=== PATIENT | male | born 1960 | race Caucasian/White ===

== ENCOUNTER 2020-09-07 01:33 | Inpatient (IN) | payer OTHER, SELFPAY ==
[2020-09-07] VITALS (25 sets, daily range): BP systolic 115–146; BP diastolic 60–97; PULSE 120–138; RESP 15–36; TEMP 36.4–39.4; O2SAT 88–99; BMI 51.6
--- NOTE | 2020-09-07 | ECG_ITS ---
Test Reason : CHEST PAIN Blood Pressure : / mmHG Vent. Rate : 129 BPM Atrial Rate : 129 BPM P-R Int : 098 ms QRS Dur : 178 ms QT Int : 346 ms P-R-T Axes : 087 -87 -26 degrees QTc Int : 506 ms Sinus tachycardia Right bundle branch block Abnormal ECG No significant changes when compared with the previous EKG of 07 sep 2020 Referred By: Hamzah Lennon Electronically Signed By:KUMAR RICK
--- NOTE | 2020-09-07 01:41 | ED.SOB ---
HPI - SOB/Dyspnea General Chief Complaint: Dyspnea Stated Complaint: SOB Time Seen by Provider: 09/07/20 01:41 Source: patient Mode of arrival: ambulatory Limitations: no limitations History of Present Illness HPI Narrative: Patient diabetic with history of CHF no known lung condition had family get together during [place] time and since then been complaining of low-grade fever shortness of breath weakness which got worse in last 2 days dry cough+ patient was saturating 89% at room air patient is saturating 99% on 4 L of oxygen via nasal cannula other family members also have mild symptoms MD elicited complaint: shortness of breath and cough (Dry) Severity: moderate Exacerbating factors: coughing Relieving factors: nothing Related Data Home Medications Medication Instructions Recorded Confirmed amlodipine 1 tab PO DAILY 09/07/20 09/07/20 atorvastatin 1 tab PO DAILY 09/07/20 09/07/20 carvedilol 1 tab PO BID 09/07/20 09/07/20 empagliflozin [Jardiance] 1 tab PO DAILY 09/07/20 09/07/20 hydralazine 1 tab PO TID 09/07/20 09/07/20 insulin glargine [Basaglradha Merchant See Protocol SUBCUT DIRECTED 09/07/20 09/07/20 U-100 Insulin] isosorbide mononitrate 1 tab PO QAM 09/07/20 09/07/20 metolazone See Rx Instructions .ROUTE .COMPLEX 09/07/20 09/07/20 pen needle, diabetic [BD 09/07/20 09/07/20 Ultra-Fine Short Pen Needle] torsemide 1 tab PO DAILY 09/07/20 09/07/20 tramadol 2 tab PO Q6H PRN 09/07/20 09/07/20 Allergies Allergy/AdvReac Type Severity Reaction Status Date / Time Penicillins [PENICILLINS] Allergy Severe HIVES Verified 09/07/20 01:59 Review of Systems Review of Systems: Constitutional : No Weight loss, ++ Fever, No Chills ENT/Mouth : No sore throat, No Rhinorrhea Eyes: No Eye Pain, No Swelling Cardiovascular : No Chest Pain, no palpitations Respiratory :+++ Cough, No Sputum, +++ shortness of breath Gastrointestinal : no Nausea, No Vomiting, No Diarrhea, No abdominal Pain, no black stools Genitourinary : No Dysuria, No Urinary Frequency Musculoskeletal : No joint pain, No Myalgias, No Joint Swelling Skin : No Skin Lesions, No rash Neuro : No Weakness, No Numbness, No Dizziness, No Headache Psych : No Anxiety/Panic, No Depression Heme/Lymph: No Bruising, No Lymphadenopathy Endocrine : No Polyuria, No Polydipsia All other systems reviewed and are negative PMFSH Past Medical History Medical History CHF (congestive heart failure) CKD (chronic kidney disease) stage 3, GFR 30-59 ml/min HTN (hypertension) Obesity Surgical History History of knee surgery Social History Social History Advance Directives: No Advance Directives Information Provided: No Physical Exam Vital Signs: Vital Signs: Last Vital Signs Temp 99.6 F 09/07/20 06:00 Pulse 129 H 09/07/20 06:00 Resp 18 09/07/20 06:00 BP 143/71 H 09/07/20 06:00 Pulse Ox 96 09/07/20 06:00 Body Mass Index 51.6 VITAL SIGNS: Reviewed. GENERAL: Well developed, well nourished, in moderate distress. HEAD: Normocephalic/atraumatic, EYES: PERRLA No pallor/icterus noted OROPHARYNX: Oral mucosa moist no oral lesions NECK: Supple, no adenopathy LUNGS: Prolonged expiration with dry cough. No adventitious sounds, tachypneic using accessory muscle use CARDIOVASCULAR: Tachycardia without noted murmurs, no JVD, nonpitting lower extremity edema. ABDOMEN: Soft, non-tender, non-distended with normal bowel sounds. No rigidity. No guarding. No palpable masses or hernias noted MUSCULOSKELETAL: No tenderness, deformities, EXTREMITIES: No cyanosis or edema. SKIN: no rashes, ulcerations, jaundice, pallor, or petechiae NEUROLOGIC: Alert and oriented x 3. Strength and sensation to light touch were grossly intact normal speech Course Course Course Narrative: Patient symptoms looks like COVID chest x-ray diffuse infiltrate saturating 89% at room air improved to 91% on 4 L still tachypneic will place him on high-flow. Also given Decadron IV. Spoke to the vacuum conditioner operator for now admitted to isolation on high-flow and monitor him closely MDM - SOB/Dyspnea MDM Narrative Medical decision making narrative: Patient with COVID positive chest x-ray with diffuse infiltrate came with hypoxia and tachypnea improved after patient placed on high-flow oxygen feeling much much better now at this time patient is on 35 L flow at 40% saturating 97% lab also showed hyperkalemia and worsening renal functions likely prerenal will give him IV fluids and replace potassium Medical Records Attestation: I reviewed the patient's medical records. Lab Data Attestation: I reviewed the patient's lab results. Result diagrams: 09/07/20 02:25 09/07/20 03:45 Labs: Lab Results 09/07/20 09/07/20 09/07/20 Range/Units 02:25 02:25 02:25 WBC 6.2 (4.8-10.8) X10*3/uL RBC 4.23 L (4.60-5.80) X10*6/uL Hgb 12.1 L (14.0-18.0) g/dl Hct 38.1 L (42-52) % MCV 90.1 (80-98) fL MCH 28.6 (27.0-33.0) pg MCHC 31.8 (31.0-36.0) g/dl RDW 16.1 H (11.0-16.0) % Plt Count 137 L (160-400) X10*3/uL MPV 11.3 (9.4-12.4) fL Immature Gran % (Auto) 0.6 H (0.0-0.4) % Neut % (Auto) 87.2 H (45-73) % Lymph % (Auto) 6.9 L (20-40) % [place] % (Auto) 4.6 (2-11) % Eos % (Auto) 0.5 (0-4) % Baso % (Auto) 0.2 (0-2) % Lymph # (Auto) 0.4 L (1.2-4.9) X10*3/uL [place] # (Auto) 0.3 (0.1-1.2) X10*3/uL Eos # (Auto) 0.0 (0.0-0.4) X10*3/uL Baso # (Auto) 0.0 (0.0-0.2) X10*3/uL Abs Immat Gran (auto) 0.04 H (0.00-0.03) X10*3/uL Absolute Neuts (auto) 5.4 (2.0-8.3) X10*3/uL Absolute Nucleated RBC 0.000 (0.0-0.012) X10*3/uL Nucleated RBC % (auto) 0.0 (0.0-0.2) /100WBC Smear Tech's Comments VERIFIED PT 13.3 H (10.8-13.0) SEC INR 1.1 (0.9-1.1) APTT 29.5 (24.1-38.0) SEC D-Dimer Cancelled VBG pH (7.32-7.43) VBG pCO2 mmhg VBG pO2 mmhg VBG HCO3 mmol/L VBG O2 Saturation % VBG Base Excess mmol/L Sodium Cancelled Potassium Cancelled Chloride Cancelled Carbon Dioxide Cancelled Anion Gap Cancelled BUN Cancelled Creatinine Cancelled Estim Creat Clear Calc Cancelled Estimated GFR Cancelled Random Glucose Cancelled Lactic Acid (0.5-2.0) mmol/L Calcium Cancelled Ferritin Cancelled Total Bilirubin Direct Bilirubin AST ALT Alkaline Phosphatase Lactate Dehydrogenase Cancelled Troponin I High Sens (<3.5-35.0) ng/L B-Natriuretic Peptide (<100) pg/mL Total Protein Albumin Coronavirus (PCR) (Negative) Influenza Type A (PCR) (Negative) Influenza Type B (PCR) (Negative) RSV RNA Qual (PCR) (Negative) 09/07/20 09/07/20 09/07/20 Range/Units 02:25 02:25 02:25 WBC (4.8-10.8) X10*3/uL RBC (4.60-5.80) X10*6/uL Hgb (14.0-18.0) g/dl Hct (42-52) % MCV (80-98) fL MCH (27.0-33.0) pg MCHC (31.0-36.0) g/dl RDW (11.0-16.0) % Plt Count (160-400) X10*3/uL MPV (9.4-12.4) fL Immature Gran % (Auto) (0.0-0.4) % Neut % (Auto) (45-73) % Lymph % (Auto) (20-40) % [place] % (Auto) (2-11) % Eos % (Auto) (0-4) % Baso % (Auto) (0-2) % Lymph # (Auto) (1.2-4.9) X10*3/uL [place] # (Auto) (0.1-1.2) X10*3/uL Eos # (Auto) (0.0-0.4) X10*3/uL Baso # (Auto) (0.0-0.2) X10*3/uL Abs Immat Gran (auto) (0.00-0.03) X10*3/uL Absolute Neuts (auto) (2.0-8.3) X10*3/uL Absolute Nucleated RBC (0.0-0.012) X10*3/uL Nucleated RBC % (auto) (0.0-0.2) /100WBC Smear Tech's Comments PT (10.8-13.0) SEC INR (0.9-1.1) APTT (24.1-38.0) SEC D-Dimer VBG pH (7.32-7.43) VBG pCO2 mmhg VBG pO2 mmhg VBG HCO3 mmol/L VBG O2 Saturation % VBG Base Excess mmol/L Sodium Potassium Chloride Carbon Dioxide Anion Gap BUN Creatinine Estim Creat Clear Calc Estimated GFR Random Glucose Lactic Acid (0.5-2.0) mmol/L Calcium Ferritin Total Bilirubin Cancelled Direct Bilirubin Cancelled AST Cancelled ALT Cancelled Alkaline Phosphatase Cancelled Lactate Dehydrogenase Troponin I High Sens 222.4 H (<3.5-35.0) ng/L B-Natriuretic Peptide 229 H (<100) pg/mL Total Protein Cancelled Albumin Cancelled Coronavirus (PCR) POSITIVE A (Negative) Influenza Type A (PCR) NEGATIVE (Negative) Influenza Type B (PCR) NEGATIVE (Negative) RSV RNA Qual (PCR) NEGATIVE (Negative) 09/07/20 09/07/20 09/07/20 Range/Units 02:25 02:52 03:45 WBC (4.8-10.8) X10*3/uL RBC (4.60-5.80) X10*6/uL Hgb (14.0-18.0) g/dl Hct (42-52) % MCV (80-98) fL MCH (27.0-33.0) pg MCHC (31.0-36.0) g/dl RDW (11.0-16.0) % Plt Count (160-400) X10*3/uL MPV (9.4-12.4) fL Immature Gran % (Auto) (0.0-0.4) % Neut % (Auto) (45-73) % Lymph % (Auto) (20-40) % [place] % (Auto) (2-11) % Eos % (Auto) (0-4) % Baso % (Auto) (0-2) % Lymph # (Auto) (1.2-4.9) X10*3/uL [place] # (Auto) (0.1-1.2) X10*3/uL Eos # (Auto) (0.0-0.4) X10*3/uL Baso # (Auto) (0.0-0.2) X10*3/uL Abs Immat Gran (auto) (0.00-0.03) X10*3/uL Absolute Neuts (auto) (2.0-8.3) X10*3/uL Absolute Nucleated RBC (0.0-0.012) X10*3/uL Nucleated RBC % (auto) (0.0-0.2) /100WBC Smear Tech's Comments PT (10.8-13.0) SEC INR (0.9-1.1) APTT (24.1-38.0) SEC D-Dimer VBG pH 7.39 (7.32-7.43) VBG pCO2 51 mmhg VBG pO2 32 mmhg VBG HCO3 30 mmol/L VBG O2 Saturation 58.7 % VBG Base Excess 3.9 mmol/L Sodium 142 Potassium 2.7 L Chloride 101 Carbon Dioxide 29 Anion Gap 15 BUN 60 H Creatinine 4.10 H* Estim Creat Clear Calc 33.0 Estimated GFR 15 Random Glucose 201 H Lactic Acid 1.3 (0.5-2.0) mmol/L Calcium 8.0 L Ferritin 155 Total Bilirubin 0.3 Direct Bilirubin 0.2 AST 28 ALT 18 Alkaline Phosphatase 138 H Lactate Dehydrogenase Troponin I High Sens (<3.5-35.0) ng/L B-Natriuretic Peptide (<100) pg/mL Total Protein 7.3 Albumin 3.6 Coronavirus (PCR) (Negative) Influenza Type A (PCR) (Negative) Influenza Type B (PCR) (Negative) RSV RNA Qual (PCR) (Negative) 09/07/20 09/07/20 Range/Units 03:45 03:45 WBC (4.8-10.8) X10*3/uL RBC (4.60-5.80) X10*6/uL Hgb (14.0-18.0) g/dl Hct (42-52) % MCV (80-98) fL MCH (27.0-33.0) pg MCHC (31.0-36.0) g/dl RDW (11.0-16.0) % Plt Count (160-400) X10*3/uL MPV (9.4-12.4) fL Immature Gran % (Auto) (0.0-0.4) % Neut % (Auto) (45-73) % Lymph % (Auto) (20-40) % [place] % (Auto) (2-11) % Eos % (Auto) (0-4) % Baso % (Auto) (0-2) % Lymph # (Auto) (1.2-4.9) X10*3/uL [place] # (Auto) (0.1-1.2) X10*3/uL Eos # (Auto) (0.0-0.4) X10*3/uL Baso # (Auto) (0.0-0.2) X10*3/uL Abs Immat Gran (auto) (0.00-0.03) X10*3/uL Absolute Neuts (auto) (2.0-8.3) X10*3/uL Absolute Nucleated RBC (0.0-0.012) X10*3/uL Nucleated RBC % (auto) (0.0-0.2) /100WBC Smear Tech's Comments PT (10.8-13.0) SEC INR (0.9-1.1) APTT (24.1-38.0) SEC D-Dimer 589 VBG pH (7.32-7.43) VBG pCO2 mmhg VBG pO2 mmhg VBG HCO3 mmol/L VBG O2 Saturation % VBG Base Excess mmol/L Sodium Potassium Chloride Carbon Dioxide Anion Gap BUN Creatinine Estim Creat Clear Calc Estimated GFR Random Glucose Lactic Acid (0.5-2.0) mmol/L Calcium Ferritin Total Bilirubin Direct Bilirubin AST ALT Alkaline Phosphatase Lactate Dehydrogenase 255 Troponin I High Sens (<3.5-35.0) ng/L B-Natriuretic Peptide (<100) pg/mL Total Protein Albumin Coronavirus (PCR) (Negative) Influenza Type A (PCR) (Negative) Influenza Type B (PCR) (Negative) RSV RNA Qual (PCR) (Negative) ECG Data Attestation: I personally reviewed and interpreted this ECG as follows: Interpretation: Sinus tachycardia ventricular rate 137 beats per minute right bundle branch block no acute ST T wave changes impression no acute ischemia RBBB (old) Discharge Plan Discharge Clinical Impression: COVID-19, Hypoxia, Acute hyperkalemia Acute renal failure Qualifiers: Acute renal failure type: unspecified Qualified Code(s): N17.9 - Acute kidney failure, unspecified Patient Disposition: Admitted As Inpatient
--- NOTE | 2020-09-07 01:53 | XR_ITS ---
EXAMINATION: XR CHEST CLINICAL INFORMATION: Shortness of breath COMPARISON: 09/24/2019 TECHNIQUE: Frontal view of the chest was obtained. FINDINGS: Cardiac leads overlie the chest. The lungs are well expanded. Patchy bilateral airspace opacities. No significant pleural effusion. No pneumothorax. The cardiomediastinal silhouette remains prominent, with a calcified aorta. XR/XR chest 1V IMPRESSION: Nonspecific bilateral patchy opacities. This could be infectious or inflammatory. Edema is possible. Viral pneumonia possible.
[2020-09-07] MEDS: Albuterol Sulfate 90 MCG 8 GM INHALER 4 PUFF INHALE (02:27)
[2020-09-07] MEDS: guaiFEN/Codeine SF 200/20/10ML 10 ML LIQUID PO (02:42)
--- NOTE | 2020-09-07 02:44 | ECG_ITS ---
Test Reason : TACHY Blood Pressure : / mmHG Vent. Rate : 137 BPM Atrial Rate : 137 BPM P-R Int : 094 ms QRS Dur : 162 ms QT Int : 310 ms P-R-T Axes : 099 233 -22 degrees QTc Int : 468 ms Sinus tachycardia Right bundle branch block Abnormal ECG When compared with ECG of 24-SEP-2019 17:08, Vent. rate has increased BY 78 BPM Referred By: Khanh Hilton Electronically Signed By:KUMAR RICK
[2020-09-07 02:49] LABS: Basophils Percent Auto 0.2 % (0-2); Eosinophils Percent Auto 0.5 % (0-4); Hematocrit 38.1 % (42-52); Hemoglobin 12.1 g/dl (14.0-18.0); Imm Gran Abs Auto 0.04 X10*3/uL (0.00-0.03); Imm Gran Pct Auto 0.6 % (0.0-0.4); Lymphocytes Absolute Auto 0.4 X10*3/uL (1.2-4.9); Lymphocytes Percent Auto 6.9 % (20-40); Mean Corpuscular HGB Conc 31.8 g/dl (31.0-36.0); Mean Corpuscular Hemoglobin 28.6 pg (27.0-33.0); Mean Corpuscular Volume 90.1 fL (80-98); Mean Platelet Volume 11.3 fL (9.4-12.4); Monocytes Absolute Auto 0.3 X10*3/uL (0.1-1.2); Monocytes Percent Auto 4.6 % (2-11); Neutrophils Absolute Auto 5.4 X10*3/uL (2.0-8.3); Neutrophils Percent Auto 87.2 % (45-73); Platelet Count 137 X10*3/uL (160-400); Red Blood Count 4.23 X10*6/uL (4.60-5.80); Red Cell Distribution Width 16.1 % (11.0-16.0); SCAN SMEAR FLAG 1; White Blood Count 6.2 X10*3/uL (4.8-10.8)
[2020-09-07] MEDS: Acetaminophen 325 MG TABLET 650 MG PO ×3 (03:01→19:42)
--- NOTE | 2020-09-07 03:04 | PC.NURSE ---
pt assisted to bathroom in [place] while remaining on 4 lpm 02. pt had a bowel movement. pt has frequent cough, reports that his level of dyspnea is reduced after receiving oxygen pt able to speak in full sentences. spo2 ranges frpm 91-93% on 4 lpm. pt reports anterior and bilateral chest wall pain when coughing. pt reports he takes tramadol at home for knee pain. pt also reports that he is a recovering addict, past opiate use.
[2020-09-07 03:09] LABS: MANUAL DIFF FLAG SCAN
[2020-09-07 03:10] LABS: SLIDE REVIEW VERIFIED
[2020-09-07 03:11] LABS: Lactic Acid 1.3 mmol/L (0.5-2.0)
[2020-09-07 03:25] LABS: Base Excess VBG 3.9 mmol/L; HCO3 VBG 30 mmol/L; Oxygen Saturation VBG 58.7 %; PCO2 VBG 51 mmhg; PO2 VBG 32 mmhg; pH VBG 7.39 (7.32-7.43)
[2020-09-07 03:27] LABS: INTERNATIONAL NORM RATIO 1.1 (0.9-1.1); Prothrombin Time 13.3 SEC (10.8-13.0)
[2020-09-07 03:29] LABS: B Type Natriuretic Peptide 229 pg/mL (<100); Troponin-I High Sensitivity 222.4 ng/L (<3.5-35.0)
[2020-09-07 03:30] LABS: Partial Thromboplastin Time 29.5 SEC (24.1-38.0)
[2020-09-07 03:31] LABS: Influenza A PCR NEGATIVE (Negative); Influenza B PCR NEGATIVE (Negative); Resp Syncy Virus RNA Qual PCR NEGATIVE (Negative)
[2020-09-07 03:38] LABS: SARS COV2 PCR INHOUSE POSITIVE (Negative)
--- NOTE | 2020-09-07 03:48 | PC.NURSE ---
PT MOVED TO NEGATIVE PRESSURE ROOM, ONCE AVAILABLE. PT PLACED ON HIGH FLOW NC AT 40% O2 AND 35 L, PER RT. PT FELT IMMEDIATE RELIEF. PT ON THE PHONE WITH FAMILY.
--- NOTE | 2020-09-07 03:53 | PC.NURSE ---
PT IN SINUS TACHYCARDIA WITH WIDE QRS DUE TO RBBB.
[2020-09-07 04:09] LABS: D Dimer 589 NG/ML
[2020-09-07 04:19] LABS: Lactate Dehydrogenase 255 U/L (118-273)
[2020-09-07 04:26] LABS: Alanine Aminotransferase 18 U/L (0-40); Albumin Level 3.6 g/dL (3.5-5.0); Alkaline Phosphatase 138 U/L (39-117); Anion Gap 15 (12-20); Aspartate Amino Transferase 28 U/L (5-37); Bilirubin Direct 0.2 mg/dL (0.0-0.5); Bilirubin Total 0.3 mg/dL (0.0-1.0); Blood Urea Nitrogen 60 mg/dL (9-16); Carbon Dioxide 29 mmol/L (22-29); Chloride 101 mmol/L (96-108); Estimated Glomerular Filt Rate 15; Glucose Random 201 mg/dL (60-115); Potassium 2.7 mmol/l (3.3-5.1); Sodium 142 mmol/L (135-145); Total Protein 7.3 g/dL (6.5-8.0)
[2020-09-07 04:42] LABS: Ferritin 155 ng/mL (20-250)
[2020-09-07] MEDS: 0.9 % Sodium Chloride 1,000 ML 999 ML IVCONT (05:14)
[2020-09-07] MEDS: Potassium Chloride/H20 10 MEQ/100 ML PIGGYBACK 100 MEQ IV (05:15)
[2020-09-07] MEDS: ondansetron HCL 4 MG/2 ML VIAL IVPUSH (06:01)
[2020-09-07] MEDS: Morphine Sulfate 4 MG/ML CARTRIDGE IVPUSH ×2 (06:01→20:35)
--- NOTE | 2020-09-07 06:39 | P.HPHOSP_ITS ---
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 Patient reports that he has been having shortness of breath and cough that has been progressively worsening for the past 1 month worsened in the past 7 days. He usually stays home but has his kids that are in and out of the house. His daughters [id number] was recently diagnosed with COVID and his kids including his son and daughter have symptoms but have not really been tested before. Patient reports that he felt feverish today and his cough became so severe as well as his shortness of breath that he had to come to the hospital. He has a history of CHF but did not feel like he was in volume overload. He has a headache from all the coughing, has abdominal pain from all the coughing. He denies having any loss of appetite, no loss of smell or taste, no chest pain, no urinary symptoms and no lower extremity edema. On arrival to the ED patient was found to be hypoxic satting 89% on room air. Currently on satting 92%, vitals are otherwise significant for temp of 100.5, heart rate of 138, respiratory rate of 36, blood pressure of 140/80. Labs are significant for WBC count of 6.2, hemoglobin of 12.1, hematocrit 38.1, sodium of 142, potassium of 2.7 BUN of 60, creatinine of 4.1 ( baseline around 2.4), high sensitivity troponin of 222, BNP of 229, COVID-19 positive Chest x-ray shows nonspecific bilateral patchy opacities. Past medical history:CHF, CKD,, hypertension, obesity, diabetes Past surgical history: Denies Family history: Denies social history: Lives with family, denies any tobacco alcohol or illicit drugs at this time Review of Systems Review of Systems: Yes all other systems are reviewed and are negative [facility] Medical History CHF (congestive heart failure) CKD (chronic kidney disease) stage 3, GFR 30-59 ml/min HTN (hypertension) Obesity Surgical History History of knee surgery Social History Advance Directives: No Advance Directives Information Provided: No Meds Allergies Allergy/AdvReac Type Severity Reaction Status Date / Time Penicillins [PENICILLINS] Allergy Severe HIVES Verified 09/07/20 01:59 Home Medications Medication Instructions Recorded Confirmed Type amlodipine 1 tab PO DAILY 09/07/20 09/07/20 History atorvastatin 1 tab PO DAILY 09/07/20 09/07/20 History carvedilol 1 tab PO BID 09/07/20 09/07/20 History empagliflozin [Jardiance] 1 tab PO DAILY 09/07/20 09/07/20 History hydralazine 1 tab PO TID 09/07/20 09/07/20 History insulin glargine [Basaglar KwikPen See Protocol SUBCUT DIRECTED 09/07/20 09/07/20 History U-100 Insulin] isosorbide mononitrate 1 tab PO QAM 09/07/20 09/07/20 History metolazone See Rx Instructions .ROUTE .COMPLEX 09/07/20 09/07/20 History pen needle, diabetic [BD 09/07/20 09/07/20 History Ultra-Fine Short Pen Needle] torsemide 1 tab PO DAILY 09/07/20 09/07/20 History tramadol 2 tab PO Q6H PRN 09/07/20 09/07/20 History Physical Exam Vital Signs and Narrative: Vital Signs: Last Vital Signs Temp 99.6 F 09/07/20 06:00 Pulse 129 H 09/07/20 06:00 Resp 18 09/07/20 06:00 BP 143/71 H 09/07/20 06:00 Pulse Ox 96 09/07/20 06:00 Body Mass Index 51.6 Const: General: cooperative and no acute distress Orientation/consciousness: patient oriented x3 Eyes: General: appearance normal, both eyes and all related structures Resp: Other: Patient sitting upright in bed, has difficulty breathing when talking, tachypneic Cardio: Other: Tachycardic Rhythm: regular rhythm GI: Palpation (GI): Soft to palpation Auscultation: normal bowel sounds Skin: General skin exam: no rashes or lesions noted Neuro: General: patient oriented x3 Cognition (Neuro): normal cognition Extrem: General: Yes normal to inspection and Yes no pedal edema Results Labs CBC and Chem 7: 09/07/20 02:25 09/07/20 03:45 Labs: Laboratory Results - last 24 hr 09/07/20 09/07/20 09/07/20 02:25 02:25 02:25 MCV 90.1 MCH 28.6 MCHC 31.8 RDW 16.1 H Plt Count 137 L MPV 11.3 Immature Gran % (Auto) 0.6 H Neut % (Auto) 87.2 H Lymph % (Auto) 6.9 L [place] % (Auto) 4.6 Eos % (Auto) 0.5 Baso % (Auto) 0.2 Lymph # (Auto) 0.4 L [place] # (Auto) 0.3 Eos # (Auto) 0.0 Baso # (Auto) 0.0 Abs Immat Gran (auto) 0.04 H Absolute Neuts (auto) 5.4 Absolute Nucleated RBC 0.000 Nucleated RBC % (auto) 0.0 Smear Tech's Comments VERIFIED PT 13.3 H INR 1.1 APTT 29.5 D-Dimer Cancelled VBG pH VBG pCO2 VBG pO2 VBG HCO3 VBG O2 Saturation VBG Base Excess Anion Gap Cancelled Estim Creat Clear Calc Cancelled Estimated GFR Cancelled Random Glucose Cancelled Lactic Acid Calcium Cancelled Ferritin Cancelled Total Bilirubin Direct Bilirubin AST ALT Alkaline Phosphatase Lactate Dehydrogenase Cancelled Troponin I High Sens B-Natriuretic Peptide Total Protein Albumin Coronavirus (PCR) Influenza Type A (PCR) Influenza Type B (PCR) RSV RNA Qual (PCR) 09/07/20 09/07/20 09/07/20 02:25 02:25 02:25 MCV MCH MCHC RDW Plt Count MPV Immature Gran % (Auto) Neut % (Auto) Lymph % (Auto) [place] % (Auto) Eos % (Auto) Baso % (Auto) Lymph # (Auto) [place] # (Auto) Eos # (Auto) Baso # (Auto) Abs Immat Gran (auto) Absolute Neuts (auto) Absolute Nucleated RBC Nucleated RBC % (auto) Smear Tech's Comments PT INR APTT D-Dimer VBG pH VBG pCO2 VBG pO2 VBG HCO3 VBG O2 Saturation VBG Base Excess Anion Gap Estim Creat Clear Calc Estimated GFR Random Glucose Lactic Acid Calcium Ferritin Total Bilirubin Cancelled Direct Bilirubin Cancelled AST Cancelled ALT Cancelled Alkaline Phosphatase Cancelled Lactate Dehydrogenase Troponin I High Sens 222.4 H B-Natriuretic Peptide 229 H Total Protein Cancelled Albumin Cancelled Coronavirus (PCR) POSITIVE A Influenza Type A (PCR) NEGATIVE Influenza Type B (PCR) NEGATIVE RSV RNA Qual (PCR) NEGATIVE 09/07/20 09/07/20 09/07/20 02:25 02:52 03:45 MCV MCH MCHC RDW Plt Count MPV Immature Gran % (Auto) Neut % (Auto) Lymph % (Auto) [place] % (Auto) Eos % (Auto) Baso % (Auto) Lymph # (Auto) [place] # (Auto) Eos # (Auto) Baso # (Auto) Abs Immat Gran (auto) Absolute Neuts (auto) Absolute Nucleated RBC Nucleated RBC % (auto) Smear Tech's Comments PT INR APTT D-Dimer VBG pH 7.39 VBG pCO2 51 VBG pO2 32 VBG HCO3 30 VBG O2 Saturation 58.7 VBG Base Excess 3.9 Anion Gap 15 Estim Creat Clear Calc 33.0 Estimated GFR 15 Random Glucose 201 H Lactic Acid 1.3 Calcium 8.0 L Ferritin 155 Total Bilirubin 0.3 Direct Bilirubin 0.2 AST 28 ALT 18 Alkaline Phosphatase 138 H Lactate Dehydrogenase Troponin I High Sens B-Natriuretic Peptide Total Protein 7.3 Albumin 3.6 Coronavirus (PCR) Influenza Type A (PCR) Influenza Type B (PCR) RSV RNA Qual (PCR) 09/07/20 09/07/20 03:45 03:45 MCV MCH MCHC RDW Plt Count MPV Immature Gran % (Auto) Neut % (Auto) Lymph % (Auto) [place] % (Auto) Eos % (Auto) Baso % (Auto) Lymph # (Auto) [place] # (Auto) Eos # (Auto) Baso # (Auto) Abs Immat Gran (auto) Absolute Neuts (auto) Absolute Nucleated RBC Nucleated RBC % (auto) Smear Tech's Comments PT INR APTT D-Dimer 589 VBG pH VBG pCO2 VBG pO2 VBG HCO3 VBG O2 Saturation VBG Base Excess Anion Gap Estim Creat Clear Calc Estimated GFR Random Glucose Lactic Acid Calcium Ferritin Total Bilirubin Direct Bilirubin AST ALT Alkaline Phosphatase Lactate Dehydrogenase 255 Troponin I High Sens B-Natriuretic Peptide Total Protein Albumin Coronavirus (PCR) Influenza Type A (PCR) Influenza Type B (PCR) RSV RNA Qual (PCR) Imaging Radiologist's Impressions: Impressions Chest X-Ray 09/07/20 01:53 IMPRESSION: Nonspecific bilateral patchy opacities. This could be infectious or inflammatory. Edema is possible. Viral pneumonia possible. Assessment and Plan (1) Pneumonia due to COVID-19 virus: Status: Acute (2) Sepsis: Status: Acute (3) Acute respiratory failure with hypoxia: Status: Acute (4) Acute kidney injury superimposed on CKD: Status: Acute (5) Hypokalemia: Status: Acute This is a pleasant 60-year-old male with past medical history of CHF who presents to the hospital with complaints of shortness of breath found to have COVID-19 pneumonia # sepsis - secondary to COVID-19 pneumonia - cultures obtained, will follow - will start patient on Decadro - hold starting antibiotics at this time - consult infectious disease # COVID-19 pneumonia - COVID positive, chest x-ray typical of COVID infection - had indirect contact with a positive COVID patient Plan: - Decadron 6 mg daily - consult infectious disease for possible remdesivir - O2 as required - will monitor respiratory status # acute respiratory failure with hypoxia - secondary to above - Decadron as above - monitor respiratory status # SAQIB and CKD - most likely prerenal - will start on gentle hydration as patient has history of CHF - follow BMP - urine studies # hypokalemia - will replete and follow repeat BMP # HTN - elevated - continue amlodipine, carvedilol, hydralazine # diabetes - continue home insulin, will start him on low-dose sliding scale insulin as well - hold hyperglycemic oral medications - diabetic diet, POC q.i.d. a.c. DVT prophylaxis: Heparin subQ
--- NOTE | 2020-09-07 07:14 | CT_ITS ---
EXAMINATION: CT CHEST WITHOUT CONTRAST CLINICAL INFORMATION: Hypoxia. COVID. COMPARISON: CT pulmonary angiogram dated 11/30/2016 TECHNIQUE: Multidetector volumetric CT imaging of the chest was done. Axial MIP volume rendering provided. Sagittal and coronal reformatted images were obtained. This CT examination was performed using dose optimization techniques as appropriate, variously including the following: *Automated exposure control *Adjustment of mA and/or kV according to patient size (this includes techniques or standardized protocols for targeted exams where dose is matched to indication/reason for exam; i.e. extremities or head) *Use of iterative reconstruction technique DLP: 696 mGy-cm FINDINGS: LUNGS: Diffuse bilateral rounded groundglass and consolidative opacities,, the latter particularly within the medial right lower lobe and medial segment of the middle lobe. Central airways are clear. No pneumothorax. MEDIASTINUM: Mild cardiomegaly unchanged. No pericardial effusion. Great vessels normal caliber. Mild coronary calcifications. Stable mediastinal and bilateral hilar adenopathy PLEURA: There is no pleural effusion. No pleural mass or thickening. CHEST WALL/AXILLA: No lymphadenopathy. Gynecomastia. UPPER ABDOMEN: Mild hepatosplenomegaly. Early cirrhosis suspected. Radiologically contracted. Diverticulosis. OSSEOUS STRUCTURES: No acute or suspicious osseous abnormalities. CT/CT chest wo con IMPRESSION: * Findings compatible with COVID pneumonitis. * Stable mediastinal and bilateral hilar adenopathy since 2017, nonspecific. * Hepatosplenomegaly, likely with early cirrhosis. * Diverticulosis.
[2020-09-07 08:28] LABS: Glucose, Whole Blood 259 mg/dL (60-115)
[2020-09-07 08:59] LABS: Troponin-I High Sensitivity 273.3 ng/L (<3.5-35.0)
[2020-09-07] MEDS: Potassium Chloride Packet 20 MEQ PACKET 40 MEQ PO ×2 (10:27→20:14)
[2020-09-07] MEDS: Lactated Ringers 1,000 ML 80 ML IVCONT ×2 (10:40→21:21)
[2020-09-07 11:02] LABS: Creatinine Urine 81.83 mg/dL
--- NOTE | 2020-09-07 11:28 | PC.NURSE ---
unlabored resp. coarse bases. skin pwd. axox3. sitting upright. spking full sentences. po fluids provided. awaiting bed assignment.
[2020-09-07 12:49] LABS: Glucose, Whole Blood 245 mg/dL (60-115)
[2020-09-07] MEDS: Insulin Lispro 100 UNIT/ML 3 ML VIAL SUBCUT ×3 (14:25→20:18)
--- NOTE | 2020-09-07 15:17 | P.EN_ITS ---
Event Note Date of Service: 09/07/20 Event Note: Patient seen and examined in ED. He was admitted earlier today. 60/m with HTN, Obesity, likely hypoventilation, CKD3. He presented with SOB. He relates that has been ill with SOB for nearly a months and has progressively worsened the last 7 days. He has not been tested for covid. Multiple relatives have contracted the virus. He presented to day due to worsening of sympoms including fever, and worsening cough. He was hypoxic with O2 89 on, tachypnic, resp rate o f 36 and has had temperature up to 102 and tachycadic up to 150. He has been upgraded to high flow oxygen an stating around 92. Labs work show hypOkalemia of 2.7, Creatinine is elevated at 4. CT shows covid pneumonia pattern. 1. Acute hypoxic respiratoryfailure 2. Covid PNA 3. Covid sepsis -O2 by high flow O2 -IV dexamethasone -He may be out of therapeutic window for Remdesevir/Plasma -Empiric Abx with (Ceftriaxone and Azithro) -ID and Pulmonoary consults 4. Hypoventilation syndrome--May benefit from CPAP 5. SAQIB on CKD--Nephrology consult. IVF 6. DM--will continue insulin, he is on 7. HNT--he is on Norvasc 10, Hydralazine 50 tid, Cored 25 bid, Imdur--hasn't taken meds today will give asa[ 8. Chronic heart failure--Torsemide. Hold today due to renal failure 9. HypOkalemia--replaced with Oral K, will repeat. This is a potential sick patient that could detelirate quickly, for now he's stable but we should have little hesitation to transfer to ICU
--- NOTE | 2020-09-07 15:41 | PC.NURSE ---
rn to rn with amy. cash consulted re need for cta but renal function doesn't allow fr cta.
--- NOTE | 2020-09-07 16:00 | PC.NURSE ---
sa o2 dropping while patient supine and sleeping. improves with sitting upright on edge of bed.
[2020-09-07 17:08] LABS: Glucose, Whole Blood 267 mg/dL (60-115)
[2020-09-07] MEDS: Heparin Sodium,Porcine 5,000 UNIT/ML VIAL 5000 UNIT SUBCUT (17:19)
[2020-09-07] MEDS: Atorvastatin Calcium 20 MG TABLET PO (17:20)
[2020-09-07] MEDS: dexAMETHasone sod phosphate 4 MG/ML VIAL 6 MG IVPUSH (17:20)
[2020-09-07] MEDS: Torsemide 20 MG TABLET PO (17:20)
[2020-09-07] MEDS: hydrALAZINE HCl 50 MG TABLET PO ×2 (17:21→20:16)
[2020-09-07] MEDS: carvediloL 25 MG TABLET PO ×2 (17:21→20:16)
[2020-09-07] MEDS: Morphine Sulfate 2 MG/ML CARTRIDGE IVPUSH (17:22)
[2020-09-07] MEDS: amLODIPine Besylate 10 MG TABLET PO (17:22)
[2020-09-07] MEDS: 0.9 % Sodium Chloride Flush 3 ML SYRINGE IVFLUSH (17:22)
[2020-09-07 18:01] LABS: Anion Gap 17 (12-20); Blood Urea Nitrogen 59 mg/dL (9-16); Calcium 7.7 mg/dL (8.4-10.2); Carbon Dioxide 26 mmol/L (22-29); Chloride 101 mmol/L (96-108); Estimated Glomerular Filt Rate 17; Glucose Random 308 mg/dL (60-115); Potassium 3.4 mmol/l (3.3-5.1); Sodium 141 mmol/L (135-145)
[2020-09-07] MEDS: cefTRIAXone sodium 1 GM in 0.9 % Sodium Chloride 50 ML IV (18:30)
--- NOTE | 2020-09-07 19:08 | PC.NURSE ---
Patient admitted from ED at approximately 1730. Patient HR 130s at rest. Pt stated that this is his normal resting HR. Vitals otherwise stable. OOB to chair. On highflow NC. complaints of rib pain related to frequent coughing. Medicated with PRN morphine with positive effect. Will continue to monitor.
[2020-09-07] MEDS: traMADoL HCL 50 MG TABLET 25 MG PO (19:45)
[2020-09-07] MEDS: Insulin Glargine,Hum.rec.anlog 100 UNIT/ML 10 ML VIAL 25 UNIT SUBCUT (20:18)
[2020-09-07 20:32] LABS: Glucose, Whole Blood 335 mg/dL (60-115)
[2020-09-07] MEDS: traZODone HCL 25 MG HALFTAB PO (20:35)
[2020-09-07 20:36] LABS: Troponin-I High Sensitivity 122.1 ng/L (<3.5-35.0)
--- NOTE | 2020-09-07 21:30 | PC.NURSE ---
Upon start of shift at 1900, patient was notably tachycardic in the 130-140's on the heart monitor. Per report received, patient has been tachy since arrival to the hospital and he states that he normally has a heart rate in the 140's . Upon assessment of patient he is noticeably tachypneic despite being on hiflow, tachycardic in the 130's and complaining of generalized chest pain predominately on the right side of his chest. Per Dr. Jenkins' order, rectal temp obtained with a reading of 99 Fahrenheit and MD informed. In response to patients mild temperature and presentation, Tylenol prn was administered, repeat Troponin was drawn and another EKG performed. This RN also spoke with Dr. Marshall who wanted an update on patients status- he suggested perhaps a VQ scan and would consult with [facility]. Patient was also medicated with IV Morphine which significantly helped with work of breathing and also relieved patient of chest pain. He currently has no complaints at this time. He is resting comfortably in the recliner, still sinus tach on the monitor in the 130's, RR 18 and pulse ox 94%.
--- NOTE | 2020-09-07 21:49 | PC.NURSE ---
Per Dr. Lennon, since patient is normally tachycardic and is no longer complaining of chest pain- parameters changed on tele monitor for alarm.
[2020-09-08] VITALS (21 sets, daily range): BP systolic 117–155; BP diastolic 73–98; PULSE 73–139; RESP 12–30; TEMP 36.8–38.1; O2SAT 90–97
--- NOTE | 2020-09-08 | XR_ITS ---
EXAMINATION: XR CHEST CLINICAL INFORMATION: Question fluid overload. Hypoxia. COMPARISON: Chest CT dated 09/07/2019. TECHNIQUE: Frontal view of the chest was obtained. FINDINGS: Diffuse patchy bilateral airspace opacities, significantly increased when compared to the prior examination. No pleural effusion or pneumothorax. Cardiomegaly is redemonstrated. XR/XR chest 1V IMPRESSION: Patchy bilateral airspace opacities, significantly increased when compared to the prior examination. Findings could represent progressing Covid pneumonia. Stable cardiomegaly. No pleural effusion.
--- NOTE | 2020-09-08 | NM_ITS ---
EXAMINATION: NM LUNG IMAGE PERFUSION CLINICAL INFORMATION: Hypoxia, rule out PE COMPARISON: None TECHNIQUE: Following intravenous administration of 4.0 mCi of 99m Tc MAA, imaging of both lungs were obtained in multiple projections. Ventilation study was not performed. FINDINGS: There is normal perfusion seen to both lungs without subsegmental subsegmental defect. Soft tissues are normal. NM/NM pul perfusion IMPRESSION: Normal perfusion scan.
--- NOTE | 2020-09-08 | ECG_ITS ---
Test Reason : tachycardia Blood Pressure : / mmHG Vent. Rate : 137 BPM Atrial Rate : 137 BPM P-R Int : 082 ms QRS Dur : 164 ms QT Int : 336 ms P-R-T Axes : 080 270 -22 degrees QTc Int : 507 ms Sinus tachycardia vs atrial flutter Left axis deviation Right bundle branch block Abnormal ECG When compared to the previous EKG of No significant changes seen Referred By: Monica Shields Electronically Signed By:Fernando Marino
[2020-09-08] MEDS: Heparin Sodium,Porcine 5,000 UNIT/ML VIAL 5000 UNIT SUBCUT ×2 (05:12→17:02)
[2020-09-08 05:40] LABS: Anion Gap 16 (12-20); Blood Urea Nitrogen 65 mg/dL (9-16); Calcium 8.1 mg/dL (8.4-10.2); Carbon Dioxide 26 mmol/L (22-29); Chloride 103 mmol/L (96-108); Creatinine Clr Calc Pharmacy 37.7; Estimated Glomerular Filt Rate 18; Glucose Random 290 mg/dL (60-115); Hematocrit 40.2 % (42-52); Hemoglobin 12.9 g/dl (14.0-18.0); Imm Gran Abs Auto 0.02 X10*3/uL (0.00-0.03); Imm Gran Pct Auto 0.6 % (0.0-0.4); Lymphocytes Absolute Auto 0.3 X10*3/uL (1.2-4.9); Lymphocytes Percent Auto 9.3 % (20-40); MANUAL DIFF FLAG SCAN; Mean Corpuscular HGB Conc 32.1 g/dl (31.0-36.0); Mean Corpuscular Hemoglobin 28.9 pg (27.0-33.0); Mean Corpuscular Volume 90.1 fL (80-98); Mean Platelet Volume 11.4 fL (9.4-12.4); Monocytes Absolute Auto 0.2 X10*3/uL (0.1-1.2); Monocytes Percent Auto 4.4 % (2-11); Neutrophils Absolute Auto 2.9 X10*3/uL (2.0-8.3); Neutrophils Percent Auto 85.7 % (45-73); Platelet Count 106 X10*3/uL (160-400); Potassium 3.7 mmol/l (3.3-5.1); Red Blood Count 4.46 X10*6/uL (4.60-5.80); Red Cell Distribution Width 15.9 % (11.0-16.0); SCAN SMEAR FLAG 1; Sodium 141 mmol/L (135-145); White Blood Count 3.4 X10*3/uL (4.8-10.8)
[2020-09-08 06:14] LABS: SLIDE REVIEW VERIFIED
[2020-09-08 08:11] LABS: Glucose, Whole Blood 267 mg/dL (60-115)
[2020-09-08 08:38] LABS: SARS COV2 IgG Negative (Negative)
[2020-09-08] MEDS: Insulin Glargine,Hum.rec.anlog 100 UNIT/ML 10 ML VIAL 25 UNIT SUBCUT (08:51)
[2020-09-08] MEDS: Insulin Lispro 100 UNIT/ML 3 ML VIAL SUBCUT ×4 (08:51→21:43)
[2020-09-08] MEDS: Potassium Chloride Packet 20 MEQ PACKET 40 MEQ PO (08:52)
[2020-09-08] MEDS: 0.9 % Sodium Chloride Flush 3 ML SYRINGE IVFLUSH ×2 (08:52→17:00)
[2020-09-08] MEDS: amLODIPine Besylate 10 MG TABLET PO (08:52)
[2020-09-08] MEDS: dexAMETHasone sod phosphate 4 MG/ML VIAL 6 MG IVPUSH ×2 (08:52→21:44)
[2020-09-08] MEDS: hydrALAZINE HCl 50 MG TABLET PO ×3 (08:53→21:48)
[2020-09-08] MEDS: Isosorbide Mononitrate 60 MG TAB.ER.24H PO (08:54)
[2020-09-08] MEDS: carvediloL 25 MG TABLET PO ×2 (08:55→21:47)
[2020-09-08] MEDS: Torsemide 20 MG TABLET PO (08:55)
[2020-09-08] MEDS: Atorvastatin Calcium 20 MG TABLET PO (08:56)
--- NOTE | 2020-09-08 10:57 | P.PNIM_ITS ---
Subjective Subjective Date of Service: 09/08/20 Interval History: Seen in follow up for acute hypoxic respiratory failure due to covid and likely hypoventilatioin syndrome. He feels better. On high flow O2 with sat around 96 . Review of Systems Gen: no fever Resp: has sob and cough CV: no chest, +BARRIENTOS, no leg edema GI: No n/v, no abd pain Neuro: No confusion Physical Exam Vital Signs: Vital Signs: Last Vital Signs Temp 98.6 F 09/08/20 08:00 Pulse 130 H 09/08/20 08:55 Resp 20 09/08/20 08:00 BP 151/90 H 09/08/20 08:55 Pulse Ox 94 09/08/20 08:00 Body Mass Index 51.6 Const: General: cooperative and no acute distress Resp: Other: Patient sitting up in chair, looks comfortable able to talk in full sentences which he had trouble with yesterday Cardio: Other: tachycarid Rhythm: regular rhythm GI: Inspection: Yes normal to inspection Skin: General skin exam: no rashes or lesions noted Neuro: Cognition (Neuro): normal cognition Extrem: General: Yes normal to inspection and Yes no pedal edema Objective Data Current Medications Generic Name Dose Route Start Last Admin Trade Name Freq PRN Reason Stop Dose Admin Acetaminophen 650 mg 09/07/20 16:46 09/07/20 19:42 Acetaminophen 325 Mg Tablet PO 650 mg Q6H PRN Administration Pain, Mild (Pain Scale 1-3) Amlodipine Besylate 10 mg 09/07/20 16:46 09/08/20 08:52 Amlodipine Besylate 10 Mg Tablet PO 10 mg DAILY KOJO Administration Protocol Atorvastatin Calcium 20 mg 09/07/20 16:46 09/08/20 08:56 Atorvastatin Calcium 20 Mg Tablet PO 20 mg DAILY KOJO Administration Carvedilol 25 mg 09/07/20 16:46 09/08/20 08:55 Carvedilol 25 Mg Tablet PO 25 mg BID KOJO Administration Protocol Dexamethasone Sodium Phosphate 6 mg 09/07/20 16:46 09/08/20 08:52 Dexamethasone Sod Phosphate 4 Mg/Ml Vial IVPUSH 6 mg DAILY KOJO Administration Docusate Sodium 100 mg 09/07/20 16:46 Docusate Sodium 100 Mg Capsule PO DAILY PRN Constipation Famotidine 20 mg 09/08/20 21:00 Famotidine 20 Mg Tablet PO BEDTIME [facility] Heparin Sodium (Porcine) 5,000 unit 09/07/20 18:00 09/08/20 05:12 Heparin Sodium,Porcine 5,000 Unit/Ml Vial SUBCUT 5,000 unit Q12H KOJO Administration Hydralazine HCl 50 mg 09/07/20 16:46 09/08/20 08:53 Hydralazine Hcl 50 Mg Tablet PO 50 mg TID [facility] Administration Protocol Lactated Ringer's 1,000 mls @ 80 mls/hr 09/07/20 07:00 09/07/20 21:21 Lr IVCONT 80 mls/hr .[id number] [facility] Administration Ceftriaxone Sodium 1 gm/ 50 mls @ 100 mls/hr 09/07/20 18:00 09/07/20 19:30 Sodium Chloride IV Infused Q24H [facility] Infusion Doxycycline Hyclate 100 mg/ 250 mls @ 166.67 mls/hr 09/08/20 11:00 Sodium Chloride IV Q12H [facility] Insulin Glargine 25 unit 09/07/20 21:00 09/08/20 08:51 Insulin Glargine,Hum.Rec.Anlog 100 Unit/Ml 10 Ml Vial SUBCUT 25 unit BID [facility] Administration Insulin Human Lispro 0 unit 09/07/20 07:30 09/08/20 08:51 Insulin Lispro 100 Unit/Ml 3 Ml Vial SUBCUT 6 unit QIDACHS [facility] Administration Protocol Isosorbide Mononitrate 60 mg 09/08/20 09:00 09/08/20 08:54 Isosorbide Mononitrate 60 Mg Tab.Er.24h PO 60 mg DAILY [facility] Administration Protocol Morphine Sulfate 2 mg 09/07/20 14:57 09/07/20 17:22 Morphine Sulfate 2 Mg/Ml Cartridge IVPUSH 2 mg Q4H PRN Administration Pain, Severe (Pain Scale 7-10) Non-Formulary Medication 10 mg 09/08/20 09:00 Empagliflozin [Jardiance] PO DAILY [facility] Ondansetron HCl 4 mg 09/07/20 16:46 Ondansetron Hcl 4 Mg/2 Ml Vial IVPUSH Q8H PRN Nausea and Vomiting Pharmacy Consult 1 each 09/07/20 06:47 Consult Rx Perform Med Rec MISCELLANE ONCE PRN Consult order Sodium Chloride 3 ml 09/07/20 16:46 09/08/20 08:52 0.9 % Sodium Chloride Flush 3 Ml Syringe IVFLUSH 3 ml QSHIFT KOJO Administration Torsemide 20 mg 09/07/20 16:46 09/08/20 08:55 Torsemide 20 Mg Tablet PO 20 mg DAILY KOJO Administration Protocol Tramadol HCl 100 mg 09/07/20 16:46 Tramadol Hcl 50 Mg Tablet PO Q6H PRN pain Zinc Sulfate 220 mg 09/08/20 10:45 Zinc Sulfate 220 Mg Capsule PO DAILY [facility] Labs CBC & Chem 7: 09/08/20 04:38 09/08/20 04:38 Microbiology Microbiology Results: Microbiology 09/07/20 02:25 Blood - Venous Blood Culture - Preliminary No growth after 24 hours. 09/07/20 02:25 Blood - Venous Blood Culture - Preliminary No growth after 24 hours. Assessment and Plan (1) Pneumonia due to COVID-19 virus: Status: Acute (2) Sepsis: Status: Acute (3) Acute respiratory failure with hypoxia: Status: Acute (4) Acute kidney injury superimposed on CKD: Status: Acute (5) Hypokalemia: Status: Acute Assessment and Plan: 60/m with HTN, Obesity, likely hypoventilation, Diabetes, CKD3. He presented with SOB. He relates that has been ill with SOB for nearly a months and has progressively worsened the last 7 days. He had not been tested for covid utnil now. Multiple relatives he has been in contact with have contracted the virus. He presented due to worsening of sympoms including fever, and worsening cough and SOB. He was hypoxic with O2 89 on RA, tachypnic, resp rate of 36 and has had temperature up to 102 and tachycadic up to 150. He has been upgraded to high f low oxygen an stating around 96. Labs work showed hypOkalemia of 2.7, Creatinine is elevated at 4. CT shows covid pneumonia pattern. # Viral sepsis - secondary to COVID-19 pneumonia - cultures obtained, will follow -treat underlying covid as below -ID consut # COVID-19 pneumonia as seen on XR and CT, covid IgG negative #Acute hypoxic respiratory failure -IV decadrone -Oxygen by high flow now -Doxy and Ceftriaxone empirically in case bacterial superinfection -Given Persistent tachycardia despite several dose of Coreg and increase in DDimer will get a VQ scan -ID and pulmonary consult -closely monitor respiratory status # SAQIB and CKD--Better. Hold IVF, high risk for pulmonary edema -renal consult # hypokalemia--Corected K is now 3.7 # HTN - continue amlodipine, carvedilol, hydralazine and imdur #HLD--Lipitor # diabetes--FBS 267, on Lantus 100 bid at home -started on 25 bid, will increase to 35 bid -SSI and ADA diet #Chronic heart failure--suspect right heart failure--Resume Torsemide after checking with renal DVT prophylaxis: Heparin subQ
--- NOTE | 2020-09-08 11:30 | PM.CNPUL ---
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 Patient reports that he has been having shortness of breath and cough that has been progressively worsening for the past 2 weeks, but worsened in the past 7 days. He usually stays home but has his kids that are in and out of the house. His daughters [id number] was recently diagnosed with COVID and his kids including his son and daughter have symptoms but have not really been tested before. Patient reports that he felt feverish today and his cough became so severe as well as his shortness of breath that he had to come to the hospital. In the hospitral he required HF for acute resp failure and CT chest with extensive nodular GG densities in a bronchovascular distribution suggesting hemotagenous spread. He is also c/o SSCP pleuritic in nature and has significant trachicardia. He will go for a perfusion scan now. Review of Systems Constitutional: Constitutional: Reports fatigue, Reports fever(s), Reports malaise and Denies night sweats ENT: Denies change in voice, Denies lip swelling, Denies mouth pain, Reports nasal congestion, Reports nasal discharge and Denies tongue swelling Cardiovascular: Cardiovascular: Reports chest pain and Reports dyspnea Respiratory: Respiratory: Reports chest congestion, Reports cough, Reports pain on inspiration, Reports pain with cough and Reports dyspnea Gastrointestinal: Gastrointestinal: Denies abdominal pain Musculoskeletal: Musculoskeletal: Denies no additional musculoskeletal complaints Neurologic: Denies Neuro-related abnormal movements Psychiatric: Psychiatric: Denies no additional psychiatric complaints Endocrine: Endocrine: Reports fatigue Hematologic/Lymphatic: Hematologic/Lymphatic: Denies easy bleeding and Denies lymphadenopathy Allergic/Immunologic: Allergic/Immunologic: Denies lip swelling and Denies tongue swelling PMFSH Past Medical History Medical History CHF (congestive heart failure) CKD (chronic kidney disease) stage 3, GFR 30-59 ml/min HTN (hypertension) Obesity Surgical History Surgical History History of knee surgery Social History Social History Household Members: Spouse Housing: House Do you presently have visiting nurse or other home services: No Alcohol intake: never Smoking Status: Former smoker Smoked in Last 30 Days: No Patient Interested in Nicotine Replacement: No Patient Given Instructions on How to Stop Smoking: No Second Hand Smoke Exposure: No Use of substances other than those prescribed or required for medical reasons: No Currently Displaying Signs/Symptoms of Drug Intoxication Withdrawal: No Any prior treatment program specific to substance use: No Have you been hit, kicked, punched, or otherwise hurt by someone within the past year? If so, by whom?: No Do you feel safe in your current relationship?: Yes Is there a partner from a previous relationship who is making you feel unsafe now?: No Are you made to feel afraid or neglected: No Advance Directives: No Advance Directives Information Provided: No Advance Directives on File: No Do you have thoughts of harming others: None Do you have a plan to hurt others: No Plan Recently lost weight without trying: No Meds Allergies Allergy/AdvReac Type Severity Reaction Status Date / Time Penicillins [PENICILLINS] Allergy Severe HIVES Verified 09/07/20 01:59 Home Medications Medication Instructions Recorded Confirmed Type amlodipine 10 mg PO DAILY 09/07/20 09/07/20 History atorvastatin 20 mg PO DAILY 09/07/20 09/07/20 History carvedilol 25 tab PO BID 09/07/20 09/07/20 History empagliflozin [Jardiance] 10 mg PO DAILY 09/07/20 09/07/20 History hydralazine 50 mg PO TID 09/07/20 09/07/20 History insulin glargine [Basaglar KwikPen See Protocol SUBCUT DIRECTED 09/07/20 09/07/20 History U-100 Insulin] isosorbide mononitrate 60 mg PO QAM 09/07/20 09/07/20 History metolazone See Rx Instructions .ROUTE .COMPLEX 09/07/20 09/07/20 History pen needle, diabetic [BD 09/07/20 09/07/20 History Ultra-Fine Short Pen Needle] torsemide 100 mg PO BID 09/07/20 09/07/20 History tramadol 2 tab PO Q6H PRN 09/07/20 09/07/20 History Physical Exam Vital Signs: Vital Signs: Last Vital Signs Temp 98.6 F 09/08/20 08:00 Pulse 130 H 09/08/20 08:55 Resp 20 09/08/20 08:00 BP 151/90 H 09/08/20 08:55 Pulse Ox 94 09/08/20 08:00 Body Mass Index 51.6 Const: General: alert HENMT: General nose exam: Abnormal external nose present and Nasal discharge present Eyes: Pupils: Equal, round and reactive pupils present Neck: Neck: Yes normal visual inspection, Yes full ROM and Yes no lymphadenopathy Chest: Chest palpation & inspection: normal inspection of the chest Resp: Auscultation: diminished lung sounds Cardio: Rate: tachycardic Rhythm: regular rhythm and abnormal rhythm Heart sounds: S1 normal heart sound present and S2 normal heart sound present GI: Palpation (GI): Soft to palpation and nontender Auscultation: normal bowel sounds : General: Yes no CVA tenderness Back/Spine/Pelvis: Back: no CVA tenderness Skin: General skin exam: rashes and/or lesions noted Neuro: Cranial nerves: Yes Equal, round and reactive pupils present Results Laboratory Findings CBC and BMP: 09/08/20 04:38 09/08/20 04:38 ABG, PT/INR, D-dimer: PT/INR, D-dimer PT 13.3 SEC (10.8-13.0) H 09/07/20 02:25 INR 1.1 (0.9-1.1) 09/07/20 02:25 D-Dimer 589 NG/ML 09/07/20 03:45 Abnormal lab findings: Abnormal Labs 09/07/20 09/07/20 09/07/20 02:25 02:25 02:25 WBC RBC 4.23 L Hgb 12.1 L Hct 38.1 L RDW 16.1 H Plt Count 137 L Immature Gran % (Auto) 0.6 H Neut % (Auto) 87.2 H Lymph % (Auto) 6.9 L Lymph # (Auto) 0.4 L Abs Immat Gran (auto) 0.04 H PT 13.3 H Potassium BUN Creatinine POC Glucose Random Glucose Calcium Alkaline Phosphatase Troponin I High Sens 222.4 H B-Natriuretic Peptide 229 H Coronavirus (PCR) 09/07/20 09/07/20 09/07/20 02:25 03:45 08:15 WBC RBC Hgb Hct RDW Plt Count Immature Gran % (Auto) Neut % (Auto) Lymph % (Auto) Lymph # (Auto) Abs Immat Gran (auto) PT Potassium 2.7 L BUN 60 H Creatinine 4.10 H* POC Glucose Random Glucose 201 H Calcium 8.0 L Alkaline Phosphatase 138 H Troponin I High Sens 273.3 H B-Natriuretic Peptide Coronavirus (PCR) POSITIVE A 09/07/20 09/07/20 09/07/20 08:23 12:32 16:20 WBC RBC Hgb Hct RDW Plt Count Immature Gran % (Auto) Neut % (Auto) Lymph % (Auto) Lymph # (Auto) Abs Immat Gran (auto) PT Potassium BUN Creatinine POC Glucose 259 H 245 H 267 H Random Glucose Calcium Alkaline Phosphatase Troponin I High Sens B-Natriuretic Peptide Coronavirus (PCR) 09/07/20 09/07/20 09/07/20 17:09 19:56 20:04 WBC RBC Hgb Hct RDW Plt Count Immature Gran % (Auto) Neut % (Auto) Lymph % (Auto) Lymph # (Auto) Abs Immat Gran (auto) PT Potassium BUN 59 H Creatinine 3.66 H POC Glucose 335 H Random Glucose 308 H D Calcium 7.7 L Alkaline Phosphatase Troponin I High Sens 122.1 H D B-Natriuretic Peptide Coronavirus (PCR) 09/08/20 09/08/20 09/08/20 04:38 04:38 07:58 WBC 3.4 L RBC 4.46 L Hgb 12.9 L Hct 40.2 L RDW Plt Count 106 L Immature Gran % (Auto) 0.6 H Neut % (Auto) 85.7 H Lymph % (Auto) 9.3 L Lymph # (Auto) 0.3 L Abs Immat Gran (auto) PT Potassium BUN 65 H Creatinine 3.59 H POC Glucose 267 H Random Glucose 290 H Calcium 8.1 L Alkaline Phosphatase Troponin I High Sens B-Natriuretic Peptide Coronavirus (PCR) Microbiology: Microbiology 09/07/20 02:25 Blood - Venous Blood Culture - Preliminary No growth after 24 hours. 09/07/20 02:25 Blood - Venous Blood Culture - Preliminary No growth after 24 hours. Assessment and Plan (1) Acute respiratory failure with hypoxia: Problem details: On HF. He does use CPAP at home, but will keep him on the HF Status: Acute Continue HF (2) Sepsis: Status: Acute (3) Pneumonia due to COVID-19 virus: Problem details: RLL pneumonia and extensive GG nodular densities likely covid, but can not rule out septic emboli Status: Acute ECHO r/o any vegitations (4) COVID-19: Status: Acute No role for Remdisivir with a prolonged sickness of >2 weeks Check SARs Cov2 IgG, if negative Convolescent plasma Perfusion study to r/o blood clots, but if nagative will still need anticoagulation.
[2020-09-08 12:22] LABS: Glucose, Whole Blood 254 mg/dL (60-115)
[2020-09-08 12:25] LABS: SARS COV2 IgG Negative (Negative)
[2020-09-08] MEDS: Doxycycline Hyclate 100 MG in 0.9 % Sodium Chloride 250 ML 166.67 MG IV ×2 (12:43→23:50)
[2020-09-08] MEDS: Morphine Sulfate 2 MG/ML CARTRIDGE IVPUSH ×3 (12:43→21:45)
[2020-09-08] MEDS: Zinc Sulfate 220 MG CAPSULE PO (12:43)
--- NOTE | 2020-09-08 15:00 | MHC.CM.PN ---
CM SPOKE TO PTS , ULISES ([phone]) WHO REPORTS THE PT HAS NOT BEEN WORKING SINCE DECEMBER DUE TO CONCERN REGARDING THE CORONAVIRUS. 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 ULISES REPORTS THE PT AND FAMILY HAD BEEN QUARANTINES BUT ONE OF HER DAUGHTERS WENT TO HER IN-[place] AND WAS EXPOSED TO SOMEONE WITH COVID. PER ULISES, PT IS INDEPENDENT WITH ALL CARE AND MOBILITY AT BASELINE AND HAS NO SERVICES. PTS REPORTS HE DOES USE A CPAP AT NIGHT. SHE REPORTS HIS PCP IS NATALEE ARROYO AND HE HAS MANY SPECIALISTS. SHE REPORTS HE FOLLOWS UP ON HIS MEDICAL CARE REGULARLY. ULISES REPORTS SHE AND HER ADULT CHILDREN ARE ALSO ILL HOWEVER THEY HAVE NOT REQUIRED MEDICAL ATTENTION. SHE REPORTS SHE WILL BE AVAILABLE IF ANY FURTHER INFORMATION IS NEEDED. CURRENT DC PLAN IS HOME WITH NO SERVICES FAMILY TO TRANSPORT
[2020-09-08 16:18] LABS: Glucose, Whole Blood 256 mg/dL (60-115)
[2020-09-08] MEDS: cefTRIAXone sodium 1 GM in 0.9 % Sodium Chloride 50 ML IV (17:00)
[2020-09-08] MEDS: Bumetanide 1 MG/4 ML VIAL 2 MG IVPUSH (17:39)
[2020-09-08] MEDS: guaiFEN/Codeine SF 200/20/10ML 10 ML LIQUID PO ×2 (17:39→23:50)
--- NOTE | 2020-09-08 18:19 | PC.NURSE ---
Patient remains on HFNC at 40%/50L with O2 sats trending in the mid 90s this am. This afternoon O2 sats trending 88-91 on HFNC. Patient reporting intermittent, mid sternal, non radiating, chest heaviness relieved by prn IV morphine. Previous EKGs completed. Patient also reporting chest/throat irritation and experiencing a gurgling in upper chest/throat. Observed persistent dry cough. Coarse crackles throughout bilateral lung redmond on auscultation. Mild edema to bilateral lower extremities. Notified of above findings. IVF DC this am. Bedside CXR completed. Patient restarted on home dose hydralazine tid. Cough medication and 2mg IVP Bumex ordered and administered. Cardio consult and echo ordered.
[2020-09-08 20:34] LABS: Glucose, Whole Blood 261 mg/dL (60-115)
[2020-09-08] MEDS: Heparin Sodium,Porcine 5,000 UNIT/ML VIAL 7500 UNIT SUBCUT (21:44)
[2020-09-08] MEDS: traMADoL HCL 50 MG TABLET PO (21:45)
[2020-09-08] MEDS: Famotidine 20 MG TABLET PO (21:45)
[2020-09-08] MEDS: Insulin Glargine,Hum.rec.anlog 100 UNIT/ML 10 ML VIAL 35 UNIT SUBCUT (21:46)
[2020-09-08 21:53] LABS: Magnesium 1.8 mg/dL (1.6-2.6)
[2020-09-09] VITALS (19 sets, daily range): BP systolic 95–145; BP diastolic 61–86; PULSE 126–140; RESP 22–43; TEMP 36.1–38.2; O2SAT 87–96; BMI 51.6
--- NOTE | 2020-09-09 | US_ITS ---
EXAMINATION: DOPPLER VENOUS ULTRASOUND EXTREMITY, BILATERAL CLINICAL INFORMATION: Bilateral lower extremity swelling. Covid positivity. COMPARISON: None. TECHNIQUE: Grayscale, Doppler and spectral analysis of each lower extremity was performed. FINDINGS: There is no evidence for a deep venous thrombosis within the visualized lower extremity veins. There is normal flow, compression and augmentation. ADDITIONAL FINDINGS: No Bay's cysts are identified. US/US venous duplex LE BI IMPRESSION: Unremarkable examination. Specifically, no evidence for DVT within either lower extremity.
[2020-09-09 02:57] LABS: B Type Natriuretic Peptide 363 pg/mL (<100)
[2020-09-09] MEDS: Furosemide 40 MG/4 ML VIAL IVPUSH (03:01)
[2020-09-09] MEDS: Morphine Sulfate 2 MG/ML CARTRIDGE IVPUSH ×2 (03:02→10:20)
[2020-09-09] MEDS: 0.9 % Sodium Chloride Flush 3 ML SYRINGE IVFLUSH ×2 (03:03→07:41)
[2020-09-09] MEDS: Heparin Sodium,Porcine 5,000 UNIT/ML VIAL 7500 UNIT SUBCUT ×3 (05:30→19:45)
[2020-09-09] MEDS: traMADoL HCL 50 MG TABLET 100 MG PO (06:09)
[2020-09-09] MEDS: guaiFEN/Codeine SF 200/20/10ML 10 ML LIQUID PO (06:11)
[2020-09-09] MEDS: Morphine Sulfate 4 MG/ML CARTRIDGE IVPUSH ×2 (07:00→15:32)
[2020-09-09] MEDS: Bumetanide 1 MG/4 ML VIAL 2 MG IVPUSH (07:15)
[2020-09-09 07:39] LABS: Pt Ventilation O2% 100%
[2020-09-09 07:40] LABS: ABG PCO2 35 mmhg (32-45); Base Excess ABG 2.2; Blood Gas Serial # 5414; HCO3 ABG 26 mmol/l (22-26); Oxygen Saturation ABG 90.6 %; PO2 ABG 57 mmhg (83-108); pH ABG 7.48 (7.35-7.45)
[2020-09-09 08:58] LABS: Glucose, Whole Blood 155 mg/dL (60-115)
--- NOTE | 2020-09-09 09:00 | CA_ITS ---
Transthoracic Echocardiogram Patient (Last, First, Middle): Nicola Lozoya, Gender: Male Date of : 1960 Age: 60 Procedure Date: 09/09/2020 Procedure Type: Transthoracic Echocardiogram Location: [facility] – [place] Height: 185.42 cm Weight: 177.36 kg BSA: 2.86 m2 Heart Rate: bpm BP: 109 / 86 mmHg Manager Market Research: Referring MD: Nicanor Orr MD Symptoms: heart failure Study Quality: Technically Difficult due to body habitus ECG Rhythm: Atrial Fibrillation Conclusions: - Technically very limited study despite use of contrast. - Poorly visualized LV and valves. - LVEF 40-45%. - Mildly increased right ventricular cavity size. There is mild to moderately decreased right ventricular systolic function seen in limited views. - The inferior vena cava is severely dilated and does not collapse with inspiration. - There is a flattened septum in systole and diastole consistent with right ventricular pressure and volume overload. Findings Left Ventricle Normal left ventricular cavity size. The left ventricular systolic function is mildly decreased. The visually estimated ejection fraction is between 40 45%. Regional wall motion abnormalities can not be excluded due to suboptimal endocardial definition. There is a flattened septum in systole and diastole consistent with right ventricular pressure and volume overload. Diastolic function is indeterminate on the basis of available data. Right Ventricle Mildly increased right ventricular cavity size. There is mild to moderately decreased right ventricular systolic function. Atria The left atrium was not well visualized. Aortic Valve There is a normal trileaflet aortic valve. Mitral Valve The mitral valve was not well visualized. Pulmonic Valve The pulmonic valve is likely normal. Tricuspid Valve The tricuspid valve was not well visualized. Significantly elevated right atrial pressure. Mild pulmonary hypertension is present. Great Vessels All visible segments of the aorta are normal in size. The visualized portions of the pulmonary artery and branches are normal. Venous The inferior vena cava is severely dilated and does not collapse with inspiration. Pericardium/Pleural There is no evidence of pericardial effusion. Prior Study Comparison Changes noted compared to prior study dated: 09/25/2019. RV seen in limited views with mild to moderate dysfunction. Severely dilated IVC. Measurements 2D Linear Measurements IVSd: 1.47 0.6-0.9/0.6-1.0 cm LVIDd: 5.70 3.9-5.3/4.2-5.9 cm LVIDd Index: 1.99 2.4-3.2/2.2-3.1 cm/m2 LVIDs: 4.52 2.0-3.6 cm LVPWd: 1.47 0.7-1.1 cm Ao Root: 3.40 2.1-3.5 cm LV Mass: 478.17 67-162/88-224 g LV Mass Index: 167.19 43-95/49-115 g/m2 LVOT Diam: 2.30 3.0+(-)1.3 cm 2D Systolic Function EF 4C: 47.10 >55% Mitral Valve MV Pk E: 0.62 MV Decel Time: 116.00 E'Lateral: 9.96 E'Medial: 9.48 E/E' Med: 6.50 E/E' Lat: 6.20 PHT: 34.00 MVA PHT: 6.47 Decel [place]: 5.30 Aortic Valve AoV Pk Maximiliano: 0.87 AoV Mn Maximiliano: 0.55 AoV VTI: 0.12 AoV Pk Grad: 3.00 Aov Mn Grad: 1.00 EUGENIO Cont.VTI: 3.88 LVOT LVOT Pk Maximiliano: 0.51 LVOT Mn Maximiliano: 0.32 LVOT VTI: 0.11 LVOT Pk Grad: 1.00 LVOT Mn Grad: 0.00 LVOT Diam: 2.30 LVOT Area: 4.15 Diastolic Function MV Pk E: 0.62 E'Medial: 9.48 E/E' Med: 6.50 E' Laterial: 9.96 E/E' Lat: 6.20 Tricuspid Valve TR Pk Maximiliano: 2.28 TR Pk Grad: 21.00 RA Press: 15.00 RVSP: 36.00 Great Vessels Aorta Ao Root-2D: 3.40 2.0-3.7 cm Pulmonary Valve PV Pk Maximiliano: 0.64 Peak PV Grad: 2.00 Updated in Other Vendor System with Status of Final Fernando Marino MD electronically signed on 09/09/2020 4:00:43 PM with status of Final
--- NOTE | 2020-09-09 09:27 | MHC.CM.PN ---
Male 60 DX COVID+. Message receives Patients requesting update. Met with the Patients nurse. She intends to call with an update after MD rounds. This instructional writer called and spoke with the patients Christal. Instructed Christal to call CM office with any issues re Patient. She will be expecting a call with an update from RN after MD rounds 11AM. Emotional support and encouragement were provided. CM will follow.
[2020-09-09] MEDS: Insulin Glargine,Hum.rec.anlog 100 UNIT/ML 10 ML VIAL 35 UNIT SUBCUT ×2 (09:29→22:00)
[2020-09-09] MEDS: dexAMETHasone sod phosphate 4 MG/ML VIAL 6 MG IVPUSH ×2 (09:30→19:44)
[2020-09-09] MEDS: Insulin Lispro 100 UNIT/ML 3 ML VIAL SUBCUT ×3 (09:30→18:37)
[2020-09-09] MEDS: Isosorbide Mononitrate 60 MG TAB.ER.24H PO (09:30)
[2020-09-09] MEDS: carvediloL 25 MG TABLET PO (09:31)
[2020-09-09] MEDS: Atorvastatin Calcium 20 MG TABLET PO (09:31)
[2020-09-09] MEDS: Torsemide 20 MG TABLET PO (09:31)
[2020-09-09] MEDS: hydrALAZINE HCl 50 MG TABLET PO (09:31)
[2020-09-09] MEDS: amLODIPine Besylate 10 MG TABLET PO (09:32)
[2020-09-09] MEDS: Bumetanide 25 MG in Container,Empty 0 ML IVCONT (10:02)
--- NOTE | 2020-09-09 10:02 | PC.NURSE ---
assumed care at 19:00. patient alert, oriented x4, anxious. reported 10/10 sternal chest pain numerous times overnight, described as more than 10/10, sharp mostly but dull at times, nonradiating, worse with cough, worse with inspiration, medicated with iv morphine with modest effect and prn and one time extra tramadol per md. patient with lung sounds initially scattered wheezing and dim bases, became coarse throughout; discussed with md, new orders for 40 mg iv lasix and in the morning continued respiratory distress, md notified and at bedside, new order for iv bumex 2 mg administered. patient appeared to put out about 1 liter urine since lasix. patient voiding in urinal, refuses centeno, does not tolerate [place] catheter, standing to void with heart rate accelerated to 140-145 often, hr otherwise staying 130-145 all night, and this was appearing to be atrial flutter on monitor per customer account representative, per this rn, but to md appeared as sinus tachycardia, and therefore two ekgs were taken, and reviewed by md. new order for stat cardio consult. patient does seem to have less respiratory distress this morning than 1900. reports subjective improvement. about 0645 patient was shouting he could not breath, spo2 dropped to 75-79 range; fio2 had been titirated up 60% to 70% prior to this for spo2 in 86-89% range; this morning fio2 titirated to 100% on and 60 lpm, and nrb added flush per md. abgs obtained this morning. patient does have edema to ble, seemed to worsen overnight +3 up to +4. patient did not sleep at all, profound orthopnea, sleeps in chair at home. md recommended proning this morning, patient unable. md aware. mg checked overnight. day shift requesting bmp this morning. bnp was checked overnight and noted to be worsened.
[2020-09-09] MEDS: Zinc Sulfate 220 MG CAPSULE PO (10:03)
[2020-09-09 10:14] LABS: Anion Gap 19 (12-20); Blood Urea Nitrogen 64 mg/dL (9-16); Calcium 8.2 mg/dL (8.4-10.2); Carbon Dioxide 26 mmol/L (22-29); Chloride 102 mmol/L (96-108); Creatinine Clr Calc Pharmacy 41.6; Estimated Glomerular Filt Rate 20; Glucose Random 145 mg/dL (60-115); Potassium 3.3 mmol/l (3.3-5.1); Sodium 144 mmol/L (135-145)
[2020-09-09 11:39] LABS: Glucose, Whole Blood 213 mg/dL (60-115)
--- NOTE | 2020-09-09 11:48 | P.CONCA_ITS ---
History of Present Illness History of Present Illness Date of Service: 09/09/20 Requesting physician: Nicanor Orr Chief complaint: COVID 19, Hypoxic respiratory failure, CHF Narrative: 60-year-old gentleman who has background history of cardiomyopathy with EF of 35-40%, hypertension, diabetes and kidney disease who has been admitted at [facility] before with heart failure was presenting with shortness of breath and edema. He has family members had COVID-19. He also tested positive for COVID-19. He has been hypoxic and has been on high-flow o xygen. He is also significantly volume overloaded. He is saying he is unable to take few steps because of dyspnea as well as palpitations. His telemetry is showing sinus tachycardia as high as 150s to 160s at times. He is also hypoxic specially when he removes his face mask. He has pleuritic chest pain which is worse with coughing and deep breathing. He was just started on Bumex drip. No other issues right now. Review of Systems Review of Systems: Shortness of breath, pleuritic chest pain. [facility] Past Medical History Medical History CHF (congestive heart failure) CKD (chronic kidney disease) stage 3, GFR 30-59 ml/min HTN (hypertension) Obesity Surgical History Surgical History History of knee surgery Social History Social History Household Members: Spouse Housing: House Do you presently have visiting nurse or other home services: No Alcohol intake: never Smoking Status: Former smoker Smoked in Last 30 Days: No Patient Interested in Nicotine Replacement: No Patient Given Instructions on How to Stop Smoking: No Second Hand Smoke Exposure: No Use of substances other than those prescribed or required for medical reasons: No Currently Displaying Signs/Symptoms of Drug Intoxication Withdrawal: No Any prior treatment program specific to substance use: No Have you been hit, kicked, punched, or otherwise hurt by someone within the past year? If so, by whom?: No Do you feel safe in your current relationship?: Yes Is there a partner from a previous relationship who is making you feel unsafe now?: No Are you made to feel afraid or neglected: No Advance Directives: No Advance Directives Information Provided: No Advance Directives on File: No Do you have thoughts of harming others: None Do you have a plan to hurt others: No Plan Recently lost weight without trying: No service: No Current occupational status: employed Meds Allergies Allergy/AdvReac Type Severity Reaction Status Date / Time Penicillins [PENICILLINS] Allergy Severe HIVES Verified 09/07/20 01:59 Home Medications Medication Instructions Recorded Confirmed Type amlodipine 10 mg PO DAILY 09/07/20 09/07/20 History atorvastatin 20 mg PO DAILY 09/07/20 09/07/20 History carvedilol 25 tab PO BID 09/07/20 09/07/20 History empagliflozin [Jardiance] 10 mg PO DAILY 09/07/20 09/07/20 History hydralazine 50 mg PO TID 09/07/20 09/07/20 History insulin glargine [Basaglar KwikPen See Protocol SUBCUT DIRECTED 09/07/20 09/07/20 History U-100 Insulin] isosorbide mononitrate 60 mg PO QAM 09/07/20 09/07/20 History metolazone See Rx Instructions .ROUTE .COMPLEX 09/07/20 09/07/20 History pen needle, diabetic [BD 09/07/20 09/07/20 History Ultra-Fine Short Pen Needle] torsemide 100 mg PO BID 09/07/20 09/07/20 History tramadol 2 tab PO Q6H PRN 09/07/20 09/07/20 History Physical Exam Vital Signs: Vital Signs: Last Vital Signs Temp 97.0 F 09/09/20 09:03 Pulse 140 H 09/09/20 09:32 Resp 35 H 09/09/20 11:05 BP 145/86 H 09/09/20 09:32 Pulse Ox 91 L 09/09/20 03:37 Body Mass Index 51.6 GENERAL APPEARANCE: Distress due to dyspnea. HEENT: unremarkable. HEAD: normocephalic, atraumatic. NECK/THYROID: no carotid bruit, JVD approximately 12-13 cm of water. SKIN: no suspicious lesions, warm and dry. HEART: no murmurs, regular rate and rhythm, S1, S2 normal. LUNGS: Coarse breath sound bilaterally. ABDOMEN: Distended, nontender EXTREMITIES: no clubbing, cyanosis. 2+ edema NEUROLOGIC: nonfocal, alert and oriented. Results Labs and Meds Result diagrams: 09/08/20 04:38 09/09/20 09:00 Lab results: Laboratory Results - last 24 hr 09/08/20 09/08/20 09/08/20 11:05 11:08 12:16 ABG pH ABG pCO2 ABG pO2 ABG HCO3 ABG O2 Saturation ABG Base Excess Oxygen Given Sodium Potassium Chloride Carbon Dioxide Anion Gap BUN Creatinine Estim Creat Clear Calc Estimated GFR POC Glucose 254 H Random Glucose Calcium Magnesium B-Natriuretic Peptide SARS-CoV-2 IgG Ab Negative Blood Type A Positive Antibody Screen NEGATIVE 09/08/20 09/08/20 09/08/20 15:44 20:23 20:57 ABG pH ABG pCO2 ABG pO2 ABG HCO3 ABG O2 Saturation ABG Base Excess Oxygen Given Sodium Potassium Chloride Carbon Dioxide Anion Gap BUN Creatinine Estim Creat Clear Calc Estimated GFR POC Glucose 256 H 261 H Random Glucose Calcium Magnesium 1.8 B-Natriuretic Peptide SARS-CoV-2 IgG Ab Blood Type Antibody Screen 09/09/20 09/09/20 09/09/20 02:12 07:21 08:51 ABG pH 7.48 H ABG pCO2 35 ABG pO2 57 L ABG HCO3 26 ABG O2 Saturation 90.6 ABG Base Excess 2.2 Oxygen Given 100% Sodium Potassium Chloride Carbon Dioxide Anion Gap BUN Creatinine Estim Creat Clear Calc Estimated GFR POC Glucose 155 H Random Glucose Calcium Magnesium B-Natriuretic Peptide 363 H SARS-CoV-2 IgG Ab Blood Type Antibody Screen 09/09/20 09/09/20 09:00 11:34 ABG pH ABG pCO2 ABG pO2 ABG HCO3 ABG O2 Saturation ABG Base Excess Oxygen Given Sodium 144 Potassium 3.3 Chloride 102 Carbon Dioxide 26 Anion Gap 19 BUN 64 H Creatinine 3.25 H Estim Creat Clear Calc 41.6 Estimated GFR 20 POC Glucose 213 H Random Glucose 145 H D Calcium 8.2 L Magnesium B-Natriuretic Peptide SARS-CoV-2 IgG Ab Blood Type Antibody Screen Imaging Radiologist's impression: Impressions Chest X-Ray 09/08/20 00:00 IMPRESSION: Patchy bilateral airspace opacities, significantly increased when compared to the prior examination. Findings could represent progressing Covid pneumonia. Stable cardiomegaly. No pleural effusion. Pulmonary Perfusion Imaging 09/08/20 00:00 IMPRESSION: Normal perfusion scan. Comment: Echocardiogram from September 2019 showing mild dilation of left ventricle with [id number] LV dysfunction of 40 45% with grade 2 diastolic dysfunction. Moderately dilated left atrium. Inferolateral wall and basal inferior segments akinetic. The right ventricle was not well visualized. Assessment and Plan (1) Pneumonia due to COVID-19 virus: Problem details: RLL pneumonia and extensive GG nodular densities likely covid, but can not rule out septic emboli Status: Acute (2) Hypoxia: Status: Acute (3) Acute kidney injury superimposed on CKD: Status: Acute (4) CHF (congestive heart failure): Status: Acute Pleasant 60-year-old gentleman with background history of cardiomyopathy and heart failure who is presenting with COVID-19 infection hypoxia. He has been started on appropriate therapy for that. He also is significantly volume overloaded. He is started on Bumex drip which is appropriate right now. He has significant tachycardia on telemetry. It is difficult to say whether it is atrial flutter or sinus tachycardia. There is significant worsening in heart rate when he is hypoxic. I think this is likely sinus tachycardia. He is not hypotensive and I will not decrease his carvedilol right now. If he have any trouble diuresing him then I think the carvedilol dose should be cut to half at 12.5 mg b.i.d.. He can be given some nitrates as nitro paste 1 inch. His chest pain is atypical and likely due to significant coughing. He has advanced kidney disease which may limit our ability to diurese him but will sees response to diuretics. Monitor electrolytes closely. His last echocardiogram was a year ago. We will repeat his echocardiogram to make sure his cardiomyopathy has not progressed. I do not know the exact etiology of his cardiomyopathy. He follows up at [facility] will try to get some records. Thank you for allowing me to participate in the care of your patient. Please feel free to contact me if you have any questions.
[2020-09-09] MEDS: Doxycycline Hyclate 100 MG in 0.9 % Sodium Chloride 250 ML 166.67 MG IV (12:52)
[2020-09-09 13:11] LABS: Glucose, Whole Blood 191 mg/dL (60-115)
[2020-09-09] MEDS: Chlorothiazide Sodium 500 MG VIAL 1000 MG IVPUSH (15:02)
[2020-09-09] MEDS: Metoprolol Tartrate 5 MG/5 ML VIAL IVPUSH (15:04)
--- NOTE | 2020-09-09 15:28 | P.PNIM_ITS ---
Subjective Subjective Date of Service: 09/09/20 Interval History: Seen in follow up for acute hypoxic respiratory failure due to covid and likely hypoventilatioin syndrome. He feels better. He had hard time breathing breathing overnight with increasing oxygen requirement, given Lasix and with continuing work of breathing through the morning and was put briefly on CPAP and ultimely had to be transfered to ICU.. . Review of Systems Gen: no fever Resp: has sob and cough CV: no chest, +BARRIENTOS, + leg edema GI: No n/v, no abd pain Neuro: No confusion Physical Exam Vital Signs: Vital Signs: Last Vital Signs Temp 97.1 F 09/09/20 12:52 Pulse 136 H 09/09/20 15:04 Resp 26 H 09/09/20 12:52 BP 139/73 09/09/20 15:04 Pulse Ox 94 09/09/20 12:52 Body Mass Index 51.6 Const: Other: tachycarid General: cooperative and acute distress Resp: Other: Patient sitting up in chair, looks less comfortable than previous day Cardio: Other: tachycarid Rhythm: regular rhythm GI: Inspection: Yes normal to inspection Skin: General skin exam: no rashes or lesions noted Neuro: Cognition (Neuro): normal cognition Extrem: General: Yes normal to inspection and Yes no pedal edema Objective Data Current Medications Generic Name Dose Route Start Last Admin Trade Name Freq PRN Reason Stop Dose Admin Acetaminophen 650 mg 09/07/20 16:46 09/07/20 19:42 Acetaminophen 325 Mg Tablet PO 650 mg Q6H PRN Administration Pain, Mild (Pain Scale 1-3) Amlodipine Besylate 10 mg 09/07/20 16:46 09/09/20 09:32 Amlodipine Besylate 10 Mg Tablet PO 10 mg DAILY KOJO Administration Protocol Atorvastatin Calcium 20 mg 09/07/20 16:46 09/09/20 09:31 Atorvastatin Calcium 20 Mg Tablet PO 20 mg DAILY KOJO Administration Carvedilol 25 mg 09/07/20 16:46 09/09/20 09:31 Carvedilol 25 Mg Tablet PO 25 mg BID KOJO Administration Protocol Chlorothiazide Sodium 1,000 mg 09/09/20 13:00 09/09/20 15:02 Chlorothiazide Sodium 500 Mg Vial IVPUSH 1,000 mg DAILY KOJO Administration Protocol Dexamethasone Sodium Phosphate 6 mg 09/08/20 21:00 09/09/20 09:30 Dexamethasone Sod Phosphate 4 Mg/Ml Vial IVPUSH 6 mg BID KOJO Administration Famotidine 20 mg 09/08/20 21:00 09/08/20 21:45 Famotidine 20 Mg Tablet PO 20 mg BEDTIME KOJO Administration Guaifenesin/Codeine Phosphate 10 ml 09/08/20 17:17 09/09/20 06:11 Guaifen/Codeine Sf 200/20/10ml 10 Ml Liquid PO 10 ml Q6H PRN Administration Cough Heparin Sodium (Porcine) 7,500 unit 09/08/20 20:00 09/09/20 12:50 Heparin Sodium,Porcine 5,000 Unit/Ml Vial SUBCUT 7,500 unit Q8H KOJO Administration Hydralazine HCl 50 mg 09/07/20 16:46 09/09/20 09:31 Hydralazine Hcl 50 Mg Tablet PO 50 mg TID KOJO Administration Protocol Bumetanide 25 mg/ IV 100 mls @ 2 mls/hr 09/09/20 09:00 09/09/20 10:02 Miscellaneous Supplies IVCONT 0.5 mg/hr .Q24H KOJO 2 mls/hr Administration 0.5 MG/HR Insulin Glargine 35 unit 09/08/20 21:00 09/09/20 09:29 Insulin Glargine,Hum.Rec.Anlog 100 Unit/Ml 10 Ml Vial SUBCUT 35 unit BID KOJO Administration Insulin Human Lispro 0 unit 09/07/20 07:30 09/09/20 13:05 Insulin Lispro 100 Unit/Ml 3 Ml Vial SUBCUT 4 unit QIDACHS [facility] Administration Protocol Isosorbide Mononitrate 60 mg 09/08/20 09:00 09/09/20 09:30 Isosorbide Mononitrate 60 Mg Tab.Er.24h PO 60 mg DAILY KOJO Administration Protocol Ondansetron HCl 4 mg 09/07/20 16:46 Ondansetron Hcl 4 Mg/2 Ml Vial IVPUSH Q8H PRN Nausea and Vomiting Sodium Chloride 3 ml 09/07/20 16:46 09/09/20 07:41 0.9 % Sodium Chloride Flush 3 Ml Syringe IVFLUSH 3 ml QSHIFT KOJO Administration Tramadol HCl 100 mg 09/07/20 16:46 09/09/20 06:09 Tramadol Hcl 50 Mg Tablet PO 100 mg Q6H PRN Administration pain Labs CBC & Chem 7: 09/08/20 04:38 09/09/20 09:00 Microbiology Microbiology Results: Microbiology 09/07/20 02:25 Blood - Venous Blood Culture - Preliminary No growth after 48 hours. 09/07/20 02:25 Blood - Venous Blood Culture - Preliminary No growth after 48 hours. Assessment and Plan (1) Pneumonia due to COVID-19 virus: Problem details: RLL pneumonia and extensive GG nodular densities likely covid, but can not rule out septic emboli Status: Acute (2) Hypoxia: Status: Acute (3) Acute kidney injury superimposed on CKD: Status: Acute (4) CHF (congestive heart failure): Status: Acute (5) Sepsis: Status: Acute (6) Acute respiratory failure with hypoxia: Problem details: On HF. He does use CPAP at home, but will keep him on the HF Status: Acute (7) Hypokalemia: Status: Acute Assessment and Plan: 60/m with HTN, Obesity, likely hypoventilation, Diabetes, CKD3. He presented with SOB. He relates that has been ill with SOB for nearly a months and has progressively worsened the last 7 days. He had not been tested for covid utnil now. Multiple relatives he has been in contact with have contracted the virus. He presented due to worsening of sympoms including fever, and worsening cough and SOB. He was hypoxic with O2 89 on RA, tachypnic, resp rate of 36 and has had temperature up to 102 and tachycadic up to 150. He has been upgraded to high flow oxygen an stating around 96. Labs work showed hypOkalemia of 2.7, Creatinine is elevated at 4. CT shows covid pneumonia pattern. # Viral sepsis - secondary to COVID-19 pneumonia -treat underlying covid as below -ID consut/Pulmonary consulst # COVID-19 pneumonia as seen on XR and CT, covid IgG negative, VQ negative for PE #Acute hypoxic respiratory failure -IV decadron -Oxygen by high flow now -Doxy and Ceftriaxone empirically in case bacterial superinfection -ID and pulmonary following -closely monitor respiratory status # SAQIB and CKD--likely cardiorenal syndrome, monitor closely # hypokalemia--Corected K is now 3.7 # HTN - continue amlodipine, carvedilol, hydralazine and imdur #HLD--Lipitor # diabetes--FBS 153. on Lantus 100 bid at home -Presently Lantus 35 bid -SSI and ADA diet #Chronic heart failure--suspect right heart failre, lack of adquate diuresis with bolus bumex. -Start Bumex drip In light of patient progressive decline, even on CPAP, joint decision was made with ICU that patient is better served at this time in the ICU. I spoke to patient's over the phone and updated her, including transfer to ICU DVT prophylaxis: Heparin subQ
[2020-09-09 15:33] LABS: Basophils Percent Auto 0.1 % (0-2); Hematocrit 37.1 % (42-52); Hemoglobin 11.9 g/dl (14.0-18.0); Imm Gran Abs Auto 0.05 X10*3/uL (0.00-0.03); Imm Gran Pct Auto 0.5 % (0.0-0.4); Lymphocytes Absolute Auto 0.2 X10*3/uL (1.2-4.9); Lymphocytes Percent Auto 2.5 % (20-40); MANUAL DIFF FLAG SCAN; Mean Corpuscular HGB Conc 32.1 g/dl (31.0-36.0); Mean Corpuscular Hemoglobin 28.7 pg (27.0-33.0); Mean Corpuscular Volume 89.4 fL (80-98); Mean Platelet Volume 11.8 fL (9.4-12.4); Monocytes Absolute Auto 0.2 X10*3/uL (0.1-1.2); Monocytes Percent Auto 1.6 % (2-11); Neutrophils Percent Auto 95.3 % (45-73); Platelet Count 113 X10*3/uL (160-400); Red Blood Count 4.15 X10*6/uL (4.60-5.80); Red Cell Distribution Width 16.1 % (11.0-16.0); SCAN SMEAR FLAG 1; White Blood Count 9.5 X10*3/uL (4.8-10.8)
[2020-09-09 15:38] LABS: PCO2 VBG 48 mmhg; pH VBG 7.39 (7.32-7.43)
[2020-09-09 15:39] LABS: Base Excess VBG 3.1 mmol/L; Blood Gas Serial # 5414; HCO3 VBG 29 mmol/L; Oxygen Saturation VBG 40.3 %; PO2 VBG 24 mmhg
--- NOTE | 2020-09-09 15:42 | P.PNCC_ITS ---
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 On ER evaluation positive for COVID- 19 and requiring significant amount of supplemental oxygen. Admitted initially to general medical [facility] and started on dexamethasone. Hospital course complica bao by chronic chest pain, exacerbation of underlying systolic heart failure, worsening renal failure, and progressive hypoxic respiratory failure requiring initiation of noninvasive positive pressure ventilation on 09/09/2020 and transferred to intensive care unit. Physical Exam Vital Signs: Vital Signs: Last Vital Signs Temp 97.1 F 09/09/20 12:52 Pulse 136 H 09/09/20 15:04 Resp 29 H 09/09/20 15:24 BP 139/73 09/09/20 15:04 Pulse Ox 94 09/09/20 12:52 Body Mass Index 51.6 Const: General: no acute distress, alert and awake Nutritional Appearance: obese Eyes: Sclerae: sclerae normal EOM: EOMs intact bilaterally Neck: Neck: Yes no lymphadenopathy, Yes trachea midline and Yes supple Resp: Effort & Inspection: normal respiratory effort (On CPAP) and no respiratory distress Auscultation: crackles (Diffuse bilateral) Cardio: Rate: tachycardic Rhythm: regular rhythm Heart sounds: no gallops, no murmurs and no rubs GI: Palpation (GI): Soft to palpation and Other GI palpation findings present ( Nontender) Auscultation: normal bowel sounds Extrem: General: No clubbing, No cyanosis and Yes edema (2+ bilateral) Objective Data Labs CBC & Chem 7: 09/08/20 04:38 09/09/20 09:00 Labs: Laboratory Results - last 24 hr 09/08/20 09/08/20 09/08/20 11:08 15:44 20:23 ABG pH ABG pCO2 ABG pO2 ABG HCO3 ABG O2 Saturation ABG Base Excess VBG pH VBG pCO2 VBG pO2 VBG HCO3 VBG O2 Saturation VBG Base Excess Oxygen Given Sodium Potassium Chloride Carbon Dioxide Anion Gap BUN Creatinine Estim Creat Clear Calc Estimated GFR POC Glucose 256 H 261 H Random Glucose Calcium Magnesium B-Natriuretic Peptide Blood Type A Positive Antibody Screen NEGATIVE 09/08/20 09/09/20 09/09/20 20:57 02:12 07:21 ABG pH 7.48 H ABG pCO2 35 ABG pO2 57 L ABG HCO3 26 ABG O2 Saturation 90.6 ABG Base Excess 2.2 VBG pH VBG pCO2 VBG pO2 VBG HCO3 VBG O2 Saturation VBG Base Excess Oxygen Given 100% Sodium Potassium Chloride Carbon Dioxide Anion Gap BUN Creatinine Estim Creat Clear Calc Estimated GFR POC Glucose Random Glucose Calcium Magnesium 1.8 B-Natriuretic Peptide 363 H Blood Type Antibody Screen 09/09/20 09/09/20 09/09/20 08:51 09:00 11:34 ABG pH ABG pCO2 ABG pO2 ABG HCO3 ABG O2 Saturation ABG Base Excess VBG pH VBG pCO2 VBG pO2 VBG HCO3 VBG O2 Saturation VBG Base Excess Oxygen Given Sodium 144 Potassium 3.3 Chloride 102 Carbon Dioxide 26 Anion Gap 19 BUN 64 H Creatinine 3.25 H Estim Creat Clear Calc 41.6 Estimated GFR 20 POC Glucose 155 H 213 H Random Glucose 145 H D Calcium 8.2 L Magnesium B-Natriuretic Peptide Blood Type Antibody Screen 09/09/20 09/09/20 12:43 15:20 ABG pH ABG pCO2 ABG pO2 ABG HCO3 ABG O2 Saturation ABG Base Excess VBG pH 7.39 VBG pCO2 48 VBG pO2 24 VBG HCO3 29 VBG O2 Saturation 40.3 VBG Base Excess 3.1 Oxygen Given Sodium Potassium Chloride Carbon Dioxide Anion Gap BUN Creatinine Estim Creat Clear Calc Estimated GFR POC Glucose 191 H Random Glucose Calcium Magnesium B-Natriuretic Peptide Blood Type Antibody Screen Microbiology Microbiology Results: Microbiology 09/07/20 02:25 Blood - Venous Blood Culture - Preliminary No growth after 48 hours. 09/07/20 02:25 Blood - Venous Blood Culture - Preliminary No growth after 48 hours. Progress Note: A&P Assessment and plan (1) COVID-19: Status: Acute Assessment and Plan: Assessment: 60-year-old gentleman with underlying combined systolic and diastolic chronic congestive heart failure, morbid obesity, diabetes mellitus, CKD, hypertension hospitalized with acute hypoxic respiratory failure secondary to COVID-19 ARDS, further complicated by acute on chronic congestive heart fail ure exacerbation, worsening renal failure, and progressive hypoxia requiring initiation of noninvasive positive pressure ventilation support. Plan: Neuro: No acute issues. Cardiac: Acute on chronic combined systolic and diastolic congestive heart failure. Continue with diuresis. Sinus tachycardia, continue with rate control. Pulmonary: Acute hypoxic respiratory failure secondary to COVID-19 ARDS now requiring noninvasive positive pressure ventilation support on the background of obesity hyperventilation and obstructive sleep apnea. Will most likely require ventilatory support. Continue to monitor. Renal: Acute on chronic renal failure likely secondary to combination of COVID- 19 related micro thrombosis and exacerbation of underlying combined congestive heart failure. Non oliguric. Continue with IV diuresis. Continue to monitor renal indices and urine output. Endo: No acute issues. GI: No acute issues. ID: COVID-19 related ARDS and viral sepsis. No septic shock. Continue with dexamethasone. Heme/Onc: No acute issues. Psych: No acute issues. Miscellaneous: No acute issues. Prophylaxis: Heparin, famotidine Diet: Nothing by mouth Critical care time spent: 90 minutes (2) Acute respiratory failure with hypoxia: Status: Acute (3) Acute kidney injury superimposed on CKD: Status: Acute (4) CHF (congestive heart failure): Status: Acute (5) Morbid obesity: Status: Acute (6) Acute respiratory distress syndrome (ARDS) due to COVID-19 virus: Status: Acute (7) Viral sepsis: Status: Acute Time Spent With Patient Total time spent with greater than 50% in coordination of care (as documented) at patient's floor/unit and/or counseling patient:: 0 Critical Care Time Critical Care Time (minutes): 90
[2020-09-09 16:00] LABS: SLIDE REVIEW VERIFIED
--- NOTE | 2020-09-09 16:05 | PM.PNNEP ---
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 On ER evaluation positive for COVID-19 and requiring significant amount of supplemental oxygen. Admitted initially to general medical [facility] and started on dexamethasone. Hospital course complicated by chronic chest pain, exacerbation of underlying systolic heart failure, and progressive hypoxic respiratory failure requiring initiation of noninvasive positive pressure ventilation on 09/09/2020 and transferred to intensive care unit. Physical Exam Vital Signs: Vital Signs: Last Vital Signs Temp 97.1 F 09/09/20 12:52 Pulse 136 H 09/09/20 15:04 Resp 29 H 09/09/20 15:24 BP 139/73 09/09/20 15:04 Pulse Ox 94 09/09/20 12:52 Body Mass Index 51.6 Const: General: anxious Orientation/consciousness: patient oriented x3 Neck: Neck: Yes supple Resp: Auscultation: diminished lung sounds Cardio: Rhythm: regular rhythm GI: Palpation (GI): Soft to palpation Neuro: General: patient oriented x3 Objective Data Labs CBC & Chem 7: 09/09/20 15:20 09/09/20 09:00 Labs: Laboratory Results - last 24 hr 09/08/20 09/08/20 09/08/20 11:08 15:44 20:23 WBC RBC Hgb Hct MCV MCH MCHC RDW Plt Count MPV Immature Gran % (Auto) Neut % (Auto) Lymph % (Auto) [place] % (Auto) Eos % (Auto) Baso % (Auto) Lymph # (Auto) [place] # (Auto) Eos # (Auto) Baso # (Auto) Abs Immat Gran (auto) Absolute Neuts (auto) Absolute Nucleated RBC Nucleated RBC % (auto) Smear Tech's Comments ABG pH ABG pCO2 ABG pO2 ABG HCO3 ABG O2 Saturation ABG Base Excess VBG pH VBG pCO2 VBG pO2 VBG HCO3 VBG O2 Saturation VBG Base Excess Oxygen Given Sodium Potassium Chloride Carbon Dioxide Anion Gap BUN Creatinine Estim Creat Clear Calc Estimated GFR POC Glucose 256 H 261 H Random Glucose Calcium Magnesium B-Natriuretic Peptide Blood Type A Positive Antibody Screen NEGATIVE 09/08/20 09/09/20 09/09/20 20:57 02:12 07:21 WBC RBC Hgb Hct MCV MCH MCHC RDW Plt Count MPV Immature Gran % (Auto) Neut % (Auto) Lymph % (Auto) [place] % (Auto) Eos % (Auto) Baso % (Auto) Lymph # (Auto) [place] # (Auto) Eos # (Auto) Baso # (Auto) Abs Immat Gran (auto) Absolute Neuts (auto) Absolute Nucleated RBC Nucleated RBC % (auto) Smear Tech's Comments ABG pH 7.48 H ABG pCO2 35 ABG pO2 57 L ABG HCO3 26 ABG O2 Saturation 90.6 ABG Base Excess 2.2 VBG pH VBG pCO2 VBG pO2 VBG HCO3 VBG O2 Saturation VBG Base Excess Oxygen Given 100% Sodium Potassium Chloride Carbon Dioxide Anion Gap BUN Creatinine Estim Creat Clear Calc Estimated GFR POC Glucose Random Glucose Calcium Magnesium 1.8 B-Natriuretic Peptide 363 H Blood Type Antibody Screen 09/09/20 09/09/20 09/09/20 08:51 09:00 11:34 WBC RBC Hgb Hct MCV MCH MCHC RDW Plt Count MPV Immature Gran % (Auto) Neut % (Auto) Lymph % (Auto) [place] % (Auto) Eos % (Auto) Baso % (Auto) Lymph # (Auto) [place] # (Auto) Eos # (Auto) Baso # (Auto) Abs Immat Gran (auto) Absolute Neuts (auto) Absolute Nucleated RBC Nucleated RBC % (auto) Smear Tech's Comments ABG pH ABG pCO2 ABG pO2 ABG HCO3 ABG O2 Saturation ABG Base Excess VBG pH VBG pCO2 VBG pO2 VBG HCO3 VBG O2 Saturation VBG Base Excess Oxygen Given Sodium 144 Potassium 3.3 Chloride 102 Carbon Dioxide 26 Anion Gap 19 BUN 64 H Creatinine 3.25 H Estim Creat Clear Calc 41.6 Estimated GFR 20 POC Glucose 155 H 213 H Random Glucose 145 H D Calcium 8.2 L Magnesium B-Natriuretic Peptide Blood Type Antibody Screen 09/09/20 09/09/20 09/09/20 12:43 15:20 15:20 WBC 9.5 RBC 4.15 L Hgb 11.9 L Hct 37.1 L MCV 89.4 MCH 28.7 MCHC 32.1 RDW 16.1 H Plt Count 113 L MPV 11.8 Immature Gran % (Auto) 0.5 H Neut % (Auto) 95.3 H Lymph % (Auto) 2.5 L [place] % (Auto) 1.6 L Eos % (Auto) 0.0 Baso % (Auto) 0.1 Lymph # (Auto) 0.2 L [place] # (Auto) 0.2 Eos # (Auto) 0.0 Baso # (Auto) 0.0 Abs Immat Gran (auto) 0.05 H Absolute Neuts (auto) 9.0 H Absolute Nucleated RBC 0.000 Nucleated RBC % (auto) 0.0 Smear Tech's Comments VERIFIED ABG pH ABG pCO2 ABG pO2 ABG HCO3 ABG O2 Saturation ABG Base Excess VBG pH 7.39 VBG pCO2 48 VBG pO2 24 VBG HCO3 29 VBG O2 Saturation 40.3 VBG Base Excess 3.1 Oxygen Given Sodium Potassium Chloride Carbon Dioxide Anion Gap BUN Creatinine Estim Creat Clear Calc Estimated GFR POC Glucose 191 H Random Glucose Calcium Magnesium B-Natriuretic Peptide Blood Type Antibody Screen Microbiology Microbiology Results: Microbiology 09/07/20 02:25 Blood - Venous Blood Culture - Preliminary No growth after 48 hours. 09/07/20 02:25 Blood - Venous Blood Culture - Preliminary No growth after 48 hours. Assessment & Plan Assessment and plan (1) Acute kidney injury superimposed on CKD: Problem details: Hypervolemic. Plan to start on diuretic drip. No indication for renal replacement yet. Shall closely follow up Status: Acute (2) Pneumonia due to COVID-19 virus: Problem details: RLL pneumonia and extensive GG nodular densities likely covid. Continue current supportive care Status: Acute Time Spent With Patient Time: Total time spent is greater than 50% in coordination of care (as documented) at patient's floor/unit and/or counseling patient:
[2020-09-09 16:14] LABS: Alanine Aminotransferase 17 U/L (0-40); Albumin Level 3.4 g/dL (3.5-5.0); Alkaline Phosphatase 101 U/L (39-117); Anion Gap 13 (12-20); Aspartate Amino Transferase 37 U/L (5-37); Bilirubin Total 0.4 mg/dL (0.0-1.0); Blood Urea Nitrogen 70 mg/dL (9-16); Calcium 7.8 mg/dL (8.4-10.2); Carbon Dioxide 29 mmol/L (22-29); Chloride 101 mmol/L (96-108); Creatinine Clr Calc Pharmacy 39.8; Estimated Glomerular Filt Rate 19; Glucose Random 180 mg/dL (60-115); Magnesium 1.8 mg/dL (1.6-2.6); Phosphorus 4.8 mg/dL (2.7-4.5); Potassium 3.3 mmol/l (3.3-5.1); Sodium 140 mmol/L (135-145); Total Protein 6.9 g/dL (6.5-8.0)
[2020-09-09 16:35] LABS: Glucose, Whole Blood 175 mg/dL (60-115)
--- NOTE | 2020-09-09 16:38 | W.PM.IDCN ---
History of Present Illness Data of Consult Service Date: 09/09/20 Primary Care Provider: Unknown Physician HPI Reason for consult: shortness of breath He presents to hospital with shortness of breath for two days and dry cough He has no nausea or vomiting He is on CPAP 15 with 100% oxygen Review of Systems Neurologic: Denies Neuro-related abnormal movements PMFSH Past Medical History Medical History CHF (congestive heart failure) CKD (chronic kidney disease) stage 3, GFR 30-59 ml/min HTN (hypertension) Obesity Family History Family history: reviewed and not pertinent Surgical History Surgical History History of knee surgery Social History Social History Household Members: Spouse Housing: House Do you presently have visiting nurse or other home services: No Alcohol intake: never Smoking Status: Former smoker Smoked in Last 30 Days: No Patient Interested in Nicotine Replacement: No Patient Given Instructions on How to Stop Smoking: No Second Hand Smoke Exposure: No Use of substances other than those prescribed or required for medical reasons: No Currently Displaying Signs/Symptoms of Drug Intoxication Withdrawal: No Any prior treatment program specific to substance use: No Have you been hit, kicked, punched, or otherwise hurt by someone within the past year? If so, by whom?: No Do you feel safe in your current relationship?: Yes Is there a partner from a previous relationship who is making you feel unsafe now?: No Are you made to feel afraid or neglected: No Advance Directives: No Advance Directives Information Provided: No Advance Directives on File: No Do you have thoughts of harming others: None Do you have a plan to hurt others: No Plan Recently lost weight without trying: No service: No Current occupational status: employed Meds Allergies Allergy/AdvReac Type Severity Reaction Status Date / Time Penicillins [PENICILLINS] Allergy Severe HIVES Verified 09/07/20 01:59 Home Medications Medication Instructions Recorded Confirmed Type amlodipine 10 mg PO DAILY 09/07/20 09/07/20 History atorvastatin 20 mg PO DAILY 09/07/20 09/07/20 History carvedilol 25 tab PO BID 09/07/20 09/07/20 History empagliflozin [Jardiance] 10 mg PO DAILY 09/07/20 09/07/20 History hydralazine 50 mg PO TID 09/07/20 09/07/20 History insulin glargine [Devinaglradha MobleyPen See Protocol SUBCUT DIRECTED 09/07/20 09/07/20 History U-100 Insulin] isosorbide mononitrate 60 mg PO QAM 09/07/20 09/07/20 History metolazone See Rx Instructions .ROUTE .COMPLEX 09/07/20 09/07/20 History pen needle, diabetic [BD 09/07/20 09/07/20 History Ultra-Fine Short Pen Needle] torsemide 100 mg PO BID 09/07/20 09/07/20 History tramadol 2 tab PO Q6H PRN 09/07/20 09/07/20 History Physical Exam Vital Signs: Vital Signs: Last Vital Signs Temp 97.1 F 09/09/20 12:52 Pulse 134 H 09/09/20 16:00 Resp 30 H 09/09/20 16:00 BP 130/85 09/09/20 16:00 Pulse Ox 93 09/09/20 16:00 Body Mass Index 51.6 HENMT: Head: Yes normal to inspection Face and sinus: Yes dry mucous membranes Eyes: General: appearance normal, both eyes and all related structures Resp: Effort & Inspection: decreased respiratory effort Cardio: Rate: regular rate Rhythm: regular rhythm GI: Palpation (GI): Soft to palpation and nontender Skin: General skin exam: no rashes or lesions noted Extrem: General: Yes normal to inspection Assessment and Plan (1) Viral sepsis: Status: Acute (2) Acute respiratory distress syndrome (ARDS) due to COVID-19 virus: Problem details: He has had symptoms two weeks with worsening two days He is late for Remdesivir Status: Acute Continue Dexamethasone Supportive care with oxygen Results Labs CBC & Chem 7: 09/09/20 15:20 09/09/20 15:20 Labs: Short CBC 09/09/20 Range/Units 15:20 WBC 9.5 (4.8-10.8) X10*3/uL Hgb 11.9 L (14.0-18.0) g/dl Hct 37.1 L (42-52) % Plt Count 113 L (160-400) X10*3/uL BMP 09/09/20 09/09/20 09:00 15:20 Sodium 144 140 Potassium 3.3 3.3 Chloride 102 101 Carbon Dioxide 26 29 BUN 64 H 70 H Creatinine 3.25 H 3.40 H Calcium 8.2 L 7.8 L Liver Function 09/09/20 Range/Units 15:20 Total Bilirubin 0.4 (0.0-1.0) mg/dL AST 37 (5-37) U/L ALT 17 (0-40) U/L Alkaline Phosphatase 101 D (39-117) U/L Albumin 3.4 L (3.5-5.0) g/dL Microbiology Microbiology Results: Microbiology 09/07/20 02:25 Blood - Venous Blood Culture - Preliminary No growth after 48 hours. 09/07/20 02:25 Blood - Venous Blood Culture - Preliminary No growth after 48 hours.
[2020-09-09] MEDS: Esmolol HCl/NaCl Iso 2,500 MG/250 ML IV.SOLN 26.64 MG IVCONT (16:52)
--- NOTE | 2020-09-09 18:25 | CONS_ITS ---
DATE OF SERVICE: 09/08/2020 REASON FOR CONSULTATION: I was called to see this patient to assist in management of acute kidney injury. HISTORY OF PRESENT ILLNESS: To summarize, Nicola is a 60-year-old man with a history of chronic kidney disease, congestive heart failure, hypertension, obesity, who comes to the hospital because of shortness of breath and has ruled in for COVID-19 infection. At the time of admission, his potassium was 2.7, BUN of 60, creatinine 4.1 with a baseline creatinine of 2.4. He has been getting IV hydration and there has been a gradual decrease in serum creatinine. This consultation had been requested for management of the acute kidney injury. ONGOING MEDICAL PROBLEMS: Include obesity, hypertension, diabetes mellitus, congestive heart failure, and chronic kidney disease; stage 3. ALLERGIES: HE IS ALLERGIC TO PENICILLIN. MEDICATIONS: At time of admission, amlodipine, atorvastatin, carvedilol, empagliflozin, hydralazine, metolazone, torsemide, and tramadol. All the current medications were reviewed REVIEW OF SYSTEMS: Positive for shortness of breath. No chest pain, nausea, or vomiting. No abdominal pain, diarrhea, or constipation. No urinary symptoms. All other systems were reviewed. PHYSICAL EXAMINATION: GENERAL: On examination, Nicola is a 60-year-old man, who is obese, comfortable. He is still short of breath at rest. NECK: Supple. No JVD. LUNGS: Bilateral scattered rhonchi. HEART: S1, S2 heard. No gallop. ABDOMEN: Obese. Soft and nontender. EXTREMITIES: No edema. No rash. No clubbing. VITAL SIGNS: Blood pressure was 150/90, pulse 130 per minute. LABORATORY DATA: Hemoglobin 12.9, platelets 106. Serum electrolytes normal. At present, BUN 65, creatinine 3.59. At the time of admission, the potassium was 2.7 with a creatinine of 4.1. IMPRESSION: A 60-year-old man with acute kidney injury and hypokalemia in the setting of COVID-19 infection. Nicola probably has hypovolemia due to high dose diuretics leading to both acute kidney injury and hypokalemia; however, COVID related cytokine storm leading to acute tubular necrosis should be in the differential. Obstruction seems unlikely at this point. RECOMMENDATIONS: My recommendation is to obtain a spot urine for sodium, creatinine, and protein. In the meantime, we will hold the diuretics. Avoid nephrotoxic agents. I agree with IV hydration. Keep intake more than the output. Replace potassium as needed. No indication for dialysis. We will follow him with the team. Shola Newsome MD BPA/MODL / [id number]
[2020-09-09] MEDS: Potassium Chloride Packet 20 MEQ PACKET 60 MEQ PO (18:37)
[2020-09-09] MEDS: Esmolol HCl/NaCl Iso 2,500 MG/250 ML IV.SOLN 53.28 MG IVCONT (19:44)
[2020-09-09] MEDS: Famotidine 20 MG TABLET PO (19:46)
[2020-09-09 21:31] LABS: Glucose, Whole Blood 177 mg/dL (60-115)
[2020-09-09] MEDS: fentaNYL citrate/NS 1,000 MCG/100 ML PLAST..BAG 5 MCG IVCONT (22:30)
[2020-09-10] VITALS (34 sets, daily range): BP systolic 98–157; BP diastolic 55–100; PULSE 129–137; RESP 20–39; TEMP 37.1–38; O2SAT 67–94
[2020-09-10] MEDS: 0.9 % Sodium Chloride Flush 3 ML SYRINGE IVFLUSH ×4 (00:16→23:13)
[2020-09-10] MEDS: LORazepam 2 MG/ML VIAL 1 MG IVPUSH (01:42)
[2020-09-10] MEDS: fentaNYL citrate/PF 100 MCG/2 ML VIAL 50 MCG IVPUSH (03:25)
[2020-09-10] MEDS: Morphine Sulfate 4 MG/ML CARTRIDGE IVPUSH (03:52)
[2020-09-10 04:31] LABS: Basophils Percent Auto 0.1 % (0-2); Hematocrit 38.3 % (42-52); Hemoglobin 12.2 g/dl (14.0-18.0); Imm Gran Abs Auto 0.09 X10*3/uL (0.00-0.03); Imm Gran Pct Auto 1.1 % (0.0-0.4); Lymphocytes Absolute Auto 0.2 X10*3/uL (1.2-4.9); Lymphocytes Percent Auto 2.5 % (20-40); Mean Corpuscular HGB Conc 31.9 g/dl (31.0-36.0); Mean Corpuscular Hemoglobin 28.7 pg (27.0-33.0); Mean Corpuscular Volume 90.1 fL (80-98); Mean Platelet Volume 11.8 fL (9.4-12.4); Monocytes Absolute Auto 0.1 X10*3/uL (0.1-1.2); Monocytes Percent Auto 1.5 % (2-11); Neutrophils Percent Auto 94.8 % (45-73); Platelet Count 117 X10*3/uL (160-400); Red Blood Count 4.25 X10*6/uL (4.60-5.80); Red Cell Distribution Width 16.1 % (11.0-16.0); SCAN SMEAR FLAG 1; White Blood Count 8.4 X10*3/uL (4.8-10.8)
[2020-09-10 04:38] LABS: HCO3 VBG 22 mmol/L; Oxygen Saturation VBG 37.6 %; PCO2 VBG 41 mmhg; PO2 VBG 24 mmhg; pH VBG 7.34 (7.32-7.43)
[2020-09-10 04:47] LABS: D Dimer 965 NG/ML
[2020-09-10 04:48] LABS: MANUAL DIFF FLAG SCAN; SLIDE REVIEW VERIFIED
[2020-09-10] MEDS: Heparin Sodium,Porcine 5,000 UNIT/ML VIAL 7500 UNIT SUBCUT ×3 (05:10→19:57)
[2020-09-10 05:23] LABS: Alanine Aminotransferase 21 U/L (0-40); Albumin Level 3.4 g/dL (3.5-5.0); Alkaline Phosphatase 100 U/L (39-117); Anion Gap 19 (12-20); Aspartate Amino Transferase 43 U/L (5-37); Bilirubin Total 0.5 mg/dL (0.0-1.0); Blood Urea Nitrogen 76 mg/dL (9-16); Calcium 7.7 mg/dL (8.4-10.2); Carbon Dioxide 25 mmol/L (22-29); Chloride 101 mmol/L (96-108); Creatinine Clr Calc Pharmacy 43.8; Estimated Glomerular Filt Rate 21; Glucose Random 199 mg/dL (60-115); Magnesium 1.9 mg/dL (1.6-2.6); Phosphorus 5.4 mg/dL (2.7-4.5); Potassium 3.2 mmol/l (3.3-5.1); Sodium 142 mmol/L (135-145); Total Protein 7.1 g/dL (6.5-8.0)
[2020-09-10 05:25] LABS: Alanine Aminotransferase 22 U/L (0-40); Albumin Level 3.4 g/dL (3.5-5.0); Alkaline Phosphatase 98 U/L (39-117); Anion Gap 19 (12-20); Aspartate Amino Transferase 43 U/L (5-37); Bilirubin Direct 0.3 mg/dL (0.0-0.5); Bilirubin Total 0.5 mg/dL (0.0-1.0); Blood Urea Nitrogen 75 mg/dL (9-16); Calcium 7.7 mg/dL (8.4-10.2); Carbon Dioxide 23 mmol/L (22-29); Chloride 102 mmol/L (96-108); Creatinine Clr Calc Pharmacy 37.1; Estimated Glomerular Filt Rate 17; Glucose Random 196 mg/dL (60-115); Magnesium 1.9 mg/dL (1.6-2.6); Phosphorus 5.3 mg/dL (2.7-4.5); Potassium 3.1 mmol/l (3.3-5.1); Sodium 141 mmol/L (135-145)
[2020-09-10 07:14] LABS: Glucose, Whole Blood 180 mg/dL (60-115)
--- NOTE | 2020-09-10 07:42 | PC.NURSE ---
At 0314 library monitor alarming. Patient standing at bedside disrobed, with telemetry leads, O2 sat probe and bipap removed. This RN and a second RN donned PPE. Upon entering room, patient was responsive and confused. Patient redirected to bed, patient initially resistive to care and unable to clearly state reason for exiting bed. Patient assisted back to bed (2 person max assist). Patient placed back on CPAP 15 100%. Initial O2 sat 68%, HR 137. Deyanira, PA and VETERINARY ATTENDANT called to bedside. 50mcg Fentanyl administered at 0325 and 4mg Morphine at 0352. Patient's O2 sats have remained in the mids 80s. PA and MD are aware.
[2020-09-10] MEDS: dexmedeTOMIDidine HCL/NS 400 MCG/100 ML INFUS..BTL 17.76 MCG IVCONT ×4 (07:49→23:14)
[2020-09-10] MEDS: dexAMETHasone sod phosphate 4 MG/ML VIAL 6 MG IVPUSH ×2 (08:22→19:57)
[2020-09-10] MEDS: Chlorothiazide Sodium 500 MG VIAL 1000 MG IVPUSH (08:22)
[2020-09-10] MEDS: Esmolol HCl/NaCl Iso 2,500 MG/250 ML IV.SOLN 31.97 MG IVCONT (08:27)
[2020-09-10] MEDS: Insulin Glargine,Hum.rec.anlog 100 UNIT/ML 10 ML VIAL 35 UNIT SUBCUT ×2 (08:30→19:58)
--- NOTE | 2020-09-10 11:09 | PM.PNCARD ---
Subjective Subjective Date of Service: 09/10/20 Principal diagnosis: Resp failure, COVID, Right HF, Tachycardia Interval history: Cardiology follow up for HF, tachycardia. Seen at 0920. Today he tells me is doing the same. Tachypniec with Bipap on. Reports chest soreness from labored breathing. Tachycardiac on Tele. He can feel the palpitation. Abdominal distention and leg edema improved some per him. Remains in ICU with close observation. Review of Systems Review of Systems as above Yes all other systems are reviewed and are negative Physical Exam Vital Signs: Last Vital Signs Temp 100.4 F 09/10/20 08:00 Pulse 131 H 09/10/20 11:00 Resp 31 H 09/10/20 11:00 BP 98/55 L 09/10/20 11:00 Pulse Ox 86 L 09/10/20 11:00 Body Mass Index 51.6 Const Other: Awake, tachypniec, broken speech. Sitting on edge of bed. Calm and cooperative Orientation/consciousness: patient oriented x3 HENMT Head: Yes normal to inspection Neck Neck: Yes normal visual inspection and Yes JVD Resp Other: Tachypnia, wearing Bipap mask. No acute distress noted. Lungs dim to auscultation Effort & Inspection: not able to speak in complete sentences Auscultation: no rales, no rhonchi, no wheezes and bronchial breath sounds Cardio Jugular venous distension: JVD present Rate: regular rate Rhythm: regular rhythm (Rapid) Heart sounds: S1 normal heart sound present (No noted murmurs - distant sounds noted) and S2 normal heart sound present Peripheral pulses: Peripheral pulses 2+ throughout GI Other: Obese, nontender Neuro General: patient oriented x3 Extrem Other: Obese legs, no significant pitting edema appreciated Results Labs and Meds Result diagrams: 09/10/20 04:22 09/10/20 04:22 Lab results: Laboratory Results - last 24 hr 09/09/20 09/09/20 09/09/20 11:34 12:43 15:20 WBC 9.5 RBC 4.15 L Hgb 11.9 L Hct 37.1 L MCV 89.4 MCH 28.7 MCHC 32.1 RDW 16.1 H Plt Count 113 L MPV 11.8 Immature Gran % (Auto) 0.5 H Neut % (Auto) 95.3 H Lymph % (Auto) 2.5 L [place] % (Auto) 1.6 L Eos % (Auto) 0.0 Baso % (Auto) 0.1 Lymph # (Auto) 0.2 L [place] # (Auto) 0.2 Eos # (Auto) 0.0 Baso # (Auto) 0.0 Abs Immat Gran (auto) 0.05 H Absolute Neuts (auto) 9.0 H Absolute Nucleated RBC 0.000 Nucleated RBC % (auto) 0.0 Smear Tech's Comments VERIFIED D-Dimer VBG pH VBG pCO2 VBG pO2 VBG HCO3 VBG O2 Saturation VBG Base Excess Sodium Potassium Chloride Carbon Dioxide Anion Gap BUN Creatinine Estim Creat Clear Calc Estimated GFR POC Glucose 213 H 191 H Random Glucose Calcium Phosphorus Magnesium Total Bilirubin Direct Bilirubin AST ALT Alkaline Phosphatase Total Protein Albumin 09/09/20 09/09/20 09/09/20 15:20 15:20 16:30 WBC RBC Hgb Hct MCV MCH MCHC RDW Plt Count MPV Immature Gran % (Auto) Neut % (Auto) Lymph % (Auto) [place] % (Auto) Eos % (Auto) Baso % (Auto) Lymph # (Auto) [place] # (Auto) Eos # (Auto) Baso # (Auto) Abs Immat Gran (auto) Absolute Neuts (auto) Absolute Nucleated RBC Nucleated RBC % (auto) Smear Tech's Comments D-Dimer VBG pH 7.39 VBG pCO2 48 VBG pO2 24 VBG HCO3 29 VBG O2 Saturation 40.3 VBG Base Excess 3.1 Sodium 140 Potassium 3.3 Chloride 101 Carbon Dioxide 29 Anion Gap 13 BUN 70 H Creatinine 3.40 H Estim Creat Clear Calc 39.8 Estimated GFR 19 POC Glucose 175 H Random Glucose 180 H Calcium 7.8 L Phosphorus 4.8 H Magnesium 1.8 Total Bilirubin 0.4 Direct Bilirubin AST 37 ALT 17 Alkaline Phosphatase 101 D Total Protein 6.9 Albumin 3.4 L 09/09/20 09/10/20 09/10/20 21:20 04:21 04:22 WBC 8.4 RBC 4.25 L Hgb 12.2 L Hct 38.3 L MCV 90.1 MCH 28.7 MCHC 31.9 RDW 16.1 H Plt Count 117 L MPV 11.8 Immature Gran % (Auto) 1.1 H Neut % (Auto) 94.8 H Lymph % (Auto) 2.5 L [place] % (Auto) 1.5 L Eos % (Auto) 0.0 Baso % (Auto) 0.1 Lymph # (Auto) 0.2 L [place] # (Auto) 0.1 Eos # (Auto) 0.0 Baso # (Auto) 0.0 Abs Immat Gran (auto) 0.09 H Absolute Neuts (auto) 8.0 Absolute Nucleated RBC 0.000 Nucleated RBC % (auto) 0.0 Smear Tech's Comments VERIFIED D-Dimer VBG pH VBG pCO2 VBG pO2 VBG HCO3 VBG O2 Saturation VBG Base Excess Sodium 142 Potassium 3.2 L Chloride 101 Carbon Dioxide 25 Anion Gap 19 BUN 76 H Creatinine 3.09 H Estim Creat Clear Calc 43.8 Estimated GFR 21 POC Glucose 177 H Random Glucose 199 H Calcium 7.7 L Phosphorus 5.4 H Magnesium 1.9 Total Bilirubin 0.5 Direct Bilirubin AST 43 H ALT 21 Alkaline Phosphatase 100 Total Protein 7.1 Albumin 3.4 L 09/10/20 09/10/20 09/10/20 04:22 04:22 04:22 WBC RBC Hgb Hct MCV MCH MCHC RDW Plt Count MPV Immature Gran % (Auto) Neut % (Auto) Lymph % (Auto) [place] % (Auto) Eos % (Auto) Baso % (Auto) Lymph # (Auto) [place] # (Auto) Eos # (Auto) Baso # (Auto) Abs Immat Gran (auto) Absolute Neuts (auto) Absolute Nucleated RBC Nucleated RBC % (auto) Smear Tech's Comments D-Dimer 965 VBG pH 7.34 VBG pCO2 41 VBG pO2 24 VBG HCO3 22 VBG O2 Saturation 37.6 VBG Base Excess -4.0 Sodium 141 Potassium 3.1 L Chloride 102 Carbon Dioxide 23 Anion Gap 19 BUN 75 H Creatinine 3.65 H Estim Creat Clear Calc 37.1 Estimated GFR 17 POC Glucose Random Glucose 196 H Calcium 7.7 L Phosphorus 5.3 H Magnesium 1.9 Total Bilirubin 0.5 Direct Bilirubin 0.3 AST 43 H ALT 22 Alkaline Phosphatase 98 Total Protein 7.0 Albumin 3.4 L 09/10/20 07:08 WBC RBC Hgb Hct MCV MCH MCHC RDW Plt Count MPV Immature Gran % (Auto) Neut % (Auto) Lymph % (Auto) [place] % (Auto) Eos % (Auto) Baso % (Auto) Lymph # (Auto) [place] # (Auto) Eos # (Auto) Baso # (Auto) Abs Immat Gran (auto) Absolute Neuts (auto) Absolute Nucleated RBC Nucleated RBC % (auto) Smear Tech's Comments D-Dimer VBG pH VBG pCO2 VBG pO2 VBG HCO3 VBG O2 Saturation VBG Base Excess Sodium Potassium Chloride Carbon Dioxide Anion Gap BUN Creatinine Estim Creat Clear Calc Estimated GFR POC Glucose 180 H Random Glucose Calcium Phosphorus Magnesium Total Bilirubin Direct Bilirubin AST ALT Alkaline Phosphatase Total Protein Albumin Imaging Radiologist's impression: Impressions Venous Duplex 09/09/20 00:00 IMPRESSION: Unremarkable examination. Specifically, no evidence for DVT within either lower extremity. Progress Note: A&P Assessment and plan (1) CHF (congestive heart failure): Status: Acute Assessment and Plan: Admit with sob, CHRISTELLEID, resp failure, CHF. In ICU, being followed closely by campaign marketing manager. Hx R HF. Echo shows EF 40-45%, mild to mod decrease in RV systolic function, flattened septum consistent with fluid overload. Being diuresed with IV Bumex with fluid balance neg 2 liter in last 24 hr. Overall balance remains slightly positive. Cr 3.65 today, BUN 75. He reports improvement in abdomenal size and leg edema. Recommend continue to diurese with IV Bumex. Close monitoring of electrolyte and kidney function. Electrolyte replacement as warranted. (2) Acute respiratory distress syndrome (ARDS) due to COVID-19 virus: Status: Acute Assessment and Plan: managed by campaign marketing manager, ILYA. His HF is primarily right sided. (3) Viral sepsis: Status: Acute (4) Acute kidney injury superimposed on CKD: Status: Acute Assessment and Plan: Followed by campaign marketing manager,nephrology (5) Acute respiratory failure with hypoxia: Status: Acute (6) Morbid obesity: Status: Acute (7) Sinus tachycardia: Status: Acute Assessment and Plan: EKGs and tele this admit shows sinus tachycardia. Not taking po at present. Home Carvedilol changed to Esmolol drip. Tele shows HR still 130-140s, ST, isolated PVC and occasional ventricular cuplets. Rhythm could still be atrial flutter. Discussed with Dr Marino and he will further evaluate and discuss with intensivisit. Fall Risk Details Current Medications: Current Medications Generic Name Dose Route Start Last Admin Trade Name Freq PRN Reason Stop Dose Admin Acetaminophen 650 mg 09/07/20 16:46 09/07/20 19:42 Acetaminophen 325 Mg Tablet PO 650 mg Q6H PRN Administration Pain, Mild (Pain Scale 1-3) Chlorothiazide Sodium 1,000 mg 09/09/20 13:00 09/10/20 08:22 Chlorothiazide Sodium 500 Mg Vial IVPUSH 1,000 mg DAILY KOJO Administration Protocol Dexamethasone Sodium Phosphate 6 mg 09/08/20 21:00 09/10/20 08:22 Dexamethasone Sod Phosphate 4 Mg/Ml Vial IVPUSH 6 mg BID KOJO Administration Famotidine 20 mg 09/08/20 21:00 09/09/20 19:46 Famotidine 20 Mg Tablet PO 20 mg BEDTIME KOJO Administration Heparin Sodium (Porcine) 7,500 unit 09/08/20 20:00 09/10/20 05:10 Heparin Sodium,Porcine 5,000 Unit/Ml Vial SUBCUT 7,500 unit Q8H KOJO Administration Bumetanide 25 mg/ IV 100 mls @ 2 mls/hr 09/09/20 09:00 09/09/20 10:02 Miscellaneous Supplies IVCONT 0.5 mg/hr .Q24H KOJO 2 mls/hr Administration 0.5 MG/HR Esmolol HCl 2,500 mg in 250 mls @ 0 mls/hr 09/09/20 16:00 09/10/20 08:27 Brevibloc/Nacl IVCONT 30 mcg/kg/min .Q0M KOJO 31.97 mls/hr Administration Protocol Per Protocol Dexmedetomidine HCl 400 mcg in 100 mls @ 0 mls/hr 09/10/20 07:45 09/10/20 07:49 Precedex IVCONT 0.4 mcg/kg/hr .Q0M KOJO 17.76 mls/hr Administration Protocol Per Protocol Insulin Glargine 35 unit 09/08/20 21:00 09/10/20 08:30 Insulin Glargine,Hum.Rec.Anlog 100 Unit/Ml 10 Ml Vial SUBCUT 30 unit BID KOJO Administration Insulin Human Lispro 0 unit 09/07/20 07:30 09/10/20 08:32 Insulin Lispro 100 Unit/Ml 3 Ml Vial SUBCUT Not Given QIDACHS [facility] Protocol Isosorbide Mononitrate 60 mg 09/08/20 09:00 09/10/20 08:33 Isosorbide Mononitrate 60 Mg Tab.Er.24h PO Not Given DAILY KOJO Protocol Ondansetron HCl 4 mg 09/07/20 16:46 Ondansetron Hcl 4 Mg/2 Ml Vial IVPUSH Q8H PRN Nausea and Vomiting Sodium Chloride 3 ml 09/07/20 16:46 09/10/20 08:29 0.9 % Sodium Chloride Flush 3 Ml Syringe IVFLUSH 3 ml QSHIFT KOJO Administration Time Spent With Patient Time: Total time spent is greater than 50% in coordination of care (as documented) at patient's floor/unit and/or counseling patient: Time with patient: 15 - 24 minutes
[2020-09-10] MEDS: Bumetanide 25 MG in Container,Empty 0 ML IVCONT (11:11)
[2020-09-10 11:17] LABS: Glucose, Whole Blood 160 mg/dL (60-115)
[2020-09-10] MEDS: Digoxin 0.5 MG/2 ML AMPUL 0.25 MG IVPUSH ×3 (12:38→23:12)
[2020-09-10] MEDS: Potassium Chloride Packet 20 MEQ PACKET 60 MEQ PO (12:39)
--- NOTE | 2020-09-10 12:40 | MHC.CM.PN ---
Patient transferred to ICU on 09/09 on Cpap. Patient is Covid positive. Per Dr Valverde, patient may be intubated today. Patient is from home with his . Continue to monitor for d/c needs.
--- NOTE | 2020-09-10 14:12 | PC.NURSE ---
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 Esmolol drip stopped, seen by cardiology, dig started and first dose given, hr continues to trend 130s, aflutter rhythm per wildlife science professor. BP trending 110s systollically, temp max 100.4 via core temp probe, down to 99.9 this afternoon pt continues to be NPO, small sips of water given in between, o2 sat quickly drops to 77% when cpap removed, able to recover in a few minutes when placed back, continues on 100% via cpap continues on bumex drip, 1400ml of clear yellow urine out in cent[place] this shift 60meq of k replacement given this shift
--- NOTE | 2020-09-10 15:28 | PM.CCPN ---
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 On ER evaluation positive for COVID-19 and requiring significant amount of supplemental oxygen. Admitted initially to general medical isabel and started on dexamethasone. Hospital course complicated by chronic chest pain, exacerbation of underlying systolic heart failure, worsening renal failure, and progressive hypoxic respiratory failure requiring initiation of noninvasive positive pressure ventilation on 09/09/2020 and transfer to intensive care unit. No events overnight. Continues to require ongoing CPAP support. Physical Exam Vital Signs: Vital Signs: Last Vital Signs Temp 99.7 F 09/10/20 15:00 Pulse 135 H 09/10/20 15:00 Resp 33 H 09/10/20 15:20 BP 124/90 H 09/10/20 15:00 Pulse Ox 89 L 09/10/20 15:00 Body Mass Index 51.6 Const: General: no acute distress, alert and awake Nutritional Appearance: obese Eyes: Sclerae: sclerae normal EOM: EOMs intact bilaterally Neck: Neck: Yes no lymphadenopathy, Yes trachea midline and Yes supple Resp: Auscultation: crackles (Diffuse bilateral) Cardio: Rate: tachycardic Rhythm: regular rhythm Heart sounds: no gallops, no murmurs and no rubs GI: Palpation (GI): Soft to palpation and Other GI palpation findings present ( Nontender) Auscultation: normal bowel sounds Extrem: General: No clubbing, No cyanosis and Yes edema (2+ bilateral) Objective Data Labs CBC & Chem 7: 09/10/20 04:22 09/10/20 04:22 Labs: Laboratory Results - last 24 hr 09/09/20 09/09/20 09/09/20 15:20 15:20 15:20 WBC 9.5 RBC 4.15 L Hgb 11.9 L Hct 37.1 L MCV 89.4 MCH 28.7 MCHC 32.1 RDW 16.1 H Plt Count 113 L MPV 11.8 Immature Gran % (Auto) 0.5 H Neut % (Auto) 95.3 H Lymph % (Auto) 2.5 L [place] % (Auto) 1.6 L Eos % (Auto) 0.0 Baso % (Auto) 0.1 Lymph # (Auto) 0.2 L [place] # (Auto) 0.2 Eos # (Auto) 0.0 Baso # (Auto) 0.0 Abs Immat Gran (auto) 0.05 H Absolute Neuts (auto) 9.0 H Absolute Nucleated RBC 0.000 Nucleated RBC % (auto) 0.0 Smear Tech's Comments VERIFIED D-Dimer VBG pH 7.39 VBG pCO2 48 VBG pO2 24 VBG HCO3 29 VBG O2 Saturation 40.3 VBG Base Excess 3.1 Sodium 140 Potassium 3.3 Chloride 101 Carbon Dioxide 29 Anion Gap 13 BUN 70 H Creatinine 3.40 H Estim Creat Clear Calc 39.8 Estimated GFR 19 POC Glucose Random Glucose 180 H Calcium 7.8 L Phosphorus 4.8 H Magnesium 1.8 Total Bilirubin 0.4 Direct Bilirubin AST 37 ALT 17 Alkaline Phosphatase 101 D Total Protein 6.9 Albumin 3.4 L 09/09/20 09/09/20 09/10/20 16:30 21:20 04:21 WBC RBC Hgb Hct MCV MCH MCHC RDW Plt Count MPV Immature Gran % (Auto) Neut % (Auto) Lymph % (Auto) [place] % (Auto) Eos % (Auto) Baso % (Auto) Lymph # (Auto) [place] # (Auto) Eos # (Auto) Baso # (Auto) Abs Immat Gran (auto) Absolute Neuts (auto) Absolute Nucleated RBC Nucleated RBC % (auto) Smear Tech's Comments D-Dimer VBG pH VBG pCO2 VBG pO2 VBG HCO3 VBG O2 Saturation VBG Base Excess Sodium 142 Potassium 3.2 L Chloride 101 Carbon Dioxide 25 Anion Gap 19 BUN 76 H Creatinine 3.09 H Estim Creat Clear Calc 43.8 Estimated GFR 21 POC Glucose 175 H 177 H Random Glucose 199 H Calcium 7.7 L Phosphorus 5.4 H Magnesium 1.9 Total Bilirubin 0.5 Direct Bilirubin AST 43 H ALT 21 Alkaline Phosphatase 100 Total Protein 7.1 Albumin 3.4 L 09/10/20 09/10/20 09/10/20 04:22 04:22 04:22 WBC 8.4 RBC 4.25 L Hgb 12.2 L Hct 38.3 L MCV 90.1 MCH 28.7 MCHC 31.9 RDW 16.1 H Plt Count 117 L MPV 11.8 Immature Gran % (Auto) 1.1 H Neut % (Auto) 94.8 H Lymph % (Auto) 2.5 L [place] % (Auto) 1.5 L Eos % (Auto) 0.0 Baso % (Auto) 0.1 Lymph # (Auto) 0.2 L [place] # (Auto) 0.1 Eos # (Auto) 0.0 Baso # (Auto) 0.0 Abs Immat Gran (auto) 0.09 H Absolute Neuts (auto) 8.0 Absolute Nucleated RBC 0.000 Nucleated RBC % (auto) 0.0 Smear Tech's Comments VERIFIED D-Dimer 965 VBG pH 7.34 VBG pCO2 41 VBG pO2 24 VBG HCO3 22 VBG O2 Saturation 37.6 VBG Base Excess -4.0 Sodium Potassium Chloride Carbon Dioxide Anion Gap BUN Creatinine Estim Creat Clear Calc Estimated GFR POC Glucose Random Glucose Calcium Phosphorus Magnesium Total Bilirubin Direct Bilirubin AST ALT Alkaline Phosphatase Total Protein Albumin 09/10/20 09/10/20 09/10/20 04:22 07:08 11:11 WBC RBC Hgb Hct MCV MCH MCHC RDW Plt Count MPV Immature Gran % (Auto) Neut % (Auto) Lymph % (Auto) [place] % (Auto) Eos % (Auto) Baso % (Auto) Lymph # (Auto) [place] # (Auto) Eos # (Auto) Baso # (Auto) Abs Immat Gran (auto) Absolute Neuts (auto) Absolute Nucleated RBC Nucleated RBC % (auto) Smear Tech's Comments D-Dimer VBG pH VBG pCO2 VBG pO2 VBG HCO3 VBG O2 Saturation VBG Base Excess Sodium 141 Potassium 3.1 L Chloride 102 Carbon Dioxide 23 Anion Gap 19 BUN 75 H Creatinine 3.65 H Estim Creat Clear Calc 37.1 Estimated GFR 17 POC Glucose 180 H 160 H Random Glucose 196 H Calcium 7.7 L Phosphorus 5.3 H Magnesium 1.9 Total Bilirubin 0.5 Direct Bilirubin 0.3 AST 43 H ALT 22 Alkaline Phosphatase 98 Total Protein 7.0 Albumin 3.4 L Microbiology Microbiology Results: Microbiology 09/07/20 02:25 Blood - Venous Blood Culture - Preliminary No growth after 48 hours. 09/07/20 02:25 Blood - Venous Blood Culture - Preliminary No growth after 48 hours. Progress Note: A&P Assessment and plan (1) Viral sepsis: Status: Acute Assessment and Plan: Assessment: 60-year-old gentleman with underlying combined systolic and diastolic chronic congestive heart failure, morbid obesity, diabetes mellitus, CKD, hypertension hospitalized with acute hypoxic respiratory failure secondary to COVID-19 ARDS, further complicated by acute on chronic congestive heart failure exacerbation, worsening renal failure, and progressive hypoxia requiring noninvasive positive pressure ventilation support. Plan: Neuro: No acute issues. Cardiac: Acute on chronic combined systolic and diastolic congestive heart failure. Right heart failure. Continue with diuresis. Cardiology service care appreciated. Sinus tachycardia versus aflutter, continue with rate control. Pulmonary: Acute hypoxic respiratory failure secondary to COVID-19 ARDS now requiring noninvasive positive pressure ventilation support on the background of obesity hyperventilation and obstructive sleep apnea. Continue to titrate off as tolerated. Renal: Acute on chronic renal failure likely secondary to combination of COVID-19 related micro thrombosis and exacerbation of underlying combined congestive heart failure. Non oliguric. Continue with IV diuresis. Continue to monitor renal indices and urine output. Nephrology service care appreciated. Endo: No acute issues. GI: No acute issues. ID: COVID-19 related ARDS and viral sepsis. No septic shock. Continue with dexamethasone. Heme/Onc: No acute issues. Psych: No acute issues. Miscellaneous: No acute issues. Prophylaxis: Heparin, famotidine Diet: Nothing by mouth Critical care time spent: 60 minutes (2) Acute respiratory distress syndrome (ARDS) due to COVID-19 virus: Status: Acute (3) Morbid obesity: Status: Acute (4) CHF (congestive heart failure): Status: Acute (5) Acute kidney injury superimposed on CKD: Status: Acute (6) Acute respiratory failure with hypoxia: Status: Acute Time Spent With Patient Total time spent with greater than 50% in coordination of care (as documented) at patient's floor/unit and/or counseling patient:: 0 Critical Care Time Critical Care Time (minutes): 60
[2020-09-10 15:53] LABS: Glucose, Whole Blood 167 mg/dL (60-115)
[2020-09-10] MEDS: Famotidine 20 MG TABLET PO (19:58)
[2020-09-10] MEDS: Morphine Sulfate 4 MG/ML CARTRIDGE 3 MG IVPUSH (21:20)
[2020-09-10 21:52] LABS: Glucose, Whole Blood 189 mg/dL (60-115)
[2020-09-11] VITALS (37 sets, daily range): BP systolic 109–152; BP diastolic 56–93; PULSE 130–137; RESP 22–40; TEMP 37.2–37.6; O2SAT 87–100; BMI 47.8
--- NOTE | 2020-09-11 01:52 | XR_ITS ---
EXAMINATION: XR CHEST CLINICAL INFORMATION: Central line placement COMPARISON: 09/08/2020 TECHNIQUE: Frontal view of the chest was obtained. FINDINGS: The right internal jugular central venous catheter courses superiorly in the right internal jugular vein, into the neck. The lungs are well expanded. Diffuse bilateral airspace opacities are again noted, similar to prior. No pneumothorax. No significant pleural effusion. The left costophrenic angle is not fully included on the [id number]. The cardiomediastinal silhouette is unchanged. XR/XR chest 1V IMPRESSION: There is a new right internal jugular central venous catheter which courses superiorly in the neck. Recommend repositioning. Similar appearance of diffuse bilateral airspace opacities. This critical result was discussed with LUX Echevarria by telephone at 09/11/2020 2:33 AM and it was ascertained that the content and urgency of the report was understood at the time of direct communication.
[2020-09-11] MEDS: Morphine Sulfate 4 MG/ML CARTRIDGE 3 MG IVPUSH ×4 (02:15→22:12)
--- NOTE | 2020-09-11 02:37 | XR_ITS ---
EXAMINATION: XR CHEST CLINICAL INFORMATION: Central line insertion. COMPARISON: 09/11/2020 TECHNIQUE: Frontal view of the chest was obtained. FINDINGS: Right internal jugular central venous catheter is now positioned at the lower SVC, in appropriate positioning. Cardiac leads overlie the chest. The lungs are well expanded. Diffuse bilateral airspace opacities are unchanged. No pneumothorax. No pleural effusion. The cardiomediastinal silhouette is unchanged. XR/XR chest 1V IMPRESSION: Right internal jugular central venous catheter now in appropriate position over the lower SVC. No pneumothorax. Unchanged diffuse bilateral airspace opacities.
--- NOTE | 2020-09-11 02:58 | W.PM.CCHP ---
Procedures Central Line Placement Right IJ: Central Line Comments: Right internal jugular triple lumen central venous catheter placed in usual sterile conditions under ultrasound guidance for appropriate vascular access without immediate complications. First attempt was in the wrong position as per Chest XRAY, it was removed and a second central line was placed. This Central line position verified with Chest XRAY. Consent for Procedure: Elective - informed consent obtained Time out performed: Yes Sterile Technique Used: Yes Patient placed on monitor/pulse ox: Yes MD prep: mask, gown and gloves Central line prep: Chlorhexidine scrub Local anesthesia used: lidocaine 2% Amount of anesthesia used (ml): 4 Ultrasound used for placement: Yes Central line lumen inserted: triple Post procedure: sutured in place, good blood return, all ports aspirated, flushed, capped and sterile dressing applied Post procedure x-ray: tip of catheter in good position and no pneumothorax seen Patient tolerated procedure: well and no complications Complications: none
[2020-09-11] MEDS: Heparin Sodium,Porcine 5,000 UNIT/ML VIAL 7500 UNIT SUBCUT (04:00)
[2020-09-11] MEDS: dexmedeTOMIDidine HCL/NS 400 MCG/100 ML INFUS..BTL 17.76 MCG IVCONT ×2 (05:46→08:13)
[2020-09-11 06:52] LABS: Base Excess VBG 0.6 mmol/L; HCO3 VBG 26 mmol/L; Hematocrit 37.2 % (42-52); Imm Gran Abs Auto 0.02 X10*3/uL (0.00-0.03); Imm Gran Pct Auto 0.4 % (0.0-0.4); Lymphocytes Absolute Auto 0.2 X10*3/uL (1.2-4.9); Lymphocytes Percent Auto 3.4 % (20-40); MANUAL DIFF FLAG SCAN; Mean Corpuscular HGB Conc 32.3 g/dl (31.0-36.0); Mean Corpuscular Hemoglobin 28.5 pg (27.0-33.0); Mean Corpuscular Volume 88.4 fL (80-98); Mean Platelet Volume 12.3 fL (9.4-12.4); Monocytes Absolute Auto 0.1 X10*3/uL (0.1-1.2); Monocytes Percent Auto 2.3 % (2-11); Neutrophils Absolute Auto 5.3 X10*3/uL (2.0-8.3); Neutrophils Percent Auto 93.9 % (45-73); Oxygen Saturation VBG 63.8 %; PCO2 VBG 47 mmhg; PO2 VBG 35 mmhg; Platelet Count 111 X10*3/uL (160-400); Red Blood Count 4.21 X10*6/uL (4.60-5.80); Red Cell Distribution Width 15.6 % (11.0-16.0); SCAN SMEAR FLAG 1; White Blood Count 5.7 X10*3/uL (4.8-10.8); pH VBG 7.37 (7.32-7.43)
[2020-09-11 06:58] LABS: D Dimer 886 NG/ML
--- NOTE | 2020-09-11 07:17 | PC.NURSE ---
ASSUMED CARE AT 1900. PATIENT WITH SLIGHT TEMP 99.1-99.3. PATIENT IS ALERT AND ORIENTED, ON PRECEDEX GTT AT 0.4, CALM AND COMPLIANT WITH CARE, AND SLEPT IN NAPS OVERNIGHT. PATIENT IS ON CPAP 15, TV 600-700'S, TE 22-30; FIO2 100% AND SPO2 MOSTLY 89-92% IN THE EARLY PORTION OF THE SHIFT, AND 92-96% IN LATTER PORTION. PATIENT CONTINUES ON BUMEX GTT 0.5 MG/HOUR, AND WE HAVE VERIFIED WITH PHARMACIST THAT THIS DOSE IS SAFE, ALSO DISCUSSED WITH PA THAT PATIENT IS PUTTING OUT 200-350 CCS/HOUR DILUTE URINE. PATIENT DOES REPEATEDLY INSIST THAT HE HAVE PO WATER, AND THIS WAS OK PER PA, AND HE HAS NOT BEEN CHOKING ON THIS. PATIENT IS FLUID NEGATIUVE, APPEARS TO HAVE DIURESED 3900 CCS IN LAST 24 HRS, AND IS ALSO 3 KGS LESS IN MASS PER BEDSCALE OVER LAST 24 HOURS. EDEMA SEEMS REDUCED FROM 2 DAYS AGO, BUT PERSISTS +3 PITTING L>R IN FEET. PATIENT IS HAVING AN EASIER TIME BREATHING THAN 2 NIGHTS AGO, BUT IS STILL REPORTING CHEST PAIN, STERNAL AREA, NONRADIATING, GNAWING IN CHARACTER, WORSE ON INSPIRATION, WORSE WITH COUGH, WORSE WITH PALPATION; PA AWARE, NEW ORDERS FOR ONE TIME DOSES OF MORPHINE 3 MG IV OVERNIGHT X3, ADMINISTERED WITH GOOD EFFECT. VBGS WNL THIS MORNING. PATIENT IS IN ATRIAL FLUTTER ON MONITOR, WITH OCCASIONAL PVCS, RATE 128-143 OVERNIGHT, MOSTLY 130-135, GOES UP TO 143 WITH ACTIVITY. PATIENT DID REFUSE TO BE REPOSITIONED OVERNIGHT. VERY SLIGHT REPOSITIONING DONE WITH CONSENT, BUT MOSTLY EDUCATED PATIENT ABOUT RISKS OF REFUSAL AND PURPOSE OF REPOSITIONING WITH MODERATE TEACHBACK. PATIENT WITH SOME CONSTIPATION, HYPOACTIVE BOWEL SOUNDS, NO BM OVERNIGHT. PATIENT HAD DEVELOPED A LEAKING IV ON RIGHT HAND OVERNIGHT, LEAVING ONLY 20 G IN LEFT FOREARM, PATIENT CONSENTED TO PLACEMENT OF A TLC IN THE RIGHT IJ, INSERTED BY PA USING STERILE TECHNIQUE, REQUIRED 2 ATTEMPTS, WELL TOLERATED BY PATIENT.
[2020-09-11 07:20] LABS: Glucose, Whole Blood 186 mg/dL (60-115)
[2020-09-11 07:49] LABS: SLIDE REVIEW VERIFIED
[2020-09-11 08:04] LABS: Alanine Aminotransferase 17 U/L (0-40); Albumin Level 3.3 g/dL (3.5-5.0); Alkaline Phosphatase 87 U/L (39-117); Anion Gap 20 (12-20); Aspartate Amino Transferase 32 U/L (5-37); Bilirubin Total 0.5 mg/dL (0.0-1.0); Blood Urea Nitrogen 95 mg/dL (9-16); Calcium 8.5 mg/dL (8.4-10.2); Carbon Dioxide 26 mmol/L (22-29); Chloride 101 mmol/L (96-108); Creatinine Clr Calc Pharmacy 34.5; Estimated Glomerular Filt Rate 17; Glucose Random 185 mg/dL (60-115); Magnesium 2.1 mg/dL (1.6-2.6); Phosphorus 5.5 mg/dL (2.7-4.5); Potassium 3.2 mmol/l (3.3-5.1); Sodium 144 mmol/L (135-145); Total Protein 7.6 g/dL (6.5-8.0)
[2020-09-11] MEDS: dexAMETHasone sod phosphate 4 MG/ML VIAL 6 MG IVPUSH ×2 (08:13→21:48)
[2020-09-11] MEDS: Chlorothiazide Sodium 500 MG VIAL 1000 MG IVPUSH (08:13)
[2020-09-11] MEDS: 0.9 % Sodium Chloride Flush 3 ML SYRINGE IVFLUSH ×3 (08:14→21:48)
[2020-09-11] MEDS: Insulin Glargine,Hum.rec.anlog 100 UNIT/ML 10 ML VIAL 35 UNIT SUBCUT ×2 (08:14→21:47)
--- NOTE | 2020-09-11 09:52 | PM.PNCARD ---
Subjective Subjective Date of Service: 09/11/20 <LIZZETTE Leblanc - Last Filed: 09/11/20 10:22> 09/13/20 <Fernando Marino MD - Last Filed: 09/13/20 10:54> Principal diagnosis: Resp failure, COVID, Right HF, Tachycardia <LIZZETTE Leblanc - Last Filed: 09/11/20 10:22> Interval history: Cardiology follow up for HF, tachycardia. Seen at 0900. Today he reports that he was able to rest some last night and that breathing seems easier. Still wearing CPAP mask continually. He denies having any pain today. He feels that his abdominal size and leg edema have gone down. Resting in bed, with HOB elevated. <LIZZETTE Leblanc Last Filed: 09/11/20 10:22> Review of Systems Review of Systems as above <LIZZETTE Leblanc - Last Filed: 09/11/20 10:22> Yes all other systems are reviewed and are negative <LIZZETTE Leblanc - Last Filed: 09/11/20 10:22> Denies Neuro-related abnormal movements <LIZZETTE Leblanc - Last Filed: 09/11/20 10:22> Physical Exam Vital Signs: Last Vital Signs Temp 99.3 F 09/11/20 09:00 Pulse 133 H 09/11/20 09:00 Resp 31 H 09/11/20 09:00 BP 129/85 09/11/20 09:00 Pulse Ox 98 09/11/20 09:00 Body Mass Index 47.8 <LIZZETTE Leblanc - Last Filed: 09/11/20 10:22> Const Other: Awake, alert, wearing CPAP <LIZZETTE Leblanc - Last Filed: 09/11/20 10:22> Neck Other: central line right IJ. obese, difficult to assess for JVD, still looks elevated <LIZZETTE Leblanc - Last Filed: 09/11/20 10:22> Neck: Yes normal visual inspection <LIZZETTE Leblanc - Last Filed: 09/11/20 10:22> Carotids: carotid upstroke abnormal <Roxane Chaudhry NP - Last Filed: 09/11/20 10:22> Resp Other: tachypniac but seems more relaxed than yesterday. No cough noted <Roxane ChaudhryKURT - Last Filed: 09/11/20 10:22> Auscultation: clear to auscultation bilaterally (Coarse, clear, diminished - no distinct rales or rhonci noted) <Roxane ChaudhryKURT - Last Filed: 09/11/20 10:22> Cardio Rate: regular rate (Rapid) and tachycardic <Roxane ChaudhryKURT - Last Filed: 09/11/20 10:22> Rhythm: regular rhythm <Roxane ChaudrhyKURT - Last Filed: 09/11/20 10:22> Heart sounds: S1 normal heart sound present (distant heart tones, no noted murmur) and S2 normal heart sound present <Roxane ChaudhryKURT - Last Filed: 09/11/20 10:22> GI Other: Obese, nontender to palpation <Roxane ChaudhryKURT - Last Filed: 09/11/20 10:22> Skin General skin exam: dry skin (lower legs) <Roxane ChaudhryKURT - Last Filed: 09/11/20 10:22> Extrem Other: no pitting edema noted in legs <Roxane Chaudhry [facility] - Last Filed: 09/11/20 10:22> Results Labs and Meds Result diagrams: : 09/13/20 07:04 09/13/20 07:04 <Roxane ChaudhryKURT - Last Filed: 09/11/20 10:22> Lab results: Laboratory Results - last 24 hr 09/10/20 09/10/20 09/10/20 11:11 15:44 20:14 WBC RBC Hgb Hct MCV MCH MCHC RDW Plt Count MPV Immature Gran % (Auto) Neut % (Auto) Lymph % (Auto) [place] % (Auto) Eos % (Auto) Baso % (Auto) Lymph # (Auto) [place] # (Auto) Eos # (Auto) Baso # (Auto) Abs Immat Gran (auto) Absolute Neuts (auto) Absolute Nucleated RBC Nucleated RBC % (auto) Smear Tech's Comments D-Dimer VBG pH VBG pCO2 VBG pO2 VBG HCO3 VBG O2 Saturation VBG Base Excess Sodium Potassium Chloride Carbon Dioxide Anion Gap BUN Creatinine Estim Creat Clear Calc Estimated GFR POC Glucose 160 H 167 H 189 H Random Glucose Calcium Phosphorus Magnesium Total Bilirubin AST ALT Alkaline Phosphatase Total Protein Albumin 09/11/20 09/11/20 09/11/20 05:48 05:48 05:48 WBC 5.7 RBC 4.21 L Hgb 12.0 L Hct 37.2 L MCV 88.4 MCH 28.5 MCHC 32.3 RDW 15.6 Plt Count 111 L MPV 12.3 Immature Gran % (Auto) 0.4 Neut % (Auto) 93.9 H Lymph % (Auto) 3.4 L [place] % (Auto) 2.3 Eos % (Auto) 0.0 Baso % (Auto) 0.0 Lymph # (Auto) 0.2 L [place] # (Auto) 0.1 Eos # (Auto) 0.0 Baso # (Auto) 0.0 Abs Immat Gran (auto) 0.02 Absolute Neuts (auto) 5.3 Absolute Nucleated RBC 0.000 Nucleated RBC % (auto) 0.0 Smear Tech's Comments VERIFIED D-Dimer 886 VBG pH VBG pCO2 VBG pO2 VBG HCO3 VBG O2 Saturation VBG Base Excess Sodium 144 Potassium 3.2 L Chloride 101 Carbon Dioxide 26 Anion Gap 20 BUN 95 H* D Creatinine 3.75 H Estim Creat Clear Calc 34.5 Estimated GFR 17 POC Glucose Random Glucose 185 H Calcium 8.5 D Phosphorus 5.5 H Magnesium 2.1 Total Bilirubin 0.5 AST 32 ALT 17 Alkaline Phosphatase 87 Total Protein 7.6 Albumin 3.3 L 09/11/20 09/11/20 09/11/20 05:48 05:48 07:14 WBC RBC Hgb Hct MCV MCH MCHC RDW Plt Count MPV Immature Gran % (Auto) Neut % (Auto) Lymph % (Auto) [place] % (Auto) Eos % (Auto) Baso % (Auto) Lymph # (Auto) [place] # (Auto) Eos # (Auto) Baso # (Auto) Abs Immat Gran (auto) Absolute Neuts (auto) Absolute Nucleated RBC Nucleated RBC % (auto) Smear Tech's Comments D-Dimer VBG pH 7.37 VBG pCO2 47 VBG pO2 35 VBG HCO3 26 VBG O2 Saturation 63.8 VBG Base Excess 0.6 Sodium Cancelled Potassium Cancelled Chloride Cancelled Carbon Dioxide Cancelled Anion Gap Cancelled BUN Cancelled Creatinine Cancelled Estim Creat Clear Calc Cancelled Estimated GFR Cancelled POC Glucose 186 H Random Glucose Cancelled Calcium Cancelled Phosphorus Cancelled Magnesium Cancelled Total Bilirubin AST ALT Alkaline Phosphatase Total Protein Albumin Cancelled <MICHAEL LeblancC - Last Filed: 09/11/20 10:22> Imaging Radiologist's impression: Impressions Chest X-Ray 09/11/20 01:52 IMPRESSION: There is a new right internal jugular central venous catheter which courses superiorly in the neck. Recommend repositioning. Similar appearance of diffuse bilateral airspace opacities. This critical result was discussed with LUX Echevarria by telephone at 09/11/2020 2:33 AM and it was ascertained that the content and urgency of the report was understood at the time of direct communication. Chest X-Ray 09/11/20 02:37 IMPRESSION: Right internal jugular central venous catheter now in appropriate position over the lower SVC. No pneumothorax. Unchanged diffuse bilateral airspace opacities. <Roxane Chaudhry NP-C - Last Filed: 09/11/20 10:22> Progress Note: A&P Assessment and plan (1) CHF (congestive heart failure): Status: Acute <MICHAEL LeblancC - Last Filed: 09/11/20 10:22> Assessment and Plan: Acute on chronic systolic, diastolic and R HF, Echo showed EF 40-45%, which was similar to prior, with mild to mod decrease in RV systolic function, elevated RA pressures, flattened septum and severe IVC dilation. He has been on Bumex drip and diuresed about 6 liters in last 48 hr. He reports decrease in abdominal and leg swelling. Still requiring CPAP use with sat 95% this am. Cr 3.75, Bun 95. Continue Bumex drip at this time. Will discuss further with Dr Marino. Ongoing strict I+O monitoring, close monitoring of electrolyte and kidney function with electrolyte replacement as warranted. <MICHAEL LeblancC - Last Filed: 09/11/20 10:22> (2) Acute respiratory distress syndrome (ARDS) due to COVID-19 virus: Status: Acute <Roxane ChaudhryLIZZETTE - Last Filed: 09/11/20 10:22> Assessment and Plan: Being managed by service center technician <Roxane ChaudhryLIZZETTE - Last Filed: 09/11/20 10:22> (3) Acute kidney injury superimposed on CKD: Status: Acute <Roxane ChaudhryLIZZETTE - Last Filed: 09/11/20 10:22> Assessment and Plan: Nephrology and service center technician following as well <Roxane ChaudhryLIZZETTE - Last Filed: 09/11/20 10:22> (4) Atrial flutter: Status: Acute <Roxane ChaudhryLIZZETTE - Last Filed: 09/11/20 10:22> Assessment and Plan: EKG/ Tele this admit with what looks like sinus tachycardia however rate is flat and consistently in 130s. There is no variation with heart rate, even during sleep which would be atypical for sinus tach. Discussed with Dr Marino and we believe he is in atrial flutter. He is off home carvedilol as not taking po. Esmolol drip did not help with heart rate. Would recommend use of amiodarone drip to assist with rate and possibly rhythm control. Recommend use of heparin drip for anticoagulation. <Roxane DuLIZZETTE calvin - Last Filed: 09/11/20 10:22> Fall Risk Details Current Medications: Current Medications Generic Name Dose Route Start Last Admin Trade Name Yairq PRN Reason Stop Dose Admin Acetaminophen 650 mg 09/07/20 16:46 09/07/20 19:42 Acetaminophen 325 Mg Tablet PO 650 mg Q6H PRN Administration Pain, Mild (Pain Scale 1-3) Chlorothiazide Sodium 1,000 mg 09/09/20 13:00 09/11/20 08:13 Chlorothiazide Sodium 500 Mg Vial IVPUSH 1,000 mg DAILY KOJO Administration Protocol Dexamethasone Sodium Phosphate 6 mg 09/08/20 21:00 09/11/20 08:13 Dexamethasone Sod Phosphate 4 Mg/Ml Vial IVPUSH 6 mg BID KOJO Administration Famotidine 20 mg 09/08/20 21:00 09/10/20 19:58 Famotidine 20 Mg Tablet PO 20 mg BEDTIME KOJO Administration Heparin Sodium (Porcine) 7,500 unit 09/08/20 20:00 09/11/20 04:00 Heparin Sodium,Porcine 5,000 Unit/Ml Vial SUBCUT 7,500 unit Q8H KOJO Administration Bumetanide 25 mg/ IV 100 mls @ 2 mls/hr 09/09/20 09:00 09/10/20 11:11 Miscellaneous Supplies IVCONT 0.5 mg/hr .Q24H KOJO 2 mls/hr Administration 0.5 MG/HR Esmolol HCl 2,500 mg in 250 mls @ 0 mls/hr 09/09/20 16:00 09/10/20 11:15 Brevibloc/Nacl IVCONT 0 mcg/kg/min .Q0M KOJO 0 mls/hr Titration Protocol Per Protocol Dexmedetomidine HCl 400 mcg in 100 mls @ 0 mls/hr 09/10/20 07:45 09/11/20 08:13 Precedex IVCONT 0.4 mcg/kg/hr .Q0M KOJO 17.76 mls/hr Administration Protocol Per Protocol Albumin Human 100 mls @ 100 mls/hr 09/11/20 09:00 Kedbumin 25 % IV 09/12/20 03:59 Q6H [facility] Insulin Glargine 35 unit 09/08/20 21:00 09/11/20 08:14 Insulin Glargine,Hum.Rec.Anlog 100 Unit/Ml 10 Ml Vial SUBCUT 35 unit BID KOJO Administration Insulin Human Lispro 0 unit 09/07/20 07:30 09/11/20 07:37 Insulin Lispro 100 Unit/Ml 3 Ml Vial SUBCUT Not Given QIDACHS [facility] Protocol Ondansetron HCl 4 mg 09/07/20 16:46 Ondansetron Hcl 4 Mg/2 Ml Vial IVPUSH Q8H PRN Nausea and Vomiting Sodium Chloride 3 ml 09/07/20 16:46 09/11/20 08:14 0.9 % Sodium Chloride Flush 3 Ml Syringe IVFLUSH 3 ml QSHIFT KOJO Administration <LIZZETTE Leblanc - Last Filed: 09/11/20 10:22> Time Spent With Patient Time: Total time spent is greater than 50% in coordination of care (as documented) at patient's floor/unit and/or counseling patient: <LIZZETTE Leblanc - Last Filed: 09/11/20 10:22> Time with patient: 15 - 24 minutes <LIZZETTE Leblanc - Last Filed: 09/11/20 10:22>
[2020-09-11] MEDS: Potassium Chloride Packet 20 MEQ PACKET 60 MEQ PO (09:55)
[2020-09-11] MEDS: Albumin Human 25 % 100 ML IV ×3 (09:55→21:46)
[2020-09-11] MEDS: Bumetanide 25 MG in Container,Empty 0 ML IVCONT (09:56)
--- NOTE | 2020-09-11 11:04 | MHC.CLN ---
F/U KITCHEN TO SEND ENSURE TO INCREASE PO PROTEIN FOLLOWING
[2020-09-11 11:16] LABS: Glucose, Whole Blood 177 mg/dL (60-115)
--- NOTE | 2020-09-11 11:23 | PC.NURSE ---
Addendum entered by Nicanor Contreras RN 09/11/20 14:24: Amiodarone started at 1mg/min at 1325, no loading dose given per MD Abram, remains 130's aflutter 2:1. RT placed pt on highflow 55L/min FiO2 100% and pt tolerated for one hour before increased WOB and SaO2 down to 82%. Drank one ensure. Back on CPAP at 1425. Pt given 3mg IVP morphine for midsternal chest pressure worse with inspiration and palpation. Pt has put out 2100ml from [id number]. Pt resting in bed high fowlers, sleeping. Original Note: Pt A&Ox3, midsternal chest pressure 3/10 states improved, worse with inspiration and palpation. States breathing does feel better overall while on CPAP. Current settings CPAP 15mmHg, FiO2 100%, Tv are 680-720 Ve 23.3L/min, RR 30-40, lower lobes dim bilat, upper lobes clear. Pt drank 240ml fluid while off CPAP and on 100% FiO2 Highflow and did not tolerate well. SaO2 dropped to 87% within 2 minutes. Pt states increased WOB and did not have energy to continue, MD aware. Pt continues 2:1 aflutter BBB with occasional PVC at rate of 130-140bpm BP stable, BLE edema improving. On Bumex drip at 0.5mg/hr in conjuction with IVP Diuril, urine output ranging 175-325ml/hr. Bowel sounds hypoactive. Pt refused to be washed up this AM, did agree to centeno care. Bed locked and in lowest position, call alonso in reach, CPAP on.
[2020-09-11] MEDS: Heparin Sodium,Porcine 5,000 UNIT/ML VIAL 5000 UNIT SUBCUT ×2 (12:51→21:47)
[2020-09-11] MEDS: Amiodarone HCL 900 MG in 0.9 % Sodium Chloride 500 ML 34.53 MG IVCONT (13:04)
--- NOTE | 2020-09-11 16:01 | PM.CCPN ---
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 On ER evaluation positive for COVID-19 and requiring significant amount of supplemental oxygen. Admitted initially to general medical isabel and started on dexamethasone. Hospital course complicated by chronic chest pain, exacerbation of underlying systolic heart failure, worsening renal failure, and progressive hypoxic respiratory failure requiring initiation of noninvasive positive pressure ventilation on 09/09/2020 and transfer to intensive care unit. No events overnight. Mild improvement in oxygenation now tolerating being switched between CPAP and high-flow nasal cannula. Physical Exam Vital Signs: Vital Signs: Last Vital Signs Temp 99.5 F 09/11/20 15:54 Pulse 133 H 09/11/20 15:54 Resp 33 H 09/11/20 15:54 BP 130/90 H 09/11/20 15:54 Pulse Ox 91 L 09/11/20 15:54 Body Mass Index 47.8 Const: General: no acute distress, alert and awake Nutritional Appearance: obese Eyes: Sclerae: sclerae normal EOM: EOMs intact bilaterally Neck: Neck: Yes no lymphadenopathy, Yes trachea midline and Yes supple Resp: Effort & Inspection: normal respiratory effort and no respiratory distress Auscultation: crackles (Diffuse bilateral) Cardio: Rate: tachycardic Rhythm: regular rhythm Heart sounds: no gallops, no murmurs and no rubs GI: Palpation (GI): Soft to palpation and Other GI palpation findings present ( Nontender) Auscultation: normal bowel sounds Extrem: General: No clubbing, No cyanosis and Yes edema (2+ bilateral) Objective Data Labs CBC & Chem 7: 09/11/20 05:48 09/11/20 05:48 Labs: Laboratory Results - last 24 hr 09/10/20 09/11/20 09/11/20 20:14 05:48 05:48 WBC 5.7 RBC 4.21 L Hgb 12.0 L Hct 37.2 L MCV 88.4 MCH 28.5 MCHC 32.3 RDW 15.6 Plt Count 111 L MPV 12.3 Immature Gran % (Auto) 0.4 Neut % (Auto) 93.9 H Lymph % (Auto) 3.4 L [place] % (Auto) 2.3 Eos % (Auto) 0.0 Baso % (Auto) 0.0 Lymph # (Auto) 0.2 L [place] # (Auto) 0.1 Eos # (Auto) 0.0 Baso # (Auto) 0.0 Abs Immat Gran (auto) 0.02 Absolute Neuts (auto) 5.3 Absolute Nucleated RBC 0.000 Nucleated RBC % (auto) 0.0 Smear Tech's Comments VERIFIED D-Dimer VBG pH VBG pCO2 VBG pO2 VBG HCO3 VBG O2 Saturation VBG Base Excess Sodium 144 Potassium 3.2 L Chloride 101 Carbon Dioxide 26 Anion Gap 20 BUN 95 H* D Creatinine 3.75 H Estim Creat Clear Calc 34.5 Estimated GFR 17 POC Glucose 189 H Random Glucose 185 H Calcium 8.5 D Phosphorus 5.5 H Magnesium 2.1 Total Bilirubin 0.5 AST 32 ALT 17 Alkaline Phosphatase 87 Total Protein 7.6 Albumin 3.3 L 09/11/20 09/11/20 09/11/20 05:48 05:48 05:48 WBC RBC Hgb Hct MCV MCH MCHC RDW Plt Count MPV Immature Gran % (Auto) Neut % (Auto) Lymph % (Auto) [place] % (Auto) Eos % (Auto) Baso % (Auto) Lymph # (Auto) [place] # (Auto) Eos # (Auto) Baso # (Auto) Abs Immat Gran (auto) Absolute Neuts (auto) Absolute Nucleated RBC Nucleated RBC % (auto) Smear Tech's Comments D-Dimer 886 VBG pH 7.37 VBG pCO2 47 VBG pO2 35 VBG HCO3 26 VBG O2 Saturation 63.8 VBG Base Excess 0.6 Sodium Cancelled Potassium Cancelled Chloride Cancelled Carbon Dioxide Cancelled Anion Gap Cancelled BUN Cancelled Creatinine Cancelled Estim Creat Clear Calc Cancelled Estimated GFR Cancelled POC Glucose Random Glucose Cancelled Calcium Cancelled Phosphorus Cancelled Magnesium Cancelled Total Bilirubin AST ALT Alkaline Phosphatase Total Protein Albumin Cancelled 09/11/20 09/11/20 07:14 11:09 WBC RBC Hgb Hct MCV MCH MCHC RDW Plt Count MPV Immature Gran % (Auto) Neut % (Auto) Lymph % (Auto) [place] % (Auto) Eos % (Auto) Baso % (Auto) Lymph # (Auto) [place] # (Auto) Eos # (Auto) Baso # (Auto) Abs Immat Gran (auto) Absolute Neuts (auto) Absolute Nucleated RBC Nucleated RBC % (auto) Smear Tech's Comments D-Dimer VBG pH VBG pCO2 VBG pO2 VBG HCO3 VBG O2 Saturation VBG Base Excess Sodium Potassium Chloride Carbon Dioxide Anion Gap BUN Creatinine Estim Creat Clear Calc Estimated GFR POC Glucose 186 H 177 H Random Glucose Calcium Phosphorus Magnesium Total Bilirubin AST ALT Alkaline Phosphatase Total Protein Albumin Microbiology Microbiology Results: Microbiology 09/07/20 02:25 Blood - Venous Blood Culture - Preliminary No growth after 48 hours. 09/07/20 02:25 Blood - Venous Blood Culture - Preliminary No growth after 48 hours. Progress Note: A&P Assessment and plan (1) Atrial flutter: Status: Acute Assessment and Plan: Assessment: 60-year-old gentleman with underlying combined systolic and diastolic chronic congestive heart failure, morbid obesity, diabetes mellitus, CKD, hypertension hospitalized with acute hypoxic respiratory failure secondary to COVID-19 ARDS, further complicated by acute on chronic congestive heart failure exacerbation, worsening renal failure, and progressive hypoxia requiring noninvasive positive pressure ventilation support. Plan: Neuro: No acute issues. Cardiac: Acute on chronic combined systolic and diastolic congestive heart failure. Right heart failure. Continue with diuresis. Cardiology service care appreciated. Sinus tachycardia versus aflutter, continue with rate control. Poor response to digoxin, started on amiodarone. No anticoagulation secondary to concern for stress gastritis, started on aspirin. Pulmonary: Acute hypoxic respiratory failure secondary to COVID-19 ARDS now requiring noninvasive positive pressure ventilation support on the background of obesity hyperventilation and obstructive sleep apnea. Continue to titrate off as tolerated. Renal: Acute on chronic renal failure likely secondary to combination of COVID-19 related micro thrombosis and exacerbation of underlying combined congestive heart failure. Non oliguric. Continue with IV diuresis. Continue to monitor renal indices and urine output. Nephrology service care appreciated. Endo: No acute issues. GI: No acute issues. ID: COVID-19 related ARDS and viral sepsis. No septic shock. Continue with dexamethasone. Heme/Onc: No acute issues. Psych: No acute issues. Miscellaneous: No acute issues. Prophylaxis: Heparin, famotidine Diet: Nothing by mouth Critical care time spent: 60 minutes (2) Viral sepsis: Status: Acute (3) Acute respiratory distress syndrome (ARDS) due to COVID-19 virus: Status: Acute (4) Morbid obesity: Status: Acute (5) CHF (congestive heart failure): Status: Acute (6) Acute kidney injury superimposed on CKD: Status: Acute (7) Acute respiratory failure with hypoxia: Status: Acute Time Spent With Patient Total time spent with greater than 50% in coordination of care (as documented) at patient's floor/unit and/or counseling patient:: 0 Critical Care Time Critical Care Time (minutes): 60
[2020-09-11 16:21] LABS: Glucose, Whole Blood 274 mg/dL (60-115)
[2020-09-11] MEDS: dexmedeTOMIDidine HCL/NS 400 MCG/100 ML INFUS..BTL 8.88 MCG IVCONT (18:29)
--- NOTE | 2020-09-11 19:02 | PC.NURSE ---
pt alert, oriented. lungs dim, some wheezing right upper. continuing on amiodarone drip HR remains 120-130s also on bumex drip from [id number] pt pt out ~880ml Pt alternated from CPAP and hiflo w/nonrebreather. Assessited pt OOB to chair - pt comfortable current sat 97%. Only complaint was some chest pain which increases with coughing - pt verabalizes ok at this level of pain at this time.
[2020-09-11 21:25] LABS: Glucose, Whole Blood 285 mg/dL (60-115)
[2020-09-11] MEDS: Insulin Lispro 100 UNIT/ML 3 ML VIAL SUBCUT (21:47)
[2020-09-11] MEDS: Famotidine 20 MG TABLET PO (21:48)
[2020-09-12] VITALS (34 sets, daily range): BP systolic 97–145; BP diastolic 71–93; PULSE 124–133; RESP 23–44; TEMP 36.2–37.4; O2SAT 88–98; BMI 13.1; BMI 45.9
[2020-09-12] MEDS: Morphine Sulfate 4 MG/ML CARTRIDGE 3 MG IVPUSH ×3 (00:33→23:59)
[2020-09-12] MEDS: dexmedeTOMIDidine HCL/NS 400 MCG/100 ML INFUS..BTL 26.64 MCG IVCONT (03:20)
[2020-09-12] MEDS: Albumin Human 25 % 100 ML IV (03:21)
[2020-09-12] MEDS: Amiodarone HCL 900 MG in 0.9 % Sodium Chloride 500 ML 17.27 MG IVCONT ×2 (04:38→18:05)
[2020-09-12] MEDS: Heparin Sodium,Porcine 5,000 UNIT/ML VIAL 5000 UNIT SUBCUT (04:38)
[2020-09-12 05:46] LABS: Hematocrit 35.2 % (42-52); Hemoglobin 11.5 g/dl (14.0-18.0); Imm Gran Abs Auto 0.05 X10*3/uL (0.00-0.03); Imm Gran Pct Auto 0.8 % (0.0-0.4); Lymphocytes Absolute Auto 0.1 X10*3/uL (1.2-4.9); Lymphocytes Percent Auto 2.1 % (20-40); MANUAL DIFF FLAG SCAN; Mean Corpuscular HGB Conc 32.7 g/dl (31.0-36.0); Mean Corpuscular Hemoglobin 28.9 pg (27.0-33.0); Mean Corpuscular Volume 88.4 fL (80-98); Monocytes Absolute Auto 0.1 X10*3/uL (0.1-1.2); Monocytes Percent Auto 2.1 % (2-11); Neutrophils Absolute Auto 6.2 X10*3/uL (2.0-8.3); Platelet Count 115 X10*3/uL (160-400); Red Blood Count 3.98 X10*6/uL (4.60-5.80); Red Cell Distribution Width 15.5 % (11.0-16.0); SCAN SMEAR FLAG 1; White Blood Count 6.5 X10*3/uL (4.8-10.8)
[2020-09-12 05:51] LABS: HCO3 VBG 27 mmol/L; Oxygen Saturation VBG 66.7 %; PCO2 VBG 46 mmhg; PO2 VBG 38 mmhg; pH VBG 7.38 (7.32-7.43)
[2020-09-12] MEDS: dexmedeTOMIDidine HCL/NS 400 MCG/100 ML INFUS..BTL 31.08 MCG IVCONT ×6 (06:07→19:56)
[2020-09-12 06:09] LABS: SLIDE REVIEW VERIFIED
[2020-09-12 06:17] LABS: Albumin Level 3.8 g/dL (3.5-5.0); Anion Gap 20 (12-20); Blood Urea Nitrogen 114 mg/dL (9-16); Calcium 8.2 mg/dL (8.4-10.2); Carbon Dioxide 26 mmol/L (22-29); Chloride 94 mmol/L (96-108); Creatinine Clr Calc Pharmacy 35.8; Estimated Glomerular Filt Rate 17; Glucose Random 466 mg/dL (60-115); Phosphorus 3.3 mg/dL (2.7-4.5); Potassium 3.2 mmol/l (3.3-5.1); Sodium 137 mmol/L (135-145)
--- NOTE | 2020-09-12 07:00 | PC.NURSE ---
Late entry 09/12 0700: Patient remains on precedex, amio, and bumex gtts. Initially restless, anxious, yelling into phone, and becoming SOB/diaphoretic with activity. PRN morphine x2 with minimal effect. Precedex gtt titrated up with good effect. Patient now restful but easily aroused and conversational. Aflutter 120's-130's. SBP 140's-150's. Patient c/o face pain, headache, and claustrophobia with full face CPAP mask, switched out for an under the nose style mask with excellent effect. Patient able to tolerate CPAP with only short breaks on HFNC 100%/NRB 100%. Tolerating sips of water and ensure. OOB to chair. Skin intact.
[2020-09-12 07:47] LABS: Glucose, Whole Blood 368 mg/dL (60-115)
--- NOTE | 2020-09-12 07:47 | MHC.CM.PN ---
Pt remains in ICU - not intubated but on NIPPV: Updated d/c plan to include an [facility] referral for skilled RN visits. Pt was independent prior to COVID admission and will benefit from post acute f/u.
[2020-09-12] MEDS: Insulin Lispro 100 UNIT/ML 3 ML VIAL SUBCUT ×4 (08:15→19:57)
[2020-09-12] MEDS: Potassium Chloride Packet 20 MEQ PACKET 60 MEQ PO (08:17)
[2020-09-12] MEDS: 0.9 % Sodium Chloride Flush 3 ML SYRINGE IVFLUSH ×3 (08:19→20:09)
[2020-09-12] MEDS: Aspirin 81 MG TAB.CHEW PO (08:21)
[2020-09-12] MEDS: Insulin Glargine,Hum.rec.anlog 100 UNIT/ML 10 ML VIAL 35 UNIT SUBCUT ×2 (09:59→19:57)
[2020-09-12] MEDS: Chlorothiazide Sodium 500 MG VIAL 1000 MG IVPUSH (09:59)
[2020-09-12] MEDS: dexAMETHasone sod phosphate 4 MG/ML VIAL 6 MG IVPUSH ×2 (09:59→19:57)
[2020-09-12 10:03] LABS: INTERNATIONAL NORM RATIO 1.1 (0.9-1.1); Prothrombin Time 13.6 SEC (10.8-13.0)
[2020-09-12 10:14] LABS: PTT Heparin Drip 22.6 SEC (53-77.9)
[2020-09-12] MEDS: Bumetanide 25 MG in Container,Empty 0 ML IVCONT (10:32)
--- NOTE | 2020-09-12 10:49 | PM.PNCARD ---
Subjective Subjective Date of Service: 09/12/20 Principal diagnosis: Resp failure, COVID, Right HF, Aflutter Interval history: On CPAP. Breathing is ok. He is in atrial flutter and on amiodarone gtt. Review of Systems Review of Systems SOB, tachycardia Yes all other systems are reviewed and are negative Denies Neuro-related abnormal movements Physical Exam Vital Signs: Last Vital Signs Temp 99.0 F 09/12/20 10:00 Pulse 132 H 09/12/20 10:00 Resp 38 H 09/12/20 10:12 BP 136/89 09/12/20 10:00 Pulse Ox 95 09/12/20 10:00 Body Mass Index 45.9 GENERAL APPEARANCE: on CPAP HEENT: unremarkable. HEAD: normocephalic, atraumatic. NECK/THYROID: JVD approximately 12 cm of water. SKIN: no suspicious lesions, warm and dry. HEART: no murmurs, regular rate and rhythm, S1, S2 normal. LUNGS: Coarse breath sound bilaterally. ABDOMEN: Distended, nontender EXTREMITIES: no clubbing, cyanosis. mild edema NEUROLOGIC: nonfocal, alert and oriented. Results Labs and Meds Result diagrams: 09/12/20 05:30 09/12/20 05:30 Lab results: Laboratory Results - last 24 hr 09/11/20 09/11/20 09/11/20 11:09 16:17 21:12 WBC RBC Hgb Hct MCV MCH MCHC RDW Plt Count MPV Immature Gran % (Auto) Neut % (Auto) Lymph % (Auto) [place] % (Auto) Eos % (Auto) Baso % (Auto) Lymph # (Auto) [place] # (Auto) Eos # (Auto) Baso # (Auto) Abs Immat Gran (auto) Absolute Neuts (auto) Absolute Nucleated RBC Nucleated RBC % (auto) Smear Tech's Comments PT INR PTT (Heparin Protocol) VBG pH VBG pCO2 VBG pO2 VBG HCO3 VBG O2 Saturation VBG Base Excess Sodium Potassium Chloride Carbon Dioxide Anion Gap BUN Creatinine Estim Creat Clear Calc Estimated GFR POC Glucose 177 H 274 H 285 H Random Glucose Calcium Phosphorus Magnesium Albumin 09/12/20 09/12/20 09/12/20 05:30 05:30 05:30 WBC 6.5 RBC 3.98 L Hgb 11.5 L Hct 35.2 L MCV 88.4 MCH 28.9 MCHC 32.7 RDW 15.5 Plt Count 115 L MPV 12.0 Immature Gran % (Auto) 0.8 H Neut % (Auto) 95.0 H Lymph % (Auto) 2.1 L [place] % (Auto) 2.1 Eos % (Auto) 0.0 Baso % (Auto) 0.0 Lymph # (Auto) 0.1 L [place] # (Auto) 0.1 Eos # (Auto) 0.0 Baso # (Auto) 0.0 Abs Immat Gran (auto) 0.05 H Absolute Neuts (auto) 6.2 Absolute Nucleated RBC 0.000 Nucleated RBC % (auto) 0.0 Smear Tech's Comments VERIFIED PT INR PTT (Heparin Protocol) VBG pH 7.38 VBG pCO2 46 VBG pO2 38 VBG HCO3 27 VBG O2 Saturation 66.7 VBG Base Excess 1.0 Sodium 137 Potassium 3.2 L Chloride 94 L Carbon Dioxide 26 Anion Gap 20 BUN 114 H* Creatinine 3.61 H Estim Creat Clear Calc 35.8 Estimated GFR 17 POC Glucose Random Glucose 466 H* Calcium 8.2 L Phosphorus 3.3 Magnesium 2.0 Albumin 3.8 09/12/20 09/12/20 07:35 09:49 WBC RBC Hgb Hct MCV MCH MCHC RDW Plt Count MPV Immature Gran % (Auto) Neut % (Auto) Lymph % (Auto) [place] % (Auto) Eos % (Auto) Baso % (Auto) Lymph # (Auto) [place] # (Auto) Eos # (Auto) Baso # (Auto) Abs Immat Gran (auto) Absolute Neuts (auto) Absolute Nucleated RBC Nucleated RBC % (auto) Smear Tech's Comments PT 13.6 H INR 1.1 PTT (Heparin Protocol) 22.6 L VBG pH VBG pCO2 VBG pO2 VBG HCO3 VBG O2 Saturation VBG Base Excess Sodium Potassium Chloride Carbon Dioxide Anion Gap BUN Creatinine Estim Creat Clear Calc Estimated GFR POC Glucose 368 H* Random Glucose Calcium Phosphorus Magnesium Albumin Progress Note: A&P Assessment and plan (1) Atrial flutter: Status: Acute (2) Viral sepsis: Status: Acute (3) Acute respiratory distress syndrome (ARDS) due to COVID-19 virus: Status: Acute (4) CHF (congestive heart failure): Status: Acute Assessment and Plan: 60-year-old gentleman with previous biv failure and admissions with R>L heart failure admitted with Covid 19 pneumonia and sepsis. On CPAP. On Bumex gtt and diuresis well. In atrial flutter with difficult to control rates. Probably driven by the respiratory issues. On amiodarone gtt. Given high chads vasc would start on heparin gtt if no contraindications. Monitor electrolytes closely while on diuretics. We will follow along with you. Fall Risk Details Current Medications: Current Medications Generic Name Dose Route Start Last Admin Trade Name Freq PRN Reason Stop Dose Admin Acetaminophen 650 mg 09/07/20 16:46 09/07/20 19:42 Acetaminophen 325 Mg Tablet PO 650 mg Q6H PRN Administration Pain, Mild (Pain Scale 1-3) Chlorothiazide Sodium 1,000 mg 09/09/20 13:00 09/12/20 09:59 Chlorothiazide Sodium 500 Mg Vial IVPUSH 1,000 mg DAILY KOJO Administration Protocol Dexamethasone Sodium Phosphate 6 mg 09/08/20 21:00 09/12/20 09:59 Dexamethasone Sod Phosphate 4 Mg/Ml Vial IVPUSH 6 mg BID KOJO Administration Heparin Sodium (Porcine) 12,640 unit 09/12/20 09:41 Heparin Sodium,Porcine 5,000 Unit/Ml Vial 80 unit/kg (79140 unit) IVPUSH BOLUS PRN 80 unit/kg - Heparin Protocol Heparin Sodium (Porcine) 6,320 unit 09/12/20 09:41 Heparin Sodium,Porcine 5,000 Unit/Ml Vial 40 unit/kg (6320 unit) IVPUSH BOLUS PRN HEPARINPRO Bumetanide 25 mg/ IV 100 mls @ 2 mls/hr 09/09/20 09:00 09/12/20 10:32 Miscellaneous Supplies IVCONT 0.5 mg/hr .Q24H KOJO 2 mls/hr Administration 0.5 MG/HR Dexmedetomidine HCl 400 mcg in 100 mls @ 0 mls/hr 09/10/20 07:45 09/12/20 10:05 Precedex IVCONT 0.7 mcg/kg/hr .Q0M KOJO 31.08 mls/hr Administration Protocol Per Protocol Amiodarone HCl 900 mg/ Sodium 518 mls @ 34.533 mls/hr 09/11/20 12:30 09/12/20 04:38 Chloride IVCONT 0.5 mg/min .Q15H1M KOJO 17.27 mls/hr Administration Protocol 1 MG/MIN Heparin Sodium/Sodium Chloride 25,000 unit in 250 mls @ 0 mls/hr 09/12/20 09:45 IVCONT .Q0M [facility] Protocol Per Protocol Insulin Glargine 35 unit 09/08/20 21:00 09/12/20 09:59 Insulin Glargine,Hum.Rec.Anlog 100 Unit/Ml 10 Ml Vial SUBCUT 35 unit BID [facility] Administration Insulin Human Lispro 0 unit 09/07/20 07:30 09/12/20 08:15 Insulin Lispro 100 Unit/Ml 3 Ml Vial SUBCUT 10 unit QIDACHS [facility] Administration Protocol Morphine Sulfate 3 mg 09/11/20 13:36 09/12/20 10:12 Morphine Sulfate 4 Mg/Ml Cartridge IVPUSH 3 mg Q6H PRN Administration pain Omeprazole 40 mg 09/13/20 06:30 Omeprazole 40 Mg Capsule. PO DAILY@0630 [facility] Ondansetron HCl 4 mg 09/07/20 16:46 Ondansetron Hcl 4 Mg/2 Ml Vial IVPUSH Q8H PRN Nausea and Vomiting Sodium Chloride 3 ml 09/07/20 16:46 09/12/20 08:19 0.9 % Sodium Chloride Flush 3 Ml Syringe IVFLUSH 3 ml QSHIFT [facility] Administration Time Spent With Patient Time: Total time spent is greater than 50% in coordination of care (as documented) at patient's floor/unit and/or counseling patient: Time with patient: 15 - 24 minutes
[2020-09-12] MEDS: Heparin Sodium,Porcine/1/2NS 25,000 UNIT/250 ML IV.SOLN 22.12 UNIT IVCONT ×2 (11:19→22:46)
--- NOTE | 2020-09-12 11:19 | P.PNNP_ITS ---
Subjective Subjective Date of Service: 09/12/20 Principal diagnosis: Resp failure, COVID, Right HF, Aflutter Interval history: Events noted; All recent data reviewed. Physical Exam Vital Signs: Vital Signs: Last Vital Signs Temp 98.8 F 09/12/20 11:00 Pulse 131 H 09/12/20 11:00 Resp 33 H 09/12/20 11:01 BP 118/85 09/12/20 11:00 Pulse Ox 88 L 09/12/20 11:00 Body Mass Index 45.9 Neck: Neck: Yes supple Resp: Auscultation: diminished lung sounds Cardio: Rate: regular rate GI: Palpation (GI): Soft to palpation Neuro: General: moves all extremities Objective Data Labs CBC & Chem 7: 09/12/20 05:30 09/12/20 05:30 Labs: Laboratory Results - last 24 hr 09/11/20 09/11/20 09/12/20 16:17 21:12 05:30 WBC 6.5 RBC 3.98 L Hgb 11.5 L Hct 35.2 L MCV 88.4 MCH 28.9 MCHC 32.7 RDW 15.5 Plt Count 115 L MPV 12.0 Immature Gran % (Auto) 0.8 H Neut % (Auto) 95.0 H Lymph % (Auto) 2.1 L [place] % (Auto) 2.1 Eos % (Auto) 0.0 Baso % (Auto) 0.0 Lymph # (Auto) 0.1 L [place] # (Auto) 0.1 Eos # (Auto) 0.0 Baso # (Auto) 0.0 Abs Immat Gran (auto) 0.05 H Absolute Neuts (auto) 6.2 Absolute Nucleated RBC 0.000 Nucleated RBC % (auto) 0.0 Smear Tech's Comments VERIFIED PT INR PTT (Heparin Protocol) VBG pH VBG pCO2 VBG pO2 VBG HCO3 VBG O2 Saturation VBG Base Excess Sodium Potassium Chloride Carbon Dioxide Anion Gap BUN Creatinine Estim Creat Clear Calc Estimated GFR POC Glucose 274 H 285 H Random Glucose Calcium Phosphorus Magnesium Albumin 09/12/20 09/12/20 09/12/20 05:30 05:30 07:35 WBC RBC Hgb Hct MCV MCH MCHC RDW Plt Count MPV Immature Gran % (Auto) Neut % (Auto) Lymph % (Auto) [place] % (Auto) Eos % (Auto) Baso % (Auto) Lymph # (Auto) [place] # (Auto) Eos # (Auto) Baso # (Auto) Abs Immat Gran (auto) Absolute Neuts (auto) Absolute Nucleated RBC Nucleated RBC % (auto) Smear Tech's Comments PT INR PTT (Heparin Protocol) VBG pH 7.38 VBG pCO2 46 VBG pO2 38 VBG HCO3 27 VBG O2 Saturation 66.7 VBG Base Excess 1.0 Sodium 137 Potassium 3.2 L Chloride 94 L Carbon Dioxide 26 Anion Gap 20 BUN 114 H* Creatinine 3.61 H Estim Creat Clear Calc 35.8 Estimated GFR 17 POC Glucose 368 H* Random Glucose 466 H* Calcium 8.2 L Phosphorus 3.3 Magnesium 2.0 Albumin 3.8 09/12/20 09:49 WBC RBC Hgb Hct MCV MCH MCHC RDW Plt Count MPV Immature Gran % (Auto) Neut % (Auto) Lymph % (Auto) [place] % (Auto) Eos % (Auto) Baso % (Auto) Lymph # (Auto) [place] # (Auto) Eos # (Auto) Baso # (Auto) Abs Immat Gran (auto) Absolute Neuts (auto) Absolute Nucleated RBC Nucleated RBC % (auto) Smear Tech's Comments PT 13.6 H INR 1.1 PTT (Heparin Protocol) 22.6 L VBG pH VBG pCO2 VBG pO2 VBG HCO3 VBG O2 Saturation VBG Base Excess Sodium Potassium Chloride Carbon Dioxide Anion Gap BUN Creatinine Estim Creat Clear Calc Estimated GFR POC Glucose Random Glucose Calcium Phosphorus Magnesium Albumin Microbiology Microbiology Results: Microbiology 09/07/20 02:25 Blood - Venous Blood Culture - Final No growth after 5 days. 09/07/20 02:25 Blood - Venous Blood Culture - Final No growth after 5 days. Assessment & Plan Assessment and plan (1) Acute renal failure: Problem details: SAQIB due to tubular injury Hypervolemic. Responding well to diuresis Serum creatinine plateaued No indication for renal replacement yet Concur with rest of current supportive management Status: Acute Time Spent With Patient Time: Total time spent is greater than 50% in coordination of care (as documented) at patient's floor/unit and/or counseling patient:
[2020-09-12 11:41] LABS: Glucose, Whole Blood 322 mg/dL (60-115)
--- NOTE | 2020-09-12 14:36 | PC.NURSE ---
Shift note Multiple attempts made to reposition patient, continuously refused to turn side and side. Remained in supine upright position as he stated his breathing felt best in this position. Gentle encouragement made and patient agreeable to bathe and get OOB to a chair. Pt bathed and st with feet dangled at bedside with assist x 2. When patient was ready he was able to stand upright, remained steady and took small steps to the chair. Pt remained on cpap of 15 and 80% fio2 and once transitioned to the chair fio2 titrated to 75%- tolerated well. New orders obtained this AM for heparin gtt without bolus and SQ heparin stopped. Pt remains OOB in the chair resting on cpap. will continue to assess and monitor.
--- NOTE | 2020-09-12 14:48 | PM.CCPN ---
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 On ER evaluation positive for COVID-19 and requiring significant amount of supplemental oxygen. Admitted initially to general medical [facility] and started on dexamethasone. Hospital course complicated by chronic chest pain, exacerbation of underlying systolic heart failure, worsening renal failure, and progressive hypoxic respiratory failure requiring initiation of noninvasive positive pressure ventilation on 09/09/2020 and transfer to intensive care unit. No events overnight. FiO2 requirements improving slowly. Physical Exam Vital Signs: Vital Signs: Last Vital Signs Temp 98.6 F 09/12/20 14:00 Pulse 130 H 09/12/20 14:00 Resp 30 H 09/12/20 14:00 BP 124/89 09/12/20 14:00 Pulse Ox 94 09/12/20 14:00 Body Mass Index 45.9 Const: General: no acute distress, alert and awake Nutritional Appearance: obese Eyes: Sclerae: sclerae normal EOM: EOMs intact bilaterally Neck: Neck: Yes no lymphadenopathy, Yes trachea midline and Yes supple Resp: Effort & Inspection: normal respiratory effort and no respiratory distress Auscultation: crackles (Bibasilar) Cardio: Rate: tachycardic Rhythm: regular rhythm Heart sounds: no gallops, no murmurs and no rubs GI: Palpation (GI): Soft to palpation and Other GI palpation findings present ( Nontender) Auscultation: normal bowel sounds Extrem: General: No clubbing, No cyanosis and Yes edema (2+ bilateral) Objective Data Labs CBC & Chem 7: 09/12/20 05:30 09/12/20 05:30 Labs: Laboratory Results - last 24 hr 09/11/20 09/11/20 09/12/20 16:17 21:12 05:30 WBC 6.5 RBC 3.98 L Hgb 11.5 L Hct 35.2 L MCV 88.4 MCH 28.9 MCHC 32.7 RDW 15.5 Plt Count 115 L MPV 12.0 Immature Gran % (Auto) 0.8 H Neut % (Auto) 95.0 H Lymph % (Auto) 2.1 L [place] % (Auto) 2.1 Eos % (Auto) 0.0 Baso % (Auto) 0.0 Lymph # (Auto) 0.1 L [place] # (Auto) 0.1 Eos # (Auto) 0.0 Baso # (Auto) 0.0 Abs Immat Gran (auto) 0.05 H Absolute Neuts (auto) 6.2 Absolute Nucleated RBC 0.000 Nucleated RBC % (auto) 0.0 Smear Tech's Comments VERIFIED PT INR PTT (Heparin Protocol) VBG pH VBG pCO2 VBG pO2 VBG HCO3 VBG O2 Saturation VBG Base Excess Sodium Potassium Chloride Carbon Dioxide Anion Gap BUN Creatinine Estim Creat Clear Calc Estimated GFR POC Glucose 274 H 285 H Random Glucose Calcium Phosphorus Magnesium Albumin 09/12/20 09/12/20 09/12/20 05:30 05:30 07:35 WBC RBC Hgb Hct MCV MCH MCHC RDW Plt Count MPV Immature Gran % (Auto) Neut % (Auto) Lymph % (Auto) [place] % (Auto) Eos % (Auto) Baso % (Auto) Lymph # (Auto) [place] # (Auto) Eos # (Auto) Baso # (Auto) Abs Immat Gran (auto) Absolute Neuts (auto) Absolute Nucleated RBC Nucleated RBC % (auto) Smear Tech's Comments PT INR PTT (Heparin Protocol) VBG pH 7.38 VBG pCO2 46 VBG pO2 38 VBG HCO3 27 VBG O2 Saturation 66.7 VBG Base Excess 1.0 Sodium 137 Potassium 3.2 L Chloride 94 L Carbon Dioxide 26 Anion Gap 20 BUN 114 H* Creatinine 3.61 H Estim Creat Clear Calc 35.8 Estimated GFR 17 POC Glucose 368 H* Random Glucose 466 H* Calcium 8.2 L Phosphorus 3.3 Magnesium 2.0 Albumin 3.8 09/12/20 09/12/20 09:49 11:26 WBC RBC Hgb Hct MCV MCH MCHC RDW Plt Count MPV Immature Gran % (Auto) Neut % (Auto) Lymph % (Auto) [place] % (Auto) Eos % (Auto) Baso % (Auto) Lymph # (Auto) [place] # (Auto) Eos # (Auto) Baso # (Auto) Abs Immat Gran (auto) Absolute Neuts (auto) Absolute Nucleated RBC Nucleated RBC % (auto) Smear Tech's Comments PT 13.6 H INR 1.1 PTT (Heparin Protocol) 22.6 L VBG pH VBG pCO2 VBG pO2 VBG HCO3 VBG O2 Saturation VBG Base Excess Sodium Potassium Chloride Carbon Dioxide Anion Gap BUN Creatinine Estim Creat Clear Calc Estimated GFR POC Glucose 322 H Random Glucose Calcium Phosphorus Magnesium Albumin Microbiology Microbiology Results: Microbiology 09/07/20 02:25 Blood - Venous Blood Culture - Final No growth after 5 days. 09/07/20 02:25 Blood - Venous Blood Culture - Final No growth after 5 days. Progress Note: A&P Assessment and plan (1) Atrial flutter: Status: Acute Assessment and Plan: Assessment: 60-year-old gentleman with underlying combined systolic and diastolic chronic congestive heart failure, morbid obesity, diabetes mellitus, CKD, hypertension hospitalized with acute hypoxic respiratory failure secondary to COVID-19 ARDS, further complicated by acute on chronic congestive heart failure exacerbation, worsening renal failure, and progressive hypoxia requiring noninvasive positive pressure ventilation support. Plan: Neuro: No acute issues. Cardiac: Acute on chronic combined systolic and diastolic congestive heart failure. Right heart failure. Continue with diuresis. Cardiology service care appreciated. Sinus tachycardia versus aflutter, continue with rate control. Continue on amiodarone. Started on heparin drip. Pulmonary: Acute hypoxic respiratory failure secondary to COVID-19 ARDS now requiring noninvasive positive pressure ventilation support on the background of obesity hyperventilation and obstructive sleep apnea. Continue to titrate off as tolerated. Renal: Acute on chronic renal failure likely secondary to combination of COVID-19 related micro thrombosis and exacerbation of underlying combined congestive heart failure. Non oliguric. Continue with IV diuresis. Continue to monitor renal indices and urine output. Nephrology service care appreciated. Endo: No acute issues. GI: No acute issues. ID: COVID-19 related ARDS and viral sepsis. No septic shock. Continue with dexamethasone. Heme/Onc: No acute issues. Psych: No acute issues. Miscellaneous: No acute issues. Prophylaxis: Heparin drip, ppi Diet: Glucerna Critical care time spent: 60 minutes (2) Acute respiratory distress syndrome (ARDS) due to COVID-19 virus: Status: Acute (3) Morbid obesity: Status: Acute (4) CHF (congestive heart failure): Status: Acute (5) Acute kidney injury superimposed on CKD: Status: Acute (6) Acute respiratory failure with hypoxia: Status: Acute Time Spent With Patient Total time spent with greater than 50% in coordination of care (as documented) at patient's floor/unit and/or counseling patient:: 0 Critical Care Time Critical Care Time (minutes): 60
[2020-09-12 16:17] LABS: Glucose, Whole Blood 271 mg/dL (60-115)
[2020-09-12 18:32] LABS: PTT Heparin Drip 62.7 SEC (53-77.9)
[2020-09-12 21:57] LABS: Glucose, Whole Blood 315 mg/dL (60-115)
[2020-09-13] VITALS (31 sets, daily range): BP systolic 114–140; BP diastolic 55–93; PULSE 125–131; RESP 22–45; TEMP 36.1–37.1; O2SAT 75–99; BMI 44.8
[2020-09-13] MEDS: dexmedeTOMIDidine HCL/NS 400 MCG/100 ML INFUS..BTL 31.08 MCG IVCONT (00:40)
[2020-09-13 01:05] LABS: PTT Heparin Drip 78.4 SEC (53-77.9)
[2020-09-13] MEDS: dexmedeTOMIDidine HCL/NS 400 MCG/100 ML INFUS..BTL 44.4 MCG IVCONT ×7 (03:16→22:51)
[2020-09-13] MEDS: Omeprazole 40 MG CAPSULE.DR PO (05:10)
[2020-09-13] MEDS: dexmedeTOMIDidine HCL/NS 400 MCG/100 ML INFUS..BTL 53.28 MCG IVCONT (05:10)
--- NOTE | 2020-09-13 05:41 | PC.NURSE ---
A&OX4. ANXIOUS/RESTLESS AT TIMES. PRECEDEX TITRATED UP FOR COMFORT WITH GOOD EFFECT. PATIENT ABLE TO SLEEP MOST OF NIGHT. ROUSES TO TACTILE STIMULI. CONVERSATIONAL. FACETIMED WITH FAMILY. CONTINUES ON AMIO, HEPARIN, AND BUMEX GTTS. HEPARIN GTT TITRATED PER PROTOCOL. NEXT PTT-HD SCHEDULED FOR 0700. TOLERATED CPAP 15, 100% FIO2 FOR MOST OF SHIFT WITH SHORT BREAKS ON 100% NRB & 100% HFNC @ 50 LPM. PRN MORPHINE GIVEN FOR WORK OF BREATHING. LUNGS DIM. RR 30-35. TV 700'S. SATTING 89-95%. BECOMES DYSPNEIC EASILY/WITH ANY EXERTION. RESPONDS WELL TO REDIRECTION AND REMINDERS TO DEEP BREATH AND TRY NOT TO PANIC. NO BM. +FLATUS. DIM BOWEL SOUNDS. TOLERATING SIPS OF ICE WATER AND GLUCERNA SUPPLEMENT. UOP 3L PREVIOUS 12 HOURS. SKIN INTACT.
[2020-09-13 07:18] LABS: PCO2 VBG 45 mmhg; pH VBG 7.41 (7.32-7.43)
[2020-09-13 07:19] LABS: Base Excess VBG 2.2 mmol/L; HCO3 VBG 27 mmol/L; Hematocrit 38.8 % (42-52); Hemoglobin 12.9 g/dl (14.0-18.0); Imm Gran Abs Auto 0.06 X10*3/uL (0.00-0.03); Imm Gran Pct Auto 0.9 % (0.0-0.4); Lymphocytes Absolute Auto 0.2 X10*3/uL (1.2-4.9); Lymphocytes Percent Auto 2.6 % (20-40); MANUAL DIFF FLAG SCAN; Mean Corpuscular HGB Conc 33.2 g/dl (31.0-36.0); Mean Corpuscular Hemoglobin 28.5 pg (27.0-33.0); Mean Corpuscular Volume 85.8 fL (80-98); Mean Platelet Volume 12.2 fL (9.4-12.4); Monocytes Absolute Auto 0.2 X10*3/uL (0.1-1.2); Monocytes Percent Auto 2.6 % (2-11); Neutrophils Absolute Auto 6.1 X10*3/uL (2.0-8.3); Neutrophils Percent Auto 93.9 % (45-73); PO2 VBG 34 mmhg; Platelet Count 141 X10*3/uL (160-400); Red Blood Count 4.52 X10*6/uL (4.60-5.80); SCAN SMEAR FLAG 1; White Blood Count 6.5 X10*3/uL (4.8-10.8)
[2020-09-13 07:24] LABS: INTERNATIONAL NORM RATIO 1.2 (0.9-1.1); Prothrombin Time 14.7 SEC (10.8-13.0)
[2020-09-13 07:27] LABS: PTT Heparin Drip 76.6 SEC (53-77.9)
[2020-09-13 07:33] LABS: Glucose, Whole Blood 329 mg/dL (60-115)
[2020-09-13] MEDS: Insulin Lispro 100 UNIT/ML 3 ML VIAL SUBCUT ×4 (07:43→21:13)
[2020-09-13] MEDS: 0.9 % Sodium Chloride Flush 3 ML SYRINGE IVFLUSH ×3 (07:44→22:51)
[2020-09-13 07:45] LABS: Alanine Aminotransferase 14 U/L (0-40); Albumin Level 3.6 g/dL (3.5-5.0); Alkaline Phosphatase 106 U/L (39-117); Anion Gap 20 (12-20); Aspartate Amino Transferase 21 U/L (5-37); Bilirubin Total 0.7 mg/dL (0.0-1.0); Calcium 8.6 mg/dL (8.4-10.2); Carbon Dioxide 25 mmol/L (22-29); Chloride 93 mmol/L (96-108); Creatinine Clr Calc Pharmacy 36.1; Estimated Glomerular Filt Rate 18; Magnesium 2.1 mg/dL (1.6-2.6); Phosphorus 4.9 mg/dL (2.7-4.5); Potassium 3.3 mmol/l (3.3-5.1); Sodium 135 mmol/L (135-145); Total Protein 7.6 g/dL (6.5-8.0)
[2020-09-13 07:47] LABS: Glucose Random 375 mg/dL (60-115)
[2020-09-13 07:58] LABS: SLIDE REVIEW VERIFIED
[2020-09-13 08:00] LABS: Blood Urea Nitrogen 118 mg/dL (9-16)
[2020-09-13] MEDS: Potassium Chloride Packet 20 MEQ PACKET 60 MEQ PO (09:23)
[2020-09-13] MEDS: dexAMETHasone sod phosphate 4 MG/ML VIAL 6 MG IVPUSH ×2 (09:24→22:50)
[2020-09-13] MEDS: Chlorothiazide Sodium 500 MG VIAL 1000 MG IVPUSH (09:24)
[2020-09-13] MEDS: Insulin Glargine,Hum.rec.anlog 100 UNIT/ML 10 ML VIAL 35 UNIT SUBCUT (09:25)
[2020-09-13] MEDS: Bumetanide 25 MG in Container,Empty 0 ML IVCONT (10:27)
--- NOTE | 2020-09-13 10:47 | MHC.CLN ---
F/U PT NOW TOLERATING GLUCERNA SHAKES FOR PO GLUCERNA TID PROVIDES [id number], 30G PROTEIN (36% EST PROTEIN NEEDS) MONITOR BS AND INTAKE CLOSELY
--- NOTE | 2020-09-13 10:54 | P.PNCA_ITS ---
Subjective Subjective Date of Service: 09/13/20 Principal diagnosis: Resp failure, COVID, Right HF, Aflutter Interval history: Continues to be on CPAP. In atrial flutter on amiodarone. No new issues. Review of Systems Review of Systems Hypoxic on CPAP. No complaints. Peripheral edema improving. Denies Neuro-related abnormal movements Physical Exam Vital Signs: Last Vital Signs Temp 97.9 F 09/13/20 10:00 Pulse 128 H 09/13/20 10:00 Resp 32 H 09/13/20 10:00 BP 123/88 09/13/20 10:00 Pulse Ox 95 09/13/20 10:00 Body Mass Index 44.8 GENERAL APPEARANCE: on CPAP HEENT: unremarkable. HEAD: normocephalic, atraumatic. NECK/THYROID: JVD approximately 12 cm of water. SKIN: no suspicious lesions, warm and dry. HEART: no murmurs, regular rate and rhythm, S1, S2 normal. LUNGS: Coarse breath sound bilaterally. ABDOMEN: Distended, nontender EXTREMITIES: no clubbing, cyanosis. mild edema NEUROLOGIC: nonfocal, alert and oriented. Results Labs and Meds Result diagrams: 09/13/20 07:04 09/13/20 07:04 Lab results: Laboratory Results - last 24 hr 09/12/20 09/12/20 09/12/20 11:26 16:12 18:04 WBC RBC Hgb Hct MCV MCH MCHC RDW Plt Count MPV Immature Gran % (Auto) Neut % (Auto) Lymph % (Auto) [place] % (Auto) Eos % (Auto) Baso % (Auto) Lymph # (Auto) [place] # (Auto) Eos # (Auto) Baso # (Auto) Abs Immat Gran (auto) Absolute Neuts (auto) Absolute Nucleated RBC Nucleated RBC % (auto) Smear Tech's Comments PT INR PTT (Heparin Protocol) 62.7 D VBG pH VBG pCO2 VBG pO2 VBG HCO3 VBG O2 Saturation VBG Base Excess Sodium Potassium Chloride Carbon Dioxide Anion Gap BUN Creatinine Estim Creat Clear Calc Estimated GFR POC Glucose 322 H 271 H Random Glucose Calcium Phosphorus Magnesium Total Bilirubin AST ALT Alkaline Phosphatase Total Protein Albumin 09/12/20 09/13/20 09/13/20 20:02 00:22 07:04 WBC RBC Hgb Hct MCV MCH MCHC RDW Plt Count MPV Immature Gran % (Auto) Neut % (Auto) Lymph % (Auto) [place] % (Auto) Eos % (Auto) Baso % (Auto) Lymph # (Auto) [place] # (Auto) Eos # (Auto) Baso # (Auto) Abs Immat Gran (auto) Absolute Neuts (auto) Absolute Nucleated RBC Nucleated RBC % (auto) Smear Tech's Comments PT 14.7 H INR 1.2 H PTT (Heparin Protocol) 78.4 H D VBG pH VBG pCO2 VBG pO2 VBG HCO3 VBG O2 Saturation VBG Base Excess Sodium Potassium Chloride Carbon Dioxide Anion Gap BUN Creatinine Estim Creat Clear Calc Estimated GFR POC Glucose 315 H Random Glucose Calcium Phosphorus Magnesium Total Bilirubin AST ALT Alkaline Phosphatase Total Protein Albumin 09/13/20 09/13/20 09/13/20 07:04 07:04 07:04 WBC 6.5 RBC 4.52 L Hgb 12.9 L Hct 38.8 L MCV 85.8 MCH 28.5 MCHC 33.2 RDW 15.0 Plt Count 141 L MPV 12.2 Immature Gran % (Auto) 0.9 H Neut % (Auto) 93.9 H Lymph % (Auto) 2.6 L [place] % (Auto) 2.6 Eos % (Auto) 0.0 Baso % (Auto) 0.0 Lymph # (Auto) 0.2 L [place] # (Auto) 0.2 Eos # (Auto) 0.0 Baso # (Auto) 0.0 Abs Immat Gran (auto) 0.06 H Absolute Neuts (auto) 6.1 Absolute Nucleated RBC 0.000 Nucleated RBC % (auto) 0.0 Smear Tech's Comments VERIFIED PT INR PTT (Heparin Protocol) VBG pH 7.41 VBG pCO2 45 VBG pO2 34 VBG HCO3 27 VBG O2 Saturation 61.0 VBG Base Excess 2.2 Sodium 135 Potassium 3.3 Chloride 93 L Carbon Dioxide 25 Anion Gap 20 BUN 118 H* Creatinine 3.45 H Estim Creat Clear Calc 36.1 Estimated GFR 18 POC Glucose Random Glucose 375 H* Calcium 8.6 Phosphorus 4.9 H Magnesium 2.1 Total Bilirubin 0.7 AST 21 ALT 14 Alkaline Phosphatase 106 D Total Protein 7.6 Albumin 3.6 09/13/20 09/13/20 07:04 07:27 WBC RBC Hgb Hct MCV MCH MCHC RDW Plt Count MPV Immature Gran % (Auto) Neut % (Auto) Lymph % (Auto) [place] % (Auto) Eos % (Auto) Baso % (Auto) Lymph # (Auto) [place] # (Auto) Eos # (Auto) Baso # (Auto) Abs Immat Gran (auto) Absolute Neuts (auto) Absolute Nucleated RBC Nucleated RBC % (auto) Smear Tech's Comments PT INR PTT (Heparin Protocol) 76.6 VBG pH VBG pCO2 VBG pO2 VBG HCO3 VBG O2 Saturation VBG Base Excess Sodium Potassium Chloride Carbon Dioxide Anion Gap BUN Creatinine Estim Creat Clear Calc Estimated GFR POC Glucose 329 H Random Glucose Calcium Phosphorus Magnesium Total Bilirubin AST ALT Alkaline Phosphatase Total Protein Albumin Progress Note: A&P Assessment and plan (1) Atrial flutter: Status: Acute (2) Acute respiratory distress syndrome (ARDS) due to COVID-19 virus: Status: Acute (3) CHF (congestive heart failure): Status: Acute Assessment and Plan: 60-year-old gentleman with previous biv failure and admissions with R>L heart failure admitted with Covid 19 pneumonia and sepsis. On CPAP. On Bumex gtt and diuresis well. In atrial flutter with difficult to control rates. Probably driven by the respiratory issues. On amiodarone gtt. On heparin drip. Monitor electrolytes closely while on diuretics. If BP allows then add metoprolol 25 mg 3 times a day in addition to the amiodarone. Would favor using amiodarone drip for now. If he improves to the point that he can be taken off the CPAP and can take oral medications then change him to 400 b.i.d. of amiodarone. We will follow along with you. Fall Risk Details Current Medications: Current Medications Generic Name Dose Route Start Last Admin Trade Name Freq PRN Reason Stop Dose Admin Acetaminophen 650 mg 09/07/20 16:46 09/07/20 19:42 Acetaminophen 325 Mg Tablet PO 650 mg Q6H PRN Administration Pain, Mild (Pain Scale 1-3) Chlorothiazide Sodium 1,000 mg 09/09/20 13:00 09/13/20 09:24 Chlorothiazide Sodium 500 Mg Vial IVPUSH 1,000 mg DAILY KOJO Administration Protocol Dexamethasone Sodium Phosphate 6 mg 09/08/20 21:00 09/13/20 09:24 Dexamethasone Sod Phosphate 4 Mg/Ml Vial IVPUSH 6 mg BID KOJO Administration Heparin Sodium (Porcine) 12,640 unit 09/12/20 09:41 Heparin Sodium,Porcine 5,000 Unit/Ml Vial 80 unit/kg (69364 unit) IVPUSH BOLUS PRN 80 unit/kg - Heparin Protocol Heparin Sodium (Porcine) 6,320 unit 09/12/20 09:41 Heparin Sodium,Porcine 5,000 Unit/Ml Vial 40 unit/kg (6320 unit) IVPUSH BOLUS PRN HEPARINPRO Bumetanide 25 mg/ IV 100 mls @ 2 mls/hr 09/09/20 09:00 09/13/20 10:27 Miscellaneous Supplies IVCONT 0.5 mg/hr .Q24H KOJO 2 mls/hr Administration 0.5 MG/HR Dexmedetomidine HCl 400 mcg in 100 mls @ 0 mls/hr 09/10/20 07:45 09/13/20 10:27 Precedex IVCONT 1 mcg/kg/hr .Q0M KOJO 44.4 mls/hr Administration Protocol Per Protocol Amiodarone HCl 900 mg/ Sodium 518 mls @ 34.533 mls/hr 09/11/20 12:30 09/12/20 18:05 Chloride IVCONT 0.5 mg/min .Q15H1M KOJO 17.27 mls/hr Administration Protocol 1 MG/MIN Heparin Sodium/Sodium Chloride 25,000 unit in 250 mls @ 0 mls/hr 09/12/20 09:45 09/13/20 01:10 IVCONT 12 units/kg/hr .Q0M KOJO 18.96 mls/hr Titration Protocol Per Protocol Insulin Glargine 35 unit 09/08/20 21:00 09/13/20 09:25 Insulin Glargine,Hum.Rec.Anlog 100 Unit/Ml 10 Ml Vial SUBCUT 35 unit BID KOJO Administration Insulin Human Lispro 0 unit 09/07/20 07:30 09/13/20 07:43 Insulin Lispro 100 Unit/Ml 3 Ml Vial SUBCUT 8 unit QIDACHS KOJO Administration Protocol Morphine Sulfate 3 mg 09/11/20 13:36 09/12/20 23:59 Morphine Sulfate 4 Mg/Ml Cartridge IVPUSH 3 mg Q6H PRN Administration pain Omeprazole 40 mg 09/13/20 06:30 09/13/20 05:10 Omeprazole 40 Mg Capsule. PO 40 mg DAILY@0630 KOJO Administration Ondansetron HCl 4 mg 09/07/20 16:46 Ondansetron Hcl 4 Mg/2 Ml Vial IVPUSH Q8H PRN Nausea and Vomiting Sodium Chloride 3 ml 09/07/20 16:46 09/13/20 07:44 0.9 % Sodium Chloride Flush 3 Ml Syringe IVFLUSH 3 ml QSHIFT KOJO Administration Time Spent With Patient Time: Total time spent is greater than 50% in coordination of care (as documented) at patient's floor/unit and/or counseling patient: Time with patient: 15 - 24 minutes
[2020-09-13 11:19] LABS: Glucose, Whole Blood 289 mg/dL (60-115)
[2020-09-13] MEDS: Heparin Sodium,Porcine/1/2NS 25,000 UNIT/250 ML IV.SOLN 18.96 UNIT IVCONT (13:01)
--- NOTE | 2020-09-13 13:13 | PC.NURSE ---
pt a&ox3, remains on precedex drip at 1mcg, pt tearful in morning about situation, reassured patient, pt on CPAP 15, titrated to 80% fio2, o2 sat low 90's, tolerating well, pt remains in A flutter, on amio drip at 0.5, cardio at bedside in am to eval, cont on amio drip, encourage glucerna shakes for nutrition, pt tolerating water PO, pt on heparin drip, PTTHD at 0705 76.6, no change per protocol, re-draw at 1330 per protocol, drip at 12/units/kg/hr, bumex drip running at 0.5, pt u/o approx 200-300ml/hr, insulin coverage administered as ordered, pt sat up on side of bed, tolerated well, pt stood up at side of bed, back to sitting up in bed at this time, bathed, will cont to monitor
--- NOTE | 2020-09-13 13:56 | P.PNNP_ITS ---
Subjective Subjective Date of Service: 09/13/20 Principal diagnosis: Resp failure, COVID, Right HF, Aflutter Interval history: Events noted; All recent data reviewed. D/W Critical Care Attending. Physical Exam Vital Signs: Vital Signs: Last Vital Signs Temp 98.2 F 09/13/20 13:00 Pulse 128 H 09/13/20 13:00 Resp 31 H 09/13/20 13:00 BP 134/93 H 09/13/20 13:00 Pulse Ox 91 L 09/13/20 13:00 Body Mass Index 44.8 Const: General: No acute distress Neck: Neck: Yes supple Resp: Auscultation: diminished lung sounds Cardio: Rate: regular rate GI: Palpation (GI): Soft to palpation Neuro: General: moves all extremities Objective Data Labs CBC & Chem 7: 09/13/20 07:04 09/13/20 07:04 Labs: Laboratory Results - last 24 hr 09/12/20 09/12/20 09/12/20 16:12 18:04 20:02 WBC RBC Hgb Hct MCV MCH MCHC RDW Plt Count MPV Immature Gran % (Auto) Neut % (Auto) Lymph % (Auto) [place] % (Auto) Eos % (Auto) Baso % (Auto) Lymph # (Auto) [place] # (Auto) Eos # (Auto) Baso # (Auto) Abs Immat Gran (auto) Absolute Neuts (auto) Absolute Nucleated RBC Nucleated RBC % (auto) Smear Tech's Comments PT INR PTT (Heparin Protocol) 62.7 D VBG pH VBG pCO2 VBG pO2 VBG HCO3 VBG O2 Saturation VBG Base Excess Sodium Potassium Chloride Carbon Dioxide Anion Gap BUN Creatinine Estim Creat Clear Calc Estimated GFR POC Glucose 271 H 315 H Random Glucose Calcium Phosphorus Magnesium Total Bilirubin AST ALT Alkaline Phosphatase Total Protein Albumin 09/13/20 09/13/20 09/13/20 00:22 07:04 07:04 WBC 6.5 RBC 4.52 L Hgb 12.9 L Hct 38.8 L MCV 85.8 MCH 28.5 MCHC 33.2 RDW 15.0 Plt Count 141 L MPV 12.2 Immature Gran % (Auto) 0.9 H Neut % (Auto) 93.9 H Lymph % (Auto) 2.6 L [place] % (Auto) 2.6 Eos % (Auto) 0.0 Baso % (Auto) 0.0 Lymph # (Auto) 0.2 L [place] # (Auto) 0.2 Eos # (Auto) 0.0 Baso # (Auto) 0.0 Abs Immat Gran (auto) 0.06 H Absolute Neuts (auto) 6.1 Absolute Nucleated RBC 0.000 Nucleated RBC % (auto) 0.0 Smear Tech's Comments VERIFIED PT 14.7 H INR 1.2 H PTT (Heparin Protocol) 78.4 H D VBG pH VBG pCO2 VBG pO2 VBG HCO3 VBG O2 Saturation VBG Base Excess Sodium Potassium Chloride Carbon Dioxide Anion Gap BUN Creatinine Estim Creat Clear Calc Estimated GFR POC Glucose Random Glucose Calcium Phosphorus Magnesium Total Bilirubin AST ALT Alkaline Phosphatase Total Protein Albumin 09/13/20 09/13/20 09/13/20 07:04 07:04 07:04 WBC RBC Hgb Hct MCV MCH MCHC RDW Plt Count MPV Immature Gran % (Auto) Neut % (Auto) Lymph % (Auto) [place] % (Auto) Eos % (Auto) Baso % (Auto) Lymph # (Auto) [place] # (Auto) Eos # (Auto) Baso # (Auto) Abs Immat Gran (auto) Absolute Neuts (auto) Absolute Nucleated RBC Nucleated RBC % (auto) Smear Tech's Comments PT INR PTT (Heparin Protocol) 76.6 VBG pH 7.41 VBG pCO2 45 VBG pO2 34 VBG HCO3 27 VBG O2 Saturation 61.0 VBG Base Excess 2.2 Sodium 135 Potassium 3.3 Chloride 93 L Carbon Dioxide 25 Anion Gap 20 BUN 118 H* Creatinine 3.45 H Estim Creat Clear Calc 36.1 Estimated GFR 18 POC Glucose Random Glucose 375 H* Calcium 8.6 Phosphorus 4.9 H Magnesium 2.1 Total Bilirubin 0.7 AST 21 ALT 14 Alkaline Phosphatase 106 D Total Protein 7.6 Albumin 3.6 09/13/20 09/13/20 07:27 11:11 WBC RBC Hgb Hct MCV MCH MCHC RDW Plt Count MPV Immature Gran % (Auto) Neut % (Auto) Lymph % (Auto) [place] % (Auto) Eos % (Auto) Baso % (Auto) Lymph # (Auto) [place] # (Auto) Eos # (Auto) Baso # (Auto) Abs Immat Gran (auto) Absolute Neuts (auto) Absolute Nucleated RBC Nucleated RBC % (auto) Smear Tech's Comments PT INR PTT (Heparin Protocol) VBG pH VBG pCO2 VBG pO2 VBG HCO3 VBG O2 Saturation VBG Base Excess Sodium Potassium Chloride Carbon Dioxide Anion Gap BUN Creatinine Estim Creat Clear Calc Estimated GFR POC Glucose 329 H 289 H Random Glucose Calcium Phosphorus Magnesium Total Bilirubin AST ALT Alkaline Phosphatase Total Protein Albumin Microbiology Microbiology Results: Microbiology 09/07/20 02:25 Blood - Venous Blood Culture - Final No growth after 5 days. 09/07/20 02:25 Blood - Venous Blood Culture - Final No growth after 5 days. Assessment & Plan Assessment and plan (1) Acute renal failure: Problem details: SAQIB due to tubular injury Hypervolemic. Responding well to diuresis Serum creatinine plateaued/better No indication for renal replacement ; Keep K over 4 Concur with rest of current supportive management Status: Acute Time Spent With Patient Time: Total time spent is greater than 50% in coordination of care (as documented) at patient's floor/unit and/or counseling patient:
[2020-09-13 14:05] LABS: PTT Heparin Drip 75.6 SEC (53-77.9)
--- NOTE | 2020-09-13 15:29 | PM.CCPN ---
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 On ER evaluation positive for COVID-19 and requiring significant amount of supplemental oxygen. Admitted initially to general medical [facility] and started on dexamethasone. Hospital course complicated by chronic chest pain, exacerbation of underlying systolic heart failure, worsening renal failure, and progressive hypoxic respiratory failure requiring initiation of noninvasive positive pressure ventilation on 09/09/2020 and transfer to intensive care unit. No events overnight. Physical Exam Vital Signs: Vital Signs: Last Vital Signs Temp 98.1 F 09/13/20 15:00 Pulse 127 H 09/13/20 15:00 Resp 25 H 09/13/20 15:00 BP 130/92 H 09/13/20 15:00 Pulse Ox 90 L 09/13/20 15:00 Body Mass Index 44.8 Const: General: no acute distress, alert and awake Nutritional Appearance: obese Eyes: Sclerae: sclerae normal EOM: EOMs intact bilaterally Neck: Neck: Yes no lymphadenopathy, Yes trachea midline and Yes supple Resp: Effort & Inspection: normal respiratory effort and no respiratory distress Auscultation: clear to auscultation bilaterally Cardio: Rate: tachycardic Rhythm: regular rhythm Heart sounds: no gallops, no murmurs and no rubs GI: Palpation (GI): Soft to palpation and Other GI palpation findings present ( Nontender) Auscultation: normal bowel sounds Extrem: General: No clubbing, No cyanosis and Yes edema (2+ bilateral) Objective Data Labs CBC & Chem 7: 09/13/20 07:04 09/13/20 07:04 Labs: Laboratory Results - last 24 hr 09/12/20 09/12/20 09/12/20 16:12 18:04 20:02 WBC RBC Hgb Hct MCV MCH MCHC RDW Plt Count MPV Immature Gran % (Auto) Neut % (Auto) Lymph % (Auto) [place] % (Auto) Eos % (Auto) Baso % (Auto) Lymph # (Auto) [place] # (Auto) Eos # (Auto) Baso # (Auto) Abs Immat Gran (auto) Absolute Neuts (auto) Absolute Nucleated RBC Nucleated RBC % (auto) Smear Tech's Comments PT INR PTT (Heparin Protocol) 62.7 D VBG pH VBG pCO2 VBG pO2 VBG HCO3 VBG O2 Saturation VBG Base Excess Sodium Potassium Chloride Carbon Dioxide Anion Gap BUN Creatinine Estim Creat Clear Calc Estimated GFR POC Glucose 271 H 315 H Random Glucose Calcium Phosphorus Magnesium Total Bilirubin AST ALT Alkaline Phosphatase Total Protein Albumin 09/13/20 09/13/20 09/13/20 00:22 07:04 07:04 WBC 6.5 RBC 4.52 L Hgb 12.9 L Hct 38.8 L MCV 85.8 MCH 28.5 MCHC 33.2 RDW 15.0 Plt Count 141 L MPV 12.2 Immature Gran % (Auto) 0.9 H Neut % (Auto) 93.9 H Lymph % (Auto) 2.6 L [place] % (Auto) 2.6 Eos % (Auto) 0.0 Baso % (Auto) 0.0 Lymph # (Auto) 0.2 L [place] # (Auto) 0.2 Eos # (Auto) 0.0 Baso # (Auto) 0.0 Abs Immat Gran (auto) 0.06 H Absolute Neuts (auto) 6.1 Absolute Nucleated RBC 0.000 Nucleated RBC % (auto) 0.0 Smear Tech's Comments VERIFIED PT 14.7 H INR 1.2 H PTT (Heparin Protocol) 78.4 H D VBG pH VBG pCO2 VBG pO2 VBG HCO3 VBG O2 Saturation VBG Base Excess Sodium Potassium Chloride Carbon Dioxide Anion Gap BUN Creatinine Estim Creat Clear Calc Estimated GFR POC Glucose Random Glucose Calcium Phosphorus Magnesium Total Bilirubin AST ALT Alkaline Phosphatase Total Protein Albumin 09/13/20 09/13/20 09/13/20 07:04 07:04 07:04 WBC RBC Hgb Hct MCV MCH MCHC RDW Plt Count MPV Immature Gran % (Auto) Neut % (Auto) Lymph % (Auto) [place] % (Auto) Eos % (Auto) Baso % (Auto) Lymph # (Auto) [place] # (Auto) Eos # (Auto) Baso # (Auto) Abs Immat Gran (auto) Absolute Neuts (auto) Absolute Nucleated RBC Nucleated RBC % (auto) Smear Tech's Comments PT INR PTT (Heparin Protocol) 76.6 VBG pH 7.41 VBG pCO2 45 VBG pO2 34 VBG HCO3 27 VBG O2 Saturation 61.0 VBG Base Excess 2.2 Sodium 135 Potassium 3.3 Chloride 93 L Carbon Dioxide 25 Anion Gap 20 BUN 118 H* Creatinine 3.45 H Estim Creat Clear Calc 36.1 Estimated GFR 18 POC Glucose Random Glucose 375 H* Calcium 8.6 Phosphorus 4.9 H Magnesium 2.1 Total Bilirubin 0.7 AST 21 ALT 14 Alkaline Phosphatase 106 D Total Protein 7.6 Albumin 3.6 09/13/20 09/13/20 09/13/20 07:27 11:11 13:47 WBC RBC Hgb Hct MCV MCH MCHC RDW Plt Count MPV Immature Gran % (Auto) Neut % (Auto) Lymph % (Auto) [place] % (Auto) Eos % (Auto) Baso % (Auto) Lymph # (Auto) [place] # (Auto) Eos # (Auto) Baso # (Auto) Abs Immat Gran (auto) Absolute Neuts (auto) Absolute Nucleated RBC Nucleated RBC % (auto) Smear Tech's Comments PT INR PTT (Heparin Protocol) 75.6 VBG pH VBG pCO2 VBG pO2 VBG HCO3 VBG O2 Saturation VBG Base Excess Sodium Potassium Chloride Carbon Dioxide Anion Gap BUN Creatinine Estim Creat Clear Calc Estimated GFR POC Glucose 329 H 289 H Random Glucose Calcium Phosphorus Magnesium Total Bilirubin AST ALT Alkaline Phosphatase Total Protein Albumin Microbiology Microbiology Results: Microbiology 09/07/20 02:25 Blood - Venous Blood Culture - Final No growth after 5 days. 09/07/20 02:25 Blood - Venous Blood Culture - Final No growth after 5 days. Progress Note: A&P Assessment and plan (1) Atrial flutter: Status: Acute (2) Acute respiratory distress syndrome (ARDS) due to COVID-19 virus: Status: Acute Assessment and Plan: Assessment: 60-year-old gentleman with underlying combined systolic and diastolic chronic congestive heart failure, morbid obesity, diabetes mellitus, CKD, hypertension hospitalized with acute hypoxic respiratory failure secondary to COVID-19 ARDS, further complicated by acute on chronic congestive heart failure exacerbation, worsening renal failure, and progressive hypoxia requiring noninvasive positive pressure ventilation support. Plan: Neuro: No acute issues. Cardiac: Acute on chronic combined systolic and diastolic congestive heart failure. Right heart failure. Continue with diuresis. Cardiology service care appreciated. Aflutter, continue with rate control. Continue on amiodarone. Continue on heparin drip. Pulmonary: Acute hypoxic respiratory failure secondary to COVID-19 ARDS now requiring noninvasive positive pressure ventilation support on the background of obesity hyperventilation and obstructive sleep apnea. Continue to titrate off as tolerated. Renal: Acute on chronic renal failure likely secondary to combination of COVID-19 related micro thrombosis and exacerbation of underlying combined congestive heart failure. Non oliguric. Continue with IV diuresis. Continue to monitor renal indices and urine output. Nephrology service care appreciated. Endo: No acute issues. GI: No acute issues. ID: COVID-19 related ARDS and viral sepsis. No septic shock. Continue with dexamethasone. Heme/Onc: No acute issues. Psych: No acute issues. Miscellaneous: No acute issues. Prophylaxis: Heparin drip, ppi Diet: Glucerna Critical care time spent: 60 minutes (3) Morbid obesity: Status: Acute (4) CHF (congestive heart failure): Status: Acute (5) Acute kidney injury superimposed on CKD: Status: Acute (6) Acute respiratory failure with hypoxia: Status: Acute Time Spent With Patient Total time spent with greater than 50% in coordination of care (as documented) at patient's floor/unit and/or counseling patient:: 0 Critical Care Time Critical Care Time (minutes): 60
[2020-09-13 16:16] LABS: Glucose, Whole Blood 257 mg/dL (60-115)
[2020-09-13] MEDS: Amiodarone HCL 900 MG in 0.9 % Sodium Chloride 500 ML 17.27 MG IVCONT (16:52)
[2020-09-13] MEDS: Morphine Sulfate 4 MG/ML CARTRIDGE 3 MG IVPUSH (16:56)
--- NOTE | 2020-09-13 19:42 | PC.NURSE ---
Assumed care at 1500, patient alert and oriented and slightly lethargic. Patient on CPAP 15, fio2 75%, RR in 30's, TV about 600's; spo2 90's, but down to 80's quickly when mask removed. Patient continues to have frequent sips of water and ensure, diet order was NPO, clarified with md and new order for full liquid diet with fluid restriction of 1800 ccs / day. patient educated about fluid restriction, provided with written materials, verbalizes comprehension, needs further education. centeno uop: 300-400/hour on bumex gtt 0.5 mg/hour; edema generalized about 2+. also on precedex at 1; on heparin at 12; on amiodarone 0.5. patient continues in atrial flutter rate in 120's today, occasional pvcs. Patient POC 257; was diaphoretic, PO intake only ENSURE TID. somewhat resistent to repositioning, but consented. Skin is intact. TLC dressing changed.
[2020-09-13 21:19] LABS: Glucose, Whole Blood 268 mg/dL (60-115)
[2020-09-13] MEDS: Insulin Glargine,Hum.rec.anlog 100 UNIT/ML 10 ML VIAL 45 UNIT SUBCUT (22:50)
[2020-09-14] VITALS (25 sets, daily range): BP systolic 106–157; BP diastolic 53–94; PULSE 90–137; RESP 22–32; TEMP 37–37.5; O2SAT 90–100
[2020-09-14] MEDS: Heparin Sodium,Porcine/1/2NS 25,000 UNIT/250 ML IV.SOLN 18.96 UNIT IVCONT (02:36)
[2020-09-14] MEDS: dexmedeTOMIDidine HCL/NS 400 MCG/100 ML INFUS..BTL 44.4 MCG IVCONT ×2 (02:36→05:38)
[2020-09-14] MEDS: Morphine Sulfate 4 MG/ML CARTRIDGE 3 MG IVPUSH ×2 (04:42→16:55)
[2020-09-14] MEDS: Omeprazole 40 MG CAPSULE.DR PO (05:38)
[2020-09-14 05:57] LABS: Hematocrit 38.4 % (42-52); Hemoglobin 12.7 g/dl (14.0-18.0); Imm Gran Abs Auto 0.07 X10*3/uL (0.00-0.03); Lymphocytes Absolute Auto 0.2 X10*3/uL (1.2-4.9); Lymphocytes Percent Auto 2.7 % (20-40); MANUAL DIFF FLAG SCAN; Mean Corpuscular HGB Conc 33.1 g/dl (31.0-36.0); Mean Corpuscular Hemoglobin 28.7 pg (27.0-33.0); Mean Corpuscular Volume 86.7 fL (80-98); Mean Platelet Volume 12.2 fL (9.4-12.4); Monocytes Absolute Auto 0.2 X10*3/uL (0.1-1.2); Monocytes Percent Auto 2.8 % (2-11); Neutrophils Absolute Auto 6.6 X10*3/uL (2.0-8.3); Neutrophils Percent Auto 93.5 % (45-73); Platelet Count 169 X10*3/uL (160-400); Red Blood Count 4.43 X10*6/uL (4.60-5.80); Red Cell Distribution Width 15.1 % (11.0-16.0); SCAN SMEAR FLAG 1; White Blood Count 7.1 X10*3/uL (4.8-10.8)
[2020-09-14 06:05] LABS: PTT Heparin Drip 90.4 SEC (53-77.9)
[2020-09-14 06:15] LABS: Base Excess VBG 0.8 mmol/L; HCO3 VBG 28 mmol/L; Oxygen Saturation VBG 56.5 %; PCO2 VBG 53 mmhg; PO2 VBG 32 mmhg; pH VBG 7.33 (7.32-7.43)
[2020-09-14 06:25] LABS: SLIDE REVIEW VERIFIED
[2020-09-14 07:29] LABS: Albumin Level 3.6 g/dL (3.5-5.0); Anion Gap 24 (12-20); Calcium 8.6 mg/dL (8.4-10.2); Carbon Dioxide 24 mmol/L (22-29); Chloride 94 mmol/L (96-108); Creatinine Clr Calc Pharmacy 37.4; Estimated Glomerular Filt Rate 19; Glucose Random 262 mg/dL (60-115); Magnesium 2.3 mg/dL (1.6-2.6); Phosphorus 6.1 mg/dL (2.7-4.5); Potassium 3.8 mmol/l (3.3-5.1); Sodium 138 mmol/L (135-145)
[2020-09-14 07:45] LABS: Blood Urea Nitrogen 130 mg/dL (9-16)
[2020-09-14] MEDS: Insulin Lispro 100 UNIT/ML 3 ML VIAL SUBCUT ×4 (08:05→20:31)
[2020-09-14] MEDS: 0.9 % Sodium Chloride Flush 3 ML SYRINGE IVFLUSH ×2 (08:06→16:54)
--- NOTE | 2020-09-14 08:58 | PC.NURSE ---
Shift eval 7p-8a: Patient tolerated c-pap 15 through night. RR 20-30, TV 600-700, O2sat high 90's. Patient anxious at times w/ care. Redirected / support given. Patient moved to recliner @ 8pm. Refused to get out of recliner for rest of night. Presedex running for anxiety. Amio, heparin drip, and bumex drip running as well. Patient medicated for chest pain w/ 3mg morphine @ 0442 with good effect, same pain he has been feeling since admission. Garay output >100-350/hour. Temp up to 99.3. BP stable. Weaned oxygen down from 75% to 40%, patient tolerates taking drinks. Patient had one episode of bloody sputum, first blew nose and small amt of thick bloody sputum put out and then had one episode of productive cough with same appearance of sputum. No other notes of blood noted at all through night - Jong HICKS made aware. Patient stable on heparin drip. Dr Valverde ordered to d/c presedex drip - d/c'ed. & titrated heparin drip per protocol. Plan to transfer to high flow - RT on floor, put patient on high flow, patient tolerated. Order to transfer patient to [facility] - high flow oxygen during day, then cpap at night.
[2020-09-14] MEDS: Amiodarone HCL 200 MG TABLET 400 MG PO (09:31)
[2020-09-14] MEDS: Insulin Glargine,Hum.rec.anlog 100 UNIT/ML 10 ML VIAL 45 UNIT SUBCUT (09:33)
[2020-09-14] MEDS: Chlorothiazide Sodium 500 MG VIAL 1000 MG IVPUSH (09:33)
[2020-09-14] MEDS: dexAMETHasone sod phosphate 4 MG/ML VIAL 6 MG IVPUSH ×2 (09:35→20:26)
[2020-09-14] MEDS: Bumetanide 25 MG in Container,Empty 0 ML IVCONT (09:35)
[2020-09-14 10:00] LABS: Glucose, Whole Blood 287 mg/dL (60-115)
[2020-09-14] MEDS: Bumetanide 1 MG/4 ML VIAL 2 MG IVPUSH ×2 (10:45→16:54)
[2020-09-14 11:30] LABS: Glucose, Whole Blood 396 mg/dL (60-115)
[2020-09-14 11:30] LABS: Glucose, Whole Blood 439 mg/dL (60-115)
[2020-09-14 11:30] LABS: Glucose, Whole Blood 426 mg/dL (60-115)
--- NOTE | 2020-09-14 11:52 | P.PNCC_ITS ---
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 On ER evaluation positive for COVID- 19 and requiring significant amount of supplemental oxygen. Admitted initially to general medical [facility] and started on dexamethasone. Hospital course complica bao by chronic chest pain, exacerbation of underlying systolic heart failure, worsening renal failure, and progressive hypoxic respiratory failure requiring initiation of noninvasive positive pressure ventilation on 09/09/2020 and transfer to intensive care unit. Overnight titrated down to 40% on CPAP, and then to high-flow nasal cannula 80%, tolerating well. Physical Exam Vital Signs: Vital Signs: Last Vital Signs Temp 98.6 F 09/14/20 10:00 Pulse 129 H 09/14/20 10:00 Resp 24 H 09/14/20 11:19 BP 133/64 09/14/20 10:00 Pulse Ox 94 09/14/20 10:00 Body Mass Index 44.8 Const: General: no acute distress, alert and awake Nutritional Appearance: obese Eyes: Sclerae: sclerae normal EOM: EOMs intact bilaterally Neck: Neck: Yes no lymphadenopathy, Yes trachea midline and Yes supple Resp: Effort & Inspection: normal respiratory effort and no respiratory distress Auscultation: clear to auscultation bilaterally Cardio: Rate: tachycardic Rhythm: regular rhythm Heart sounds: no gallops, no murmurs and no rubs GI: Palpation (GI): Soft to palpation and Other GI palpation findings present ( Nontender) Auscultation: normal bowel sounds Extrem: General: No clubbing, No cyanosis and Yes edema (2+ bilateral) Objective Data Labs CBC & Chem 7: 09/14/20 04:42 09/14/20 04:42 Labs: Laboratory Results - last 24 hr 09/13/20 09/13/20 09/13/20 13:47 16:10 21:10 WBC RBC Hgb Hct MCV MCH MCHC RDW Plt Count MPV Immature Gran % (Auto) Neut % (Auto) Lymph % (Auto) [place] % (Auto) Eos % (Auto) Baso % (Auto) Lymph # (Auto) [place] # (Auto) Eos # (Auto) Baso # (Auto) Abs Immat Gran (auto) Absolute Neuts (auto) Absolute Nucleated RBC Nucleated RBC % (auto) Smear Tech's Comments PTT (Heparin Protocol) 75.6 VBG pH VBG pCO2 VBG pO2 VBG HCO3 VBG O2 Saturation VBG Base Excess Sodium Potassium Chloride Carbon Dioxide Anion Gap BUN Creatinine Estim Creat Clear Calc Estimated GFR POC Glucose 257 H 268 H Random Glucose Calcium Phosphorus Magnesium Albumin 09/14/20 09/14/20 09/14/20 04:42 04:42 04:42 WBC 7.1 RBC 4.43 L Hgb 12.7 L Hct 38.4 L MCV 86.7 MCH 28.7 MCHC 33.1 RDW 15.1 Plt Count 169 MPV 12.2 Immature Gran % (Auto) 1.0 H Neut % (Auto) 93.5 H Lymph % (Auto) 2.7 L [place] % (Auto) 2.8 Eos % (Auto) 0.0 Baso % (Auto) 0.0 Lymph # (Auto) 0.2 L [place] # (Auto) 0.2 Eos # (Auto) 0.0 Baso # (Auto) 0.0 Abs Immat Gran (auto) 0.07 H Absolute Neuts (auto) 6.6 Absolute Nucleated RBC 0.000 Nucleated RBC % (auto) 0.0 Smear Tech's Comments VERIFIED PTT (Heparin Protocol) 90.4 H VBG pH VBG pCO2 VBG pO2 VBG HCO3 VBG O2 Saturation VBG Base Excess Sodium 138 Potassium 3.8 Chloride 94 L Carbon Dioxide 24 Anion Gap 24 H BUN 130 H* Creatinine 3.33 H Estim Creat Clear Calc 37.4 Estimated GFR 19 POC Glucose Random Glucose 262 H Calcium 8.6 Phosphorus 6.1 H Magnesium 2.3 Albumin 3.6 09/14/20 09/14/20 09/14/20 04:42 07:48 11:17 WBC RBC Hgb Hct MCV MCH MCHC RDW Plt Count MPV Immature Gran % (Auto) Neut % (Auto) Lymph % (Auto) [place] % (Auto) Eos % (Auto) Baso % (Auto) Lymph # (Auto) [place] # (Auto) Eos # (Auto) Baso # (Auto) Abs Immat Gran (auto) Absolute Neuts (auto) Absolute Nucleated RBC Nucleated RBC % (auto) Smear Tech's Comments PTT (Heparin Protocol) VBG pH 7.33 VBG pCO2 53 VBG pO2 32 VBG HCO3 28 VBG O2 Saturation 56.5 VBG Base Excess 0.8 Sodium Potassium Chloride Carbon Dioxide Anion Gap BUN Creatinine Estim Creat Clear Calc Estimated GFR POC Glucose 287 H 439 H* Random Glucose Calcium Phosphorus Magnesium Albumin 09/14/20 09/14/20 11:20 11:24 WBC RBC Hgb Hct MCV MCH MCHC RDW Plt Count MPV Immature Gran % (Auto) Neut % (Auto) Lymph % (Auto) [place] % (Auto) Eos % (Auto) Baso % (Auto) Lymph # (Auto) [place] # (Auto) Eos # (Auto) Baso # (Auto) Abs Immat Gran (auto) Absolute Neuts (auto) Absolute Nucleated RBC Nucleated RBC % (auto) Smear Tech's Comments PTT (Heparin Protocol) VBG pH VBG pCO2 VBG pO2 VBG HCO3 VBG O2 Saturation VBG Base Excess Sodium Potassium Chloride Carbon Dioxide Anion Gap BUN Creatinine Estim Creat Clear Calc Estimated GFR POC Glucose 396 H* 426 H* Random Glucose Calcium Phosphorus Magnesium Albumin Microbiology Microbiology Results: Microbiology 09/07/20 02:25 Blood - Venous Blood Culture - Final No growth after 5 days. 09/07/20 02:25 Blood - Venous Blood Culture - Final No growth after 5 days. Progress Note: A&P Assessment and plan (1) Atrial flutter: Status: Acute Assessment and Plan: Assessment: 60-year-old gentleman with underlying combined systolic and diastolic chronic congestive heart failure, morbid obesity, diabetes mellitus, CKD, hypertension hospitalized with acute hypoxic respiratory failure secondary to COVID-19 ARDS, further complicated by acute on chronic congestive heart failure exacerbation, worsening renal failure, and progressive hypoxia requiring noninvasive positive pressure ventilation support. Plan: Neuro: No acute issues. Cardiac: Acute on chronic combined systolic and diastolic congestive heart failure. Right heart failure. Continue with diuresis. Cardiology service care appreciated. Aflutter, continue with rate control. Continue on amiodarone p.o. Continue on heparin drip. Pulmonary: Acute hypoxic respiratory failure secondary to COVID-19 ARDS now requiring noninvasive positive pressure ventilation support on the background of obesity hyperventilation and obstructive sleep apnea. Continue to titrate off as tolerated. Requires nocturnal and for naps CPAP at 15 cm of water. Renal: Acute on chronic renal failure likely secondary to combination of COVID- 19 related micro thrombosis and exacerbation of underlying combined congestive heart failure. Non oliguric. Continue with IV diuresis. Continue to monitor renal indices and urine output. Nephrology service care appreciated. Endo: No acute issues. GI: No acute issues. ID: COVID-19 related ARDS and viral sepsis. No septic shock. Continue with dexamethasone. Heme/Onc: No acute issues. Psych: No acute issues. Miscellaneous: No acute issues. Prophylaxis: Heparin drip, ppi Diet: Diabetic Critical care time spent: 60 minutes (2) Acute respiratory distress syndrome (ARDS) due to COVID-19 virus: Status: Acute (3) Morbid obesity: Status: Acute (4) CHF (congestive heart failure): Status: Acute (5) Acute kidney injury superimposed on CKD: Status: Acute (6) Acute respiratory failure with hypoxia: Status: Acute Time Spent With Patient Total time spent with greater than 50% in coordination of care (as documented) at patient's floor/unit and/or counseling patient:: 0 Critical Care Time Critical Care Time (minutes): 60
[2020-09-14] MEDS: Insulin Glargine,Hum.rec.anlog 100 UNIT/ML 10 ML VIAL 15 UNIT SUBCUT (12:27)
[2020-09-14 15:02] LABS: PTT Heparin Drip 71.9 SEC (53-77.9)
--- NOTE | 2020-09-14 15:40 | P.PNNP_ITS ---
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 On ER evaluation positive for COVID- 19 and requiring significant amount of supplemental oxygen. Admitted initially to general medical [facility] and started on dexamethasone. Hospital course complicated by chronic chest pain, exacerbation of underlying systolic heart failure, worsening renal failure, and progressive hypoxic respiratory failure requiring initiation of noninvasive positive pressure ventilation on 09/09/2020 and transfer to intensive care unit. Overnight titrated remains nonoliguric but BUN up to 130. Physical Exam Vital Signs: Vital Signs: Last Vital Signs Temp 98.6 F 09/14/20 12:00 Pulse 130 H 09/14/20 12:00 Resp 29 H 09/14/20 15:11 BP 133/64 09/14/20 10:00 Pulse Ox 90 L 09/14/20 12:00 Body Mass Index 44.8 Const: Other: Awake, alert, wearing CPAP General: cooperative, no acute distress, alert, awake and anxious; No acute distress Nutritional Appearance: obese Orientation/consciousness: patient oriented x3 HENMT: Head: Yes normal to inspection General nose exam: Abnormal external nose present and Nasal discharge present Face and sinus: Yes dry mucous membranes Eyes: General: appearance normal, both eyes and all related structures Sclerae: sclerae normal Pupils: Equal, round and reactive pupils present EOM: EOMs intact bilaterally Neck: Other: central line right IJ. obese, difficult to assess for JVD, still looks elevated Neck: Yes normal visual inspection, Yes full ROM, Yes no lymphadenopathy, Yes trachea midline, Yes supple and Yes JVD Carotids: carotid upstroke abnormal Chest: Chest palpation & inspection: normal inspection of the chest Resp: Other: tachypniac but seems more relaxed than yesterday. No cough noted Effort & Inspection: normal respiratory effort, not able to speak in complete sentences, decreased respiratory effort and no respiratory distress Auscultation: clear to auscultation bilaterally, crackles ([place]), no rales, no rhonchi, no wheezes, diminished lung sounds and bronchial breath sounds Cardio: Other: Awake, alert, wearing CPAP Jugular venous distension: JVD present Rate: regular rate and tachycardic Rhythm: regular rhythm and abnormal rhythm Heart sounds: S1 normal heart sound present (distant heart tones, no noted murmur), S2 normal heart sound present, no gallops, no murmurs and no rubs Peripheral pulses: Peripheral pulses 2+ throughout GI: Other: Obese, nontender to palpation Inspection: Yes normal to inspection Palpation (GI): Soft to palpation, nontender and Other GI palpation findings present ( Nontender) Auscultation: normal bowel sounds : General: Yes no CVA tenderness Back/Spine/Pelvis: Back: no CVA tenderness Skin: General skin exam: no rashes or lesions noted and dry skin (lower legs) Neuro: General: patient oriented x3 and moves all extremities Cranial nerves: Yes Equal, round and reactive pupils present Cognition (Neuro): normal cognition Extrem: Other: no pitting edema noted in legs General: Yes normal to inspection, Yes no pedal edema, No clubbing, No cyanosis and Yes edema (2+ bi lateral) Objective Data Labs CBC & Chem 7: 09/14/20 04:42 09/14/20 04:42 Labs: Laboratory Results - last 24 hr 09/13/20 09/13/20 09/14/20 16:10 21:10 04:42 WBC RBC Hgb Hct MCV MCH MCHC RDW Plt Count MPV Immature Gran % (Auto) Neut % (Auto) Lymph % (Auto) [place] % (Auto) Eos % (Auto) Baso % (Auto) Lymph # (Auto) [place] # (Auto) Eos # (Auto) Baso # (Auto) Abs Immat Gran (auto) Absolute Neuts (auto) Absolute Nucleated RBC Nucleated RBC % (auto) Smear Tech's Comments PTT (Heparin Protocol) 90.4 H VBG pH VBG pCO2 VBG pO2 VBG HCO3 VBG O2 Saturation VBG Base Excess Sodium Potassium Chloride Carbon Dioxide Anion Gap BUN Creatinine Estim Creat Clear Calc Estimated GFR POC Glucose 257 H 268 H Random Glucose Calcium Phosphorus Magnesium Albumin 09/14/20 09/14/20 09/14/20 04:42 04:42 04:42 WBC 7.1 RBC 4.43 L Hgb 12.7 L Hct 38.4 L MCV 86.7 MCH 28.7 MCHC 33.1 RDW 15.1 Plt Count 169 MPV 12.2 Immature Gran % (Auto) 1.0 H Neut % (Auto) 93.5 H Lymph % (Auto) 2.7 L [place] % (Auto) 2.8 Eos % (Auto) 0.0 Baso % (Auto) 0.0 Lymph # (Auto) 0.2 L [place] # (Auto) 0.2 Eos # (Auto) 0.0 Baso # (Auto) 0.0 Abs Immat Gran (auto) 0.07 H Absolute Neuts (auto) 6.6 Absolute Nucleated RBC 0.000 Nucleated RBC % (auto) 0.0 Smear Tech's Comments VERIFIED PTT (Heparin Protocol) VBG pH 7.33 VBG pCO2 53 VBG pO2 32 VBG HCO3 28 VBG O2 Saturation 56.5 VBG Base Excess 0.8 Sodium 138 Potassium 3.8 Chloride 94 L Carbon Dioxide 24 Anion Gap 24 H BUN 130 H* Creatinine 3.33 H Estim Creat Clear Calc 37.4 Estimated GFR 19 POC Glucose Random Glucose 262 H Calcium 8.6 Phosphorus 6.1 H Magnesium 2.3 Albumin 3.6 09/14/20 09/14/20 09/14/20 07:48 11:17 11:20 WBC RBC Hgb Hct MCV MCH MCHC RDW Plt Count MPV Immature Gran % (Auto) Neut % (Auto) Lymph % (Auto) [place] % (Auto) Eos % (Auto) Baso % (Auto) Lymph # (Auto) [place] # (Auto) Eos # (Auto) Baso # (Auto) Abs Immat Gran (auto) Absolute Neuts (auto) Absolute Nucleated RBC Nucleated RBC % (auto) Smear Tech's Comments PTT (Heparin Protocol) VBG pH VBG pCO2 VBG pO2 VBG HCO3 VBG O2 Saturation VBG Base Excess Sodium Potassium Chloride Carbon Dioxide Anion Gap BUN Creatinine Estim Creat Clear Calc Estimated GFR POC Glucose 287 H 439 H* 396 H* Random Glucose Calcium Phosphorus Magnesium Albumin 09/14/20 09/14/20 11:24 14:09 WBC RBC Hgb Hct MCV MCH MCHC RDW Plt Count MPV Immature Gran % (Auto) Neut % (Auto) Lymph % (Auto) [place] % (Auto) Eos % (Auto) Baso % (Auto) Lymph # (Auto) [place] # (Auto) Eos # (Auto) Baso # (Auto) Abs Immat Gran (auto) Absolute Neuts (auto) Absolute Nucleated RBC Nucleated RBC % (auto) Smear Tech's Comments PTT (Heparin Protocol) 71.9 D VBG pH VBG pCO2 VBG pO2 VBG HCO3 VBG O2 Saturation VBG Base Excess Sodium Potassium Chloride Carbon Dioxide Anion Gap BUN Creatinine Estim Creat Clear Calc Estimated GFR POC Glucose 426 H* Random Glucose Calcium Phosphorus Magnesium Albumin Microbiology Microbiology Results: Microbiology 09/07/20 02:25 Blood - Venous Blood Culture - Final No growth after 5 days. 09/07/20 02:25 Blood - Venous Blood Culture - Final No growth after 5 days. Assessment & Plan Assessment and plan (1) Acute renal failure: Problem details: SAQIB due to tubular injury-nonoliguric, not uremic Hypervolemic. Responding well to diuresis Serum creatinine plateaued but BUN is up No indication for renal replacement ; Keep K over 4 Azotemia exacerbated by steroids Status: Acute Time Spent With Patient Time: Total time spent is greater than 50% in coordination of care (as documented) at patient's floor/unit and/or counseling patient:
--- NOTE | 2020-09-14 15:46 | PC.NURSE ---
shift note Pt already OOB to chair at start of shift. Amiodarone and bumex gtt d/c per md orders. Provider aware of increasing POC orders obtained for additional insulin. Pt reamins on heparin gtt with noted intermittent scant bloody secretions from the nose and spitting small amt of blood tingue secretions into a cup- provider aware and no changes made to heparin infusion.
[2020-09-14 16:04] LABS: Glucose, Whole Blood 418 mg/dL (60-115)
[2020-09-14] MEDS: Heparin Sodium,Porcine/1/2NS 25,000 UNIT/250 ML IV.SOLN 15.8 UNIT IVCONT (18:50)
[2020-09-14] MEDS: Insulin Glargine,Hum.rec.anlog 100 UNIT/ML 10 ML VIAL 60 UNIT SUBCUT (20:26)
[2020-09-14 21:05] LABS: PTT Heparin Drip 60.7 SEC (53-77.9)
[2020-09-14 21:58] LABS: Glucose, Whole Blood 329 mg/dL (60-115)
[2020-09-15] VITALS (20 sets, daily range): BP systolic 131–175; BP diastolic 91–105; PULSE 125–143; RESP 16–38; TEMP 36.1–37.5; O2SAT 91–100; BMI 53.8
[2020-09-15] MEDS: Bumetanide 1 MG/4 ML VIAL 2 MG IVPUSH (01:15)
[2020-09-15] MEDS: 0.9 % Sodium Chloride Flush 3 ML SYRINGE IVFLUSH ×4 (01:16→22:41)
[2020-09-15] MEDS: Morphine Sulfate 4 MG/ML CARTRIDGE 3 MG IVPUSH ×5 (01:26→22:39)
[2020-09-15] MEDS: diphenhydrAMINE HCL 50 MG/ML VIAL 25 MG IVPUSH (02:46)
[2020-09-15] MEDS: Omeprazole 40 MG CAPSULE.DR PO (05:48)
[2020-09-15 06:22] LABS: Basophils Percent Auto 0.1 % (0-2); Hematocrit 39.4 % (42-52); Hemoglobin 13.4 g/dl (14.0-18.0); Imm Gran Abs Auto 0.38 X10*3/uL (0.00-0.03); Imm Gran Pct Auto 3.2 % (0.0-0.4); Lymphocytes Absolute Auto 0.3 X10*3/uL (1.2-4.9); Lymphocytes Percent Auto 2.4 % (20-40); Mean Corpuscular Hemoglobin 28.8 pg (27.0-33.0); Mean Corpuscular Volume 84.7 fL (80-98); Mean Platelet Volume 11.7 fL (9.4-12.4); Monocytes Absolute Auto 0.5 X10*3/uL (0.1-1.2); Monocytes Percent Auto 4.3 % (2-11); NRBC Pct Auto 0.2 /100WBC (0.0-0.2); Neutrophils Absolute Auto 10.8 X10*3/uL (2.0-8.3); Platelet Count 213 X10*3/uL (160-400); Red Blood Count 4.65 X10*6/uL (4.60-5.80); Red Cell Distribution Width 15.1 % (11.0-16.0); SCAN SMEAR FLAG 1
[2020-09-15 06:23] LABS: MANUAL DIFF FLAG NO
[2020-09-15 06:42] LABS: PTT Heparin Drip 72.1 SEC (53-77.9)
[2020-09-15 06:56] LABS: Albumin Level 3.7 g/dL (3.5-5.0); Anion Gap 20 (12-20); Carbon Dioxide 29 mmol/L (22-29); Chloride 96 mmol/L (96-108); Creatinine Clr Calc Pharmacy 43.2; Estimated Glomerular Filt Rate 20; Glucose Random 119 mg/dL (60-115); Sodium 142 mmol/L (135-145)
[2020-09-15 07:10] LABS: Blood Urea Nitrogen 138 mg/dL (9-16)
[2020-09-15 07:19] LABS: Glucose, Whole Blood 129 mg/dL (60-115)
--- NOTE | 2020-09-15 07:57 | PM.PNNEP ---
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 On ER evaluation positive for COVID-19 and requiring significant amount of supplemental oxygen. Admitted initially to general medical [facility] and started on dexamethasone. Hospital course complicated by chronic chest pain, exacerbation of underlying systolic heart failure, worsening renal failure, and progressive hypoxic respiratory failure requiring initiation of noninvasive positive pressure ventilation on 09/09/2020 and transfer to intensive care unit. Overnight has been polyuric with 6.7 L out; hypokalemic; receiving chlorthiazide and bumex Physical Exam Vital Signs: Vital Signs: Last Vital Signs Temp 98.6 F 09/15/20 04:00 Pulse 133 H 09/15/20 04:00 Resp 22 H 09/15/20 07:44 BP 148/95 H 09/15/20 04:26 Pulse Ox 100 09/15/20 04:00 Body Mass Index 53.8 Const: General: cooperative, alert and ill appearing Nutritional Appearance: obese Neck: Neck: Yes full ROM Chest: Chest palpation & inspection: normal inspection of the chest Resp: Effort & Inspection: normal respiratory effort Auscultation: crackles Extrem: General: Yes edema Objective Data Labs CBC & Chem 7: 09/15/20 05:58 09/15/20 05:58 Labs: Laboratory Results - last 24 hr 09/14/20 09/14/20 09/14/20 07:48 11:17 11:20 WBC RBC Hgb Hct MCV MCH MCHC RDW Plt Count MPV Immature Gran % (Auto) Neut % (Auto) Lymph % (Auto) [place] % (Auto) Eos % (Auto) Baso % (Auto) Lymph # (Auto) [place] # (Auto) Eos # (Auto) Baso # (Auto) Abs Immat Gran (auto) Absolute Neuts (auto) Absolute Nucleated RBC Nucleated RBC % (auto) PTT (Heparin Protocol) Sodium Potassium Chloride Carbon Dioxide Anion Gap BUN Creatinine Estim Creat Clear Calc Estimated GFR POC Glucose 287 H 439 H* 396 H* Random Glucose Calcium Albumin 09/14/20 09/14/20 09/14/20 11:24 14:09 15:59 WBC RBC Hgb Hct MCV MCH MCHC RDW Plt Count MPV Immature Gran % (Auto) Neut % (Auto) Lymph % (Auto) [place] % (Auto) Eos % (Auto) Baso % (Auto) Lymph # (Auto) [place] # (Auto) Eos # (Auto) Baso # (Auto) Abs Immat Gran (auto) Absolute Neuts (auto) Absolute Nucleated RBC Nucleated RBC % (auto) PTT (Heparin Protocol) 71.9 D Sodium Potassium Chloride Carbon Dioxide Anion Gap BUN Creatinine Estim Creat Clear Calc Estimated GFR POC Glucose 426 H* 418 H* Random Glucose Calcium Albumin 09/14/20 09/14/20 09/15/20 20:29 20:50 05:58 WBC RBC Hgb Hct MCV MCH MCHC RDW Plt Count MPV Immature Gran % (Auto) Neut % (Auto) Lymph % (Auto) [place] % (Auto) Eos % (Auto) Baso % (Auto) Lymph # (Auto) [place] # (Auto) Eos # (Auto) Baso # (Auto) Abs Immat Gran (auto) Absolute Neuts (auto) Absolute Nucleated RBC Nucleated RBC % (auto) PTT (Heparin Protocol) 60.7 72.1 Sodium Potassium Chloride Carbon Dioxide Anion Gap BUN Creatinine Estim Creat Clear Calc Estimated GFR POC Glucose 329 H Random Glucose Calcium Albumin 09/15/20 09/15/20 09/15/20 05:58 05:58 07:14 WBC 12.0 H RBC 4.65 Hgb 13.4 L Hct 39.4 L MCV 84.7 MCH 28.8 MCHC 34.0 RDW 15.1 Plt Count 213 D MPV 11.7 Immature Gran % (Auto) 3.2 H Neut % (Auto) 90.0 H Lymph % (Auto) 2.4 L [place] % (Auto) 4.3 Eos % (Auto) 0.0 Baso % (Auto) 0.1 Lymph # (Auto) 0.3 L [place] # (Auto) 0.5 Eos # (Auto) 0.0 Baso # (Auto) 0.0 Abs Immat Gran (auto) 0.38 H Absolute Neuts (auto) 10.8 H Absolute Nucleated RBC 0.020 H Nucleated RBC % (auto) 0.2 PTT (Heparin Protocol) Sodium 142 Potassium 3.0 L D Chloride 96 Carbon Dioxide 29 Anion Gap 20 BUN 138 H* Creatinine 3.21 H Estim Creat Clear Calc 43.2 Estimated GFR 20 POC Glucose 129 H Random Glucose 119 H D Calcium 9.0 Albumin 3.7 Microbiology Microbiology Results: Microbiology 09/07/20 02:25 Blood - Venous Blood Culture - Final No growth after 5 days. 09/07/20 02:25 Blood - Venous Blood Culture - Final No growth after 5 days. Assessment & Plan Assessment and plan (1) Acute renal failure: Problem details: SAQIB due to tubular injury-nonoliguric, not uremic-polyuric now 6.7 L out Hypervolemic. Responding well to diuresis but hypokalemic Serum creatinine plateaued but BUN is up No indication for renal replacement ; Keep K over 4 Azotemia exacerbated by steroids and aggressive diuresis Recommend: Hold chlorthiazide today and bumex Correct hypokalemia with KCL 60 meq this am and repeat K at 2 pm Monitor spontaneous UO and use bumex only if needed if UO slows down Status: Acute Time Spent With Patient Time: Total time spent is greater than 50% in coordination of care (as documented) at patient's floor/unit and/or counseling patient:
[2020-09-15] MEDS: Amiodarone HCL 200 MG TABLET 400 MG PO (08:09)
[2020-09-15] MEDS: dexAMETHasone sod phosphate 4 MG/ML VIAL 6 MG IVPUSH ×2 (09:04→22:40)
--- NOTE | 2020-09-15 10:13 | HO.PM.IMPN ---
Subjective Subjective Date of Service: 09/15/20 Interval History: Seen in follow up for acute hypoxic respiratory failure due to covid and likely hypoventilatioin syndrome. He feels better. He had hard time breathing breathing overnight with increasing oxygen requirement, given Lasix and with continuing work of breathing through the morning and was put briefly on CPAP and ultimely had to be transfered to ICU.. . Review of Systems Gen: no fever Resp: has sob and cough CV: no chest, +BARRIENTOS, + leg edema GI: No n/v, no abd pain Neuro: No confusion Physical Exam Vital Signs: Vital Signs: Last Vital Signs Temp 98.8 F 09/15/20 07:58 Pulse 138 H 09/15/20 09:34 Resp 18 09/15/20 09:34 BP 167/94 H 09/15/20 09:34 Pulse Ox 91 L 09/15/20 07:58 Body Mass Index 53.8 Const: Other: tachycarid General: cooperative and acute distress Resp: Other: Patient sitting up in chair, looks less comfortable than previous day Cardio: Other: tachycarid Rhythm: regular rhythm GI: Inspection: Yes normal to inspection Skin: General skin exam: no rashes or lesions noted Neuro: Cognition (Neuro): normal cognition Extrem: General: Yes normal to inspection and Yes no pedal edema Objective Data Current Medications Generic Name Dose Route Start Last Admin Trade Name Freq PRN Reason Stop Dose Admin Acetaminophen 650 mg 09/07/20 16:46 09/07/20 19:42 Acetaminophen 325 Mg Tablet PO 650 mg Q6H PRN Administration Pain, Mild (Pain Scale 1-3) Amiodarone HCl 400 mg 09/14/20 09:00 09/15/20 08:09 Amiodarone Hcl 200 Mg Tablet PO 400 mg DAILY KOJO Administration Dexamethasone Sodium Phosphate 6 mg 09/08/20 21:00 09/15/20 09:04 Dexamethasone Sod Phosphate 4 Mg/Ml Vial IVPUSH 6 mg BID KOJO Administration Heparin Sodium (Porcine) 12,640 unit 09/12/20 09:41 Heparin Sodium,Porcine 5,000 Unit/Ml Vial 80 unit/kg (55769 unit) IVPUSH BOLUS PRN 80 unit/kg - Heparin Protocol Heparin Sodium (Porcine) 6,320 unit 09/12/20 09:41 Heparin Sodium,Porcine 5,000 Unit/Ml Vial 40 unit/kg (6320 unit) IVPUSH BOLUS PRN HEPARINPRO Heparin Sodium/Sodium Chloride 25,000 unit in 250 mls @ 0 mls/hr 09/12/20 09:45 09/14/20 20:50 IVCONT 10 units/kg/hr .Q0M [facility] 15.8 mls/hr Titration Protocol Per Protocol Insulin Glargine 60 unit 09/14/20 21:00 09/14/20 20:26 Insulin Glargine,Hum.Rec.Anlog 100 Unit/Ml 10 Ml Vial SUBCUT 60 unit BID KOJO Administration Insulin Human Lispro 0 unit 09/07/20 07:30 09/15/20 07:22 Insulin Lispro 100 Unit/Ml 3 Ml Vial SUBCUT Not Given QIDACHS [facility] Protocol Morphine Sulfate 3 mg 09/11/20 13:36 09/15/20 08:10 Morphine Sulfate 4 Mg/Ml Cartridge IVPUSH 3 mg Q6H PRN Administration pain Omeprazole 40 mg 09/13/20 06:30 09/15/20 05:48 Omeprazole 40 Mg Capsule.Dr PO 40 mg DAILY@0630 [facility] Administration Ondansetron HCl 4 mg 09/07/20 16:46 Ondansetron Hcl 4 Mg/2 Ml Vial IVPUSH Q8H PRN Nausea and Vomiting Sodium Chloride 3 ml 09/07/20 16:46 09/15/20 09:04 0.9 % Sodium Chloride Flush 3 Ml Syringe IVFLUSH 3 ml QSHIFT [facility] Administration Sodium Chloride 1 spray 09/14/20 10:53 Sodium Chloride 0.65 % Nasal 44 Ml Sprbtl NOSTRIL-B Q1H PRN Nasal Congestion Labs CBC & Chem 7: 09/15/20 05:58 09/15/20 05:58 Microbiology Microbiology Results: Microbiology 09/07/20 02:25 Blood - Venous Blood Culture - Final No growth after 5 days. 09/07/20 02:25 Blood - Venous Blood Culture - Final No growth after 5 days. 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 On ER evaluation positive for COVID-19 and requiring significant amount of supplemental oxygen. Admitted initially to general medical isabel and started on dexamethasone and Oxygen. Hospital course complicated by chronic chest pain, exacerbation of underlying systolic heart failure, worsening renal failure, and progressive hypoxic respiratory failure requiring initiation of noninvasive positive pressure ventilation on 09/09/2020, AFIB and transfered to intensive care unit where he has required aggresive diuresis and overall has improved. 1/ Acu combined diastolic/systolic CHF with EF 40--transfered to ICU on 09/09 and has been aggresively diuressed with IV Bumex 2 mg q8 and Diuril 1000mg daily, cumulatively negativ 16 liters, translating into 35 Ib and just overnight negative 6 liters and bun/cr rising will therefore hold diuretics today and reassess need tomorrow. Cardilogy should continue following and advise on management 2/Acute and chronic hypoxic respiratory failure-from chf, covid hypoventilation and possibly element of COPD--He has been using CPAP with good effect, he remains hypoxic on high flow O2 and will remain gradully. Pulmonory should continue following along 3/AFIB--rate not controlled. He is been loaded with amiodarone and is antiocoagulated with Heparin there has some sparse hemoptysis but this is not new and not enough to dc anticoagulation at this point as benefit far outweigh risks. May need cardioversion 4/SAQIB on CKD--with markedly high BUN, Cre seem stable. Nephro recommends: Hold chlorthiazide today and bumex Correct hypokalemia with KCL 60 meq this am and repeat K at 2 pm Monitor spontaneous UO and use bumex only if needed if UO slows down 5/Hypokalemia--60 meq of k , repeat at 2 pm 6/HTN--Not on med at moment but will likely require some 7/HLD--Restart Lipitor 8/ Covid-19 with viral sepsis--clinically stable. -Was not candidate for Remdesevir or Monoclonal antibodies -Continue Decadron D#2 9/Diabetes--Continue Lantus and SSI, ADA diet 10/Chronic pain-- Morphine 11/YANELI/possible COPD--CPAP, try inhalers as well
[2020-09-15] MEDS: Insulin Glargine,Hum.rec.anlog 100 UNIT/ML 10 ML VIAL 60 UNIT SUBCUT ×2 (10:16→22:40)
[2020-09-15] MEDS: Potassium Chloride Packet 20 MEQ PACKET 40 MEQ PO ×2 (10:20→22:41)
[2020-09-15] MEDS: Heparin Sodium,Porcine/1/2NS 25,000 UNIT/250 ML IV.SOLN 15.8 UNIT IVCONT (11:23)
[2020-09-15 11:28] LABS: Glucose, Whole Blood 156 mg/dL (60-115)
[2020-09-15] MEDS: Potassium Chloride ER 20 MEQ TAB.ER.PRT PO (11:38)
[2020-09-15] MEDS: Insulin Lispro 100 UNIT/ML 3 ML VIAL SUBCUT ×2 (13:07→22:40)
[2020-09-15] MEDS: amLODIPine Besylate 10 MG TABLET PO (15:07)
[2020-09-15] MEDS: Sodium Chloride 0.65 % Nasal 44 ML SPRBTL 1 SPRAY NOSTRIL-B (15:19)
--- NOTE | 2020-09-15 15:42 | PC.NURSE ---
report given to delroy michaels to transfer to room 477
[2020-09-15 16:09] LABS: Anion Gap 21 (12-20); Calcium 8.7 mg/dL (8.4-10.2); Carbon Dioxide 28 mmol/L (22-29); Chloride 97 mmol/L (96-108); Creatinine Clr Calc Pharmacy 42.9; Estimated Glomerular Filt Rate 20; Glucose Random 159 mg/dL (60-115); Potassium 3.2 mmol/l (3.3-5.1); Sodium 143 mmol/L (135-145)
[2020-09-15 16:29] LABS: Blood Urea Nitrogen 132 mg/dL (9-16)
[2020-09-15 16:44] LABS: Glucose, Whole Blood 148 mg/dL (60-115)
--- NOTE | 2020-09-15 17:48 | ECG_ITS ---
Test Reason : CP Blood Pressure : / mmHG Vent. Rate : 139 BPM Atrial Rate : 139 BPM P-R Int : 072 ms QRS Dur : 176 ms QT Int : 370 ms P-R-T Axes : 087 255 -69 degrees QTc Int : 563 ms Atrial flutter with 2 to 1 block with Premature ventricular complexes Right bundle branch block Inferior infarct , age undetermined T wave abnormality, consider lateral ischemia Abnormal ECG Compared to EKG of 09 Sep 2020 at 15:26:30 No significant changes seen Referred By: Randy Hager Electronically Signed By:TORY GARCIA MD
--- NOTE | 2020-09-15 17:54 | PM.EVENT ---
Event Note Date of Service: 09/15/20 Event Note: Rapid response called this patient came from ICU to [facility] for chest pain. EKG with a flutter 139, right bundle-branch block, no clear evidence of ischemia. Patient already on heparin infusion. Will check troponin and give breakthrough morphine.
--- NOTE | 2020-09-15 18:10 | P.PNCA_ITS ---
Subjective Subjective Date of Service: 09/15/20 Principal diagnosis: Resp failure, COVID, Right HF, Aflutter Interval history: Improving slowly. Has been off CPAP and is on high-flow oxygen. He is saying he has sharp chest pain all over the chest. Review of Systems Review of Systems Sharp chest pains, shortness of breath, no palpitations. Yes all other systems are reviewed and are negative Denies Neuro-related abnormal movements Physical Exam Vital Signs: Last Vital Signs Temp 97.9 F 09/15/20 16:00 Pulse 139 H 09/15/20 16:00 Resp 20 09/15/20 16:00 BP 164/92 H 09/15/20 16:00 Pulse Ox 92 09/15/20 16:00 Body Mass Index 53.8 GENERAL APPEARANCE: on high-flow oxygen HEENT: unremarkable. HEAD: normocephalic, atraumatic. NECK/THYROID: Did not notice any obvious JVD today. SKIN: no suspicious lesions, warm and dry. HEART: no murmurs, regular tachycardia, S1, S2 normal. LUNGS: Clear bilaterally. ABDOMEN: Distended, nontender, softer than before EXTREMITIES: no clubbing, cyanosis. mild edema NEUROLOGIC: nonfocal, alert and oriented. Results Labs and Meds Result diagrams: 09/15/20 05:58 09/15/20 14:56 Lab results: Laboratory Results - last 24 hr 09/14/20 09/14/20 09/15/20 20:29 20:50 05:58 WBC RBC Hgb Hct MCV MCH MCHC RDW Plt Count MPV Immature Gran % (Auto) Neut % (Auto) Lymph % (Auto) [place] % (Auto) Eos % (Auto) Baso % (Auto) Lymph # (Auto) [place] # (Auto) Eos # (Auto) Baso # (Auto) Abs Immat Gran (auto) Absolute Neuts (auto) Absolute Nucleated RBC Nucleated RBC % (auto) PTT (Heparin Protocol) 60.7 72.1 Sodium Potassium Chloride Carbon Dioxide Anion Gap BUN Creatinine Estim Creat Clear Calc Estimated GFR POC Glucose 329 H Random Glucose Calcium Albumin 09/15/20 09/15/20 09/15/20 05:58 05:58 07:14 WBC 12.0 H RBC 4.65 Hgb 13.4 L Hct 39.4 L MCV 84.7 MCH 28.8 MCHC 34.0 RDW 15.1 Plt Count 213 D MPV 11.7 Immature Gran % (Auto) 3.2 H Neut % (Auto) 90.0 H Lymph % (Auto) 2.4 L [place] % (Auto) 4.3 Eos % (Auto) 0.0 Baso % (Auto) 0.1 Lymph # (Auto) 0.3 L [place] # (Auto) 0.5 Eos # (Auto) 0.0 Baso # (Auto) 0.0 Abs Immat Gran (auto) 0.38 H Absolute Neuts (auto) 10.8 H Absolute Nucleated RBC 0.020 H Nucleated RBC % (auto) 0.2 PTT (Heparin Protocol) Sodium 142 Potassium 3.0 L D Chloride 96 Carbon Dioxide 29 Anion Gap 20 BUN 138 H* Creatinine 3.21 H Estim Creat Clear Calc 43.2 Estimated GFR 20 POC Glucose 129 H Random Glucose 119 H D Calcium 9.0 Albumin 3.7 09/15/20 09/15/20 09/15/20 11:23 14:56 16:24 WBC RBC Hgb Hct MCV MCH MCHC RDW Plt Count MPV Immature Gran % (Auto) Neut % (Auto) Lymph % (Auto) [place] % (Auto) Eos % (Auto) Baso % (Auto) Lymph # (Auto) [place] # (Auto) Eos # (Auto) Baso # (Auto) Abs Immat Gran (auto) Absolute Neuts (auto) Absolute Nucleated RBC Nucleated RBC % (auto) PTT (Heparin Protocol) Sodium 143 Potassium 3.2 L Chloride 97 Carbon Dioxide 28 Anion Gap 21 H BUN 132 H* Creatinine 3.23 H Estim Creat Clear Calc 42.9 Estimated GFR 20 POC Glucose 156 H 148 H Random Glucose 159 H Calcium 8.7 Albumin Progress Note: A&P Assessment and plan (1) Atrial flutter: Status: Acute (2) Acute respiratory distress syndrome (ARDS) due to COVID-19 virus: Status: Acute (3) CHF (congestive heart failure): Status: Acute Assessment and Plan: 60-year-old gentleman with previous biv failure and admissions with R>L heart failure admitted with Covid 19 pneumonia and sepsis. On CPAP. Was not Bumex drip which was held because his BUN is a rising significantly and is in 130s. He also has been on dexamethasone which usually increase of BUN. His creatinine is at baseline. In atrial flutter with difficult to control rates. Probably driven by the respiratory issues. On p.o. amiodarone now. On heparin drip. BP high and his home medications are resumed. If he continues to be high tomorrow than the carvedilol can be increased to 25 mg twice a day. He has difficult to control atrial flutter at this point. He is currently asymptomatic from it. If his respiratory status improved then we can do VIDYA cardioversion but I think right now it will be quite challenging to do because he has active COVID infection and significant oxygen demand. We will follow along with you. Thank you for allowing me to participate in the care of your patient. Please feel free to contact me if you have any questions. Fall Risk Details Current Medications: Current Medications Generic Name Dose Route Start Last Admin Trade Name Freq PRN Reason Stop Dose Admin Acetaminophen 650 mg 09/07/20 16:46 09/07/20 19:42 Acetaminophen 325 Mg Tablet PO 650 mg Q6H PRN Administration Pain, Mild (Pain Scale 1-3) Amiodarone HCl 400 mg 09/14/20 09:00 09/15/20 08:09 Amiodarone Hcl 200 Mg Tablet PO 400 mg DAILY KOJO Administration Amlodipine Besylate 10 mg 09/15/20 13:45 09/15/20 15:07 Amlodipine Besylate 10 Mg Tablet PO 10 mg DAILY KOJO Administration Protocol Carvedilol 12.5 mg 09/15/20 21:00 Carvedilol 12.5 Mg Tablet PO BID KOJO Protocol Dexamethasone Sodium Phosphate 6 mg 09/08/20 21:00 09/15/20 09:04 Dexamethasone Sod Phosphate 4 Mg/Ml Vial IVPUSH 6 mg BID KOJO Administration Heparin Sodium (Porcine) 12,640 unit 09/12/20 09:41 Heparin Sodium,Porcine 5,000 Unit/Ml Vial 80 unit/kg (38465 unit) IVPUSH BOLUS PRN 80 unit/kg - Heparin Protocol Heparin Sodium (Porcine) 6,320 unit 09/12/20 09:41 Heparin Sodium,Porcine 5,000 Unit/Ml Vial 40 unit/kg (6320 unit) IVPUSH BOLUS PRN HEPARINPRO Heparin Sodium/Sodium Chloride 25,000 unit in 250 mls @ 0 mls/hr 09/12/20 09:45 09/15/20 11:23 IVCONT 10 units/kg/hr .Q0M KOJO 15.8 mls/hr Administration Protocol Per Protocol Insulin Glargine 60 unit 09/14/20 21:00 09/15/20 10:16 Insulin Glargine,Hum.Rec.Anlog 100 Unit/Ml 10 Ml Vial SUBCUT 60 unit BID KOJO Administration Insulin Human Lispro 0 unit 09/07/20 07:30 09/15/20 13:07 Insulin Lispro 100 Unit/Ml 3 Ml Vial SUBCUT 2 unit QIDACHS KOJO Administration Protocol Morphine Sulfate 3 mg 09/15/20 17:53 Morphine Sulfate 4 Mg/Ml Cartridge IVPUSH Q4H PRN pain Omeprazole 40 mg 09/13/20 06:30 09/15/20 05:48 Omeprazole 40 Mg Capsule.Dr PO 40 mg DAILY@0630 KOJO Administration Ondansetron HCl 4 mg 09/07/20 16:46 Ondansetron Hcl 4 Mg/2 Ml Vial IVPUSH Q8H PRN Nausea and Vomiting Potassium Chloride 40 meq 09/15/20 10:15 09/15/20 10:20 Potassium Chloride Packet 20 Meq Packet PO 09/15/20 21:01 40 meq BID KOJO Administration Sodium Chloride 3 ml 09/07/20 16:46 09/15/20 15:09 0.9 % Sodium Chloride Flush 3 Ml Syringe IVFLUSH 3 ml QSHIFT [facility] Administration Sodium Chloride 1 spray 09/14/20 10:53 09/15/20 15:19 Sodium Chloride 0.65 % Nasal 44 Ml Sprbtl NOSTRIL-B 1 spray Q1H PRN Administration Nasal Congestion Time Spent With Patient Time: Total time spent is greater than 50% in coordination of care (as documented) at patient's floor/unit and/or counseling patient: Time with patient: 15 - 24 minutes
[2020-09-15 18:58] LABS: Troponin-I High Sensitivity 220.4 ng/L (<3.5-35.0)
[2020-09-15 21:16] LABS: Glucose, Whole Blood 184 mg/dL (60-115)
[2020-09-15] MEDS: carvediloL 12.5 MG TABLET PO (22:41)
[2020-09-16] VITALS (15 sets, daily range): BP systolic 125–180; BP diastolic 66–101; PULSE 106–140; RESP 16–20; TEMP 35.9–36.7; O2SAT 90–97
[2020-09-16] MEDS: Morphine Sulfate 4 MG/ML CARTRIDGE 3 MG IVPUSH ×5 (01:43→21:46)
[2020-09-16] MEDS: Metoprolol Tartrate 5 MG/5 ML VIAL IVPUSH (01:46)
[2020-09-16] MEDS: Omeprazole 40 MG CAPSULE.DR PO (05:41)
[2020-09-16] MEDS: Heparin Sodium,Porcine/1/2NS 25,000 UNIT/250 ML IV.SOLN 15.8 UNIT IVCONT (05:42)
--- NOTE | 2020-09-16 06:16 | PC.NURSE ---
Pt. transferred from ICU during dayshift. Pt in chair when t/w came in at 1900. Pt noted to have HR sustaining 138. Pt states that HR has been high while being in hospital. MD still made aware and order for 5mg IV Lopressor ordered and administered with minimal effect. HR maintaining 138 in Aflutter. BP 125/78. Pt. A&Ox3, states no chest pain. Pt able to ambulate steady 1 assist from chair to bed. Bloody secretions noted from pt nose. Heparin gtt running as well as high flow. Next PTT-HD due for 0600. Output of 1200ml clear yellow urine from [facility]. Will cont to monitor.
[2020-09-16] MEDS: Amiodarone HCL 200 MG TABLET 400 MG PO (07:31)
[2020-09-16] MEDS: carvediloL 12.5 MG TABLET PO (07:32)
[2020-09-16] MEDS: dexAMETHasone sod phosphate 4 MG/ML VIAL 6 MG IVPUSH ×2 (07:32→21:46)
[2020-09-16] MEDS: amLODIPine Besylate 10 MG TABLET PO (07:32)
[2020-09-16 07:57] LABS: Glucose, Whole Blood 225 mg/dL (60-115)
[2020-09-16 08:47] LABS: Hemoglobin 13.2 g/dl (14.0-18.0); Mean Corpuscular Hemoglobin 28.6 pg (27.0-33.0); Mean Corpuscular Volume 86.8 fL (80-98); Mean Platelet Volume 12.2 fL (9.4-12.4); Platelet Count 223 X10*3/uL (160-400); Red Blood Count 4.61 X10*6/uL (4.60-5.80); Red Cell Distribution Width 15.3 % (11.0-16.0)
[2020-09-16 09:20] LABS: Anion Gap 19 (12-20); Blood Urea Nitrogen 124 mg/dL (9-16); Calcium 8.4 mg/dL (8.4-10.2); Carbon Dioxide 27 mmol/L (22-29); Chloride 99 mmol/L (96-108); Creatinine Clr Calc Pharmacy 45.9; Estimated Glomerular Filt Rate 21; Glucose Random 224 mg/dL (60-115); Potassium 3.5 mmol/l (3.3-5.1); Sodium 141 mmol/L (135-145)
[2020-09-16] MEDS: Insulin Lispro 100 UNIT/ML 3 ML VIAL SUBCUT ×4 (09:21→21:47)
[2020-09-16] MEDS: Insulin Glargine,Hum.rec.anlog 100 UNIT/ML 10 ML VIAL 60 UNIT SUBCUT ×2 (09:21→21:47)
[2020-09-16] MEDS: 0.9 % Sodium Chloride Flush 3 ML SYRINGE IVFLUSH ×3 (09:22→21:47)
--- NOTE | 2020-09-16 11:27 | PM.PNCARD ---
Subjective Subjective Date of Service: 09/16/20 Principal diagnosis: Resp failure, COVID, Right HF, Aflutter Interval history: Patient's fluid status seems to have improved. His breathing he says is better. Still requiring high-flow oxygen. Remains in atrial flutter with rapid ventricular response despite amiodarone and carvedilol therapy. Denies any palpitations. Review of Systems Constitutional: Reports no additional constitutional complaints Cardiovascular: Reports chest pain, Reports rapid heart rate, Reports lightheadedness and Reports palpitations Respiratory: Reports dyspnea (This is improving) Gastrointestinal: Reports no additional gastrointestinal complaints Reports system reviewed and no additional complaints, except as documented Endocrine: Reports palpitations Physical Exam Vital Signs: Last Vital Signs Temp 98.1 F 09/16/20 07:42 Pulse 140 H 09/16/20 07:42 Resp 20 09/16/20 11:18 BP 134/85 09/16/20 07:42 Pulse Ox 94 09/16/20 07:42 Body Mass Index 53.8 Results Labs and Meds Result diagrams: 09/16/20 07:46 09/16/20 05:33 Lab results: Laboratory Results - last 24 hr 09/15/20 09/15/20 09/15/20 11:23 14:56 16:24 WBC RBC Hgb Hct MCV MCH MCHC RDW Plt Count MPV Absolute Nucleated RBC Nucleated RBC % (auto) PTT (Heparin Protocol) Sodium 143 Potassium 3.2 L Chloride 97 Carbon Dioxide 28 Anion Gap 21 H BUN 132 H* Creatinine 3.23 H Estim Creat Clear Calc 42.9 Estimated GFR 20 POC Glucose 156 H 148 H Random Glucose 159 H Calcium 8.7 Troponin I High Sens 09/15/20 09/15/20 09/16/20 18:09 20:49 05:33 WBC RBC Hgb Hct MCV MCH MCHC RDW Plt Count MPV Absolute Nucleated RBC Nucleated RBC % (auto) PTT (Heparin Protocol) 80.0 H Sodium Potassium Chloride Carbon Dioxide Anion Gap BUN Creatinine Estim Creat Clear Calc Estimated GFR POC Glucose 184 H Random Glucose Calcium Troponin I High Sens 220.4 H D 09/16/20 09/16/20 09/16/20 05:33 07:46 07:46 WBC 11.0 H RBC 4.61 Hgb 13.2 L Hct 40.0 L MCV 86.8 MCH 28.6 MCHC 33.0 RDW 15.3 Plt Count 223 MPV 12.2 Absolute Nucleated RBC 0.000 Nucleated RBC % (auto) 0.0 PTT (Heparin Protocol) Sodium 141 Potassium 3.5 Chloride 99 Carbon Dioxide 27 Anion Gap 19 BUN 124 H* Creatinine 3.02 H Estim Creat Clear Calc 45.9 Estimated GFR 21 POC Glucose 225 H Random Glucose 224 H D Calcium 8.4 Troponin I High Sens Progress Note: A&P Assessment and plan (1) Atrial flutter: Status: Acute Assessment and Plan: Atrial flutter with rapid ventricular response which remains difficult to control. Unknown duration of atrial flutter at this point time. He says he has not been on oral anticoagulation therapy before and was told that he had this arrhythmia before. He is not sure. Will review old data and notes from Dr. Leroy's office at [facility]. At this time will continue amiodarone. Will switch his carvedilol to metoprolol and maximize as tolerated. Will also give him couple of doses of IV digoxin. Continue IV heparin can consider switching to oral anticoagulation Eliquis 5 mg b.i.d. given his weight and his age although his creatinine is about 3.02. Can also consider Xarelto 15 mg daily. Synchronized cardioversion without VIDYA is a possibility, however patient does not want to undergo cardioversion at this point in time. Will try to changes rate control therapy and see if his rate improves with new approach if not should consider cardioversion without VIDYA given his significant hypoxemia as well as difficult airway. (2) Acute respiratory distress syndrome (ARDS) due to COVID-19 virus: Status: Acute Assessment and Plan: Persistent hypoxemia due to acute respiratory illness due to COVID. Continue supportive care. 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 (3) CHF (congestive heart failure): Status: Acute Assessment and Plan: Right heart failure secondary to biventricular failure with RV dysfunction and morbid obesity and most likely Pickwickian syndrome. Continue high-flow oxygen therapy. Currently appears to be euvolemic and his overall diuresed 19 L. Hold off on diuretics given his creatinine and BUN have increased. Start tomorrow with p.o. torsemide, he is 100 b.i.d. at home. (4) Acute kidney injury superimposed on CKD: Status: Acute Assessment and Plan: Acute kidney injury, multifactorial could be also due to over diuresis. Hold off on diuresis at this point time. Restart torsemide starting tomorrow. Continue strict intake and output chart monitoring. Overall prognosis is guarded. Will follow with the patient Fall Risk Details Current Medications: Current Medications Generic Name Dose Route Start Last Admin Trade Name Freq PRN Reason Stop Dose Admin Acetaminophen 650 mg 09/07/20 16:46 09/07/20 19:42 Acetaminophen 325 Mg Tablet PO 650 mg Q6H PRN Administration Pain, Mild (Pain Scale 1-3) Amiodarone HCl 400 mg 09/14/20 09:00 09/16/20 07:31 Amiodarone Hcl 200 Mg Tablet PO 400 mg DAILY KOJO Administration Amlodipine Besylate 10 mg 09/15/20 13:45 09/16/20 07:32 Amlodipine Besylate 10 Mg Tablet PO 10 mg DAILY KOJO Administration Protocol Carvedilol 12.5 mg 09/15/20 21:00 09/16/20 07:32 Carvedilol 12.5 Mg Tablet PO 12.5 mg BID KOJO Administration Protocol Dexamethasone Sodium Phosphate 6 mg 09/08/20 21:00 09/16/20 07:32 Dexamethasone Sod Phosphate 4 Mg/Ml Vial IVPUSH 6 mg BID KOJO Administration Heparin Sodium (Porcine) 12,640 unit 09/12/20 09:41 Heparin Sodium,Porcine 5,000 Unit/Ml Vial 80 unit/kg (54932 unit) IVPUSH BOLUS PRN 80 unit/kg - Heparin Protocol Heparin Sodium (Porcine) 6,320 unit 09/12/20 09:41 Heparin Sodium,Porcine 5,000 Unit/Ml Vial 40 unit/kg (6320 unit) IVPUSH BOLUS PRN HEPARINPRO Heparin Sodium/Sodium Chloride 25,000 unit in 250 mls @ 0 mls/hr 09/12/20 09:45 09/16/20 07:12 IVCONT 8 units/kg/hr .Q0M KOJO 12.64 mls/hr Titration Protocol Per Protocol Insulin Glargine 60 unit 09/14/20 21:00 09/16/20 09:21 Insulin Glargine,Hum.Rec.Anlog 100 Unit/Ml 10 Ml Vial SUBCUT 60 unit BID KOJO Administration Insulin Human Lispro 0 unit 09/07/20 07:30 09/16/20 09:21 Insulin Lispro 100 Unit/Ml 3 Ml Vial SUBCUT 4 unit QIDACHS [facility] Administration Protocol Morphine Sulfate 3 mg 09/15/20 17:53 09/16/20 09:27 Morphine Sulfate 4 Mg/Ml Cartridge IVPUSH 3 mg Q4H PRN Administration pain Omeprazole 40 mg 09/13/20 06:30 09/16/20 05:41 Omeprazole 40 Mg Capsule.Dr PO 40 mg DAILY@0630 [facility] Administration Ondansetron HCl 4 mg 09/07/20 16:46 Ondansetron Hcl 4 Mg/2 Ml Vial IVPUSH Q8H PRN Nausea and Vomiting Sodium Chloride 3 ml 09/07/20 16:46 09/16/20 09:22 0.9 % Sodium Chloride Flush 3 Ml Syringe IVFLUSH 3 ml QSHIFT [facility] Administration Sodium Chloride 1 spray 09/14/20 10:53 09/15/20 15:19 Sodium Chloride 0.65 % Nasal 44 Ml Sprbtl NOSTRIL-B 1 spray Q1H PRN Administration Nasal Congestion Time Spent With Patient Time: Total time spent is greater than 50% in coordination of care (as documented) at patient's floor/unit and/or counseling patient: Time with patient: Greater than 35 minutes
[2020-09-16] MEDS: Metoprolol Tartrate 50 MG TABLET PO ×3 (12:03→23:49)
[2020-09-16] MEDS: Digoxin 0.5 MG/2 ML AMPUL 0.25 MG IVPUSH ×2 (12:03→18:20)
[2020-09-16 12:19] LABS: Glucose, Whole Blood 275 mg/dL (60-115)
--- NOTE | 2020-09-16 13:37 | HO.PM.IMPN ---
Subjective Subjective Date of Service: 09/17/20 Interval History: Seen in follow up for acute hypoxic respiratory failure due to covid and likely hypoventilatioin syndrome. He is doing significantly much better. . Review of Systems Gen: no fever Resp: spb is better CV: no chest, +BARRIENTOS, + leg edema but better GI: No n/v, no abd pain Neuro: No confusion Physical Exam Vital Signs: Vital Signs: Last Vital Signs Temp 98.1 F 09/16/20 07:42 Pulse 140 H 09/16/20 12:03 Resp 20 09/16/20 11:18 BP 134/85 09/16/20 07:42 Pulse Ox 94 09/16/20 07:42 Body Mass Index 53.8 Const: Other: tachycarid General: cooperative and acute distress Resp: Other: Patient sitting up in chair, looks less comfortable than previous day Cardio: Other: tachycarid Rhythm: regular rhythm GI: Inspection: Yes normal to inspection Skin: General skin exam: no rashes or lesions noted Neuro: Cognition (Neuro): normal cognition Extrem: General: Yes normal to inspection and Yes no pedal edema Objective Data Current Medications Generic Name Dose Route Start Last Admin Trade Name Freq PRN Reason Stop Dose Admin Acetaminophen 650 mg 09/07/20 16:46 09/07/20 19:42 Acetaminophen 325 Mg Tablet PO 650 mg Q6H PRN Administration Pain, Mild (Pain Scale 1-3) Amiodarone HCl 400 mg 09/14/20 09:00 09/16/20 07:31 Amiodarone Hcl 200 Mg Tablet PO 400 mg DAILY KOJO Administration Amlodipine Besylate 10 mg 09/15/20 13:45 09/16/20 07:32 Amlodipine Besylate 10 Mg Tablet PO 10 mg DAILY KOJO Administration Protocol Dexamethasone Sodium Phosphate 6 mg 09/08/20 21:00 09/16/20 07:32 Dexamethasone Sod Phosphate 4 Mg/Ml Vial IVPUSH 6 mg BID KOJO Administration Digoxin 0.25 mg 09/16/20 11:45 09/16/20 12:03 Digoxin 0.5 Mg/2 Ml Ampul IVPUSH 09/16/20 17:46 0.25 mg Q6H KOJO Administration Heparin Sodium (Porcine) 12,640 unit 09/12/20 09:41 Heparin Sodium,Porcine 5,000 Unit/Ml Vial 80 unit/kg (09199 unit) IVPUSH BOLUS PRN 80 unit/kg - Heparin Protocol Heparin Sodium (Porcine) 6,320 unit 09/12/20 09:41 Heparin Sodium,Porcine 5,000 Unit/Ml Vial 40 unit/kg (6320 unit) IVPUSH BOLUS PRN HEPARINPRO Heparin Sodium/Sodium Chloride 25,000 unit in 250 mls @ 0 mls/hr 09/12/20 09:45 09/16/20 07:12 IVCONT 8 units/kg/hr .Q0M KOJO 12.64 mls/hr Titration Protocol Per Protocol Insulin Glargine 60 unit 09/14/20 21:00 09/16/20 09:21 Insulin Glargine,Hum.Rec.Anlog 100 Unit/Ml 10 Ml Vial SUBCUT 60 unit BID KOJO Administration Insulin Human Lispro 0 unit 09/07/20 07:30 09/16/20 12:02 Insulin Lispro 100 Unit/Ml 3 Ml Vial SUBCUT 6 unit QIDACHS [facility] Administration Protocol Metoprolol Tartrate 50 mg 09/16/20 11:45 09/16/20 12:03 Metoprolol Tartrate 50 Mg Tablet PO 50 mg Q6H KOJO Administration Protocol Morphine Sulfate 3 mg 09/15/20 17:53 09/16/20 09:27 Morphine Sulfate 4 Mg/Ml Cartridge IVPUSH 3 mg Q4H PRN Administration pain Omeprazole 40 mg 09/13/20 06:30 09/16/20 05:41 Omeprazole 40 Mg Capsule.Dr PO 40 mg DAILY@0630 [facility] Administration Ondansetron HCl 4 mg 09/07/20 16:46 Ondansetron Hcl 4 Mg/2 Ml Vial IVPUSH Q8H PRN Nausea and Vomiting Sodium Chloride 3 ml 09/07/20 16:46 09/16/20 09:22 0.9 % Sodium Chloride Flush 3 Ml Syringe IVFLUSH 3 ml QSHIFT [facility] Administration Sodium Chloride 1 spray 09/14/20 10:53 09/15/20 15:19 Sodium Chloride 0.65 % Nasal 44 Ml Sprbtl NOSTRIL-B 1 spray Q1H PRN Administration Nasal Congestion Torsemide 100 mg 09/16/20 13:30 Torsemide 20 Mg Tablet PO BID [facility] Protocol Labs CBC & Chem 7: 09/16/20 07:46 09/17/20 11:47 Microbiology Microbiology Results: Microbiology 09/07/20 02:25 Blood - Venous Blood Culture - Final No growth after 5 days. 09/07/20 02:25 Blood - Venous Blood Culture - Final No growth after 5 days. 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 On ER evaluation positive for COVID-19 and requiring significant amount of supplemental oxygen. Admitted initially to general medical isabel and started on dexamethasone and Oxygen. Hospital course complicated by chronic chest pain, exacerbation of underlying systolic heart failure, worsening renal failure, and progressive hypoxic respiratory failure requiring initiation of noninvasive positive pressure ventilation on 09/09/2020, AFIB and transfered to intensive care unit where he has required aggresive diuresis and overall has improved. 1/ Acute combined diastolic/systolic CHF with EF 40--transfered to ICU on 09/09 and has been aggresively diuressed with IV Bumex 2 mg q8 and Diuril 1000mg daily, cumulatively negativ 16 liters, translating into 35 Ib and just overnight negative 6 liters and bun/cr rising will therefore hold diuretics today and reassess need tomorrow. Presently back on home dose of Torsemide 100 bid and we need to monitor Cr closely 2/Acute and chronic hypoxic respiratory failure-from chf, covid hypoventilation and possibly element of COPD--He has been using CPAP with good effect. He has made progress overnight and is now on nasal canula at 4 liters only 3/AFIB--Difficult to control. He is been loaded with amiodarone , in addition to Metoprolol.May need cardioversion in the future. Transition from Heparin to Xarelto at 15 renally dose 4/SAQIB on CKD--with markedly high BUN, Cre seem stable. Monitor I/O. Nephrology to follow 5/Hypokalemia--Corrected 6/HTN--Continue Norvasc, Metorprolol 7/HLD--Restart Lipitor 8/ Covid-19 with viral sepsis--clinically stable. -Was not candidate for Remdesevir or Monoclonal antibodies -Continue Decadron Day 10. Stop after this. 9/Diabetes--Continue Lantus and SSI, ADA diet 10/Chronic pain-- Morphine 11/YANELI/possible COPD--CPAP, try inhalers as well. 12/Should start moving around if not then should have PT eval
[2020-09-16 13:49] LABS: PTT Heparin Drip 74.9 SEC (53-77.9)
--- NOTE | 2020-09-16 13:58 | MHC.CLN ---
Addendum entered by Rina Page, JEZ 09/16/20 14:00: IN ADDITION, RECOMMEND ADDING 2GM NA TO CURRENT DIET ORDER R/T CHF Original Note: F/U RECOMMEND 1900 CALORIES PER DAY TO PROMOTE SLOW WT LOSS 50% AVG PO INTAKE DIET RX: 1800DM WILL INCREASE TO 2000DM MONITOR PO INTAKE CLOSELY FOLLOWING
[2020-09-16] MEDS: Torsemide 20 MG TABLET 100 MG PO ×2 (16:37→21:45)
[2020-09-16 16:53] LABS: Glucose, Whole Blood 323 mg/dL (60-115)
--- NOTE | 2020-09-16 19:43 | PC.NURSE ---
Patient A&O x4. Pleasant and cooperative. Medicated for pain with morphine x 2 with good effect. up to chair most of day, Educated on ISPI purpose and use. Patient using ISPI to 1250 with hold at end 10x per hour, excellent effort. occiational non productive cough after use. Patient weaned off HiFlo oxygen to 4LNC. denies SOB at rest. SaO2 above 94% with 4L NC. Heparin gtt continued at 8u/kg.hr throughout shift. Good appetite. BM in commode. f/c draining clear, yellow uring. R IJ triple lumen flushes without resistance. HR has remained in high 130s throughtout most of the day. Patient denies palpiations, continues to endorse mild chest discomfort. Seen by cardiology. Given new meds as ordered. HR did decrease to low 100s for approximatley 1hour after first dose of digoxin.
--- NOTE | 2020-09-16 20:20 | P.EN_ITS ---
Event Note Date of Service: 09/16/20 Event Note: Psychiatry note Psychiatry consult requested for this 60 year old male currently medically admitted with Covid-19. Recently transferred back to medical floor from ICU. Consult requested as patient reporting inability to sleep. Patient seen in room 477. Awake, alert, pleasant. Stating he has been unable to sleep greater than an hour at a time over the last two days. Processed overall feelings related to current hospitalization, discussed relaxation techniques, a nd offered supportive listening . Plan: trial mirtazipine 7.5 QHS follow up tomorrow
[2020-09-16 20:58] LABS: Glucose, Whole Blood 323 mg/dL (60-115)
[2020-09-16 21:41] LABS: PTT Heparin Drip 73.6 SEC (53-77.9)
[2020-09-16] MEDS: Mirtazapine 7.5 MG TABLET PO (21:46)
[2020-09-17] VITALS (11 sets, daily range): BP systolic 122–186; BP diastolic 65–101; PULSE 52–135; RESP 18–20; TEMP 36.3–37.1; O2SAT 90–96; BMI 50.7
[2020-09-17] MEDS: Heparin Sodium,Porcine/1/2NS 25,000 UNIT/250 ML IV.SOLN 12.64 UNIT IVCONT (05:17)
[2020-09-17] MEDS: Omeprazole 40 MG CAPSULE.DR PO (05:17)
[2020-09-17] MEDS: Metoprolol Tartrate 50 MG TABLET PO ×4 (05:17→22:29)
[2020-09-17 06:56] LABS: PTT Heparin Drip 33.6 SEC (53-77.9)
[2020-09-17 08:02] LABS: Glucose, Whole Blood 289 mg/dL (60-115)
[2020-09-17] MEDS: amLODIPine Besylate 10 MG TABLET PO (09:47)
[2020-09-17] MEDS: Torsemide 20 MG TABLET 100 MG PO ×2 (09:47→22:31)
[2020-09-17] MEDS: 0.9 % Sodium Chloride Flush 3 ML SYRINGE IVFLUSH ×2 (09:48→16:46)
[2020-09-17] MEDS: dexAMETHasone sod phosphate 4 MG/ML VIAL 6 MG IVPUSH ×2 (09:48→22:32)
[2020-09-17] MEDS: Amiodarone HCL 200 MG TABLET 400 MG PO (09:48)
[2020-09-17] MEDS: Insulin Glargine,Hum.rec.anlog 100 UNIT/ML 10 ML VIAL 60 UNIT SUBCUT ×2 (09:49→22:29)
[2020-09-17] MEDS: Insulin Lispro 100 UNIT/ML 3 ML VIAL SUBCUT ×4 (09:50→22:28)
[2020-09-17] MEDS: Morphine Sulfate 4 MG/ML CARTRIDGE 3 MG IVPUSH ×3 (10:12→22:51)
--- NOTE | 2020-09-17 10:21 | P.PNCA_ITS ---
Subjective Subjective Date of Service: 09/17/20 Principal diagnosis: Resp failure, COVID, Right HF, Aflutter Interval history: Patient feels better in terms of shortness of breath. Requiring less oxygen at current time. However remains with atrial flutter with rapid ventricular response while awake. The morning his rate was better. Denies any palpitations, lightheadedness. Review of Systems Constitutional: Reports no additional constitutional complaints Cardiovascular: Reports no additional cardiovascular complaints and Reports dyspnea (Improving) Respiratory: Reports dyspnea (Improving) Musculoskeletal: Reports no additional musculoskeletal complaints Reports system reviewed and no additional complaints, except as documented and Denies Neuro-related abnormal movements Hematologic/Lymphatic: Reports no additional hematologic/lymphatic complaints Physical Exam Vital Signs: Last Vital Signs Temp 97.4 F 09/17/20 07:49 Pulse 52 09/17/20 07:49 Resp 20 09/17/20 07:49 BP 186/85 H 09/17/20 07:49 Pulse Ox 95 09/17/20 07:49 Body Mass Index 50.7 Results Labs and Meds Result diagrams: 09/16/20 07:46 09/16/20 05:33 Lab results: Laboratory Results - last 24 hr 09/16/20 09/16/20 09/16/20 11:42 13:09 16:20 PTT (Heparin Protocol) 74.9 POC Glucose 275 H 323 H 09/16/20 09/16/20 09/17/20 20:44 21:05 05:35 PTT (Heparin Protocol) 73.6 33.6 L D POC Glucose 323 H 09/17/20 07:51 PTT (Heparin Protocol) POC Glucose 289 H Progress Note: A&P Assessment and plan (1) Atrial flutter: Status: Acute Assessment and Plan: Atrial flutter with difficult control rate despite increased rate control therapy. Discussed about potentially doing cardioversion. Patient absolutely declines at this point time. Will further up titrate amiodarone to 400 mg b.i.d. and metoprolol to 75 mg q.6 hours. Cannot use Cardizem due to LV systolic dysfunction and cannot use digoxin due to his renal failure. Switch to oral anticoagulant therapy. Can use GFR base direct oral anticoagulant therapy. If GFR less than 50 mL/minute use Xarelto 15 mg daily. (2) Acute respiratory distress syndrome (ARDS) due to COVID-19 virus: Status: Acute Assessment and Plan: Acute respiratory failure, slowly improving. Continue oxygen support and s upportive therapy as per the hospitalist team. Prognosis is guarded (3) CHF (congestive heart failure): Status: Acute Assessment and Plan: Heart failure due to biventricular dysfunction. Clinically fluid status looks significantly better. Would start him on torsemide 100 mg b.i.d. is usual home dose. He understands heart failure management well. Discussed with him that rapid atrial flutter is likely to worsen his overall heart failure syndrome in the long run. He understands and still does not want any attempt at synchronized cardioversion. Continue carvedilol therapy. Continue isosorbide as well as hydralazine. If his blood pressure remains significantly elevated continue to up titrate hydralazine therapy. (4) Acute kidney injury superimposed on CKD: Status: Acute Assessment and Plan: Clay I which has stable. Fall Risk Details Current Medications: Current Medications Generic Name Dose Route Start Last Admin Trade Name Freq PRN Reason Stop Dose Admin Acetaminophen 650 mg 09/07/20 16:46 09/07/20 19:42 Acetaminophen 325 Mg Tablet PO 650 mg Q6H PRN Administration Pain, Mild (Pain Scale 1-3) Amiodarone HCl 400 mg 09/14/20 09:00 09/17/20 09:48 Amiodarone Hcl 200 Mg Tablet PO 400 mg DAILY KOJO Administration Amlodipine Besylate 10 mg 09/15/20 13:45 09/17/20 09:47 Amlodipine Besylate 10 Mg Tablet PO 10 mg DAILY KOJO Administration Protocol Dexamethasone Sodium Phosphate 6 mg 09/08/20 21:00 09/17/20 09:48 Dexamethasone Sod Phosphate 4 Mg/Ml Vial IVPUSH 6 mg BID KOJO Administration Insulin Glargine 60 unit 09/14/20 21:00 09/17/20 09:49 Insulin Glargine,Hum.Rec.Anlog 100 Unit/Ml 10 Ml Vial SUBCUT 60 unit BID KOJO Administration Insulin Human Lispro 0 unit 09/07/20 07:30 09/17/20 09:50 Insulin Lispro 100 Unit/Ml 3 Ml Vial SUBCUT 6 unit QIDACHS [facility] Administration Protocol Metoprolol Tartrate 50 mg 09/16/20 11:45 09/17/20 05:17 Metoprolol Tartrate 50 Mg Tablet PO 50 mg Q6H KOJO Administration Protocol Mirtazapine 7.5 mg 09/16/20 21:00 09/16/20 21:46 Mirtazapine 7.5 Mg Tablet PO 7.5 mg BEDTIME KOJO Administration Morphine Sulfate 3 mg 09/15/20 17:53 09/17/20 10:12 Morphine Sulfate 4 Mg/Ml Cartridge IVPUSH 3 mg Q4H PRN Administration pain Omeprazole 40 mg 09/13/20 06:30 09/17/20 05:17 Omeprazole 40 Mg Capsule.Dr PO 40 mg DAILY@0630 [facility] Administration Ondansetron HCl 4 mg 09/07/20 16:46 Ondansetron Hcl 4 Mg/2 Ml Vial IVPUSH Q8H PRN Nausea and Vomiting Rivaroxaban 15 mg 09/17/20 10:00 Rivaroxaban 15 Mg Tablet PO DAILY KOJO Sodium Chloride 3 ml 09/07/20 16:46 09/17/20 09:48 0.9 % Sodium Chloride Flush 3 Ml Syringe IVFLUSH 3 ml QSHIFT KOJO Administration Sodium Chloride 1 spray 09/14/20 10:53 09/15/20 15:19 Sodium Chloride 0.65 % Nasal 44 Ml Sprbtl NOSTRIL-B 1 spray Q1H PRN Administration Nasal Congestion Torsemide 100 mg 09/16/20 13:30 09/17/20 09:47 Torsemide 20 Mg Tablet PO 100 mg BID KOJO Administration Protocol Time Spent With Patient Time: Total time spent is greater than 50% in coordination of care (as documented) at patient's floor/unit and/or counseling patient: Time with patient: 25 - 35 minutes
[2020-09-17 11:26] LABS: Glucose, Whole Blood 319 mg/dL (60-115)
[2020-09-17] MEDS: Rivaroxaban 15 MG TABLET PO (12:06)
[2020-09-17 12:26] LABS: Anion Gap 17 (12-20); Calcium 8.9 mg/dL (8.4-10.2); Carbon Dioxide 29 mmol/L (22-29); Chloride 100 mmol/L (96-108); Creatinine Clr Calc Pharmacy 40.6; Estimated Glomerular Filt Rate 19; Glucose Random 339 mg/dL (60-115); Potassium 4.2 mmol/l (3.3-5.1); Sodium 142 mmol/L (135-145)
[2020-09-17 12:36] LABS: Blood Urea Nitrogen 126 mg/dL (9-16)
--- NOTE | 2020-09-17 12:57 | PM.PNNEP ---
Subjective Subjective Date of Service: 09/17/20 Principal diagnosis: Resp failure, COVID, Right HF, Aflutter Interval history: Seen nd examoed.Events noted . Physical Exam Vital Signs: Vital Signs: Last Vital Signs Temp 97.5 F 09/17/20 11:05 Pulse 68 09/17/20 11:05 Resp 18 09/17/20 11:05 BP 150/65 H 09/17/20 11:05 Pulse Ox 95 09/17/20 11:05 Body Mass Index 50.7 Const: Other: Awake, alert, wearing CPAP General: cooperative, no acute distress, alert, awake, anxious and ill appearing; No acute distress Nutritional Appearance: obese Orientation/consciousness: patient oriented x3 HENMT: Head: Yes normal to inspection General nose exam: Abnormal external nose present and Nasal discharge present Face and sinus: Yes dry mucous membranes Eyes: General: appearance normal, both eyes and all related structures Sclerae: sclerae normal Pupils: Equal, round and reactive pupils present EOM: EOMs intact bilaterally Neck: Other: central line right IJ. obese, difficult to assess for JVD, still looks elevated Neck: Yes normal visual inspection, Yes full ROM, Yes no lymphadenopathy, Yes trachea midline, Yes supple and Yes JVD Carotids: carotid upstroke abnormal Chest: Chest palpation & inspection: normal inspection of the chest Resp: Other: tachypniac but seems more relaxed than yesterday. No cough noted Effort & Inspection: normal respiratory effort, not able to speak in complete sentences, decreased respiratory effort and no respiratory distress Auscultation: clear to auscultation bilaterally, crackles, no rales, no rhonchi, no wheezes, diminished lung sounds and bronchial breath sounds Cardio: Other: Awake, alert, wearing CPAP Jugular venous distension: JVD present Rate: regular rate and tachycardic Rhythm: regular rhythm and abnormal rhythm Heart sounds: S1 normal heart sound present (distant heart tones, no noted murmur), S2 normal heart sound present, no gallops, no murmurs and no rubs Peripheral pulses: Peripheral pulses 2+ throughout GI: Other: Obese, nontender to palpation Inspection: Yes normal to inspection Palpation (GI): Soft to palpation, nontender and Other GI palpation findings present ( Nontender) Auscultation: normal bowel sounds : General: Yes no CVA tenderness Back/Spine/Pelvis: Back: no CVA tenderness Skin: General skin exam: no rashes or lesions noted and dry skin (lower legs) Neuro: General: patient oriented x3 and moves all extremities Cranial nerves: Yes Equal, round and reactive pupils present Cognition (Neuro): normal cognition Extrem: Other: no pitting edema noted in legs General: Yes normal to inspection, Yes no pedal edema, No clubbing, No cyanosis and Yes edema Objective Data Labs CBC & Chem 7: 09/16/20 07:46 09/17/20 11:47 Labs: Laboratory Results - last 24 hr 09/16/20 09/16/20 09/16/20 13:09 16:20 20:44 PTT (Heparin Protocol) 74.9 Sodium Potassium Chloride Carbon Dioxide Anion Gap BUN Creatinine Estim Creat Clear Calc Estimated GFR POC Glucose 323 H 323 H Random Glucose Calcium 09/16/20 09/17/20 09/17/20 21:05 05:35 07:51 PTT (Heparin Protocol) 73.6 33.6 L D Sodium Potassium Chloride Carbon Dioxide Anion Gap BUN Creatinine Estim Creat Clear Calc Estimated GFR POC Glucose 289 H Random Glucose Calcium 09/17/20 09/17/20 11:09 11:47 PTT (Heparin Protocol) Sodium 142 Potassium 4.2 Chloride 100 Carbon Dioxide 29 Anion Gap 17 BUN 126 H* Creatinine 3.30 H Estim Creat Clear Calc 40.6 Estimated GFR 19 POC Glucose 319 H Random Glucose 339 H D Calcium 8.9 Microbiology Microbiology Results: Microbiology 09/07/20 02:25 Blood - Venous Blood Culture - Final No growth after 5 days. 09/07/20 02:25 Blood - Venous Blood Culture - Final No growth after 5 days. Assessment & Plan Assessment and plan (1) Acute renal failure: Status: Acute Assessment and Plan: 1. non-ologuric SAQIB; peak SCr 4.0 on adm now remians in 3.2-3.5 range past week; multiple potential contributing factors including COVID cytokine ATN, renal hypoperfsuion as need for high diuretics..Cardio-Renal syn other poss such as; AIN,AGN and Obs seem unlikely 2. CKD4; underlying DN..a year ago bsl Scr was 2.5...ques what his bsl Scr is now 3. TBFOL; diffuclt to assess vol staus d/t morbid obesity 4. Hypoxia; d/tCOVID and Obesity and ques CHF 5. Incr bun/cr; d/t sterodis and ques decr intravasc vol REC; cont current diuretics and track UOP/renal func, avoid NSAIDs no indication for hd at thius time will follow di with team Time Spent With Patient Time: Total time spent is greater than 50% in coordination of care (as documented) at patient's floor/unit and/or counseling patient:
[2020-09-17 16:32] LABS: Glucose, Whole Blood 297 mg/dL (60-115)
[2020-09-17 19:52] LABS: Glucose, Whole Blood 301 mg/dL (60-115)
[2020-09-17] MEDS: Mirtazapine 7.5 MG TABLET PO (22:29)
[2020-09-18] VITALS (7 sets, daily range): BP systolic 123–155; BP diastolic 78–94; PULSE 68–135; RESP 18–20; TEMP 36.3–36.9; O2SAT 92–99; BMI 51.2
[2020-09-18] MEDS: diphenhydrAMINE HCL 50 MG/ML VIAL 25 MG IVPUSH (02:06)
[2020-09-18] MEDS: 0.9 % Sodium Chloride Flush 3 ML SYRINGE IVFLUSH ×3 (02:06→14:22)
[2020-09-18] MEDS: traZODone HCL 25 MG HALFTAB PO (02:07)
[2020-09-18] MEDS: Morphine Sulfate 4 MG/ML CARTRIDGE 3 MG IVPUSH ×4 (04:06→21:38)
[2020-09-18] MEDS: Metoprolol Tartrate 50 MG TABLET PO ×2 (06:04→11:48)
[2020-09-18] MEDS: Omeprazole 40 MG CAPSULE.DR PO (06:05)
[2020-09-18 07:59] LABS: Glucose, Whole Blood 212 mg/dL (60-115)
[2020-09-18] MEDS: Insulin Lispro 100 UNIT/ML 3 ML VIAL SUBCUT ×4 (08:22→21:37)
[2020-09-18] MEDS: amLODIPine Besylate 10 MG TABLET PO (08:23)
[2020-09-18] MEDS: dexAMETHasone sod phosphate 4 MG/ML VIAL 6 MG IVPUSH ×2 (08:23→21:31)
[2020-09-18] MEDS: Rivaroxaban 15 MG TABLET PO (08:23)
[2020-09-18] MEDS: Insulin Glargine,Hum.rec.anlog 100 UNIT/ML 10 ML VIAL 60 UNIT SUBCUT ×2 (08:23→21:37)
[2020-09-18] MEDS: Amiodarone HCL 200 MG TABLET 400 MG PO (08:24)
[2020-09-18] MEDS: Torsemide 20 MG TABLET 100 MG PO ×2 (08:24→21:36)
[2020-09-18 10:36] LABS: Anion Gap 18 (12-20); Carbon Dioxide 27 mmol/L (22-29); Chloride 101 mmol/L (96-108); Creatinine Clr Calc Pharmacy 38.3; Estimated Glomerular Filt Rate 18; Glucose Random 314 mg/dL (60-115); Potassium 4.1 mmol/l (3.3-5.1); Sodium 142 mmol/L (135-145)
[2020-09-18 10:54] LABS: Blood Urea Nitrogen 129 mg/dL (9-16)
[2020-09-18 11:34] LABS: Glucose, Whole Blood 322 mg/dL (60-115)
--- NOTE | 2020-09-18 11:40 | PM.PNCARD ---
Subjective Subjective Date of Service: 09/18/20 Principal diagnosis: Resp failure, COVID, Right HF, Aflutter Interval history: Patient denies any shortness of breath. Fluid status and diuresis remains adequate. Remains in atrial flutter with rapid ventricular response despite uptitration of therapy. Review of Systems Constitutional: Reports no additional constitutional complaints Cardiovascular: Reports no additional cardiovascular complaints Respiratory: Reports no additional respiratory complaints Reports system reviewed and no additional complaints, except as documented and Denies Neuro-related abnormal movements Psychiatric: Reports no additional psychiatric complaints Hematologic/Lymphatic: Reports no additional hematologic/lymphatic complaints Physical Exam Vital Signs: Last Vital Signs Temp 98.4 F 09/18/20 11:20 Pulse 135 H 09/18/20 11:20 Resp 18 09/18/20 11:20 BP 134/94 H 09/18/20 11:20 Pulse Ox 96 09/18/20 11:20 Body Mass Index 51.2 Const General: no acute distress, alert and awake Orientation/consciousness: patient oriented x3 Resp Effort & Inspection: normal respiratory effort Auscultation: diminished lung sounds Cardio Rate: tachycardic Heart sounds: S1 normal heart sound present and S2 normal heart sound present Neuro General: patient oriented x3 and no focal motor deficits Results Labs and Meds Result diagrams: 09/16/20 07:46 09/18/20 09:34 Lab results: Laboratory Results - last 24 hr 09/17/20 09/17/20 09/17/20 11:47 16:26 19:44 Sodium 142 Potassium 4.2 Chloride 100 Carbon Dioxide 29 Anion Gap 17 BUN 126 H* Creatinine 3.30 H Estim Creat Clear Calc 40.6 Estimated GFR 19 POC Glucose 297 H 301 H Random Glucose 339 H D Calcium 8.9 09/18/20 09/18/20 09/18/20 07:48 09:34 11:31 Sodium 142 Potassium 4.1 Chloride 101 Carbon Dioxide 27 Anion Gap 18 BUN 129 H* Creatinine 3.52 H Estim Creat Clear Calc 38.3 Estimated GFR 18 POC Glucose 212 H 322 H Random Glucose 314 H Calcium 9.0 Progress Note: A&P Assessment and plan (1) Atrial flutter: Status: Acute Assessment and Plan: Atrial flutter, resistant rate control despite up titrating amiodarone and metoprolol therapy. Limitations therapy due to underlying chronic kidney disease as well as LV and RV systolic dysfunction. Cannot use digoxin and Cardizem respectively. Continue uptitrate metoprolol to 100 mg Q 6 hours and continue amiodarone 400 mg b.i.d.. Discussed again with him about cardioversion. Risks and benefits were discussed. He is adamant about not wanting to undergo the procedure. Continue oral anticoagulation, Xarelto 15 mg daily. (2) CHF (congestive heart failure): Status: Acute Assessment and Plan: Heart failure, no decompensation at this time. Given persistent tachycardia likely that he could develop further LV and RV systolic dysfunction. This was discussed with him. He understands the risk of persistent tachycardia. Continue current torsemide dose. Continue hydralazine for neurohormonal modulation. Will sign of the case. Fall Risk Details Current Medications: Current Medications Generic Name Dose Route Start Last Admin Trade Name Freq PRN Reason Stop Dose Admin Acetaminophen 650 mg 09/07/20 16:46 09/07/20 19:42 Acetaminophen 325 Mg Tablet PO 650 mg Q6H PRN Administration Pain, Mild (Pain Scale 1-3) Amiodarone HCl 400 mg 09/14/20 09:00 09/18/20 08:24 Amiodarone Hcl 200 Mg Tablet PO 400 mg DAILY KOJO Administration Amlodipine Besylate 10 mg 09/15/20 13:45 09/18/20 08:23 Amlodipine Besylate 10 Mg Tablet PO 10 mg DAILY KOJO Administration Protocol Dexamethasone Sodium Phosphate 6 mg 09/08/20 21:00 09/18/20 08:23 Dexamethasone Sod Phosphate 4 Mg/Ml Vial IVPUSH 6 mg BID KOJO Administration Insulin Glargine 60 unit 09/14/20 21:00 09/18/20 08:23 Insulin Glargine,Hum.Rec.Anlog 100 Unit/Ml 10 Ml Vial SUBCUT 60 unit BID KOJO Administration Insulin Human Lispro 0 unit 09/07/20 07:30 09/18/20 08:22 Insulin Lispro 100 Unit/Ml 3 Ml Vial SUBCUT 4 unit QIDACHS KO[facility] Administration Protocol Metoprolol Tartrate 50 mg 09/16/20 11:45 09/18/20 06:04 Metoprolol Tartrate 50 Mg Tablet PO 50 mg Q6H KOJO Administration Protocol Mirtazapine 7.5 mg 09/16/20 21:00 09/17/20 22:29 Mirtazapine 7.5 Mg Tablet PO 7.5 mg BEDTIME KOJO Administration Morphine Sulfate 3 mg 09/15/20 17:53 09/18/20 08:37 Morphine Sulfate 4 Mg/Ml Cartridge IVPUSH 3 mg Q4H PRN Administration pain Omeprazole 40 mg 09/13/20 06:30 09/18/20 06:05 Omeprazole 40 Mg Capsule.Dr PO 40 mg DAILY@0630 [facility] Administration Ondansetron HCl 4 mg 09/07/20 16:46 Ondansetron Hcl 4 Mg/2 Ml Vial IVPUSH Q8H PRN Nausea and Vomiting Rivaroxaban 15 mg 09/17/20 10:00 09/18/20 08:23 Rivaroxaban 15 Mg Tablet PO 15 mg DAILY [facility] Administration Sodium Chloride 3 ml 09/07/20 16:46 09/18/20 08:24 0.9 % Sodium Chloride Flush 3 Ml Syringe IVFLUSH 3 ml QSHIFT KO[facility] Administration Sodium Chloride 1 spray 09/14/20 10:53 09/15/20 15:19 Sodium Chloride 0.65 % Nasal 44 Ml Sprbtl NOSTRIL-B 1 spray Q1H PRN Administration Nasal Congestion Torsemide 100 mg 09/16/20 13:30 09/18/20 08:24 Torsemide 20 Mg Tablet PO 100 mg BID KOJO Administration Protocol Time Spent With Patient Time: Total time spent is greater than 50% in coordination of care (as documented) at patient's floor/unit and/or counseling patient: Time with patient: 25 - 35 minutes
--- NOTE | 2020-09-18 12:24 | MHC.CM.PN ---
DP Male 60 DX COVID+ and HF. Met with Pt this am. Offered Tablet for Face time call with and MD. Called [facility]. A VM was left RE DC options covered post hospital. Requested opportunity to discuss hospital coverage. Patient has [employer] and Medicare. His coverage for hospitalization was not covered completely; Which was his understanding. Contact info for CM Dept left on VM. CM will continue to follow.
--- NOTE | 2020-09-18 16:12 | HO.PM.IMPN ---
Subjective Subjective Date of Service: 09/18/20 Interval History: Seen in follow up for acute hypoxic respiratory failure due to covid and likely hypoventilatioin syndrome. He is doing remarkably well. the only problem now is persistent is persitent tachycardia . Review of Systems Gen: no fever Resp: no sob CV: no chest, +BARRIENTOS, + leg edema is better GI: No n/v, no abd pain Neuro: No confusion Physical Exam Vital Signs: Vital Signs: Last Vital Signs Temp 97.7 F 09/18/20 15:50 Pulse 125 H 09/18/20 15:50 Resp 20 09/18/20 15:50 BP 131/84 09/18/20 15:50 Pulse Ox 99 09/18/20 15:50 Body Mass Index 51.2 Const: Other: tachycarid General: cooperative and acute distress Resp: Other: Patient sitting up in chair, looks less comfortable than previous day Cardio: Other: tachycarid Rhythm: regular rhythm GI: Inspection: Yes normal to inspection Skin: General skin exam: no rashes or lesions noted Neuro: Cognition (Neuro): normal cognition Extrem: General: Yes normal to inspection and Yes no pedal edema Objective Data Current Medications Generic Name Dose Route Start Last Admin Trade Name Freq PRN Reason Stop Dose Admin Acetaminophen 650 mg 09/07/20 16:46 09/07/20 19:42 Acetaminophen 325 Mg Tablet PO 650 mg Q6H PRN Administration Pain, Mild (Pain Scale 1-3) Amiodarone HCl 400 mg 09/14/20 09:00 09/18/20 08:24 Amiodarone Hcl 200 Mg Tablet PO 400 mg DAILY KOJO Administration Amlodipine Besylate 10 mg 09/15/20 13:45 09/18/20 08:23 Amlodipine Besylate 10 Mg Tablet PO 10 mg DAILY KOJO Administration Protocol Dexamethasone Sodium Phosphate 6 mg 09/08/20 21:00 09/18/20 08:23 Dexamethasone Sod Phosphate 4 Mg/Ml Vial IVPUSH 6 mg BID KOJO Administration Insulin Glargine 60 unit 09/14/20 21:00 09/18/20 08:23 Insulin Glargine,Hum.Rec.Anlog 100 Unit/Ml 10 Ml Vial SUBCUT 60 unit BID KOJO Administration Insulin Human Lispro 0 unit 09/07/20 07:30 09/18/20 11:48 Insulin Lispro 100 Unit/Ml 3 Ml Vial SUBCUT 8 unit QIDACHS KOJO Administration Protocol Metoprolol Tartrate 50 mg 09/16/20 11:45 09/18/20 11:48 Metoprolol Tartrate 50 Mg Tablet PO 50 mg Q6H KOJO Administration Protocol Mirtazapine 7.5 mg 09/16/20 21:00 09/17/20 22:29 Mirtazapine 7.5 Mg Tablet PO 7.5 mg BEDTIME KOJO Administration Morphine Sulfate 3 mg 09/15/20 17:53 09/18/20 14:21 Morphine Sulfate 4 Mg/Ml Cartridge IVPUSH 3 mg Q4H PRN Administration pain Omeprazole 40 mg 09/13/20 06:30 09/18/20 06:05 Omeprazole 40 Mg Capsule.Dr PO 40 mg DAILY@0630 KOJO Administration Ondansetron HCl 4 mg 09/07/20 16:46 Ondansetron Hcl 4 Mg/2 Ml Vial IVPUSH Q8H PRN Nausea and Vomiting Rivaroxaban 15 mg 09/17/20 10:00 09/18/20 08:23 Rivaroxaban 15 Mg Tablet PO 15 mg DAILY KOJO Administration Sodium Chloride 3 ml 09/07/20 16:46 09/18/20 14:22 0.9 % Sodium Chloride Flush 3 Ml Syringe IVFLUSH 3 ml QSHIFT KOJO Administration Sodium Chloride 1 spray 09/14/20 10:53 09/15/20 15:19 Sodium Chloride 0.65 % Nasal 44 Ml Sprbtl NOSTRIL-B 1 spray Q1H PRN Administration Nasal Congestion Torsemide 100 mg 09/16/20 13:30 09/18/20 08:24 Torsemide 20 Mg Tablet PO 100 mg BID KOJO Administration Protocol Labs CBC & Chem 7: 09/16/20 07:46 09/18/20 09:34 Microbiology Microbiology Results: Microbiology 09/07/20 02:25 Blood - Venous Blood Culture - Final No growth after 5 days. 09/07/20 02:25 Blood - Venous Blood Culture - Final No growth after 5 days. 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 On ER evaluation positive for COVID-19 and requiring significant amount of supplemental oxygen. Admitted initially to general medical isabel and started on dexamethasone and Oxygen. Hospital course complicated by chronic chest pain, exacerbation of underlying systolic heart failure, worsening renal failure, and progressive hypoxic respiratory failure requiring initiation of noninvasive positive pressure ventilation on 09/09/2020, AFIB and transfered to intensive care unit where he has required aggresive diuresis and overall has improved. 1/ Acute combined diastolic/systolic CHF with EF 40--transfered to ICU on 09/09 and has been aggresively diuressed with IV Bumex 2 mg q8 and Diuril 1000mg daily, cumulatively negativ 16 liters, translating into 35 Ib and just overnight negative 6 liters and bun/cr rising will therefore hold diuretics today and reassess need tomorrow. Presently back on home dose of Torsemide 100 bid and we need to monitor Cr closely. Hold Aldactone 2/Acute and chronic hypoxic respiratory failure-from chf, covid hypoventilation and possibly element of COPD--He has been using CPAP with good effect. He is now on room air. 3/AFIB--Difficult to control. He is been loaded with amiodarone , in addition to Metoprolol 100 t.May need cardioversion in the future. Transition from Heparin to Xarelto at 15 renally dose 4/SAQIB on CKD--with markedly high BUN, Cr is now close to his baseline. Nephrology folling 5/Hypokalemia--Corrected 6/HTN--Continue Norvasc, Metorprolol 7/HLD--Restart Lipitor 8/ Covid-19 with viral sepsis--clinically stable. -Was not candidate for Remdesevir or Monoclonal antibodies -Continue Decadron Day 10. Stop after this. 9/Diabetes--Continue Lantus and SSI, ADA diet 10/Chronic pain-- Morphine 11/YANELI/possible COPD--CPAP, try inhalers as well. 12/Should start moving around if not then should have PT eval Home in a day or 2 once heart rate is controlled.
[2020-09-18 16:34] LABS: Glucose, Whole Blood 302 mg/dL (60-115)
--- NOTE | 2020-09-18 16:53 | P.PNNP_ITS ---
Subjective Subjective Date of Service: 09/18/20 Principal diagnosis: Resp failure, COVID, Right HF, Aflutter Interval history: Seen and examined. Events noted Physical Exam Vital Signs: Vital Signs: Last Vital Signs Temp 97.7 F 09/18/20 15:50 Pulse 125 H 09/18/20 15:50 Resp 20 09/18/20 15:50 BP 131/84 09/18/20 15:50 Pulse Ox 99 09/18/20 15:50 Body Mass Index 51.2 Const: Other: Awake, alert, wearing CPAP General: cooperative, no acute distress, alert, awake, anxious and ill appearing; No acute distress Nutritional Appearance: obese Orientation/consciousness: patient oriented x3 HENMT: Head: Yes normal to inspection General nose exam: Abnormal external nose present and Nasal discharge present Face and sinus: Yes dry mucous membranes Eyes: General: appearance normal, both eyes and all related structures Sclerae: sclerae normal Pupils: Equal, round and reactive pupils present EOM: EOMs intact bilaterally Neck: Other: central line right IJ. obese, difficult to assess for JVD, still looks elevated Neck: Yes normal visual inspection, Yes full ROM, Yes no lymphadenopathy, Yes trachea midline, Yes supple and Yes JVD Carotids: carotid upstroke abnormal Chest: Chest palpation & inspection: normal inspection of the chest Resp: Other: tachypniac but seems more relaxed than yesterday. No cough noted Effort & Inspection: normal respiratory effort, not able to speak in complete sentences, decreased respiratory effort and no respiratory distress Auscultation: clear to auscultation bilaterally, crackles, no rales, no rhonchi, no wheezes, diminished lung sounds and bronchial breath sounds Cardio: Other: Awake, alert, wearing CPAP Jugular venous distension: JVD p resent Rate: regular rate and tachycardic Rhythm: regular rhythm and abnormal rhythm Heart sounds: S1 normal heart sound present (distant heart tones, no noted murmur), S2 normal heart sound present, no gallops, no murmurs and no rubs Peripheral pulses: Peripheral pulses 2+ throughout GI: Other: Obese, nontender to palpation Inspection: Yes normal to inspection Palpation (GI): Soft to palpation, nontender and Other GI palpation findings present ( Nontender) Auscultation: normal bowel sounds : General: Yes no CVA tenderness Back/Spine/Pelvis: Back: no CVA tenderness Skin: General skin exam: no rashes or lesions noted and dry skin (lower legs) Neuro: General: patient oriented x3 and moves all extremities Cranial nerves: Yes Equal, round and reactive pupils present Cognition (Neuro): normal cognition Extrem: Other: no pitting edema noted in legs General: Yes normal to inspection, Yes no pedal edema, No clubbing, No cyanosis and Yes edema Objective Data Labs CBC & Chem 7: 09/16/20 07:46 09/18/20 09:34 Labs: Laboratory Results - last 24 hr 09/17/20 09/18/20 09/18/20 19:44 07:48 09:34 Sodium 142 Potassium 4.1 Chloride 101 Carbon Dioxide 27 Anion Gap 18 BUN 129 H* Creatinine 3.52 H Estim Creat Clear Calc 38.3 Estimated GFR 18 POC Glucose 301 H 212 H Random Glucose 314 H Calcium 9.0 09/18/20 09/18/20 11:31 16:29 Sodium Potassium Chloride Carbon Dioxide Anion Gap BUN Creatinine Estim Creat Clear Calc Estimated GFR POC Glucose 322 H 302 H Random Glucose Calcium Microbiology Microbiology Results: Microbiology 09/07/20 02:25 Blood - Venous Blood Culture - Final No growth after 5 days. 09/07/20 02:25 Blood - Venous Blood Culture - Final No growth after 5 days. Assessment & Plan Assessment and plan (1) Acute renal failure: Status: Acute Assessment and Plan: 1. non-ologuric SAQIB; peak SCr 4.0 on adm now remians in 3.2-3.5 range past week; multiple potential contributing factors including COVID cytokine ATN, renal hypoperfsuion as need for high diuretics..Cardio-Renal syn other poss such as; AIN,AGN and Obs seem unlikely 2. CKD4; underlying DN..a year ago bsl Scr was 2.5...ques what his bsl Scr is now 3. TBFOL; diffuclt to assess vol staus d/t morbid obesity 4. Hypoxia; d/tCOVID and Obesity and ques CHF 5. Incr bun/cr; d/t sterodis and ques decr intravasc vol REC; for now cont current diuretics and track UOP/renal func, avoid NSAIDs no indication for hd at thius time will follow di with team Time Spent With Patient Time: Total time spent is greater than 50% in coordination of care (as documented) at patient's floor/unit and/or counseling patient:
[2020-09-18] MEDS: Metoprolol Tartrate 50 MG TABLET 100 MG PO ×2 (17:56→21:39)
[2020-09-18 20:41] LABS: Glucose, Whole Blood 297 mg/dL (60-115)
[2020-09-18] MEDS: Mirtazapine 7.5 MG TABLET PO (21:36)
[2020-09-19] VITALS (12 sets, daily range): BP systolic 122–171; BP diastolic 65–93; PULSE 54–135; RESP 17–20; TEMP 36.2–37; O2SAT 96–99
[2020-09-19] MEDS: Omeprazole 40 MG CAPSULE.DR PO (05:50)
[2020-09-19] MEDS: Metoprolol Tartrate 50 MG TABLET 100 MG PO ×2 (05:50→12:14)
[2020-09-19] MEDS: Morphine Sulfate 4 MG/ML CARTRIDGE 3 MG IVPUSH ×3 (06:45→18:13)
[2020-09-19 08:08] LABS: Glucose, Whole Blood 268 mg/dL (60-115)
[2020-09-19 08:10] LABS: Anion Gap 19 (12-20); Blood Urea Nitrogen 133 mg/dL (9-16); Calcium 8.6 mg/dL (8.4-10.2); Carbon Dioxide 26 mmol/L (22-29); Chloride 101 mmol/L (96-108); Creatinine Clr Calc Pharmacy 37.3; Estimated Glomerular Filt Rate 17; Glucose Random 312 mg/dL (60-115); Sodium 142 mmol/L (135-145)
[2020-09-19] MEDS: dexAMETHasone sod phosphate 4 MG/ML VIAL 6 MG IVPUSH (08:36)
[2020-09-19] MEDS: Insulin Lispro 100 UNIT/ML 3 ML VIAL SUBCUT ×5 (08:36→20:48)
[2020-09-19] MEDS: 0.9 % Sodium Chloride Flush 3 ML SYRINGE IVFLUSH (08:36)
[2020-09-19] MEDS: Torsemide 20 MG TABLET 100 MG PO (08:37)
[2020-09-19] MEDS: Amiodarone HCL 200 MG TABLET 400 MG PO (08:37)
[2020-09-19] MEDS: Insulin Glargine,Hum.rec.anlog 100 UNIT/ML 10 ML VIAL 60 UNIT SUBCUT ×2 (08:37→20:47)
[2020-09-19] MEDS: amLODIPine Besylate 10 MG TABLET PO (08:38)
[2020-09-19] MEDS: Rivaroxaban 15 MG TABLET PO (08:38)
--- NOTE | 2020-09-19 09:26 | P.PNCA_ITS ---
Subjective Subjective Date of Service: 09/19/20 <LIZZETTE Leblanc - Last Filed: 09/19/20 10:17> 09/19/20 <Dheeraj Mckeon MD - Last Filed: 09/19/20 16:50> Principal diagnosis: Resp failure, COVID, Right HF, Aflutter <LIZZETTE Leblanc - Last Filed: 09/19/20 10:17> Interval history: Cardiology follow up for R HF, Atrial flutter. Seen at 0845. Today he reports that breathing is improving slowly. Slept well in recliner. Still requiring O2 supplement. Anterior chest discomfort, worse with deep inspiration. Not new for him. Abdomen size is down since admit. He reports leg edema much improved. <LIZZETTE Leblanc - Last Filed: 09/19/20 10:17> Review of Systems Review of Systems as above <LIZZETTE Leblanc - Last Filed: 09/19/20 10:17> Yes all other systems are reviewed and are negative <LIZZETTE Leblanc - Last Filed: 09/19/20 10:17> Physical Exam Vital Signs: Last Vital Signs Temp 97.2 F 09/19/20 08:07 Pulse 134 H 09/19/20 08:38 Resp 20 09/19/20 08:07 BP 122/75 09/19/20 08:38 Pulse Ox 99 09/19/20 08:24 Body Mass Index 51.2 <LIZZETTE Leblanc - Last Filed: 09/19/20 10:17> Const Other: morbidly obese <LIZZETTE Leblanc - Last Filed: 09/19/20 10:17> General: cooperative, no acute distress, alert and awake <LIZZETTE Leblanc - Last Filed: 09/19/20 10:17> Orientation/consciousness: patient oriented x3 <LIZZETTE Leblanc Last Filed: 09/19/20 10:17> Neck Neck: Yes normal visual inspection and Yes no JVD <LIZZETTE Leblanc - Last Filed: 09/19/20 10:17> Resp Effort & Inspection: normal respiratory effort, able to speak in complete sentences and not labored <Roxane ChaudhryMICHAELC - Last Filed: 09/19/20 10:17> Auscultation: clear to auscultation bilaterally, no rales, no rhonchi and no wheezes <Roxane ChaudhryMICHAELC - Last Filed: 09/19/20 10:17> Cardio Palpation: normal PMI <Roxane ChaudhryMICHAELC - Last Filed: 09/19/20 10:17> Rate: regular rate (irregular rhythm) <Roxane ChaudhryKURT-C - Last Filed: 09/19/20 10:17> Heart sounds: S1 normal heart sound present, S2 normal heart sound present and no murmurs <Roxane ChaudhryKURT-C - Last Filed: 09/19/20 10:17> Peripheral pulses: other (ankle edema noted) <Roxane ChaudhryKURT-C - Last Filed: 09/19/20 10:17> Skin General skin exam: no rashes or lesions noted <Roxane ChaudhryKURT-C - Last Filed: 09/19/20 10:17> Neuro General: patient oriented x3 <Roxane ChaudhryKURT-C - Last Filed: 09/19/20 10:17> Results Labs and Meds Result diagrams: : 09/16/20 07:46 09/19/20 06:17 <Roxane ChaudhryKURT-C - Last Filed: 09/19/20 10:17> Lab results: Laboratory Results - last 24 hr 09/18/20 09/18/20 09/18/20 09:34 11:31 16:29 Sodium 142 Potassium 4.1 Chloride 101 Carbon Dioxide 27 Anion Gap 18 BUN 129 H* Creatinine 3.52 H Estim Creat Clear Calc 38.3 Estimated GFR 18 POC Glucose 322 H 302 H Random Glucose 314 H Calcium 9.0 09/18/20 09/19/20 09/19/20 20:29 06:17 08:02 Sodium 142 Potassium 4.0 Chloride 101 Carbon Dioxide 26 Anion Gap 19 BUN 133 H* Creatinine 3.61 H Estim Creat Clear Calc 37.3 Estimated GFR 17 POC Glucose 297 H 268 H Random Glucose 312 H Calcium 8.6 <Roxane ChaudhryKURT-C - Last Filed: 09/19/20 10:17> Progress Note: A&P Assessment and plan (1) Atrial flutter: Status: Acute <LIZZETTE Leblanc - Last Filed: 09/19/20 10:17> Assessment and Plan: New aflutter this admit. Echo on 09/09 showed EF 40-45%, mild increase RV size and mild to mod decrease RV systolic function with severe IVC dilation. Rates had been holding in the 130s most of admission. Tele now shows alternating rates, into 70s at times. No palpitations. On Amiodarone load at 400mg daily. C ontinue load for 1 month, then plan to reduce dose to 200mg once daily. On Metoprolol tartrate 100mg q 6 hr - will change to 200mg bid. Continue Xarelto at renal dose for anticoagulation. Ongoing tele montioring while inpt. Can be discharged from cardiology perspective. <LIZZETTE Leblanc - Last Filed: 09/19/20 10:17> Atrial flutter, better rate control at current time with increase metoprolol and amiodarone therapy. Switch metoprolol to 200 mg b.i.d.. Continue amiodarone 400 mg daily for total of 1 month loading. Followed by 200 mg daily. Eventually will require cardioversion which will be pursue through his junior administrative assistant's office. Continue Xarelto at renally appropriate dose. Patient can be discharged cardiac perspective. <Dheeraj Mckeon MD - Last Filed: 09/19/20 16:50> (2) CHF (congestive heart failure): Status: Acute <LIZZETTE Leblanc - Last Filed: 09/19/20 10:17> Assessment and Plan: Right heart failure noted on admit. Echo as above. Diuresed during admit with negative fluid balance of 27 liters. He reports abdominal size and leg edema much improved. Now on Torsemide 100mg BID. Cr 3.61, BUN 133. Nephrology following as well. Once discharged, he will follow with Dr Fragoso for HF. <LIZZETTE Leblanc - Last Filed: 09/19/20 10:17> Biventricular failure with predominant right heart failure. Co ntinue torsemide dose. Patient knows heart failure management well. Continue p.r.n. metolazone dose. Advised to follow-up with his junior administrative assistant in next 1-2 weeks. Patient can be discharged from cardiac perspective. Case was discussed with Roxane <Dheeraj Mckeon MD - Last Filed: 09/19/20 16:50> (3) Morbid obesity: Status: Acute <LIZZETTE Leblanc - Last Filed: 09/19/20 10:17> (4) Acute respiratory distress syndrome (ARDS) due to COVID-19 virus: Status: Acute <LIZZETTE Leblanc - Last Filed: 09/19/20 10:17> Assessment and Plan: Improving, Still wearing O2 4liters. <LIZZETTE Leblanc - Last Filed: 09/19/20 10:17> Fall Risk Details Current Medications: Current Medications Generic Name Dose Route Start Last Admin Trade Name Freq PRN Reason Stop Dose Admin Acetaminophen 650 mg 09/07/20 16:46 09/07/20 19:42 Acetaminophen 325 Mg Tablet PO 650 mg Q6H PRN Administration Pain, Mild (Pain Scale 1-3) Amiodarone HCl 400 mg 09/14/20 09:00 09/19/20 08:37 Amiodarone Hcl 200 Mg Tablet PO 400 mg DAILY KOJO Administration Amlodipine Besylate 10 mg 09/15/20 13:45 09/19/20 08:38 Amlodipine Besylate 10 Mg Tablet PO 10 mg DAILY KOJO Administration Protocol Dexamethasone Sodium Phosphate 6 mg 09/08/20 21:00 09/19/20 08:36 Dexamethasone Sod Phosphate 4 Mg/Ml Vial IVPUSH 6 mg BID KOJO Administration Insulin Glargine 60 unit 09/14/20 21:00 09/19/20 08:37 Insulin Glargine,Hum.Rec.Anlog 100 Unit/Ml 10 Ml Vial SUBCUT 60 unit BID KOJO Administration Insulin Human Lispro 0 unit 09/07/20 07:30 09/19/20 08:36 Insulin Lispro 100 Unit/Ml 3 Ml Vial SUBCUT 6 unit QIDACHS KOJO Administration Protocol Metoprolol Tartrate 100 mg 09/18/20 17:00 09/19/20 05:50 Metoprolol Tartrate 50 Mg Tablet PO 100 mg Q6H KOJO Administration Protocol Mirtazapine 7.5 mg 09/16/20 21:00 09/18/20 21:36 Mirtazapine 7.5 Mg Tablet PO 7.5 mg BEDTIME KOJO Administration Morphine Sulfate 3 mg 09/15/20 17:53 09/19/20 06:45 Morphine Sulfate 4 Mg/Ml Cartridge IVPUSH 3 mg Q4H PRN Administration pain Omeprazole 40 mg 09/13/20 06:30 09/19/20 05:50 Omeprazole 40 Mg Capsule.Dr PO 40 mg DAILY@0630 KOJO Administration Ondansetron HCl 4 mg 09/07/20 16:46 Ondansetron Hcl 4 Mg/2 Ml Vial IVPUSH Q8H PRN Nausea and Vomiting Rivaroxaban 15 mg 09/17/20 10:00 09/19/20 08:38 Rivaroxaban 15 Mg Tablet PO 15 mg DAILY KOJO Administration Sodium Chloride 3 ml 09/07/20 16:46 09/19/20 08:36 0.9 % Sodium Chloride Flush 3 Ml Syringe IVFLUSH 3 ml QSHIFT KOJO Administration Sodium Chloride 1 spray 09/14/20 10:53 09/15/20 15:19 Sodium Chloride 0.65 % Nasal 44 Ml Sprbtl NOSTRIL-B 1 spray Q1H PRN Administration Nasal Congestion Torsemide 100 mg 09/16/20 13:30 09/19/20 08:37 Torsemide 20 Mg Tablet PO 100 mg BID KOJO Administration Protocol <LIZZETTE Leblanc - Last Filed: 09/19/20 10:17> Time Spent With Patient Time: Total time spent is greater than 50% in coordination of care (as documented) at patient's floor/unit and/or counseling patient: 18 <LIZZETTE Leblanc - Last Filed: 09/19/20 10:17> Time with patient: 15 - 24 minutes <LIZZETTE Leblanc - Last Filed: 09/19/20 10:17>
--- NOTE | 2020-09-19 11:38 | MHC.CLN ---
RE: CONSULT PT RECEIVING 2000DM 2GM NA DIET DIET WILL PROMOTE SLOW WT LOSS PT NOT INTERESTED IN WT LOSS EDUCATION AT THIS TIME R/T CHRISTELLEID REFERRED PT TO OUT PT RD FOR FUTURE F/U S/P D/C
[2020-09-19 11:46] LABS: Glucose, Whole Blood 297 mg/dL (60-115)
--- NOTE | 2020-09-19 14:55 | MHC.CM.PN ---
MET WITH PT AND HIS VIA [employer]. DP WAS DISCUSSED. A REFERRAL TO [facility] HAS BEEN MADE. A REQUEST WAS MADE THRU THE RN FOR A REFERRAL TO THE OPERATIONS AND MAINTENANCE TECHNICIAN RE: DIET EDUCATION HF. ANOTHER REQUEST WAS FOR ATUL TUTTLE TO SEE PATIENT ABOUT HIS MEDICATION LIST. cm WILL FOLLOW.
[2020-09-19 16:57] LABS: Glucose, Whole Blood 408 mg/dL (60-115)
--- NOTE | 2020-09-19 18:40 | HO.PM.IMPN ---
Subjective Subjective Date of Service: 09/20/20 Interval History: afib Review of Systems Denies any chest pain or shortness of breath a, seems improving--hr chapin. Physical Exam Vital Signs: Vital Signs: Last Vital Signs Temp 97.8 F 09/19/20 15:51 Pulse 58 09/19/20 15:51 Resp 20 09/19/20 15:51 BP 158/65 H 09/19/20 15:51 Pulse Ox 99 09/19/20 15:51 Body Mass Index 51.2 Physical exam: Constitutional: Does not seem to be in acute distress. Cvs: rrr, [id number] , no murmur res: clear to auscultation ,no rhonchii or wheezing abd: no rebound or guarding ,nt, bs present. ext pulses present , no cyanosis ,leg edema seems to improved significantly as per the patient neuro: axo3 , nonfocal. Objective Data Current Medications Generic Name Dose Route Start Last Admin Trade Name Freq PRN Reason Stop Dose Admin Acetaminophen 650 mg 09/07/20 16:46 09/07/20 19:42 Acetaminophen 325 Mg Tablet PO 650 mg Q6H PRN Administration Pain, Mild (Pain Scale 1-3) Amiodarone HCl 400 mg 09/14/20 09:00 09/19/20 08:37 Amiodarone Hcl 200 Mg Tablet PO 400 mg DAILY KOJO Administration Amlodipine Besylate 10 mg 09/15/20 13:45 09/19/20 08:38 Amlodipine Besylate 10 Mg Tablet PO 10 mg DAILY [facility] Administration Protocol Dexamethasone Sodium Phosphate 6 mg 09/20/20 09:00 Dexamethasone Sod Phosphate 4 Mg/Ml Vial IVPUSH DAILY [facility] Insulin Glargine 60 unit 09/14/20 21:00 09/19/20 08:37 Insulin Glargine,Hum.Rec.Anlog 100 Unit/Ml 10 Ml Vial SUBCUT 60 unit BID [facility] Administration Insulin Human Lispro 0 unit 09/07/20 07:30 09/19/20 18:05 Insulin Lispro 100 Unit/Ml 3 Ml Vial SUBCUT 10 unit QIDACHS [facility] Administration Protocol Metoprolol Tartrate 200 mg 09/19/20 21:00 Metoprolol Tartrate 100 Mg Tablet PO BID [facility] Protocol Mirtazapine 7.5 mg 09/16/20 21:00 09/18/20 21:36 Mirtazapine 7.5 Mg Tablet PO 7.5 mg BEDTIME KOJO Administration Morphine Sulfate 3 mg 09/15/20 17:53 09/19/20 18:13 Morphine Sulfate 4 Mg/Ml Cartridge IVPUSH 3 mg Q4H PRN Administration pain Omeprazole 40 mg 09/13/20 06:30 09/19/20 05:50 Omeprazole 40 Mg Capsule.Dr PO 40 mg DAILY@0630 KOJO Administration Ondansetron HCl 4 mg 09/07/20 16:46 Ondansetron Hcl 4 Mg/2 Ml Vial IVPUSH Q8H PRN Nausea and Vomiting Rivaroxaban 15 mg 09/17/20 10:00 09/19/20 08:38 Rivaroxaban 15 Mg Tablet PO 15 mg DAILY [facility]JO Administration Sodium Chloride 3 ml 09/07/20 16:46 09/19/20 15:45 0.9 % Sodium Chloride Flush 3 Ml Syringe IVFLUSH Not Given QSHIFT KOJO Sodium Chloride 1 spray 09/14/20 10:53 09/15/20 15:19 Sodium Chloride 0.65 % Nasal 44 Ml Sprbtl NOSTRIL-B 1 spray Q1H PRN Administration Nasal Congestion Torsemide 100 mg 09/16/20 13:30 09/19/20 08:37 Torsemide 20 Mg Tablet PO 100 mg BID KOJO Administration Protocol Labs CBC & Chem 7: 09/16/20 07:46 09/20/20 06:42 Microbiology Microbiology Results: Microbiology 09/07/20 02:25 Blood - Venous Blood Culture - Final No growth after 5 days. 09/07/20 02:25 Blood - Venous Blood Culture - Final No growth after 5 days. 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 On ER evaluation positive for COVID-19 and requiring significant amount of supplemental oxygen. Admitted initially to general medical isabel and started on dexamethasone and Oxygen. Hospital course complicated by chronic chest pain, exacerbation of underlying systolic heart failure, worsening renal failure, and progressive hypoxic respiratory failure requiring initiation of noninvasive positive pressure ventilation on 09/09/2020, AFIB and transfered to intensive care unit where he has required aggresive diuresis and overall has improved. 1/ Acute combined diastolic/systolic CHF with EF 40--transfered to ICU on 09/09 and has been aggresively diuressed with IV Bumex 2 mg q8 -as per chart review cumulatively negativ 16 liters, translating into 35 Ib and just overnight negative 6 liters and bun/cr rising Presently back on home dose of Torsemide 100 bid and we need to monitor Cr closely. May need to add metolazone p.r.n. upon discharge 2/Acute and chronic hypoxic respiratory failure-from chf, covid hypoventilation and possibly element of COPD--He has been using CPAP with good effect. Patient is still requiring oxygen, staff is aware to taper down 3/AFIB--Difficult to control. He is been loaded with amiodarone , in addition to Metoprolol 100 t.May need cardioversion in the future. Heart rate is improving slowly-patient will need amiodarone 400 daily for 1 month and then will be switched back to amiodarone 200 daily. Also patient's metoprolol switched to 200 b.i.d. He may need outpatient cardioversion with his primary cardio in [facility]. Transition from Heparin to Xarelto at 15 renally dose 4/SAQIB on CKD--with markedly high BUN, Cr is now close to his baseline: Probable related to steroids/diuresis Nephrology following: Recommended to continue dresses for now. 5/Hypokalemia--Corrected 6/HTN--Continue Norvasc, Metorprolol 7/HLD--Restart Lipitor 8/ Covid-19 with viral sepsis--clinically stable. Was not candidate for Remdesevir or Monoclonal antibodies Continue Decadron Day 10. Stop after this. 9/Diabetes-- uncontrolled Continue Lantus and SSI, in addition added4 units insulin with mealsADA diet 10/Chronic pain-- Morphine 11/YANELI/possible COPD--CPAP, try inhalers as well. 12/Should start moving around if not then should have PT eval Home in a day or 2 once heart rate is controlled.
[2020-09-19 20:26] LABS: Glucose, Whole Blood 375 mg/dL (60-115)
[2020-09-19] MEDS: Metoprolol Tartrate 100 MG TABLET 200 MG PO (20:48)
[2020-09-19] MEDS: Mirtazapine 7.5 MG TABLET PO (20:48)
[2020-09-20] VITALS (10 sets, daily range): BP systolic 135–167; BP diastolic 64–83; PULSE 57–120; RESP 15–20; TEMP 36.7–37.1; O2SAT 94–99
[2020-09-20] MEDS: 0.9 % Sodium Chloride Flush 3 ML SYRINGE IVFLUSH ×4 (00:58→23:54)
[2020-09-20] MEDS: Omeprazole 40 MG CAPSULE.DR PO (06:43)
[2020-09-20] MEDS: Morphine Sulfate 4 MG/ML CARTRIDGE 3 MG IVPUSH ×2 (06:56→14:12)
[2020-09-20 07:58] LABS: Anion Gap 17 (12-20); Blood Urea Nitrogen 136 mg/dL (9-16); Calcium 8.3 mg/dL (8.4-10.2); Carbon Dioxide 28 mmol/L (22-29); Chloride 103 mmol/L (96-108); Creatinine Clr Calc Pharmacy 34.4; Estimated Glomerular Filt Rate 16; Glucose Random 367 mg/dL (60-115); Potassium 3.7 mmol/l (3.3-5.1); Sodium 144 mmol/L (135-145)
[2020-09-20 08:17] LABS: Glucose, Whole Blood 305 mg/dL (60-115)
[2020-09-20] MEDS: Metoprolol Tartrate 100 MG TABLET 200 MG PO ×2 (08:27→20:45)
[2020-09-20] MEDS: amLODIPine Besylate 10 MG TABLET PO (08:28)
[2020-09-20] MEDS: Amiodarone HCL 200 MG TABLET 400 MG PO (08:28)
[2020-09-20] MEDS: Rivaroxaban 15 MG TABLET PO (08:30)
[2020-09-20] MEDS: Insulin Lispro 100 UNIT/ML 3 ML VIAL SUBCUT ×8 (08:30→20:46)
[2020-09-20] MEDS: Insulin Glargine,Hum.rec.anlog 100 UNIT/ML 10 ML VIAL 60 UNIT SUBCUT (08:31)
[2020-09-20 10:59] LABS: PCO2 VBG 48 mmHg; PO2 VBG 50 mmHg; pH VBG 7.36 (7.32-7.43)
[2020-09-20 11:00] LABS: HCO3 VBG 28 mmol/L
--- NOTE | 2020-09-20 11:09 | P.EN_ITS ---
Event Note Date of Service: 09/20/20 Event Note: I have seen this patient this morning for pulmonary consult reques bao by Dr. Melendez Complete note is dictated A: Morbid obesity Chronic YANELI/hypoventilation syndrome. Patient non compliant to use of CPAP Chronic diastolic and systolic congestive heart failure A acute on chronic renal failure. Insulin-dependent diabetes mellitus Currently recovered from COVID-19. P: For ongoing pulmonary management, ideal treatment would be CPAP or BiPAP at nighttime but patient is not going to comply for that. Evaluate for home oxygen therapy, and he may be candidate to have so oxygen supplementation at nighttime. Venous blood gases for baseline, Patient needs to lose lot of weight but this is unexpected in his case. Deep breathing exercises with pursed lip technique have been advised and he seems to be willing to do that regularly. For pulmonary/respiratory issues will be glad to see him in the office after discharge.
--- NOTE | 2020-09-20 11:22 | PM.PNNEP ---
Subjective Subjective Date of Service: 09/20/20 Principal diagnosis: Resp failure, COVID, Right HF, Aflutter Interval history: Seen and exmained. Events noted Despite off diuretics net neg 2.8 L with cont diuresis Physical Exam Vital Signs: Vital Signs: Last Vital Signs Temp 98.2 F 09/20/20 08:00 Pulse 70 09/20/20 10:13 Resp 20 09/20/20 08:00 BP 138/83 09/20/20 10:13 Pulse Ox 99 09/20/20 08:00 Body Mass Index 51.2 Const: Other: Awake, alert, wearing CPAP General: cooperative, no acute distress, alert, awake, anxious and ill appearing; No acute distress Nutritional Appearance: obese Orientation/consciousness: patient oriented x3 HENMT: Head: Yes normal to inspection General nose exam: Abnormal external nose present and Nasal discharge present Face and sinus: Yes dry mucous membranes Eyes: General: appearance normal, both eyes and all related structures Sclerae: sclerae normal Pupils: Equal, round and reactive pupils present EOM: EOMs intact bilaterally Neck: Other: central line right IJ. obese, difficult to assess for JVD, still looks elevated Neck: Yes normal visual inspection, Yes full ROM, Yes no lymphadenopathy, Yes trachea midline, Yes supple and Yes JVD Carotids: carotid upstroke abnormal Chest: Chest palpation & inspection: normal inspection of the chest Resp: Other: tachypniac but seems more relaxed than yesterday. No cough noted Effort & Inspection: normal respiratory effort, not able to speak in complete sentences, decreased respiratory effort and no respiratory distress Auscultation: clear to auscultation bilaterally, crackles, no rales, no rhonchi, no wheezes, diminished lung sounds and bronchial breath sounds Cardio: Other: Awake, alert, wearing CPAP Jugular venous distension: JVD present Rate: regular rate and tachycardic Rhythm: regular rhythm and abnormal rhythm Heart sounds: S1 normal heart sound present (distant heart tones, no noted murmur), S2 normal heart sound present, no gallops, no murmurs and no rubs Peripheral pulses: Peripheral pulses 2+ throughout GI: Other: Obese, nontender to palpation Inspection: Yes normal to inspection Palpation (GI): Soft to palpation, nontender and Other GI palpation findings present ( Nontender) Auscultation: normal bowel sounds : General: Yes no CVA tenderness Back/Spine/Pelvis: Back: no CVA tenderness Skin: General skin exam: no rashes or lesions noted and dry skin (lower legs) Neuro: General: patient oriented x3 and moves all extremities Cranial nerves: Yes Equal, round and reactive pupils present Cognition (Neuro): normal cognition Extrem: Other: no pitting edema noted in legs General: Yes normal to inspection, Yes no pedal edema, No clubbing, No cyanosis and Yes edema Objective Data Labs CBC & Chem 7: 09/16/20 07:46 09/20/20 06:42 Labs: Laboratory Results - last 24 hr 09/19/20 09/19/20 09/19/20 11:42 16:44 20:23 VBG pH VBG pCO2 VBG pO2 VBG HCO3 VBG O2 Saturation VBG Base Excess Sodium Potassium Chloride Carbon Dioxide Anion Gap BUN Creatinine Estim Creat Clear Calc Estimated GFR POC Glucose 297 H 408 H* 375 H* Random Glucose Calcium 09/20/20 09/20/20 09/20/20 06:42 08:02 10:41 VBG pH 7.36 VBG pCO2 48 VBG pO2 50 VBG HCO3 28 VBG O2 Saturation 79.0 VBG Base Excess 2.0 Sodium 144 Potassium 3.7 Chloride 103 Carbon Dioxide 28 Anion Gap 17 BUN 136 H* Creatinine 3.91 H Estim Creat Clear Calc 34.4 Estimated GFR 16 POC Glucose 305 H Random Glucose 367 H* Calcium 8.3 L Microbiology Microbiology Results: Microbiology 09/07/20 02:25 Blood - Venous Blood Culture - Final No growth after 5 days. 09/07/20 02:25 Blood - Venous Blood Culture - Final No growth after 5 days. Assessment & Plan Assessment and plan (1) Acute renal failure: Status: Acute Assessment and Plan: 1. non-ologuric SAQIB; peak SCr 4.0 on adm and had remianed in 3.2-3.5 range past week but now incr again 3.9; multiple potential contributing factors including COVID cytokine ATN, renal hypoperfsuion as need for high diuretics..Cardio-Renal syn other poss such as; AIN,AGN and Obs seem unlikely 2. CKD4; underlying DN..a year ago bsl Scr was 2.5...ques what his bsl Scr is now 3. TBFOL; diffuclt to assess vol staus d/t morbid obesity 4. Hypoxia; d/tCOVID and Obesity and ques CHF 5. Incr bun/cr; d/t sterodis and ques decr intravasc vol REC; for now cont hold diuretics and track UOP/renal func, avoid NSAIDs no indication for hd at this time; will repeat urine studies and if cont diuresis off diureectics may need IVF will follow di with team Time Spent With Patient Time: Total time spent is greater than 50% in coordination of care (as documented) at patient's floor/unit and/or counseling patient:
[2020-09-20 11:42] LABS: Glucose, Whole Blood 271 mg/dL (60-115)
--- NOTE | 2020-09-20 12:31 | CONS_ITS ---
DATE OF SERVICE: 09/20/2020 HISTORY OF PRESENT ILLNESS: This 60-year-old gentleman has been admitted since 09/07/2020 with about 1-week symptoms of COVID-19 disease prior to admission. On admission, he was confirmed to have COVID-19 disease. He was initially treated in the intensive care unit with oxygen supplementation, IV dexamethasone, and bronchodilators. He did not qualify for remdesivir treatment. This patient also has history of chronic diastolic and systolic congestive heart failure with an ejection fraction of 40%. He has a past history of morbid obesity, mostly staying in bed and chair at home. He has chronic hypoxic respiratory failure. He has been prescribed a CPAP to use at night, but the patient could not use the CPAP. He has multiple comorbidities including the cardiac issues as stated above, chronic renal disease, chronic hyperlipidemia, and diabetes mellitus. PERSONAL HISTORY: He is mostly homebound. Denies smoking and denies use of any addictive drugs. REVIEW OF SYSTEMS: As noted in the history of present illness, but mainly has dyspnea on minimal exertion and staying mostly in the chair and bed. He denies any significant GI problems or any urinary tract problems. He does have chronic leg edema, mostly stasis type. PHYSICAL EXAMINATION: GENERAL: Today, he is sitting up in the recliner. He is very alert and oriented. Respiratory rate 14 and he does not seem to be in any distress at this time. HEENT: Oropharynx is crowded, Mallampati scale 4. NECK: Very obese and short. Trachea is in midline. No visible jugular venous distention. CHEST: Extremely obese. Percussion note not perceptible. Breath sounds are very distant and decreased over the basilar areas, but no crepitations or wheezes are heard. CARDIAC: PMI is not palpable. Heart sounds are very distant. Rhythm seemed to be regular at this time. No murmurs or gallops. ABDOMEN: Markedly obese and protuberant. EXTREMITIES: Both legs are quite bulky with chronic stasis edema, which is minimal at this time. Peripheral pulses are not palpable. LABORATORY DATA: Serology positive for COVID-19 on 09/07/2020. Chemistries; his last lab test today shows electrolytes to be within normal range, BUN 136 and creatinine 3.9. Blood glucose at 305. Hematology; white cell count 11 and hemoglobin 13.2. On 09/09/2020, the ABGs were as follows, pH 7.48, pCO2 of 35, PO2 of 57. IMPRESSION: 1. COVID-19 disease. The patient recovered successfully. 2. Morbid obesity, BMI of 51. 3. Chronic obstructive sleep apnea/hypoventilation syndrome with chronic respiratory failure. The patient has been noncompliant to use CPAP. 4. Multiple comorbidities as described above. RECOMMENDATIONS: Check venous blood gas to see what his current pCO2 level is. The patient is not willing to go on CPAP at home. If he continues to be hypoxemic, then he will need oxygen supplementation at night, maybe 2 to 3 per minute. The patient has to lose weight, which is somewhat unexpected in his case. I taught him to do deep breathing exercises with pursed-lip technique and he seems to be quite understanding and cooperative. He promises to do this 2 or 3 times a day. The patient does not seem to need any bronchodilators at this time. Continue to treat his congestive heart failure as per Cardiology. Please evaluate him for home oxygen therapy. Thank you very much for asking me to see this patient. We will be glad to see him as outpatient in the Pulmonology office after discharge. MD CORBIN Jacobson/VERONICA / [phone]
--- NOTE | 2020-09-20 13:05 | P.CNPS_ITS ---
History of Present Illness Date of Service: 09/20/2020 Chief Complaint: COVID 19, Hypoxic respiratory failure, CHF Reason for Consult: psychiatry follow up for medication management Requesting physician: Rudolph Melendez Discussed with referring provider: No Sources of Information: patient interviewed and chart reviewed HPI Narrative: Pt started on mirtazipine earlier this week to address poor sleep as reported by patient Patient states mirtazipine has been effective in initiating and maintaining sleep. Discussion regarding feelings of depression, anxiety and irritability that he is noting. Medical Evaluation Reviewed: Yes Review of Systems Reports system reviewed and no additional complaints, except as documented and Denies Neuro-related abnormal movements Psychiatric: Reports anxiety and Reports other (sadness) [facility] Medical History CHF (congestive heart failure) CKD (chronic kidney disease) stage 3, GFR 30-59 ml/min HTN (hypertension) Obesity Surgical History History of knee surgery Diagnostics Vital Signs (24Hr): Vital Signs - 24 hr 09/19/20 13:42 09/19/20 15:51 09/19/20 19:21 Temperature 97.2 F 97.8 F 98.5 F Pulse Rate 58 58 70 Respiratory Rate 20 20 18 Blood Pressure 141/84 H 158/65 H 163/88 H Pulse Oximetry 97 99 99 09/19/20 23:44 09/20/20 03:37 09/20/20 08:00 Temperature 97.5 F 98.0 F 98.2 F Pulse Rate 54 57 64 Respiratory Rate 17 15 20 Blood Pressure 171/92 H 162/64 H 138/83 Pulse Oximetry 96 94 99 09/20/20 08:27 09/20/20 08:28 09/20/20 10:13 Temperature Pulse Rate 70 70 70 Respiratory Rate Blood Pressure 138/83 138/83 138/83 Pulse Oximetry 09/20/20 12:00 Temperature 98.7 F Pulse Rate 60 Respiratory Rate 20 Blood Pressure 150/70 H Pulse Oximetry 98 Body Mass Index 51.2 Labs Results: 09/16/20 07:46 09/20/20 06:42 Labs: Laboratory Results - last 48 hr 09/18/20 09/18/20 09/19/20 16:29 20:29 06:17 VBG pH VBG pCO2 VBG pO2 VBG HCO3 VBG O2 Saturation VBG Base Excess Sodium 142 Potassium 4.0 Chloride 101 Carbon Dioxide 26 Anion Gap 19 BUN 133 H* Creatinine 3.61 H Estim Creat Clear Calc 37.3 Estimated GFR 17 POC Glucose 302 H 297 H Random Glucose 312 H Calcium 8.6 09/19/20 09/19/20 09/19/20 08:02 11:42 16:44 VBG pH VBG pCO2 VBG pO2 VBG HCO3 VBG O2 Saturation VBG Base Excess Sodium Potassium Chloride Carbon Dioxide Anion Gap BUN Creatinine Estim Creat Clear Calc Estimated GFR POC Glucose 268 H 297 H 408 H* Random Glucose Calcium 09/19/20 09/20/20 09/20/20 20:23 06:42 08:02 VBG pH VBG pCO2 VBG pO2 VBG HCO3 VBG O2 Saturation VBG Base Excess Sodium 144 Potassium 3.7 Chloride 103 Carbon Dioxide 28 Anion Gap 17 BUN 136 H* Creatinine 3.91 H Estim Creat Clear Calc 34.4 Estimated GFR 16 POC Glucose 375 H* 305 H Random Glucose 367 H* Calcium 8.3 L 09/20/20 09/20/20 10:41 11:38 VBG pH 7.36 VBG pCO2 48 VBG pO2 50 VBG HCO3 28 VBG O2 Saturation 79.0 VBG Base Excess 2.0 Sodium Potassium Chloride Carbon Dioxide Anion Gap BUN Creatinine Estim Creat Clear Calc Estimated GFR POC Glucose 271 H Random Glucose Calcium Imaging Radiology Impressions: ITS Impressions Chest X-Ray 09/07/20 01:53 IMPRESSION: Nonspecific bilateral patchy opacities. This could be infectious or inflammatory. Edema is possible. Viral pneumonia possible. Chest CT 09/07/20 07:14 IMPRESSION: * Findings compatible with COVID pneumonitis. * Stable mediastinal and bilateral hilar adenopathy since 2017, nonspecific. * Hepatosplenomegaly, likely with early cirrhosis. * Diverticulosis. Chest X-Ray 09/08/20 00:00 IMPRESSION: Patchy bilateral airspace opacities, significantly increased when compared to the prior examination. Findings could represent progressing Covid pneumonia. Stable cardiomegaly. No pleural effusion. Pulmonary Perfusion Imaging 09/08/20 00:00 IMPRESSION: Normal perfusion scan. Venous Duplex 09/09/20 00:00 IMPRESSION: Unremarkable examination. Specifically, no evidence for DVT within either lower extremity. Chest X-Ray 09/11/20 01:52 IMPRESSION: There is a new right internal jugular central venous catheter which courses superiorly in the neck. Recommend repositioning. Similar appearance of diffuse bilateral airspace opacities. This critical result was discussed with LUX Echevarria by telephone at 09/11/2020 2:33 AM and it was ascertained that the content and urgency of the report was understood at the time of direct communication. Chest X-Ray 09/11/20 02:37 IMPRESSION: Right internal jugular central venous catheter now in appropriate position over the lower SVC. No pneumothorax. Unchanged diffuse bilateral airspace opacities. Mental Status Exam Mental Status Exam Patient Appearance: Appropriate Patient Orientation: Person, Place, Time and Situation Level of Consciousness: Awake, Appropriate and Alert Patient Behavior: Appropriate Mood Description: Appropriate Affect Description: Appropriate Ability to Follow Directions: Excellent Speech Pattern: Clear Hallucinations: None Thought Process: Rumination and Goal Oriented Thought Content: positive for Intact Depressive Symptoms: Increased Anxiety, Crying Spells, Feelings of Guilt and Unhappiness Judgement: Good Medications Medications Current Medications Generic Name Dose Route Start Last Admin Trade Name Freq PRN Reason Stop Dose Admin Acetaminophen 650 mg 09/07/20 16:46 09/07/20 19:42 Acetaminophen 325 Mg Tablet PO 650 mg Q6H PRN Administration Pain, Mild (Pain Scale 1-3) Amiodarone HCl 400 mg 09/14/20 09:00 09/20/20 08:28 Amiodarone Hcl 200 Mg Tablet PO 400 mg DAILY KOJO Administration Amlodipine Besylate 10 mg 09/15/20 13:45 09/20/20 08:28 Amlodipine Besylate 10 Mg Tablet PO 10 mg DAILY KOJO Administration Protocol Insulin Glargine 60 unit 09/14/20 21:00 09/20/20 08:31 Insulin Glargine,Hum.Rec.Anlog 100 Unit/Ml 10 Ml Vial SUBCUT 60 unit BID KOJO Administration Insulin Human Lispro 0 unit 09/07/20 07:30 09/20/20 08:30 Insulin Lispro 100 Unit/Ml 3 Ml Vial SUBCUT 8 unit QIDACHS KOJO Administration Protocol Insulin Human Lispro 4 unit 09/19/20 21:00 09/20/20 08:30 Insulin Lispro 100 Unit/Ml 3 Ml Vial SUBCUT 4 unit QIDACHS KOJO Administration Metoprolol Tartrate 200 mg 09/19/20 21:00 09/20/20 08:27 Metoprolol Tartrate 100 Mg Tablet PO 200 mg BID KOJO Administration Protocol Mirtazapine 7.5 mg 09/16/20 21:00 09/19/20 20:48 Mirtazapine 7.5 Mg Tablet PO 7.5 mg BEDTIME KOJO Administration Morphine Sulfate 3 mg 09/15/20 17:53 09/20/20 06:56 Morphine Sulfate 4 Mg/Ml Cartridge IVPUSH 3 mg Q4H PRN Administration pain Omeprazole 40 mg 09/13/20 06:30 09/20/20 06:43 Omeprazole 40 Mg Capsule. PO 40 mg DAILY@0630 KOJO Administration Ondansetron HCl 4 mg 09/07/20 16:46 Ondansetron Hcl 4 Mg/2 Ml Vial IVPUSH Q8H PRN Nausea and Vomiting Rivaroxaban 15 mg 09/17/20 10:00 09/20/20 08:30 Rivaroxaban 15 Mg Tablet PO 15 mg DAILY KOJO Administration Sodium Chloride 3 ml 09/07/20 16:46 09/20/20 08:31 0.9 % Sodium Chloride Flush 3 Ml Syringe IVFLUSH 3 ml QSHIFT KOJO Administration Sodium Chloride 1 spray 09/14/20 10:53 09/15/20 15:19 Sodium Chloride 0.65 % Nasal 44 Ml Sprbtl NOSTRIL-B 1 spray Q1H PRN Administration Nasal Congestion Torsemide 100 mg 09/16/20 13:30 09/19/20 08:37 Torsemide 20 Mg Tablet PO 100 mg BID KOJO Administration Protocol Allergies Allergies Allergy/AdvReac Type Severity Reaction Status Date / Time Penicillins [PENICILLINS] Allergy Severe HIVES Verified 09/07/20 01:59 Assessment & Plan Assessment & Plan (1) COVID-19: Status: Acute Code(s): U07.1 - COVID-19 Recommendations: continue mirtazipine at current dose patient requesting referral to agency to follow up with at time of discharge Greater than 50% of the session was spent on counseling and/or coordination of care
--- NOTE | 2020-09-20 13:51 | MHC.CM.PN ---
WHITLEY Spoke with Tamy from [facility]. She provided list of [employer] authorized STR. Referrals have been sent out. The Pt will be presented with the options for STR. His preference will determine which facility he will transfer to at [place]. Initially Home with services was the DP. Due to the 3 day weekend it was determined that STR would be a safe discharge. CM will follow. LOS R/T need for [facility] oxygen.
[2020-09-20] MEDS: Insulin Glargine,Hum.rec.anlog 100 UNIT/ML 10 ML VIAL SUBCUT (14:12)
[2020-09-20 14:24] LABS: Sodium Urine Random < 20.0 mmol/L
--- NOTE | 2020-09-20 16:11 | MHC.CM.PN ---
WHITLEY [facility] is following. He will need a BIG and LONG bed. The bed will need to be rented. Without a definate DC date, they are reluctant to rent prior to known dc date. Rosa galan [facility] is looking at him too. CM will follow.
[2020-09-20 16:27] LABS: Glucose, Whole Blood 263 mg/dL (60-115)
--- NOTE | 2020-09-20 17:44 | P.PNIM_ITS ---
Subjective Subjective Date of Service: 09/20/20 Interval History: afib , yaneli Review of Systems Still feels short of breath intermittent. Denies any chest pain or abdominal pain or fever or chills. Physical Exam Vital Signs: Vital Signs: Last Vital Signs Temp 98.2 F 09/20/20 15:03 Pulse 120 H 09/20/20 15:03 Resp 20 09/20/20 15:03 BP 135/78 09/20/20 15:03 Pulse Ox 98 09/20/20 15:03 Body Mass Index 51.2 Physical exam : Constitutional: Not in acute distress Cvs: irregular rythem, [id number] , no murmur res: fair air entry ,no rhonchii or wheezing abd: no rebound or guarding ,nt, bs present. ext pulses present , no cyanosis neuro: axo3 , nonfocal. Objective Data Current Medications Generic Name Dose Route Start Last Admin Trade Name Freq PRN Reason Stop Dose Admin Acetaminophen 650 mg 09/07/20 16:46 09/07/20 19:42 Acetaminophen 325 Mg Tablet PO 650 mg Q6H PRN Administration Pain, Mild (Pain Scale 1-3) Amiodarone HCl 400 mg 09/14/20 09:00 09/20/20 08:28 Amiodarone Hcl 200 Mg Tablet PO 400 mg DAILY [facility] Administration Amlodipine Besylate 10 mg 09/15/20 13:45 09/20/20 08:28 Amlodipine Besylate 10 Mg Tablet PO 10 mg DAILY [facility] Administration Protocol Insulin Glargine 65 unit 09/20/20 21:00 Insulin Glargine,Hum.Rec.Anlog 100 Unit/Ml 10 Ml Vial SUBCUT BID [facility] Insulin Human Lispro 0 unit 09/07/20 07:30 09/20/20 13:12 Insulin Lispro 100 Unit/Ml 3 Ml Vial SUBCUT 6 unit QIDACHS [facility] Administration Protocol Insulin Human Lispro 4 unit 09/19/20 21:00 09/20/20 13:13 Insulin Lispro 100 Unit/Ml 3 Ml Vial SUBCUT 4 unit QIDACHS [facility] Administration Metoprolol Tartrate 200 mg 09/19/20 21:00 09/20/20 08:27 Metoprolol Tartrate 100 Mg Tablet PO 200 mg BID [facility] Administration Protocol Mirtazapine 7.5 mg 09/16/20 21:00 09/19/20 20:48 Mirtazapine 7.5 Mg Tablet PO 7.5 mg BEDTIME [facility] Administration Morphine Sulfate 3 mg 09/15/20 17:53 09/20/20 14:12 Morphine Sulfate 4 Mg/Ml Cartridge IVPUSH 3 mg Q4H PRN Administration pain Omeprazole 40 mg 09/13/20 06:30 09/20/20 06:43 Omeprazole 40 Mg Capsule.Dr PO 40 mg DAILY@0630 [facility] Administration Ondansetron HCl 4 mg 09/07/20 16:46 Ondansetron Hcl 4 Mg/2 Ml Vial IVPUSH Q8H PRN Nausea and Vomiting Rivaroxaban 15 mg 09/17/20 10:00 09/20/20 08:30 Rivaroxaban 15 Mg Tablet PO 15 mg DAILY [facility] Administration Sodium Chloride 3 ml 09/07/20 16:46 09/20/20 15:47 0.9 % Sodium Chloride Flush 3 Ml Syringe IVFLUSH 3 ml QSHIFT [facility] Administration Sodium Chloride 1 spray 09/14/20 10:53 09/15/20 15:19 Sodium Chloride 0.65 % Nasal 44 Ml Sprbtl NOSTRIL-B 1 spray Q1H PRN Administration Nasal Congestion Torsemide 100 mg 09/16/20 13:30 09/19/20 08:37 Torsemide 20 Mg Tablet PO 100 mg BID [facility] Administration Protocol Labs CBC & Chem 7: 09/16/20 07:46 09/20/20 06:42 Microbiology Microbiology Results: Microbiology 09/07/20 02:25 Blood - Venous Blood Culture - Final No growth after 5 days. 09/07/20 02:25 Blood - Venous Blood Culture - Final No growth after 5 days. 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 On ER evaluation positive for COVID-19 and requiring significant amount of supplemental oxygen. Admitted initially to general medical isabel and started on dexamethasone and Oxygen. Hospital course complicated by chronic chest pain, exacerbation of underlying systolic heart failure, worsening renal failure, and progressive hypoxic respiratory failure requiring initiation of noninvasive positive pressure ventilation on 09/09/2020, AFIB and transfered to intensive care unit where he has required aggresive diuresis and overall has improved. 1/ Acute combined diastolic/systolic CHF with EF 40--transfered to ICU on 09/09 and has been aggresively diuressed with IV Bumex 2 mg q8 -as per chart review cumulatively negativ 16 liters, translating into 35 Ib and just overnight negative 6 liters and bun/cr rising continue Torsemide 100 bid and we need to monitor Cr closely. May need to add metolazone p.r.n. upon discharge 2/Acute and chronic hypoxic respiratory failure-from chf, covid hypoventilation and possibly element of COPD--He has been using CPAP with good effect. Patient is still requiring oxygen, staff is aware to taper down d/w pumonary-noncompliant with CPAP at home due to yaneli, discussed with the p atient and VBG noted seems fine Patient agrees to try CPAP overnight and will slowly taper the oxygen. 3/AFIB--Difficult to control. He is been loaded with amiodarone , in addition to Metoprolol 100 t.May need cardioversion in the future. Heart rate is improving slowly-patient will need amiodarone 400 daily for 1 month and then will be switched back to amiodarone 200 daily. Also patient's metoprolol switched to 200 b.i.d. He may need outpatient cardioversion with his primary cardio in [facility]. Transition from Heparin to Xarelto at 15 renally dose 4/SAQIB on CKD--with markedly high BUN, Cr is now close to his baseline: Probable related to steroids/diuresis Nephrology following: Recommended to continue dresses for now. 5/Hypokalemia--Corrected. 6/HTN--Continue Norvasc, Metorprolol. 7/HLD--Restart Lipitor. 8/ Covid-19 with viral sepsis--clinically stable. Was not candidate for Remdesevir or Monoclonal antibodies received Decadron for 10 day. 9/Diabetes-- uncontrolled Continue Lantus and SSI, in addition added4 units insulin with mealsADA diet 10/Chronic pain-- Morphine 11/YANELI/possible COPD--CPAP, try inhalers as well. 12/Should start moving around if not then should have PT eval
[2020-09-20 20:25] LABS: Glucose, Whole Blood 217 mg/dL (60-115)
[2020-09-20] MEDS: Mirtazapine 7.5 MG TABLET PO (20:45)
[2020-09-20] MEDS: Insulin Glargine,Hum.rec.anlog 100 UNIT/ML 10 ML VIAL 65 UNIT SUBCUT (20:47)
--- NOTE | 2020-09-20 21:59 | PC.NURSE ---
Patient OOB to chair. Tolerated well. Vitals stable on 4L NC. Blood sugars continue to be elevated. Evening dose of Torsemid held per Dr. Melendez. Plan for Bipap tonight. Will continue to monitor.
[2020-09-20] MEDS: Acetaminophen 325 MG TABLET 650 MG PO (23:56)
[2020-09-21] VITALS (10 sets, daily range): BP systolic 134–195; BP diastolic 68–89; PULSE 56–128; RESP 18–20; TEMP 36.2–37; O2SAT 94–100; BMI 51.1
[2020-09-21] MEDS: oxyCODONE HCl Immed Release 5 MG TABLET PO ×4 (02:07→23:04)
--- NOTE | 2020-09-21 05:41 | PC.NURSE ---
Refusing bipap d/t discomfort. Satting low 90's on 4L NC. Respirations easy. C/O generalized pain. PRN APAP with no effect. MD updated, prn oxy given as ordered. Patient restful with no further complaints.
[2020-09-21] MEDS: Omeprazole 40 MG CAPSULE.DR PO (05:50)
[2020-09-21 07:07] LABS: Anion Gap 14 (12-20); Blood Urea Nitrogen 118 mg/dL (9-16); Calcium 8.3 mg/dL (8.4-10.2); Carbon Dioxide 29 mmol/L (22-29); Chloride 106 mmol/L (96-108); Estimated Glomerular Filt Rate 19; Glucose Random 59 mg/dL (60-115); Potassium 3.3 mmol/l (3.3-5.1); Sodium 146 mmol/L (135-145)
[2020-09-21 08:05] LABS: Glucose, Whole Blood 106 mg/dL (60-115)
[2020-09-21] MEDS: amLODIPine Besylate 10 MG TABLET PO (08:58)
[2020-09-21] MEDS: Amiodarone HCL 200 MG TABLET 400 MG PO (08:58)
[2020-09-21] MEDS: 0.9 % Sodium Chloride Flush 3 ML SYRINGE IVFLUSH ×3 (08:58→23:09)
[2020-09-21] MEDS: Torsemide 20 MG TABLET 100 MG PO ×2 (08:58→21:03)
[2020-09-21] MEDS: Metoprolol Tartrate 100 MG TABLET 200 MG PO ×2 (08:58→21:02)
[2020-09-21] MEDS: Rivaroxaban 15 MG TABLET PO (08:59)
--- NOTE | 2020-09-21 10:50 | PM.PNPUL ---
Subjective Subjective Date of Service: 09/21/20 Principal diagnosis: Resp failure, COVID, Right HF, Aflutter Interval history: Respiratory chapin this patient is doing fairly well and stable. He did use BiPAP for a few hours at night, say is it was uncomfortable because it seems to be causing some pressure on his lips. He does tolerate the fullface mask as is provided here in the hospital. He remains on oxygen 2 L/minute. Has been afebrile, He is mostly in the bed and recliner. Objective Data Labs CBC & Chem 7: 09/16/20 07:46 09/21/20 05:56 Labs: Laboratory Results - last 24 hr 09/20/20 09/20/20 09/20/20 10:41 11:38 12:30 VBG pH 7.36 VBG pCO2 48 VBG pO2 50 VBG HCO3 28 VBG O2 Saturation 79.0 VBG Base Excess 2.0 Sodium Potassium Chloride Carbon Dioxide Anion Gap BUN Creatinine Estim Creat Clear Calc Estimated GFR POC Glucose 271 H Random Glucose Calcium Ur Random Sodium < 20.0 Urine Creatinine 61.20 09/20/20 09/20/20 09/21/20 16:21 20:09 05:56 VBG pH VBG pCO2 VBG pO2 VBG HCO3 VBG O2 Saturation VBG Base Excess Sodium 146 H Potassium 3.3 Chloride 106 Carbon Dioxide 29 Anion Gap 14 BUN 118 H* Creatinine 3.36 H Estim Creat Clear Calc 40.0 Estimated GFR 19 POC Glucose 263 H 217 H Random Glucose 59 L* Calcium 8.3 L Ur Random Sodium Urine Creatinine 09/21/20 07:51 VBG pH VBG pCO2 VBG pO2 VBG HCO3 VBG O2 Saturation VBG Base Excess Sodium Potassium Chloride Carbon Dioxide Anion Gap BUN Creatinine Estim Creat Clear Calc Estimated GFR POC Glucose 106 Random Glucose Calcium Ur Random Sodium Urine Creatinine Microbiology Microbiology Results: Microbiology 09/07/20 02:25 Blood - Venous Blood Culture - Final No growth after 5 days. 09/07/20 02:25 Blood - Venous Blood Culture - Final No growth after 5 days. Review of Systems Reports system reviewed and no additional complaints, except as documented and Denies Neuro-related abnormal movements Physical Exam Vital Signs: Vital Signs: Last Vital Signs Temp 98.0 F 09/21/20 08:00 Pulse 128 H 09/21/20 08:00 Resp 19 09/21/20 08:00 BP 163/75 H 09/21/20 08:00 Pulse Ox 94 09/21/20 08:00 Body Mass Index 51.1 Const: General: cooperative, comfortable, no acute distress, alert, awake and other (morbidly obese as usual.) HENMT: Mouth: other (cindi-pharynx crowded , Mallampatti class=4) Eyes: General: appearance normal, both eyes and all related structures Neck: Neck: Yes other (fat and obese .) Chest: Chest palpation & inspection: other (very obese , and short ) Resp: Effort & Inspection: prolonged expiratory phase Auscultation: no crackles (a few over the bases ) and breath sounds absent Cardio: Palpation: PMI normal (not palapble ) Rate: regular rate Heart sounds: no gallops and no murmurs GI: Palpation (GI): Other GI palpation findings present (grossly obese .) Back/Spine/Pelvis: Thoracic/Lumbar Spine: thoracic and lumbar spine normal to inspection Skin: General skin exam: no rashes or lesions noted Neuro: General: No gait normal (Gait imp[aired sec to morbid obesity) Extrem: Other: very bulky , no pitting edema General: Yes other Assessment and Plan Assessment and plan (1) COVID-19: Problem details: RECOVERED Status: Acute (2) Acute renal failure: Problem details: AC. ON CHRONIC RENAL FAILURE , SLOWLY IMPROVING Status: Acute (3) Morbid obesity: Problem details: CHRONIC PROBLEM Status: Acute (4) Obesity hypoventilation syndrome: Problem details: MILD , BUT MAY BECOME WORSE , IF HE USES SEDATIVES , NARCOTICS , OR DOES NOT DO BREATHING EXERCISES . VENOUS BGs PH 7.36, PCO2 48 , PO2 50 Status: Acute Assessment and Plan: PT . INSTRUCTED TO USE HIS CPAP , WHICH HE HAS AT HOME , EVERY NIGHT , FOR AT LEAST FOR 6 HRS/NIGHT . Time Spent With Patient Time: Total time spent is greater than 50% in coordination of care (as documented) at patient's floor/unit and/or counseling patient: Time with patient: 15 - 24 minutes
[2020-09-21 11:46] LABS: Glucose, Whole Blood 109 mg/dL (60-115)
--- NOTE | 2020-09-21 15:55 | P.PNIM_ITS ---
Subjective Subjective Date of Service: 09/22/20 Interval History: AFib- he has intermittent some quick beats but otherwise mostly in 70s heart rate chapin, Says shortness of breath somewhat improved, could not tolerate BiPAP overnight. Review of Systems Says shortness of breath somewhat improved, could not tolerate BiPAP overnight. Denies any chest pain or abdominal pain or fever or chills. Physical Exam Vital Signs: Vital Signs: Last Vital Signs Temp 98.6 F 09/21/20 11:49 Pulse 56 09/21/20 11:49 Resp 20 09/21/20 11:49 BP 195/89 H 09/21/20 11:49 Pulse Ox 97 09/21/20 11:49 Body Mass Index 51.1 Physical exam: Constitutional: Not in acute distress. Cvs: rrr, [id number] , no murmur res: clear to auscultation ,no rhonchii or wheezing abd: no rebound or guarding ,nt, bs present. ext pulses present , no cyanosis neuro: axo3 , nonfocal. Objective Data Current Medications Generic Name Dose Route Start Last Admin Trade Name Freq PRN Reason Stop Dose Admin Acetaminophen 650 mg 09/07/20 16:46 09/20/20 23:56 Acetaminophen 325 Mg Tablet PO 650 mg Q6H PRN Administration Pain, Mild (Pain Scale 1-3) Amiodarone HCl 400 mg 09/14/20 09:00 09/21/20 08:58 Amiodarone Hcl 200 Mg Tablet PO 400 mg DAILY [facility] Administration Amlodipine Besylate 10 mg 09/15/20 13:45 09/21/20 08:58 Amlodipine Besylate 10 Mg Tablet PO 10 mg DAILY [facility] Administration Protocol Insulin Glargine 65 unit 09/20/20 21:00 09/21/20 08:59 Insulin Glargine,Hum.Rec.Anlog 100 Unit/Ml 10 Ml Vial SUBCUT Not Given BID [facility] Insulin Human Lispro 0 unit 09/07/20 07:30 09/21/20 12:15 Insulin Lispro 100 Unit/Ml 3 Ml Vial SUBCUT Not Given QIDACHS [facility] Protocol Insulin Human Lispro 4 unit 09/19/20 21:00 09/21/20 12:16 Insulin Lispro 100 Unit/Ml 3 Ml Vial SUBCUT Not Given QIDACHS [facility] Metoprolol Tartrate 200 mg 09/19/20 21:00 09/21/20 08:58 Metoprolol Tartrate 100 Mg Tablet PO 200 mg BID [facility] Administration Protocol Mirtazapine 7.5 mg 09/16/20 21:00 09/20/20 20:45 Mirtazapine 7.5 Mg Tablet PO 7.5 mg BEDTIME [facility] Administration Omeprazole 40 mg 09/13/20 06:30 09/21/20 05:50 Omeprazole 40 Mg Capsule.Dr PO 40 mg DAILY@0630 [facility] Administration Ondansetron HCl 4 mg 09/07/20 16:46 Ondansetron Hcl 4 Mg/2 Ml Vial IVPUSH Q8H PRN Nausea and Vomiting Oxycodone HCl 5 mg 09/21/20 01:58 09/21/20 09:16 Oxycodone Hcl Immed Release 5 Mg Tablet PO 5 mg Q6H PRN Administration Pain, Moderate (Pain Scale 4-6 Rivaroxaban 15 mg 09/17/20 10:00 09/21/20 08:59 Rivaroxaban 15 Mg Tablet PO 15 mg DAILY [facility] Administration Sodium Chloride 3 ml 09/07/20 16:46 09/21/20 08:58 0.9 % Sodium Chloride Flush 3 Ml Syringe IVFLUSH 3 ml QSHIFT [facility] Administration Sodium Chloride 1 spray 09/14/20 10:53 09/15/20 15:19 Sodium Chloride 0.65 % Nasal 44 Ml Sprbtl NOSTRIL-B 1 spray Q1H PRN Administration Nasal Congestion Torsemide 100 mg 09/16/20 13:30 09/21/20 08:58 Torsemide 20 Mg Tablet PO 100 mg BID [facility] Administration Protocol Labs CBC & Chem 7: 09/16/20 07:46 09/22/20 08:49 Microbiology Microbiology Results: Microbiology 09/07/20 02:25 Blood - Venous Blood Culture - Final No growth after 5 days. 09/07/20 02:25 Blood - Venous Blood Culture - Final No growth after 5 days. Assessment and Plan (1) Atrial flutter: Status: Acute (2) Acute respiratory distress syndrome (ARDS) due to COVID-19 virus: Status: Acute (3) Acute renal failure: Problem details: AC. 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 On ER evaluation positive for COVID-19 and requiring significant amount of supplemental oxygen. Admitted initially to general medical isabel and started on dexamethasone and Oxygen. Hospital course complicated by chronic chest pain, exacerbation of underlying systolic heart failure, worsening renal failure, and progressive hypoxic respiratory failure requiring initiation of noninvasive positive pressure ventilation on 09/09/2020, AFIB and transfered to intensive care unit where he has required aggresive diuresis and overall has improved. 1/ Acute combined diastolic/systolic CHF with EF 40--transfered to ICU on 09/09 and has been aggresively diuressed with IV Bumex 2 mg q8 -as per chart review cumulatively negativ 16 liters, translating into 35 Ib and just overnight negative 6 liters and bun/cr rising continue Torsemide 100 bid and we need to monitor Cr closely. May need to add metolazone p.r.n. upon discharge creatinine seems improving 2/Acute and chronic hypoxic respiratory failure-from chf, covid hypoventilation and possibly element of COPD--He has been using CPAP with good effect. Patient is still requiring oxygen, staff is aware to taper down d/w pulmonary-patient could not tolerate CPAP, seen by Pulmonary we will continue oxygen via nasal cannula for now. 3/AFIB--Difficult to control. He is been loaded with amiodarone , in addition to Metoprolol 100 t.May need cardioversion in the future. Heart rate is improving slowly-patient will need amiodarone 400 daily for 1 month and then will be switched back to amiodarone 200 daily. Also patient's metoprolol switched to 200 b.i.d. He may need outpatient cardioversion with his primary cardio in [facility]. Transition from Heparin to Xarelto at 15 renally dose 4/SAQIB on CKD--with markedly high BUN, Cr is now close to his baseline: Probable related to steroids/diuresis Nephrology following: Recommended to continue dresses for now. 5/Hypokalemia--Corrected. 6/HTN seems suboptimal--Continue Norvasc, Metorprolol. 7/HLD--Restart Lipitor. 8/ Covid-19 with viral sepsis--clinically stable. Was not candidate for Remdesevir or Monoclonal antibodies received Decadron for 10 day. 9/Diabetes-- uncontrolled Continue Lantus and SSI, qidac 4 units insulin with mealsADA diet 10/Chronic pain-- Morphine 11/YANELI/possible COPD--CPAP, try inhalers as well. 12/Should start moving around if not then should have PT eval
[2020-09-21 16:32] LABS: Glucose, Whole Blood 138 mg/dL (60-115)
[2020-09-21] MEDS: Insulin Lispro 100 UNIT/ML 3 ML VIAL SUBCUT (16:54)
[2020-09-21] MEDS: Acetaminophen 325 MG TABLET 650 MG PO (16:54)
[2020-09-21 20:17] LABS: Glucose, Whole Blood 172 mg/dL (60-115)
[2020-09-21] MEDS: Mirtazapine 7.5 MG TABLET PO (21:03)
[2020-09-21] MEDS: Insulin Glargine,Hum.rec.anlog 100 UNIT/ML 10 ML VIAL 65 UNIT SUBCUT (21:03)
--- NOTE | 2020-09-21 22:50 | PM.PNNEP ---
Subjective Subjective Date of Service: 09/21/20 Principal diagnosis: Resp failure, COVID, Right HF, Aflutter Interval history: Pt on COVID isolation [place] Physical Exam Vital Signs: Vital Signs: Last Vital Signs Temp 98.5 F 09/21/20 20:00 Pulse 88 09/21/20 20:00 Resp 18 09/21/20 20:00 BP 141/71 H 09/21/20 20:00 Pulse Ox 95 09/21/20 20:00 Body Mass Index 51.1 Objective Data Labs CBC & Chem 7: 09/16/20 07:46 09/21/20 05:56 Labs: Laboratory Results - last 24 hr 09/21/20 09/21/20 09/21/20 05:56 07:51 11:39 Sodium 146 H Potassium 3.3 Chloride 106 Carbon Dioxide 29 Anion Gap 14 BUN 118 H* Creatinine 3.36 H Estim Creat Clear Calc 40.0 Estimated GFR 19 POC Glucose 106 109 Random Glucose 59 L* Calcium 8.3 L 09/21/20 09/21/20 16:20 19:59 Sodium Potassium Chloride Carbon Dioxide Anion Gap BUN Creatinine Estim Creat Clear Calc Estimated GFR POC Glucose 138 H 172 H Random Glucose Calcium Microbiology Microbiology Results: Microbiology 09/07/20 02:25 Blood - Venous Blood Culture - Final No growth after 5 days. 09/07/20 02:25 Blood - Venous Blood Culture - Final No growth after 5 days. Assessment & Plan Time Spent With Patient Time: 1. non-ologuric SAQIB; peak SCr 4.0 on adm and had remianed in 3.2-3.5 range past week but now incr again 3.9; multiple potential contributing factors including COVID cytokine ATN, renal hypoperfsuion as need for high diuretics..Cardio-Renal syn other poss such as; AIN,AGN and Obs seem unlikely 2. CKD4; underlying DN..a year ago bsl Scr was 2.5...ques what his bsl Scr is now 3. TBFOL; diffuclt to assess vol staus d/t morbid obesity 4. Hypoxia; d/tCOVID and Obesity and ques CHF 5. Incr bun/cr; d/t sterodis and ques decr intravasc vol REC; cont to hold diuretics track UOP/renal func, avoid NSAIDs; Renal func is better will follow di with team
[2020-09-22] VITALS (10 sets, daily range): BP systolic 124–153; BP diastolic 66–89; PULSE 68–139; RESP 18–20; TEMP 35.9–37.1; O2SAT 94–100; BMI 49.3
[2020-09-22] MEDS: Omeprazole 40 MG CAPSULE.DR PO (05:32)
[2020-09-22] MEDS: oxyCODONE HCl Immed Release 5 MG TABLET PO ×3 (05:32→18:21)
[2020-09-22 07:56] LABS: Glucose, Whole Blood 141 mg/dL (60-115)
[2020-09-22 09:11] LABS: Sodium 145 mmol/L (135-145)
[2020-09-22] MEDS: Insulin Glargine,Hum.rec.anlog 100 UNIT/ML 10 ML VIAL 65 UNIT SUBCUT ×2 (10:13→21:12)
[2020-09-22] MEDS: Insulin Lispro 100 UNIT/ML 3 ML VIAL SUBCUT ×4 (10:13→21:13)
[2020-09-22] MEDS: Torsemide 20 MG TABLET 100 MG PO ×2 (10:14→21:13)
[2020-09-22] MEDS: amLODIPine Besylate 10 MG TABLET PO (10:14)
[2020-09-22] MEDS: Rivaroxaban 15 MG TABLET PO (10:14)
[2020-09-22] MEDS: Amiodarone HCL 200 MG TABLET 400 MG PO (10:18)
[2020-09-22] MEDS: Metoprolol Tartrate 100 MG TABLET 200 MG PO ×2 (10:18→19:37)
[2020-09-22] MEDS: 0.9 % Sodium Chloride Flush 3 ML SYRINGE IVFLUSH ×3 (10:19→23:42)
[2020-09-22 11:41] LABS: Glucose, Whole Blood 181 mg/dL (60-115)
--- NOTE | 2020-09-22 13:57 | P.PNIM_ITS ---
Subjective Subjective Date of Service: 09/22/20 Interval History: afib Review of Systems Denies any chest pain, shortness of breath is also improving significantly Denies any nausea or vomiting or abdominal pain or fever Physical Exam Vital Signs: Vital Signs: Last Vital Signs Temp 98.8 F 09/22/20 12:00 Pulse 89 09/22/20 12:00 Resp 18 09/22/20 12:00 BP 124/66 09/22/20 12:00 Pulse Ox 96 09/22/20 12:00 Body Mass Index 49.3 Physical exam: Constitutional: Not in acute distress. Cvs: rrr, [id number] , no murmur, jvd equivocal. res: clear to auscultation ,no rhonchii or wheezing abd: no rebound or guarding ,nt, bs present. ext pulses present , no cyanosis neuro: axo3 , nonfocal. Objective Data Current Medications Generic Name Dose Route Start Last Admin Trade Name Freq PRN Reason Stop Dose Admin Acetaminophen 650 mg 09/07/20 16:46 09/21/20 16:54 Acetaminophen 325 Mg Tablet PO 650 mg Q6H PRN Administration Pain, Mild (Pain Scale 1-3) Amiodarone HCl 400 mg 09/14/20 09:00 09/22/20 10:18 Amiodarone Hcl 200 Mg Tablet PO 400 mg DAILY KOJO Administration Amlodipine Besylate 10 mg 09/15/20 13:45 09/22/20 10:14 Amlodipine Besylate 10 Mg Tablet PO 10 mg DAILY [facility] Administration Protocol Insulin Glargine 65 unit 09/20/20 21:00 09/22/20 10:13 Insulin Glargine,Hum.Rec.Anlog 100 Unit/Ml 10 Ml Vial SUBCUT 65 unit BID KOJO Administration Insulin Human Lispro 0 unit 09/07/20 07:30 09/22/20 12:12 Insulin Lispro 100 Unit/Ml 3 Ml Vial SUBCUT 2 unit QIDACHS [facility] Administration Protocol Insulin Human Lispro 4 unit 09/19/20 21:00 09/22/20 12:12 Insulin Lispro 100 Unit/Ml 3 Ml Vial SUBCUT 4 unit QIDACHS [facility] Administration Melatonin 6 mg 09/22/20 21:00 Melatonin 3 Mg Tablet PO BEDTIME [facility] Metoprolol Tartrate 200 mg 09/19/20 21:00 09/22/20 10:18 Metoprolol Tartrate 100 Mg Tablet PO 200 mg BID KOJO Administration Protocol Mirtazapine 7.5 mg 09/16/20 21:00 09/21/20 21:03 Mirtazapine 7.5 Mg Tablet PO 7.5 mg BEDTIME KOJO Administration Omeprazole 40 mg 09/13/20 06:30 09/22/20 05:32 Omeprazole 40 Mg Capsule.Dr PO 40 mg DAILY@0630 KOJO Administration Ondansetron HCl 4 mg 09/07/20 16:46 Ondansetron Hcl 4 Mg/2 Ml Vial IVPUSH Q8H PRN Nausea and Vomiting Oxycodone HCl 5 mg 09/21/20 01:58 09/22/20 11:25 Oxycodone Hcl Immed Release 5 Mg Tablet PO 5 mg Q6H PRN Administration Pain, Moderate (Pain Scale 4-6 Rivaroxaban 15 mg 09/17/20 10:00 09/22/20 10:14 Rivaroxaban 15 Mg Tablet PO 15 mg DAILY KOJO Administration Sodium Chloride 3 ml 09/07/20 16:46 09/22/20 10:19 0.9 % Sodium Chloride Flush 3 Ml Syringe IVFLUSH 3 ml QSHIFT KOJO Administration Sodium Chloride 1 spray 09/14/20 10:53 09/15/20 15:19 Sodium Chloride 0.65 % Nasal 44 Ml Sprbtl NOSTRIL-B 1 spray Q1H PRN Administration Nasal Congestion Torsemide 100 mg 09/16/20 13:30 09/22/20 10:14 Torsemide 20 Mg Tablet PO 100 mg BID KOJO Administration Protocol Labs CBC & Chem 7: 09/16/20 07:46 09/22/20 08:49 Microbiology Microbiology Results: Microbiology 09/07/20 02:25 Blood - Venous Blood Culture - Final No growth after 5 days. 09/07/20 02:25 Blood - Venous Blood Culture - Final No growth after 5 days. Assessment and Plan (1) Atrial flutter: Status: Acute (2) Acute respiratory distress syndrome (ARDS) due to COVID-19 virus: Status: Acute (3) Acute renal failure: Problem details: AC. 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 On ER evaluation positive for COVID-19 and requiring significant amount of supplemental oxygen. Admitted initially to general medical [facility] and started on dexamethasone and Oxygen. Hospital course complicated by chronic chest pain, exacerbation of underlying systolic heart failure, worsening renal failure, and progressive hypoxic respiratory failure requiring initiation of noninvasive positive pressure ventilation on 09/09/2020, AFIB and transfered to intensive care unit where he has required aggresive diuresis and overall has improved. 1/ Acute combined diastolic/systolic CHF with EF 40--transfered to ICU on 09/09 and has been aggresively diuressed with IV Bumex 2 mg q8 -as per chart review cumulatively negativ 16 liters, translating into 35 Ib and just overnight negative 6 liters and bun/cr rising continue Torsemide 100 bid and we need to monitor Cr closely. May need to add metolazone p.r.n. upon discharge creatinine seems improving 2/Acute and chronic hypoxic respiratory failure-from chf, covid hypoventilation and possibly element of COPD--He has been using CPAP with good effect. Patient is still requiring oxygen, staff is aware to taper down d/w pulmonary-patient could not tolerate CPAP, seen by Pulmonary we will continue oxygen via nasal cannula for now. 3/AFIB--Difficult to control. He is been loaded with amiodarone , in addition to Metoprolol 100 t.May need cardioversion in the future. Heart rate is improving slowly-patient will need amiodarone 400 daily for 1 month and then will be switched back to amiodarone 200 daily. Also patient's metoprolol switched to 200 b.i.d. He may need outpatient cardioversion with his primary cardio in [facility]. Transition from Heparin to Xarelto at 15 renally dose 4/SAQIB on CKD--with markedly high BUN, Cr is now close to his baseline: Probable related to steroids/diuresis Nephrology following: Recommended to continue dresses for now. 5/Hypokalemia--Corrected.potassium boderline -added po potassium. 6/HTN seems suboptimal--Continue Norvasc, Metorprolol. 7/HLD--Restart Lipitor. 8/ Covid-19 with viral sepsis--clinically stable. Was not candidate for Remdesevir or Monoclonal antibodies received Decadron for 10 day. 9/Diabetes-- uncontrolled Continue Lantus and SSI, qidac 4 units insulin with mealsADA diet 10/Chronic pain-- Morphine 11/YANELI/possible COPD--CPAP, try inhalers as well. 12/Should start moving around if not then should have PT eval
[2020-09-22] MEDS: Potassium Chloride Packet 20 MEQ PACKET PO (15:03)
[2020-09-22 16:51] LABS: Glucose, Whole Blood 95 mg/dL (60-115)
[2020-09-22 20:45] LABS: Glucose, Whole Blood 257 mg/dL (60-115)
[2020-09-22] MEDS: Melatonin 3 MG TABLET 6 MG PO (21:13)
[2020-09-22] MEDS: Mirtazapine 7.5 MG TABLET PO (21:14)
[2020-09-22] MEDS: Metoprolol Tartrate 5 MG/5 ML VIAL IV (23:34)
--- NOTE | 2020-09-22 23:44 | PC.NURSE ---
At 1900 pt HR sustaining in 130s afib on tele, MD notified. Scheduled PO lopressor 200mg given an hour early per MD, had little effect. MD ordered PRN 5mg IV lopressor. HR back to sustaining 130s at 2300, PRN lopressor given, HR now 90 afib and sustaining.
[2020-09-23 00:19] VITALS: PULSE 88
[2020-09-23 00:39] VITALS: PULSE 97
[2020-09-23] MEDS: oxyCODONE HCl Immed Release 5 MG TABLET PO ×3 (00:41→15:11)
[2020-09-23 03:26] VITALS: BP 157/75; PULSE 85; RESP 18; TEMP 36.4; O2SAT 95
[2020-09-23] MEDS: Omeprazole 40 MG CAPSULE.DR PO (05:19)
[2020-09-23 07:42] VITALS: BP 149/82; PULSE 81; RESP 18; TEMP 37.2; O2SAT 97
[2020-09-23 08:09] LABS: Anion Gap 12 (12-20); Blood Urea Nitrogen 85 mg/dL (9-16); Calcium 7.4 mg/dL (8.4-10.2); Carbon Dioxide 29 mmol/L (22-29); Chloride 106 mmol/L (96-108); Estimated Glomerular Filt Rate 23; Glucose Random 123 mg/dL (60-115); Potassium 3.1 mmol/l (3.3-5.1); Sodium 144 mmol/L (135-145)
[2020-09-23 08:10] LABS: Glucose, Whole Blood 114 mg/dL (60-115)
[2020-09-23] MEDS: Insulin Glargine,Hum.rec.anlog 100 UNIT/ML 10 ML VIAL 65 UNIT SUBCUT (09:02)
[2020-09-23] MEDS: Metoprolol Tartrate 100 MG TABLET 200 MG PO (09:02)
[2020-09-23] MEDS: 0.9 % Sodium Chloride Flush 3 ML SYRINGE IVFLUSH ×2 (09:02→16:09)
[2020-09-23] MEDS: Amiodarone HCL 200 MG TABLET 400 MG PO (09:03)
[2020-09-23] MEDS: Rivaroxaban 15 MG TABLET PO (09:03)
[2020-09-23] MEDS: Torsemide 20 MG TABLET 100 MG PO (09:03)
[2020-09-23] MEDS: amLODIPine Besylate 10 MG TABLET PO (09:04)
[2020-09-23 11:38] VITALS: BP 127/60; PULSE 92; RESP 18; TEMP 36.8; O2SAT 96
--- NOTE | 2020-09-23 11:45 | PM.PNNEP ---
Subjective Subjective Date of Service: 09/23/20 Principal diagnosis: Resp failure, COVID, Right HF, Aflutter Interval history: afib Physical Exam Vital Signs: Vital Signs: Last Vital Signs Temp 98.2 F 09/23/20 11:38 Pulse 92 09/23/20 11:38 Resp 18 09/23/20 11:38 BP 127/60 09/23/20 11:38 Pulse Ox 96 09/23/20 11:38 Body Mass Index 49.3 Const: General: ill appearing Neck: Neck: Yes no JVD Resp: Auscultation: rhonchi Cardio: Heart sounds: no murmurs Neuro: Motor exam (neuro): no asterixis Objective Data Labs CBC & Chem 7: 09/16/20 07:46 09/23/20 07:19 Labs: Laboratory Results - last 24 hr 09/22/20 09/22/20 09/23/20 16:38 20:28 07:19 Sodium 144 Potassium 3.1 L Chloride 106 Carbon Dioxide 29 Anion Gap 12 BUN 85 H* D Creatinine 2.80 H Estim Creat Clear Calc 47.0 Estimated GFR 23 POC Glucose 95 257 H Random Glucose 123 H D Calcium 7.4 L D 09/23/20 07:41 Sodium Potassium Chloride Carbon Dioxide Anion Gap BUN Creatinine Estim Creat Clear Calc Estimated GFR POC Glucose 114 Random Glucose Calcium Microbiology Microbiology Results: Microbiology 09/07/20 02:25 Blood - Venous Blood Culture - Final No growth after 5 days. 09/07/20 02:25 Blood - Venous Blood Culture - Final No growth after 5 days. Assessment & Plan Assessment and plan (1) Acute kidney injury superimposed on CKD: Problem details: Cr is trending down Keep current fluid plan no indication for dialysis Status: Acute (2) Pneumonia due to COVID-19 virus: Problem details: RLL pneumonia and extensive GG nodular densities likely covid. Continue current supportive care Status: Acute Time Spent With Patient Time: Total time spent is greater than 50% in coordination of care (as documented) at patient's floor/unit and/or counseling patient:
[2020-09-23 12:06] LABS: Glucose, Whole Blood 171 mg/dL (60-115)
[2020-09-23] MEDS: Insulin Lispro 100 UNIT/ML 3 ML VIAL SUBCUT ×2 (12:17→16:09)
--- NOTE | 2020-09-23 13:09 | MHC.CLN ---
F/U PO ITNAKE 100% DIET RX: 2000DM 2GM NA -APPROPRIATE FOLLOWING
--- NOTE | 2020-09-23 13:22 | MHC.INPTTRAN ---
1330 Tranfers with supervision. 02 at 2L, lungs dim. VSS Voids in urinal, Last BM on . Scott diet. Takes meds whole. Refuses c pap at [facility]. 02 SAT stable. Labs improving. Thanks
--- NOTE | 2020-09-23 13:39 | P.DS_ITS ---
DS: Providers Provider Date of Service: 10/03/20 Date of admission: 09/07/20 04:34 Primary care physician: Unknown Physician Consults: 09/07/20 06:49 Consult to Infectious Diseases Routine Consulting Provider: Radha Bashir Reason for consultation: Remdesivir? Has provider been notified: No 09/07/20 15:05 Consult to Nephrology Routine Consulting Provider: Shola Newsome Reason for consultation: SAQIB on CKD 09/07/20 16:46 Consult to Infectious Diseases Routine Consulting Provider: Radha Bashir Reason for consultation: COVID hypoxia Has provider been notified: No 09/08/20 09:07 Consult to Pulmonology Routine Consulting Provider: Dean Shields Reason for consultation: covid respiratory failure Has provider been notified: No 09/08/20 17:18 Consult to Cardiology Routine Consulting Provider: Fernando Marino Reason for consultation: heart failure 09/09/20 07:04 Consult to Cardiology Stat Consulting Provider: Fernando Marino Reason for consultation: CHF Has provider been notified: No 09/20/20 10:07 Consult to Pulmonology Routine Consulting Provider: Enrique Broderick Reason for consultation: Acute hypoxemic respiratory failure multifactorial(covid, chf ) Has provider been notified: No DS: Diagnosis Discharge Diagnosis (1) Acute kidney injury superimposed on CKD: Status: Acute (2) Pneumonia due to COVID-19 virus: Status: Acute DS: Medications Discharge Medications Home Medications: Home Medications Medication Instructions Recorded Confirmed amlodipine 10 mg PO DAILY 09/07/20 09/07/20 atorvastatin 20 mg PO DAILY 09/07/20 09/07/20 carvedilol 25 tab PO BID 09/07/20 09/07/20 empagliflozin [Jardiance] 10 mg PO DAILY 09/07/20 09/07/20 hydralazine 50 mg PO TID 09/07/20 09/07/20 insulin glargine [Otoniel Merchant See Protocol SUBCUT DIRECTED 09/07/20 09/07/20 U-100 Insulin] isosorbide mononitrate 60 mg PO QAM 09/07/20 09/07/20 metolazone See Rx Instructions .ROUTE .COMPLEX 09/07/20 09/07/20 pen needle, diabetic [BD 09/07/20 09/07/20 Ultra-Fine Short Pen Needle] torsemide 100 mg PO BID 09/07/20 09/07/20 tramadol 2 tab PO Q6H PRN 09/07/20 09/07/20 Previous Rx's Medication Instructions Recorded amiodarone 400 mg PO DAILY #19 tab 09/23/20 amlodipine 10 mg PO DAILY #30 tab 09/23/20 metoprolol tartrate 200 mg PO BID #60 tab 09/23/20 oxycodone 5 mg PO Q6H PRN #6 tab 09/23/20 rivaroxaban [Xarelto] 15 mg PO DAILY #30 tab 09/23/20 DS: Summary Hospital Course Hospital Course: 60-year-old gentleman with underlying history of morbid obesity, 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 On ER evaluation positive for COVID-19 and requiring significant amount of supplemental oxygen. Admitted initially to general medical [facility] and started on dexamethasone and Oxygen. Hospital course complicated by chronic chest pain, exacerbation of underlying systolic heart failure, worsening renal failure, and progressive hypoxic respiratory failure requiring initiation of noninvasive positive pressure ventilation on 09/09/2020, AFIB and transfered to intensive care unit where he has required aggresive diuresis and overall has improved. 1/ Acute combined diastolic/systolic CHF with EF 40--transfered to ICU on 09/09 Subsequently has been aggresively diuressed with IV Bumex 2 mg q8 Diuresed well Seems improving and subsequently switched to p.o. torsemide and metolazone 2.5 mg p.r.n. Monitor renal function electrolytes outpatient in rehab and further management as per rehab. 2/Acute and chronic hypoxic respiratory failure-from chf, covid hypoventilation and possibly element of COPD--initially received CPAP in the ICU. Patient is still requiring oxygen on 2 liter now. d/w pulmonary-patient could not tolerate CPAP, seen by Pulmonary we will continue oxygen via nasal cannula for now. May need oxygen evaluation rehab upon discharge. 3/AFIB-seen by cardio: He is been loaded with amiodarone , in addition to Metoprolol 100 t.May need cardioversion in the future. Heart rate is improving slowly-patient will need amiodarone 400 daily for 1 month until 10/15/20and then will be switched back to amiodarone 200 daily10/16/20. Also patient's metoprolol switched to 200 b.i.d. He may need outpatient cardioversion with his primary cardio in [facility]. Transition from Heparin to Xarelto at 15 renally dose 4/SAQIB on CKD--with markedly high BUN, Cr is now close to his baseline: Probable related to steroids/diuresis bun creatinine improving 85/2.60 Nephrology following: Recommended to continue dresses for now. Monitor renal function and electrolytes and further management out patiently as per rehab, patient is to follow-up with Nephrology outpatient. 5/Hypokalemia--potassium boderline low-given po potassium, given limited p.o. potassium supply.Monitor renal function and electrolytes and further management out patiently as per rehab, patient is to follow-up with rehab and Nephrology outpatient. 6/HTN seems suboptimal--Continue Norvasc, Metorprolol. May need to add Imdur back if blood pressure up allows in next few days P 7/ Covid-19 with viral sepsis--clinically stable. Was not candidate for Remdesevir or Monoclonal antibodies received Decadron for 12 days. 9/Diabetes-fs acceptable range. Continue Lantus and SSI. 10/YANELI/possible COPD--CPAP could not tolerate. Going to go on rehab with oxygen, patient will need oxygen evaluation upon discharge. 11.anxiety/depression/sleep issue: continue mirtazpine, melatonin. Above management discussed with the patient in detail length he understand and in agreement with the above plan, time spent 50 minutes and 50% time spent on counseling. Significant findings: As above. Procedures performed: None. Treatment and response: As above. Complications: None. Time Spent with Patient Time attestation: Total time spent providing and/or coordinating discharge services: Discharge coordination time: Greater than 30 minutes Physical Exam Vital Signs: Vital Signs: Last Vital Signs Temp 98.2 F 09/23/20 11:38 Pulse 92 09/23/20 11:38 Resp 18 09/23/20 11:38 BP 127/60 09/23/20 11:38 Pulse Ox 96 01/18/21 11:38 Body Mass Index 49.3 Physical exam : Constitutional: Cvs: irregular rythem, [id number] , no murmur res: clear to auscultation ,no rhonchii or wheezing abd: no rebound or guarding ,nt, bs present. ext pulses present , no cyanosis neuro: axo3 , nonfocal. DS: Data Data Completed and Pending Labs on day of discharge: Laboratory Tests 09/07/20 09/07/20 09/07/20 02:25 02:25 02:25 WBC 6.2 RBC 4.23 L Hgb 12.1 L Hct 38.1 L MCV 90.1 MCH 28.6 MCHC 31.8 RDW 16.1 H Plt Count 137 L MPV 11.3 Immature Gran % (Auto) 0.6 H Neut % (Auto) 87.2 H Lymph % (Auto) 6.9 L [place] % (Auto) 4.6 Eos % (Auto) 0.5 Baso % (Auto) 0.2 Lymph # (Auto) 0.4 L [place] # (Auto) 0.3 Eos # (Auto) 0.0 Baso # (Auto) 0.0 Abs Immat Gran (auto) 0.04 H Absolute Neuts (auto) 5.4 Absolute Nucleated RBC 0.000 Nucleated RBC % (auto) 0.0 Smear Tech's Comments VERIFIED PT 13.3 H INR 1.1 APTT 29.5 PTT (Heparin Protocol) D-Dimer Cancelled ABG pH ABG pCO2 ABG pO2 ABG HCO3 ABG O2 Saturation ABG Base Excess VBG pH VBG pCO2 VBG pO2 VBG HCO3 VBG O2 Saturation VBG Base Excess Oxygen Given Sodium Cancelled Potassium Cancelled Chloride Cancelled Carbon Dioxide Cancelled Anion Gap Cancelled BUN Cancelled Creatinine Cancelled Estim Creat Clear Calc Cancelled Estimated GFR Cancelled POC Glucose Random Glucose Cancelled Lactic Acid Calcium Cancelled Phosphorus Magnesium Ferritin Cancelled Total Bilirubin Direct Bilirubin AST ALT Alkaline Phosphatase Lactate Dehydrogenase Cancelled Troponin I High Sens B-Natriuretic Peptide Total Protein Albumin Ur Random Sodium Urine Creatinine Coronavirus (PCR) Influenza Type A (PCR) Influenza Type B (PCR) RSV RNA Qual (PCR) SARS-CoV-2 IgG Ab Blood Type Antibody Screen 09/07/20 09/07/20 09/07/20 02:25 02:25 02:25 WBC RBC Hgb Hct MCV MCH MCHC RDW Plt Count MPV Immature Gran % (Auto) Neut % (Auto) Lymph % (Auto) [place] % (Auto) Eos % (Auto) Baso % (Auto) Lymph # (Auto) [place] # (Auto) Eos # (Auto) Baso # (Auto) Abs Immat Gran (auto) Absolute Neuts (auto) Absolute Nucleated RBC Nucleated RBC % (auto) Smear Tech's Comments PT INR APTT PTT (Heparin Protocol) D-Dimer ABG pH ABG pCO2 ABG pO2 ABG HCO3 ABG O2 Saturation ABG Base Excess VBG pH VBG pCO2 VBG pO2 VBG HCO3 VBG O2 Saturation VBG Base Excess Oxygen Given Sodium Potassium Chloride Carbon Dioxide Anion Gap BUN Creatinine Estim Creat Clear Calc Estimated GFR POC Glucose Random Glucose Lactic Acid Calcium Phosphorus Magnesium Ferritin Total Bilirubin Cancelled Direct Bilirubin Cancelled AST Cancelled ALT Cancelled Alkaline Phosphatase Cancelled Lactate Dehydrogenase Troponin I High Sens 222.4 H B-Natriuretic Peptide 229 H Total Protein Cancelled Albumin Cancelled Ur Random Sodium Urine Creatinine Coronavirus (PCR) POSITIVE A Influenza Type A (PCR) NEGATIVE Influenza Type B (PCR) NEGATIVE RSV RNA Qual (PCR) NEGATIVE SARS-CoV-2 IgG Ab Blood Type Antibody Screen 09/07/20 09/07/20 09/07/20 02:25 02:52 03:45 WBC RBC Hgb Hct MCV MCH MCHC RDW Plt Count MPV Immature Gran % (Auto) Neut % (Auto) Lymph % (Auto) [place] % (Auto) Eos % (Auto) Baso % (Auto) Lymph # (Auto) [place] # (Auto) Eos # (Auto) Baso # (Auto) Abs Immat Gran (auto) Absolute Neuts (auto) Absolute Nucleated RBC Nucleated RBC % (auto) Smear Tech's Comments PT INR APTT PTT (Heparin Protocol) D-Dimer ABG pH ABG pCO2 ABG pO2 ABG HCO3 ABG O2 Saturation ABG Base Excess VBG pH 7.39 VBG pCO2 51 VBG pO2 32 VBG HCO3 30 VBG O2 Saturation 58.7 VBG Base Excess 3.9 Oxygen Given Sodium 142 Potassium 2.7 L Chloride 101 Carbon Dioxide 29 Anion Gap 15 BUN 60 H Creatinine 4.10 H* Estim Creat Clear Calc 33.0 Estimated GFR 15 POC Glucose Random Glucose 201 H Lactic Acid 1.3 Calcium 8.0 L Phosphorus Magnesium Ferritin 155 Total Bilirubin 0.3 Direct Bilirubin 0.2 AST 28 ALT 18 Alkaline Phosphatase 138 H Lactate Dehydrogenase Troponin I High Sens B-Natriuretic Peptide Total Protein 7.3 Albumin 3.6 Ur Random Sodium Urine Creatinine Coronavirus (PCR) Influenza Type A (PCR) Influenza Type B (PCR) RSV RNA Qual (PCR) SARS-CoV-2 IgG Ab Blood Type Antibody Screen 09/07/20 09/07/20 09/07/20 03:45 03:45 08:15 WBC RBC Hgb Hct MCV MCH MCHC RDW Plt Count MPV Immature Gran % (Auto) Neut % (Auto) Lymph % (Auto) [place] % (Auto) Eos % (Auto) Baso % (Auto) Lymph # (Auto) [place] # (Auto) Eos # (Auto) Baso # (Auto) Abs Immat Gran (auto) Absolute Neuts (auto) Absolute Nucleated RBC Nucleated RBC % (auto) Smear Tech's Comments PT INR APTT PTT (Heparin Protocol) D-Dimer 589 ABG pH ABG pCO2 ABG pO2 ABG HCO3 ABG O2 Saturation ABG Base Excess VBG pH VBG pCO2 VBG pO2 VBG HCO3 VBG O2 Saturation VBG Base Excess Oxygen Given Sodium Potassium Chloride Carbon Dioxide Anion Gap BUN Creatinine Estim Creat Clear Calc Estimated GFR POC Glucose Random Glucose Lactic Acid Calcium Phosphorus Magnesium Ferritin Total Bilirubin Direct Bilirubin AST ALT Alkaline Phosphatase Lactate Dehydrogenase 255 Troponin I High Sens 273.3 H B-Natriuretic Peptide Total Protein Albumin Ur Random Sodium Urine Creatinine Coronavirus (PCR) Influenza Type A (PCR) Influenza Type B (PCR) RSV RNA Qual (PCR) SARS-CoV-2 IgG Ab Blood Type Antibody Screen 09/07/20 09/07/20 09/07/20 08:23 10:24 12:32 WBC RBC Hgb Hct MCV MCH MCHC RDW Plt Count MPV Immature Gran % (Auto) Neut % (Auto) Lymph % (Auto) [place] % (Auto) Eos % (Auto) Baso % (Auto) Lymph # (Auto) [place] # (Auto) Eos # (Auto) Baso # (Auto) Abs Immat Gran (auto) Absolute Neuts (auto) Absolute Nucleated RBC Nucleated RBC % (auto) Smear Tech's Comments PT INR APTT PTT (Heparin Protocol) D-Dimer ABG pH ABG pCO2 ABG pO2 ABG HCO3 ABG O2 Saturation ABG Base Excess VBG pH VBG pCO2 VBG pO2 VBG HCO3 VBG O2 Saturation VBG Base Excess Oxygen Given Sodium Potassium Chloride Carbon Dioxide Anion Gap BUN Creatinine Estim Creat Clear Calc Estimated GFR POC Glucose 259 H 245 H Random Glucose Lactic Acid Calcium Phosphorus Magnesium Ferritin Total Bilirubin Direct Bilirubin AST ALT Alkaline Phosphatase Lactate Dehydrogenase Troponin I High Sens B-Natriuretic Peptide Total Protein Albumin Ur Random Sodium 22.0 Urine Creatinine 81.83 Coronavirus (PCR) Influenza Type A (PCR) Influenza Type B (PCR) RSV RNA Qual (PCR) SARS-CoV-2 IgG Ab Blood Type Antibody Screen 09/07/20 09/07/20 09/07/20 16:20 17:09 17:09 WBC RBC Hgb Hct MCV MCH MCHC RDW Plt Count MPV Immature Gran % (Auto) Neut % (Auto) Lymph % (Auto) [place] % (Auto) Eos % (Auto) Baso % (Auto) Lymph # (Auto) [place] # (Auto) Eos # (Auto) Baso # (Auto) Abs Immat Gran (auto) Absolute Neuts (auto) Absolute Nucleated RBC Nucleated RBC % (auto) Smear Tech's Comments PT INR APTT PTT (Heparin Protocol) D-Dimer ABG pH ABG pCO2 ABG pO2 ABG HCO3 ABG O2 Saturation ABG Base Excess VBG pH VBG pCO2 VBG pO2 VBG HCO3 VBG O2 Saturation VBG Base Excess Oxygen Given Sodium 141 Potassium 3.4 D Chloride 101 Carbon Dioxide 26 Anion Gap 17 BUN 59 H Creatinine 3.66 H Estim Creat Clear Calc 37.0 Estimated GFR 17 POC Glucose 267 H Random Glucose 308 H D Lactic Acid Calcium 7.7 L Phosphorus Magnesium Ferritin Total Bilirubin Direct Bilirubin AST ALT Alkaline Phosphatase Lactate Dehydrogenase Troponin I High Sens B-Natriuretic Peptide Total Protein Albumin Ur Random Sodium Urine Creatinine Coronavirus (PCR) Influenza Type A (PCR) Influenza Type B (PCR) RSV RNA Qual (PCR) SARS-CoV-2 IgG Ab Negative Blood Type Antibody Screen 09/07/20 09/07/20 09/08/20 19:56 20:04 04:38 WBC 3.4 L RBC 4.46 L Hgb 12.9 L Hct 40.2 L MCV 90.1 MCH 28.9 MCHC 32.1 RDW 15.9 Plt Count 106 L MPV 11.4 Immature Gran % (Auto) 0.6 H Neut % (Auto) 85.7 H Lymph % (Auto) 9.3 L [place] % (Auto) 4.4 Eos % (Auto) 0.0 Baso % (Auto) 0.0 Lymph # (Auto) 0.3 L [place] # (Auto) 0.2 Eos # (Auto) 0.0 Baso # (Auto) 0.0 Abs Immat Gran (auto) 0.02 Absolute Neuts (auto) 2.9 Absolute Nucleated RBC 0.000 Nucleated RBC % (auto) 0.0 Smear Tech's Comments VERIFIED PT INR APTT PTT (Heparin Protocol) D-Dimer ABG pH ABG pCO2 ABG pO2 ABG HCO3 ABG O2 Saturation ABG Base Excess VBG pH VBG pCO2 VBG pO2 VBG HCO3 VBG O2 Saturation VBG Base Excess Oxygen Given Sodium Potassium Chloride Carbon Dioxide Anion Gap BUN Creatinine Estim Creat Clear Calc Estimated GFR POC Glucose 335 H Random Glucose Lactic Acid Calcium Phosphorus Magnesium Ferritin Total Bilirubin Direct Bilirubin AST ALT Alkaline Phosphatase Lactate Dehydrogenase Troponin I High Sens 122.1 H D B-Natriuretic Peptide Total Protein Albumin Ur Random Sodium Urine Creatinine Coronavirus (PCR) Influenza Type A (PCR) Influenza Type B (PCR) RSV RNA Qual (PCR) SARS-CoV-2 IgG Ab Blood Type Antibody Screen 09/08/20 09/08/20 09/08/20 04:38 07:58 11:05 WBC RBC Hgb Hct MCV MCH MCHC RDW Plt Count MPV Immature Gran % (Auto) Neut % (Auto) Lymph % (Auto) [place] % (Auto) Eos % (Auto) Baso % (Auto) Lymph # (Auto) [place] # (Auto) Eos # (Auto) Baso # (Auto) Abs Immat Gran (auto) Absolute Neuts (auto) Absolute Nucleated RBC Nucleated RBC % (auto) Smear Tech's Comments PT INR APTT PTT (Heparin Protocol) D-Dimer ABG pH ABG pCO2 ABG pO2 ABG HCO3 ABG O2 Saturation ABG Base Excess VBG pH VBG pCO2 VBG pO2 VBG HCO3 VBG O2 Saturation VBG Base Excess Oxygen Given Sodium 141 Potassium 3.7 Chloride 103 Carbon Dioxide 26 Anion Gap 16 BUN 65 H Creatinine 3.59 H Estim Creat Clear Calc 37.7 Estimated GFR 18 POC Glucose 267 H Random Glucose 290 H Lactic Acid Calcium 8.1 L Phosphorus Magnesium Ferritin Total Bilirubin Direct Bilirubin AST ALT Alkaline Phosphatase Lactate Dehydrogenase Troponin I High Sens B-Natriuretic Peptide Total Protein Albumin Ur Random Sodium Urine Creatinine Coronavirus (PCR) Influenza Type A (PCR) Influenza Type B (PCR) RSV RNA Qual (PCR) SARS-CoV-2 IgG Ab Negative Blood Type Antibody Screen 09/08/20 09/08/20 09/08/20 11:08 12:16 15:44 WBC RBC Hgb Hct MCV MCH MCHC RDW Plt Count MPV Immature Gran % (Auto) Neut % (Auto) Lymph % (Auto) [place] % (Auto) Eos % (Auto) Baso % (Auto) Lymph # (Auto) [place] # (Auto) Eos # (Auto) Baso # (Auto) Abs Immat Gran (auto) Absolute Neuts (auto) Absolute Nucleated RBC Nucleated RBC % (auto) Smear Tech's Comments PT INR APTT PTT (Heparin Protocol) D-Dimer ABG pH ABG pCO2 ABG pO2 ABG HCO3 ABG O2 Saturation ABG Base Excess VBG pH VBG pCO2 VBG pO2 VBG HCO3 VBG O2 Saturation VBG Base Excess Oxygen Given Sodium Potassium Chloride Carbon Dioxide Anion Gap BUN Creatinine Estim Creat Clear Calc Estimated GFR POC Glucose 254 H 256 H Random Glucose Lactic Acid Calcium Phosphorus Magnesium Ferritin Total Bilirubin Direct Bilirubin AST ALT Alkaline Phosphatase Lactate Dehydrogenase Troponin I High Sens B-Natriuretic Peptide Total Protein Albumin Ur Random Sodium Urine Creatinine Coronavirus (PCR) Influenza Type A (PCR) Influenza Type B (PCR) RSV RNA Qual (PCR) SARS-CoV-2 IgG Ab Blood Type A Positive Antibody Screen NEGATIVE 09/08/20 09/08/20 09/09/20 20:23 20:57 02:12 WBC RBC Hgb Hct MCV MCH MCHC RDW Plt Count MPV Immature Gran % (Auto) Neut % (Auto) Lymph % (Auto) [place] % (Auto) Eos % (Auto) Baso % (Auto) Lymph # (Auto) [place] # (Auto) Eos # (Auto) Baso # (Auto) Abs Immat Gran (auto) Absolute Neuts (auto) Absolute Nucleated RBC Nucleated RBC % (auto) Smear Tech's Comments PT INR APTT PTT (Heparin Protocol) D-Dimer ABG pH ABG pCO2 ABG pO2 ABG HCO3 ABG O2 Saturation ABG Base Excess VBG pH VBG pCO2 VBG pO2 VBG HCO3 VBG O2 Saturation VBG Base Excess Oxygen Given Sodium Potassium Chloride Carbon Dioxide Anion Gap BUN Creatinine Estim Creat Clear Calc Estimated GFR POC Glucose 261 H Random Glucose Lactic Acid Calcium Phosphorus Magnesium 1.8 Ferritin Total Bilirubin Direct Bilirubin AST ALT Alkaline Phosphatase Lactate Dehydrogenase Troponin I High Sens B-Natriuretic Peptide 363 H Total Protein Albumin Ur Random Sodium Urine Creatinine Coronavirus (PCR) Influenza Type A (PCR) Influenza Type B (PCR) RSV RNA Qual (PCR) SARS-CoV-2 IgG Ab Blood Type Antibody Screen 09/09/20 09/09/20 09/09/20 07:21 08:51 09:00 WBC RBC Hgb Hct MCV MCH MCHC RDW Plt Count MPV Immature Gran % (Auto) Neut % (Auto) Lymph % (Auto) [place] % (Auto) Eos % (Auto) Baso % (Auto) Lymph # (Auto) [place] # (Auto) Eos # (Auto) Baso # (Auto) Abs Immat Gran (auto) Absolute Neuts (auto) Absolute Nucleated RBC Nucleated RBC % (auto) Smear Tech's Comments PT INR APTT PTT (Heparin Protocol) D-Dimer ABG pH 7.48 H ABG pCO2 35 ABG pO2 57 L ABG HCO3 26 ABG O2 Saturation 90.6 ABG Base Excess 2.2 VBG pH VBG pCO2 VBG pO2 VBG HCO3 VBG O2 Saturation VBG Base Excess Oxygen Given 100% Sodium 144 Potassium 3.3 Chloride 102 Carbon Dioxide 26 Anion Gap 19 BUN 64 H Creatinine 3.25 H Estim Creat Clear Calc 41.6 Estimated GFR 20 POC Glucose 155 H Random Glucose 145 H D Lactic Acid Calcium 8.2 L Phosphorus Magnesium Ferritin Total Bilirubin Direct Bilirubin AST ALT Alkaline Phosphatase Lactate Dehydrogenase Troponin I High Sens B-Natriuretic Peptide Total Protein Albumin Ur Random Sodium Urine Creatinine Coronavirus (PCR) Influenza Type A (PCR) Influenza Type B (PCR) RSV RNA Qual (PCR) SARS-CoV-2 IgG Ab Blood Type Antibody Screen 09/09/20 09/09/20 09/09/20 11:34 12:43 15:20 WBC 9.5 RBC 4.15 L Hgb 11.9 L Hct 37.1 L MCV 89.4 MCH 28.7 MCHC 32.1 RDW 16.1 H Plt Count 113 L MPV 11.8 Immature Gran % (Auto) 0.5 H Neut % (Auto) 95.3 H Lymph % (Auto) 2.5 L [place] % (Auto) 1.6 L Eos % (Auto) 0.0 Baso % (Auto) 0.1 Lymph # (Auto) 0.2 L [place] # (Auto) 0.2 Eos # (Auto) 0.0 Baso # (Auto) 0.0 Abs Immat Gran (auto) 0.05 H Absolute Neuts (auto) 9.0 H Absolute Nucleated RBC 0.000 Nucleated RBC % (auto) 0.0 Smear Tech's Comments VERIFIED PT INR APTT PTT (Heparin Protocol) D-Dimer ABG pH ABG pCO2 ABG pO2 ABG HCO3 ABG O2 Saturation ABG Base Excess VBG pH VBG pCO2 VBG pO2 VBG HCO3 VBG O2 Saturation VBG Base Excess Oxygen Given Sodium Potassium Chloride Carbon Dioxide Anion Gap BUN Creatinine Estim Creat Clear Calc Estimated GFR POC Glucose 213 H 191 H Random Glucose Lactic Acid Calcium Phosphorus Magnesium Ferritin Total Bilirubin Direct Bilirubin AST ALT Alkaline Phosphatase Lactate Dehydrogenase Troponin I High Sens B-Natriuretic Peptide Total Protein Albumin Ur Random Sodium Urine Creatinine Coronavirus (PCR) Influenza Type A (PCR) Influenza Type B (PCR) RSV RNA Qual (PCR) SARS-CoV-2 IgG Ab Blood Type Antibody Screen 09/09/20 09/09/20 09/09/20 15:20 15:20 16:30 WBC RBC Hgb Hct MCV MCH MCHC RDW Plt Count MPV Immature Gran % (Auto) Neut % (Auto) Lymph % (Auto) [place] % (Auto) Eos % (Auto) Baso % (Auto) Lymph # (Auto) [place] # (Auto) Eos # (Auto) Baso # (Auto) Abs Immat Gran (auto) Absolute Neuts (auto) Absolute Nucleated RBC Nucleated RBC % (auto) Smear Tech's Comments PT INR APTT PTT (Heparin Protocol) D-Dimer ABG pH ABG pCO2 ABG pO2 ABG HCO3 ABG O2 Saturation ABG Base Excess VBG pH 7.39 VBG pCO2 48 VBG pO2 24 VBG HCO3 29 VBG O2 Saturation 40.3 VBG Base Excess 3.1 Oxygen Given Sodium 140 Potassium 3.3 Chloride 101 Carbon Dioxide 29 Anion Gap 13 BUN 70 H Creatinine 3.40 H Estim Creat Clear Calc 39.8 Estimated GFR 19 POC Glucose 175 H Random Glucose 180 H Lactic Acid Calcium 7.8 L Phosphorus 4.8 H Magnesium 1.8 Ferritin Total Bilirubin 0.4 Direct Bilirubin AST 37 ALT 17 Alkaline Phosphatase 101 D Lactate Dehydrogenase Troponin I High Sens B-Natriuretic Peptide Total Protein 6.9 Albumin 3.4 L Ur Random Sodium Urine Creatinine Coronavirus (PCR) Influenza Type A (PCR) Influenza Type B (PCR) RSV RNA Qual (PCR) SARS-CoV-2 IgG Ab Blood Type Antibody Screen 09/09/20 09/10/20 09/10/20 21:20 04:21 04:22 WBC 8.4 RBC 4.25 L Hgb 12.2 L Hct 38.3 L MCV 90.1 MCH 28.7 MCHC 31.9 RDW 16.1 H Plt Count 117 L MPV 11.8 Immature Gran % (Auto) 1.1 H Neut % (Auto) 94.8 H Lymph % (Auto) 2.5 L [place] % (Auto) 1.5 L Eos % (Auto) 0.0 Baso % (Auto) 0.1 Lymph # (Auto) 0.2 L [place] # (Auto) 0.1 Eos # (Auto) 0.0 Baso # (Auto) 0.0 Abs Immat Gran (auto) 0.09 H Absolute Neuts (auto) 8.0 Absolute Nucleated RBC 0.000 Nucleated RBC % (auto) 0.0 Smear Tech's Comments VERIFIED PT INR APTT PTT (Heparin Protocol) D-Dimer ABG pH ABG pCO2 ABG pO2 ABG HCO3 ABG O2 Saturation ABG Base Excess VBG pH VBG pCO2 VBG pO2 VBG HCO3 VBG O2 Saturation VBG Base Excess Oxygen Given Sodium 142 Potassium 3.2 L Chloride 101 Carbon Dioxide 25 Anion Gap 19 BUN 76 H Creatinine 3.09 H Estim Creat Clear Calc 43.8 Estimated GFR 21 POC Glucose 177 H Random Glucose 199 H Lactic Acid Calcium 7.7 L Phosphorus 5.4 H Magnesium 1.9 Ferritin Total Bilirubin 0.5 Direct Bilirubin AST 43 H ALT 21 Alkaline Phosphatase 100 Lactate Dehydrogenase Troponin I High Sens B-Natriuretic Peptide Total Protein 7.1 Albumin 3.4 L Ur Random Sodium Urine Creatinine Coronavirus (PCR) Influenza Type A (PCR) Influenza Type B (PCR) RSV RNA Qual (PCR) SARS-CoV-2 IgG Ab Blood Type Antibody Screen 09/10/20 09/10/20 09/10/20 04:22 04:22 04:22 WBC RBC Hgb Hct MCV MCH MCHC RDW Plt Count MPV Immature Gran % (Auto) Neut % (Auto) Lymph % (Auto) [place] % (Auto) Eos % (Auto) Baso % (Auto) Lymph # (Auto) [place] # (Auto) Eos # (Auto) Baso # (Auto) Abs Immat Gran (auto) Absolute Neuts (auto) Absolute Nucleated RBC Nucleated RBC % (auto) Smear Tech's Comments PT INR APTT PTT (Heparin Protocol) D-Dimer 965 ABG pH ABG pCO2 ABG pO2 ABG HCO3 ABG O2 Saturation ABG Base Excess VBG pH 7.34 VBG pCO2 41 VBG pO2 24 VBG HCO3 22 VBG O2 Saturation 37.6 VBG Base Excess -4.0 Oxygen Given Sodium 141 Potassium 3.1 L Chloride 102 Carbon Dioxide 23 Anion Gap 19 BUN 75 H Creatinine 3.65 H Estim Creat Clear Calc 37.1 Estimated GFR 17 POC Glucose Random Glucose 196 H Lactic Acid Calcium 7.7 L Phosphorus 5.3 H Magnesium 1.9 Ferritin Total Bilirubin 0.5 Direct Bilirubin 0.3 AST 43 H ALT 22 Alkaline Phosphatase 98 Lactate Dehydrogenase Troponin I High Sens B-Natriuretic Peptide Total Protein 7.0 Albumin 3.4 L Ur Random Sodium Urine Creatinine Coronavirus (PCR) Influenza Type A (PCR) Influenza Type B (PCR) RSV RNA Qual (PCR) SARS-CoV-2 IgG Ab Blood Type Antibody Screen 09/10/20 09/10/20 09/10/20 07:08 11:11 15:44 WBC RBC Hgb Hct MCV MCH MCHC RDW Plt Count MPV Immature Gran % (Auto) Neut % (Auto) Lymph % (Auto) [place] % (Auto) Eos % (Auto) Baso % (Auto) Lymph # (Auto) [place] # (Auto) Eos # (Auto) Baso # (Auto) Abs Immat Gran (auto) Absolute Neuts (auto) Absolute Nucleated RBC Nucleated RBC % (auto) Smear Tech's Comments PT INR APTT PTT (Heparin Protocol) D-Dimer ABG pH ABG pCO2 ABG pO2 ABG HCO3 ABG O2 Saturation ABG Base Excess VBG pH VBG pCO2 VBG pO2 VBG HCO3 VBG O2 Saturation VBG Base Excess Oxygen Given Sodium Potassium Chloride Carbon Dioxide Anion Gap BUN Creatinine Estim Creat Clear Calc Estimated GFR POC Glucose 180 H 160 H 167 H Random Glucose Lactic Acid Calcium Phosphorus Magnesium Ferritin Total Bilirubin Direct Bilirubin AST ALT Alkaline Phosphatase Lactate Dehydrogenase Troponin I High Sens B-Natriuretic Peptide Total Protein Albumin Ur Random Sodium Urine Creatinine Coronavirus (PCR) Influenza Type A (PCR) Influenza Type B (PCR) RSV RNA Qual (PCR) SARS-CoV-2 IgG Ab Blood Type Antibody Screen 09/10/20 09/11/20 09/11/20 20:14 05:48 05:48 WBC 5.7 RBC 4.21 L Hgb 12.0 L Hct 37.2 L MCV 88.4 MCH 28.5 MCHC 32.3 RDW 15.6 Plt Count 111 L MPV 12.3 Immature Gran % (Auto) 0.4 Neut % (Auto) 93.9 H Lymph % (Auto) 3.4 L [place] % (Auto) 2.3 Eos % (Auto) 0.0 Baso % (Auto) 0.0 Lymph # (Auto) 0.2 L [place] # (Auto) 0.1 Eos # (Auto) 0.0 Baso # (Auto) 0.0 Abs Immat Gran (auto) 0.02 Absolute Neuts (auto) 5.3 Absolute Nucleated RBC 0.000 Nucleated RBC % (auto) 0.0 Smear Tech's Comments VERIFIED PT INR APTT PTT (Heparin Protocol) D-Dimer ABG pH ABG pCO2 ABG pO2 ABG HCO3 ABG O2 Saturation ABG Base Excess VBG pH VBG pCO2 VBG pO2 VBG HCO3 VBG O2 Saturation VBG Base Excess Oxygen Given Sodium 144 Potassium 3.2 L Chloride 101 Carbon Dioxide 26 Anion Gap 20 BUN 95 H* D Creatinine 3.75 H Estim Creat Clear Calc 34.5 Estimated GFR 17 POC Glucose 189 H Random Glucose 185 H Lactic Acid Calcium 8.5 D Phosphorus 5.5 H Magnesium 2.1 Ferritin Total Bilirubin 0.5 Direct Bilirubin AST 32 ALT 17 Alkaline Phosphatase 87 Lactate Dehydrogenase Troponin I High Sens B-Natriuretic Peptide Total Protein 7.6 Albumin 3.3 L Ur Random Sodium Urine Creatinine Coronavirus (PCR) Influenza Type A (PCR) Influenza Type B (PCR) RSV RNA Qual (PCR) SARS-CoV-2 IgG Ab Blood Type Antibody Screen 09/11/20 09/11/20 09/11/20 05:48 05:48 05:48 WBC RBC Hgb Hct MCV MCH MCHC RDW Plt Count MPV Immature Gran % (Auto) Neut % (Auto) Lymph % (Auto) [place] % (Auto) Eos % (Auto) Baso % (Auto) Lymph # (Auto) [place] # (Auto) Eos # (Auto) Baso # (Auto) Abs Immat Gran (auto) Absolute Neuts (auto) Absolute Nucleated RBC Nucleated RBC % (auto) Smear Tech's Comments PT INR APTT PTT (Heparin Protocol) D-Dimer 886 ABG pH ABG pCO2 ABG pO2 ABG HCO3 ABG O2 Saturation ABG Base Excess VBG pH 7.37 VBG pCO2 47 VBG pO2 35 VBG HCO3 26 VBG O2 Saturation 63.8 VBG Base Excess 0.6 Oxygen Given Sodium Cancelled Potassium Cancelled Chloride Cancelled Carbon Dioxide Cancelled Anion Gap Cancelled BUN Cancelled Creatinine Cancelled Estim Creat Clear Calc Cancelled Estimated GFR Cancelled POC Glucose Random Glucose Cancelled Lactic Acid Calcium Cancelled Phosphorus Cancelled Magnesium Cancelled Ferritin Total Bilirubin Direct Bilirubin AST ALT Alkaline Phosphatase Lactate Dehydrogenase Troponin I High Sens B-Natriuretic Peptide Total Protein Albumin Cancelled Ur Random Sodium Urine Creatinine Coronavirus (PCR) Influenza Type A (PCR) Influenza Type B (PCR) RSV RNA Qual (PCR) SARS-CoV-2 IgG Ab Blood Type Antibody Screen 09/11/20 09/11/20 09/11/20 07:14 11:09 16:17 WBC RBC Hgb Hct MCV MCH MCHC RDW Plt Count MPV Immature Gran % (Auto) Neut % (Auto) Lymph % (Auto) [place] % (Auto) Eos % (Auto) Baso % (Auto) Lymph # (Auto) [place] # (Auto) Eos # (Auto) Baso # (Auto) Abs Immat Gran (auto) Absolute Neuts (auto) Absolute Nucleated RBC Nucleated RBC % (auto) Smear Tech's Comments PT INR APTT PTT (Heparin Protocol) D-Dimer ABG pH ABG pCO2 ABG pO2 ABG HCO3 ABG O2 Saturation ABG Base Excess VBG pH VBG pCO2 VBG pO2 VBG HCO3 VBG O2 Saturation VBG Base Excess Oxygen Given Sodium Potassium Chloride Carbon Dioxide Anion Gap BUN Creatinine Estim Creat Clear Calc Estimated GFR POC Glucose 186 H 177 H 274 H Random Glucose Lactic Acid Calcium Phosphorus Magnesium Ferritin Total Bilirubin Direct Bilirubin AST ALT Alkaline Phosphatase Lactate Dehydrogenase Troponin I High Sens B-Natriuretic Peptide Total Protein Albumin Ur Random Sodium Urine Creatinine Coronavirus (PCR) Influenza Type A (PCR) Influenza Type B (PCR) RSV RNA Qual (PCR) SARS-CoV-2 IgG Ab Blood Type Antibody Screen 09/11/20 09/12/20 09/12/20 21:12 05:30 05:30 WBC 6.5 RBC 3.98 L Hgb 11.5 L Hct 35.2 L MCV 88.4 MCH 28.9 MCHC 32.7 RDW 15.5 Plt Count 115 L MPV 12.0 Immature Gran % (Auto) 0.8 H Neut % (Auto) 95.0 H Lymph % (Auto) 2.1 L [place] % (Auto) 2.1 Eos % (Auto) 0.0 Baso % (Auto) 0.0 Lymph # (Auto) 0.1 L [place] # (Auto) 0.1 Eos # (Auto) 0.0 Baso # (Auto) 0.0 Abs Immat Gran (auto) 0.05 H Absolute Neuts (auto) 6.2 Absolute Nucleated RBC 0.000 Nucleated RBC % (auto) 0.0 Smear Tech's Comments VERIFIED PT INR APTT PTT (Heparin Protocol) D-Dimer ABG pH ABG pCO2 ABG pO2 ABG HCO3 ABG O2 Saturation ABG Base Excess VBG pH VBG pCO2 VBG pO2 VBG HCO3 VBG O2 Saturation VBG Base Excess Oxygen Given Sodium 137 Potassium 3.2 L Chloride 94 L Carbon Dioxide 26 Anion Gap 20 BUN 114 H* Creatinine 3.61 H Estim Creat Clear Calc 35.8 Estimated GFR 17 POC Glucose 285 H Random Glucose 466 H* Lactic Acid Calcium 8.2 L Phosphorus 3.3 Magnesium 2.0 Ferritin Total Bilirubin Direct Bilirubin AST ALT Alkaline Phosphatase Lactate Dehydrogenase Troponin I High Sens B-Natriuretic Peptide Total Protein Albumin 3.8 Ur Random Sodium Urine Creatinine Coronavirus (PCR) Influenza Type A (PCR) Influenza Type B (PCR) RSV RNA Qual (PCR) SARS-CoV-2 IgG Ab Blood Type Antibody Screen 09/12/20 09/12/20 09/12/20 05:30 07:35 09:49 WBC RBC Hgb Hct MCV MCH MCHC RDW Plt Count MPV Immature Gran % (Auto) Neut % (Auto) Lymph % (Auto) [place] % (Auto) Eos % (Auto) Baso % (Auto) Lymph # (Auto) [place] # (Auto) Eos # (Auto) Baso # (Auto) Abs Immat Gran (auto) Absolute Neuts (auto) Absolute Nucleated RBC Nucleated RBC % (auto) Smear Tech's Comments PT 13.6 H INR 1.1 APTT PTT (Heparin Protocol) 22.6 L D-Dimer ABG pH ABG pCO2 ABG pO2 ABG HCO3 ABG O2 Saturation ABG Base Excess VBG pH 7.38 VBG pCO2 46 VBG pO2 38 VBG HCO3 27 VBG O2 Saturation 66.7 VBG Base Excess 1.0 Oxygen Given Sodium Potassium Chloride Carbon Dioxide Anion Gap BUN Creatinine Estim Creat Clear Calc Estimated GFR POC Glucose 368 H* Random Glucose Lactic Acid Calcium Phosphorus Magnesium Ferritin Total Bilirubin Direct Bilirubin AST ALT Alkaline Phosphatase Lactate Dehydrogenase Troponin I High Sens B-Natriuretic Peptide Total Protein Albumin Ur Random Sodium Urine Creatinine Coronavirus (PCR) Influenza Type A (PCR) Influenza Type B (PCR) RSV RNA Qual (PCR) SARS-CoV-2 IgG Ab Blood Type Antibody Screen 09/12/20 09/12/20 09/12/20 11:26 16:12 18:04 WBC RBC Hgb Hct MCV MCH MCHC RDW Plt Count MPV Immature Gran % (Auto) Neut % (Auto) Lymph % (Auto) [place] % (Auto) Eos % (Auto) Baso % (Auto) Lymph # (Auto) [place] # (Auto) Eos # (Auto) Baso # (Auto) Abs Immat Gran (auto) Absolute Neuts (auto) Absolute Nucleated RBC Nucleated RBC % (auto) Smear Tech's Comments PT INR APTT PTT (Heparin Protocol) 62.7 D D-Dimer ABG pH ABG pCO2 ABG pO2 ABG HCO3 ABG O2 Saturation ABG Base Excess VBG pH VBG pCO2 VBG pO2 VBG HCO3 VBG O2 Saturation VBG Base Excess Oxygen Given Sodium Potassium Chloride Carbon Dioxide Anion Gap BUN Creatinine Estim Creat Clear Calc Estimated GFR POC Glucose 322 H 271 H Random Glucose Lactic Acid Calcium Phosphorus Magnesium Ferritin Total Bilirubin Direct Bilirubin AST ALT Alkaline Phosphatase Lactate Dehydrogenase Troponin I High Sens B-Natriuretic Peptide Total Protein Albumin Ur Random Sodium Urine Creatinine Coronavirus (PCR) Influenza Type A (PCR) Influenza Type B (PCR) RSV RNA Qual (PCR) SARS-CoV-2 IgG Ab Blood Type Antibody Screen 09/12/20 09/13/20 09/13/20 20:02 00:22 07:04 WBC RBC Hgb Hct MCV MCH MCHC RDW Plt Count MPV Immature Gran % (Auto) Neut % (Auto) Lymph % (Auto) [place] % (Auto) Eos % (Auto) Baso % (Auto) Lymph # (Auto) [place] # (Auto) Eos # (Auto) Baso # (Auto) Abs Immat Gran (auto) Absolute Neuts (auto) Absolute Nucleated RBC Nucleated RBC % (auto) Smear Tech's Comments PT 14.7 H INR 1.2 H APTT PTT (Heparin Protocol) 78.4 H D D-Dimer ABG pH ABG pCO2 ABG pO2 ABG HCO3 ABG O2 Saturation ABG Base Excess VBG pH VBG pCO2 VBG pO2 VBG HCO3 VBG O2 Saturation VBG Base Excess Oxygen Given Sodium Potassium Chloride Carbon Dioxide Anion Gap BUN Creatinine Estim Creat Clear Calc Estimated GFR POC Glucose 315 H Random Glucose Lactic Acid Calcium Phosphorus Magnesium Ferritin Total Bilirubin Direct Bilirubin AST ALT Alkaline Phosphatase Lactate Dehydrogenase Troponin I High Sens B-Natriuretic Peptide Total Protein Albumin Ur Random Sodium Urine Creatinine Coronavirus (PCR) Influenza Type A (PCR) Influenza Type B (PCR) RSV RNA Qual (PCR) SARS-CoV-2 IgG Ab Blood Type Antibody Screen 09/13/20 09/13/20 09/13/20 07:04 07:04 07:04 WBC 6.5 RBC 4.52 L Hgb 12.9 L Hct 38.8 L MCV 85.8 MCH 28.5 MCHC 33.2 RDW 15.0 Plt Count 141 L MPV 12.2 Immature Gran % (Auto) 0.9 H Neut % (Auto) 93.9 H Lymph % (Auto) 2.6 L [place] % (Auto) 2.6 Eos % (Auto) 0.0 Baso % (Auto) 0.0 Lymph # (Auto) 0.2 L [place] # (Auto) 0.2 Eos # (Auto) 0.0 Baso # (Auto) 0.0 Abs Immat Gran (auto) 0.06 H Absolute Neuts (auto) 6.1 Absolute Nucleated RBC 0.000 Nucleated RBC % (auto) 0.0 Smear Tech's Comments VERIFIED PT INR APTT PTT (Heparin Protocol) D-Dimer ABG pH ABG pCO2 ABG pO2 ABG HCO3 ABG O2 Saturation ABG Base Excess VBG pH 7.41 VBG pCO2 45 VBG pO2 34 VBG HCO3 27 VBG O2 Saturation 61.0 VBG Base Excess 2.2 Oxygen Given Sodium 135 Potassium 3.3 Chloride 93 L Carbon Dioxide 25 Anion Gap 20 BUN 118 H* Creatinine 3.45 H Estim Creat Clear Calc 36.1 Estimated GFR 18 POC Glucose Random Glucose 375 H* Lactic Acid Calcium 8.6 Phosphorus 4.9 H Magnesium 2.1 Ferritin Total Bilirubin 0.7 Direct Bilirubin AST 21 ALT 14 Alkaline Phosphatase 106 D Lactate Dehydrogenase Troponin I High Sens B-Natriuretic Peptide Total Protein 7.6 Albumin 3.6 Ur Random Sodium Urine Creatinine Coronavirus (PCR) Influenza Type A (PCR) Influenza Type B (PCR) RSV RNA Qual (PCR) SARS-CoV-2 IgG Ab Blood Type Antibody Screen 09/13/20 09/13/20 09/13/20 07:04 07:27 11:11 WBC RBC Hgb Hct MCV MCH MCHC RDW Plt Count MPV Immature Gran % (Auto) Neut % (Auto) Lymph % (Auto) [place] % (Auto) Eos % (Auto) Baso % (Auto) Lymph # (Auto) [place] # (Auto) Eos # (Auto) Baso # (Auto) Abs Immat Gran (auto) Absolute Neuts (auto) Absolute Nucleated RBC Nucleated RBC % (auto) Smear Tech's Comments PT INR APTT PTT (Heparin Protocol) 76.6 D-Dimer ABG pH ABG pCO2 ABG pO2 ABG HCO3 ABG O2 Saturation ABG Base Excess VBG pH VBG pCO2 VBG pO2 VBG HCO3 VBG O2 Saturation VBG Base Excess Oxygen Given Sodium Potassium Chloride Carbon Dioxide Anion Gap BUN Creatinine Estim Creat Clear Calc Estimated GFR POC Glucose 329 H 289 H Random Glucose Lactic Acid Calcium Phosphorus Magnesium Ferritin Total Bilirubin Direct Bilirubin AST ALT Alkaline Phosphatase Lactate Dehydrogenase Troponin I High Sens B-Natriuretic Peptide Total Protein Albumin Ur Random Sodium Urine Creatinine Coronavirus (PCR) Influenza Type A (PCR) Influenza Type B (PCR) RSV RNA Qual (PCR) SARS-CoV-2 IgG Ab Blood Type Antibody Screen 09/13/20 09/13/20 09/13/20 13:47 16:10 21:10 WBC RBC Hgb Hct MCV MCH MCHC RDW Plt Count MPV Immature Gran % (Auto) Neut % (Auto) Lymph % (Auto) [place] % (Auto) Eos % (Auto) Baso % (Auto) Lymph # (Auto) [place] # (Auto) Eos # (Auto) Baso # (Auto) Abs Immat Gran (auto) Absolute Neuts (auto) Absolute Nucleated RBC Nucleated RBC % (auto) Smear Tech's Comments PT INR APTT PTT (Heparin Protocol) 75.6 D-Dimer ABG pH ABG pCO2 ABG pO2 ABG HCO3 ABG O2 Saturation ABG Base Excess VBG pH VBG pCO2 VBG pO2 VBG HCO3 VBG O2 Saturation VBG Base Excess Oxygen Given Sodium Potassium Chloride Carbon Dioxide Anion Gap BUN Creatinine Estim Creat Clear Calc Estimated GFR POC Glucose 257 H 268 H Random Glucose Lactic Acid Calcium Phosphorus Magnesium Ferritin Total Bilirubin Direct Bilirubin AST ALT Alkaline Phosphatase Lactate Dehydrogenase Troponin I High Sens B-Natriuretic Peptide Total Protein Albumin Ur Random Sodium Urine Creatinine Coronavirus (PCR) Influenza Type A (PCR) Influenza Type B (PCR) RSV RNA Qual (PCR) SARS-CoV-2 IgG Ab Blood Type Antibody Screen 09/14/20 09/14/20 09/14/20 04:42 04:42 04:42 WBC 7.1 RBC 4.43 L Hgb 12.7 L Hct 38.4 L MCV 86.7 MCH 28.7 MCHC 33.1 RDW 15.1 Plt Count 169 MPV 12.2 Immature Gran % (Auto) 1.0 H Neut % (Auto) 93.5 H Lymph % (Auto) 2.7 L [place] % (Auto) 2.8 Eos % (Auto) 0.0 Baso % (Auto) 0.0 Lymph # (Auto) 0.2 L [place] # (Auto) 0.2 Eos # (Auto) 0.0 Baso # (Auto) 0.0 Abs Immat Gran (auto) 0.07 H Absolute Neuts (auto) 6.6 Absolute Nucleated RBC 0.000 Nucleated RBC % (auto) 0.0 Smear Tech's Comments VERIFIED PT INR APTT PTT (Heparin Protocol) 90.4 H D-Dimer ABG pH ABG pCO2 ABG pO2 ABG HCO3 ABG O2 Saturation ABG Base Excess VBG pH VBG pCO2 VBG pO2 VBG HCO3 VBG O2 Saturation VBG Base Excess Oxygen Given Sodium 138 Potassium 3.8 Chloride 94 L Carbon Dioxide 24 Anion Gap 24 H BUN 130 H* Creatinine 3.33 H Estim Creat Clear Calc 37.4 Estimated GFR 19 POC Glucose Random Glucose 262 H Lactic Acid Calcium 8.6 Phosphorus 6.1 H Magnesium 2.3 Ferritin Total Bilirubin Direct Bilirubin AST ALT Alkaline Phosphatase Lactate Dehydrogenase Troponin I High Sens B-Natriuretic Peptide Total Protein Albumin 3.6 Ur Random Sodium Urine Creatinine Coronavirus (PCR) Influenza Type A (PCR) Influenza Type B (PCR) RSV RNA Qual (PCR) SARS-CoV-2 IgG Ab Blood Type Antibody Screen 09/14/20 09/14/20 09/14/20 04:42 07:48 11:17 WBC RBC Hgb Hct MCV MCH MCHC RDW Plt Count MPV Immature Gran % (Auto) Neut % (Auto) Lymph % (Auto) [place] % (Auto) Eos % (Auto) Baso % (Auto) Lymph # (Auto) [place] # (Auto) Eos # (Auto) Baso # (Auto) Abs Immat Gran (auto) Absolute Neuts (auto) Absolute Nucleated RBC Nucleated RBC % (auto) Smear Tech's Comments PT INR APTT PTT (Heparin Protocol) D-Dimer ABG pH ABG pCO2 ABG pO2 ABG HCO3 ABG O2 Saturation ABG Base Excess VBG pH 7.33 VBG pCO2 53 VBG pO2 32 VBG HCO3 28 VBG O2 Saturation 56.5 VBG Base Excess 0.8 Oxygen Given Sodium Potassium Chloride Carbon Dioxide Anion Gap BUN Creatinine Estim Creat Clear Calc Estimated GFR POC Glucose 287 H 439 H* Random Glucose Lactic Acid Calcium Phosphorus Magnesium Ferritin Total Bilirubin Direct Bilirubin AST ALT Alkaline Phosphatase Lactate Dehydrogenase Troponin I High Sens B-Natriuretic Peptide Total Protein Albumin Ur Random Sodium Urine Creatinine Coronavirus (PCR) Influenza Type A (PCR) Influenza Type B (PCR) RSV RNA Qual (PCR) SARS-CoV-2 IgG Ab Blood Type Antibody Screen 09/14/20 09/14/20 09/14/20 11:20 11:24 14:09 WBC RBC Hgb Hct MCV MCH MCHC RDW Plt Count MPV Immature Gran % (Auto) Neut % (Auto) Lymph % (Auto) [place] % (Auto) Eos % (Auto) Baso % (Auto) Lymph # (Auto) [place] # (Auto) Eos # (Auto) Baso # (Auto) Abs Immat Gran (auto) Absolute Neuts (auto) Absolute Nucleated RBC Nucleated RBC % (auto) Smear Tech's Comments PT INR APTT PTT (Heparin Protocol) 71.9 D D-Dimer ABG pH ABG pCO2 ABG pO2 ABG HCO3 ABG O2 Saturation ABG Base Excess VBG pH VBG pCO2 VBG pO2 VBG HCO3 VBG O2 Saturation VBG Base Excess Oxygen Given Sodium Potassium Chloride Carbon Dioxide Anion Gap BUN Creatinine Estim Creat Clear Calc Estimated GFR POC Glucose 396 H* 426 H* Random Glucose Lactic Acid Calcium Phosphorus Magnesium Ferritin Total Bilirubin Direct Bilirubin AST ALT Alkaline Phosphatase Lactate Dehydrogenase Troponin I High Sens B-Natriuretic Peptide Total Protein Albumin Ur Random Sodium Urine Creatinine Coronavirus (PCR) Influenza Type A (PCR) Influenza Type B (PCR) RSV RNA Qual (PCR) SARS-CoV-2 IgG Ab Blood Type Antibody Screen 09/14/20 09/14/20 09/14/20 15:59 20:29 20:50 WBC RBC Hgb Hct MCV MCH MCHC RDW Plt Count MPV Immature Gran % (Auto) Neut % (Auto) Lymph % (Auto) [place] % (Auto) Eos % (Auto) Baso % (Auto) Lymph # (Auto) [place] # (Auto) Eos # (Auto) Baso # (Auto) Abs Immat Gran (auto) Absolute Neuts (auto) Absolute Nucleated RBC Nucleated RBC % (auto) Smear Tech's Comments PT INR APTT PTT (Heparin Protocol) 60.7 D-Dimer ABG pH ABG pCO2 ABG pO2 ABG HCO3 ABG O2 Saturation ABG Base Excess VBG pH VBG pCO2 VBG pO2 VBG HCO3 VBG O2 Saturation VBG Base Excess Oxygen Given Sodium Potassium Chloride Carbon Dioxide Anion Gap BUN Creatinine Estim Creat Clear Calc Estimated GFR POC Glucose 418 H* 329 H Random Glucose Lactic Acid Calcium Phosphorus Magnesium Ferritin Total Bilirubin Direct Bilirubin AST ALT Alkaline Phosphatase Lactate Dehydrogenase Troponin I High Sens B-Natriuretic Peptide Total Protein Albumin Ur Random Sodium Urine Creatinine Coronavirus (PCR) Influenza Type A (PCR) Influenza Type B (PCR) RSV RNA Qual (PCR) SARS-CoV-2 IgG Ab Blood Type Antibody Screen 09/15/20 09/15/20 09/15/20 05:58 05:58 05:58 WBC 12.0 H RBC 4.65 Hgb 13.4 L Hct 39.4 L MCV 84.7 MCH 28.8 MCHC 34.0 RDW 15.1 Plt Count 213 D MPV 11.7 Immature Gran % (Auto) 3.2 H Neut % (Auto) 90.0 H Lymph % (Auto) 2.4 L [place] % (Auto) 4.3 Eos % (Auto) 0.0 Baso % (Auto) 0.1 Lymph # (Auto) 0.3 L [place] # (Auto) 0.5 Eos # (Auto) 0.0 Baso # (Auto) 0.0 Abs Immat Gran (auto) 0.38 H Absolute Neuts (auto) 10.8 H Absolute Nucleated RBC 0.020 H Nucleated RBC % (auto) 0.2 Smear Tech's Comments PT INR APTT PTT (Heparin Protocol) 72.1 D-Dimer ABG pH ABG pCO2 ABG pO2 ABG HCO3 ABG O2 Saturation ABG Base Excess VBG pH VBG pCO2 VBG pO2 VBG HCO3 VBG O2 Saturation VBG Base Excess Oxygen Given Sodium 142 Potassium 3.0 L D Chloride 96 Carbon Dioxide 29 Anion Gap 20 BUN 138 H* Creatinine 3.21 H Estim Creat Clear Calc 43.2 Estimated GFR 20 POC Glucose Random Glucose 119 H D Lactic Acid Calcium 9.0 Phosphorus Magnesium Ferritin Total Bilirubin Direct Bilirubin AST ALT Alkaline Phosphatase Lactate Dehydrogenase Troponin I High Sens B-Natriuretic Peptide Total Protein Albumin 3.7 Ur Random Sodium Urine Creatinine Coronavirus (PCR) Influenza Type A (PCR) Influenza Type B (PCR) RSV RNA Qual (PCR) SARS-CoV-2 IgG Ab Blood Type Antibody Screen 09/15/20 09/15/20 09/15/20 07:14 11:23 14:56 WBC RBC Hgb Hct MCV MCH MCHC RDW Plt Count MPV Immature Gran % (Auto) Neut % (Auto) Lymph % (Auto) [place] % (Auto) Eos % (Auto) Baso % (Auto) Lymph # (Auto) [place] # (Auto) Eos # (Auto) Baso # (Auto) Abs Immat Gran (auto) Absolute Neuts (auto) Absolute Nucleated RBC Nucleated RBC % (auto) Smear Tech's Comments PT INR APTT PTT (Heparin Protocol) D-Dimer ABG pH ABG pCO2 ABG pO2 ABG HCO3 ABG O2 Saturation ABG Base Excess VBG pH VBG pCO2 VBG pO2 VBG HCO3 VBG O2 Saturation VBG Base Excess Oxygen Given Sodium 143 Potassium 3.2 L Chloride 97 Carbon Dioxide 28 Anion Gap 21 H BUN 132 H* Creatinine 3.23 H Estim Creat Clear Calc 42.9 Estimated GFR 20 POC Glucose 129 H 156 H Random Glucose 159 H Lactic Acid Calcium 8.7 Phosphorus Magnesium Ferritin Total Bilirubin Direct Bilirubin AST ALT Alkaline Phosphatase Lactate Dehydrogenase Troponin I High Sens B-Natriuretic Peptide Total Protein Albumin Ur Random Sodium Urine Creatinine Coronavirus (PCR) Influenza Type A (PCR) Influenza Type B (PCR) RSV RNA Qual (PCR) SARS-CoV-2 IgG Ab Blood Type Antibody Screen 09/15/20 09/15/20 09/15/20 16:24 18:09 20:49 WBC RBC Hgb Hct MCV MCH MCHC RDW Plt Count MPV Immature Gran % (Auto) Neut % (Auto) Lymph % (Auto) [place] % (Auto) Eos % (Auto) Baso % (Auto) Lymph # (Auto) [place] # (Auto) Eos # (Auto) Baso # (Auto) Abs Immat Gran (auto) Absolute Neuts (auto) Absolute Nucleated RBC Nucleated RBC % (auto) Smear Tech's Comments PT INR APTT PTT (Heparin Protocol) D-Dimer ABG pH ABG pCO2 ABG pO2 ABG HCO3 ABG O2 Saturation ABG Base Excess VBG pH VBG pCO2 VBG pO2 VBG HCO3 VBG O2 Saturation VBG Base Excess Oxygen Given Sodium Potassium Chloride Carbon Dioxide Anion Gap BUN Creatinine Estim Creat Clear Calc Estimated GFR POC Glucose 148 H 184 H Random Glucose Lactic Acid Calcium Phosphorus Magnesium Ferritin Total Bilirubin Direct Bilirubin AST ALT Alkaline Phosphatase Lactate Dehydrogenase Troponin I High Sens 220.4 H D B-Natriuretic Peptide Total Protein Albumin Ur Random Sodium Urine Creatinine Coronavirus (PCR) Influenza Type A (PCR) Influenza Type B (PCR) RSV RNA Qual (PCR) SARS-CoV-2 IgG Ab Blood Type Antibody Screen 09/16/20 09/16/20 09/16/20 05:33 05:33 07:46 WBC RBC Hgb Hct MCV MCH MCHC RDW Plt Count MPV Immature Gran % (Auto) Neut % (Auto) Lymph % (Auto) [place] % (Auto) Eos % (Auto) Baso % (Auto) Lymph # (Auto) [place] # (Auto) Eos # (Auto) Baso # (Auto) Abs Immat Gran (auto) Absolute Neuts (auto) Absolute Nucleated RBC Nucleated RBC % (auto) Smear Tech's Comments PT INR APTT PTT (Heparin Protocol) 80.0 H D-Dimer ABG pH ABG pCO2 ABG pO2 ABG HCO3 ABG O2 Saturation ABG Base Excess VBG pH VBG pCO2 VBG pO2 VBG HCO3 VBG O2 Saturation VBG Base Excess Oxygen Given Sodium 141 Potassium 3.5 Chloride 99 Carbon Dioxide 27 Anion Gap 19 BUN 124 H* Creatinine 3.02 H Estim Creat Clear Calc 45.9 Estimated GFR 21 POC Glucose 225 H Random Glucose 224 H D Lactic Acid Calcium 8.4 Phosphorus Magnesium Ferritin Total Bilirubin Direct Bilirubin AST ALT Alkaline Phosphatase Lactate Dehydrogenase Troponin I High Sens B-Natriuretic Peptide Total Protein Albumin Ur Random Sodium Urine Creatinine Coronavirus (PCR) Influenza Type A (PCR) Influenza Type B (PCR) RSV RNA Qual (PCR) SARS-CoV-2 IgG Ab Blood Type Antibody Screen 09/16/20 09/16/2009/16/21 07:46 11:42 13:09 WBC 11.0 H RBC 4.61 Hgb 13.2 L Hct 40.0 L MCV 86.8 MCH 28.6 MCHC 33.0 RDW 15.3 Plt Count 223 MPV 12.2 Immature Gran % (Auto) Neut % (Auto) Lymph % (Auto) [place] % (Auto) Eos % (Auto) Baso % (Auto) Lymph # (Auto) [place] # (Auto) Eos # (Auto) Baso # (Auto) Abs Immat Gran (auto) Absolute Neuts (auto) Absolute Nucleated RBC 0.000 Nucleated RBC % (auto) 0.0 Smear Tech's Comments PT INR APTT PTT (Heparin Protocol) 74.9 D-Dimer ABG pH ABG pCO2 ABG pO2 ABG HCO3 ABG O2 Saturation ABG Base Excess VBG pH VBG pCO2 VBG pO2 VBG HCO3 VBG O2 Saturation VBG Base Excess Oxygen Given Sodium Potassium Chloride Carbon Dioxide Anion Gap BUN Creatinine Estim Creat Clear Calc Estimated GFR POC Glucose 275 H Random Glucose Lactic Acid Calcium Phosphorus Magnesium Ferritin Total Bilirubin Direct Bilirubin AST ALT Alkaline Phosphatase Lactate Dehydrogenase Troponin I High Sens B-Natriuretic Peptide Total Protein Albumin Ur Random Sodium Urine Creatinine Coronavirus (PCR) Influenza Type A (PCR) Influenza Type B (PCR) RSV RNA Qual (PCR) SARS-CoV-2 IgG Ab Blood Type Antibody Screen 09/16/20 09/16/20 09/16/20 16:20 20:44 21:05 WBC RBC Hgb Hct MCV MCH MCHC RDW Plt Count MPV Immature Gran % (Auto) Neut % (Auto) Lymph % (Auto) [place] % (Auto) Eos % (Auto) Baso % (Auto) Lymph # (Auto) [place] # (Auto) Eos # (Auto) Baso # (Auto) Abs Immat Gran (auto) Absolute Neuts (auto) Absolute Nucleated RBC Nucleated RBC % (auto) Smear Tech's Comments PT INR APTT PTT (Heparin Protocol) 73.6 D-Dimer ABG pH ABG pCO2 ABG pO2 ABG HCO3 ABG O2 Saturation ABG Base Excess VBG pH VBG pCO2 VBG pO2 VBG HCO3 VBG O2 Saturation VBG Base Excess Oxygen Given Sodium Potassium Chloride Carbon Dioxide Anion Gap BUN Creatinine Estim Creat Clear Calc Estimated GFR POC Glucose 323 H 323 H Random Glucose Lactic Acid Calcium Phosphorus Magnesium Ferritin Total Bilirubin Direct Bilirubin AST ALT Alkaline Phosphatase Lactate Dehydrogenase Troponin I High Sens B-Natriuretic Peptide Total Protein Albumin Ur Random Sodium Urine Creatinine Coronavirus (PCR) Influenza Type A (PCR) Influenza Type B (PCR) RSV RNA Qual (PCR) SARS-CoV-2 IgG Ab Blood Type Antibody Screen 09/17/20 09/17/20 09/17/20 05:35 07:51 11:09 WBC RBC Hgb Hct MCV MCH MCHC RDW Plt Count MPV Immature Gran % (Auto) Neut % (Auto) Lymph % (Auto) [place] % (Auto) Eos % (Auto) Baso % (Auto) Lymph # (Auto) [place] # (Auto) Eos # (Auto) Baso # (Auto) Abs Immat Gran (auto) Absolute Neuts (auto) Absolute Nucleated RBC Nucleated RBC % (auto) Smear Tech's Comments PT INR APTT PTT (Heparin Protocol) 33.6 L D D-Dimer ABG pH ABG pCO2 ABG pO2 ABG HCO3 ABG O2 Saturation ABG Base Excess VBG pH VBG pCO2 VBG pO2 VBG HCO3 VBG O2 Saturation VBG Base Excess Oxygen Given Sodium Potassium Chloride Carbon Dioxide Anion Gap BUN Creatinine Estim Creat Clear Calc Estimated GFR POC Glucose 289 H 319 H Random Glucose Lactic Acid Calcium Phosphorus Magnesium Ferritin Total Bilirubin Direct Bilirubin AST ALT Alkaline Phosphatase Lactate Dehydrogenase Troponin I High Sens B-Natriuretic Peptide Total Protein Albumin Ur Random Sodium Urine Creatinine Coronavirus (PCR) Influenza Type A (PCR) Influenza Type B (PCR) RSV RNA Qual (PCR) SARS-CoV-2 IgG Ab Blood Type Antibody Screen 09/17/20 09/17/20 09/17/20 11:47 16:26 19:44 WBC RBC Hgb Hct MCV MCH MCHC RDW Plt Count MPV Immature Gran % (Auto) Neut % (Auto) Lymph % (Auto) [place] % (Auto) Eos % (Auto) Baso % (Auto) Lymph # (Auto) [place] # (Auto) Eos # (Auto) Baso # (Auto) Abs Immat Gran (auto) Absolute Neuts (auto) Absolute Nucleated RBC Nucleated RBC % (auto) Smear Tech's Comments PT INR APTT PTT (Heparin Protocol) D-Dimer ABG pH ABG pCO2 ABG pO2 ABG HCO3 ABG O2 Saturation ABG Base Excess VBG pH VBG pCO2 VBG pO2 VBG HCO3 VBG O2 Saturation VBG Base Excess Oxygen Given Sodium 142 Potassium 4.2 Chloride 100 Carbon Dioxide 29 Anion Gap 17 BUN 126 H* Creatinine 3.30 H Estim Creat Clear Calc 40.6 Estimated GFR 19 POC Glucose 297 H 301 H Random Glucose 339 H D Lactic Acid Calcium 8.9 Phosphorus Magnesium Ferritin Total Bilirubin Direct Bilirubin AST ALT Alkaline Phosphatase Lactate Dehydrogenase Troponin I High Sens B-Natriuretic Peptide Total Protein Albumin Ur Random Sodium Urine Creatinine Coronavirus (PCR) Influenza Type A (PCR) Influenza Type B (PCR) RSV RNA Qual (PCR) SARS-CoV-2 IgG Ab Blood Type Antibody Screen 09/18/20 09/18/20 09/18/20 07:48 09:34 11:31 WBC RBC Hgb Hct MCV MCH MCHC RDW Plt Count MPV Immature Gran % (Auto) Neut % (Auto) Lymph % (Auto) [place] % (Auto) Eos % (Auto) Baso % (Auto) Lymph # (Auto) [place] # (Auto) Eos # (Auto) Baso # (Auto) Abs Immat Gran (auto) Absolute Neuts (auto) Absolute Nucleated RBC Nucleated RBC % (auto) Smear Tech's Comments PT INR APTT PTT (Heparin Protocol) D-Dimer ABG pH ABG pCO2 ABG pO2 ABG HCO3 ABG O2 Saturation ABG Base Excess VBG pH VBG pCO2 VBG pO2 VBG HCO3 VBG O2 Saturation VBG Base Excess Oxygen Given Sodium 142 Potassium 4.1 Chloride 101 Carbon Dioxide 27 Anion Gap 18 BUN 129 H* Creatinine 3.52 H Estim Creat Clear Calc 38.3 Estimated GFR 18 POC Glucose 212 H 322 H Random Glucose 314 H Lactic Acid Calcium 9.0 Phosphorus Magnesium Ferritin Total Bilirubin Direct Bilirubin AST ALT Alkaline Phosphatase Lactate Dehydrogenase Troponin I High Sens B-Natriuretic Peptide Total Protein Albumin Ur Random Sodium Urine Creatinine Coronavirus (PCR) Influenza Type A (PCR) Influenza Type B (PCR) RSV RNA Qual (PCR) SARS-CoV-2 IgG Ab Blood Type Antibody Screen 09/18/20 09/18/20 09/19/20 16:29 20:29 06:17 WBC RBC Hgb Hct MCV MCH MCHC RDW Plt Count MPV Immature Gran % (Auto) Neut % (Auto) Lymph % (Auto) [place] % (Auto) Eos % (Auto) Baso % (Auto) Lymph # (Auto) [place] # (Auto) Eos # (Auto) Baso # (Auto) Abs Immat Gran (auto) Absolute Neuts (auto) Absolute Nucleated RBC Nucleated RBC % (auto) Smear Tech's Comments PT INR APTT PTT (Heparin Protocol) D-Dimer ABG pH ABG pCO2 ABG pO2 ABG HCO3 ABG O2 Saturation ABG Base Excess VBG pH VBG pCO2 VBG pO2 VBG HCO3 VBG O2 Saturation VBG Base Excess Oxygen Given Sodium 142 Potassium 4.0 Chloride 101 Carbon Dioxide 26 Anion Gap 19 BUN 133 H* Creatinine 3.61 H Estim Creat Clear Calc 37.3 Estimated GFR 17 POC Glucose 302 H 297 H Random Glucose 312 H Lactic Acid Calcium 8.6 Phosphorus Magnesium Ferritin Total Bilirubin Direct Bilirubin AST ALT Alkaline Phosphatase Lactate Dehydrogenase Troponin I High Sens B-Natriuretic Peptide Total Protein Albumin Ur Random Sodium Urine Creatinine Coronavirus (PCR) Influenza Type A (PCR) Influenza Type B (PCR) RSV RNA Qual (PCR) SARS-CoV-2 IgG Ab Blood Type Antibody Screen 09/19/20 09/19/20 09/19/20 08:02 11:42 16:44 WBC RBC Hgb Hct MCV MCH MCHC RDW Plt Count MPV Immature Gran % (Auto) Neut % (Auto) Lymph % (Auto) [place] % (Auto) Eos % (Auto) Baso % (Auto) Lymph # (Auto) [place] # (Auto) Eos # (Auto) Baso # (Auto) Abs Immat Gran (auto) Absolute Neuts (auto) Absolute Nucleated RBC Nucleated RBC % (auto) Smear Tech's Comments PT INR APTT PTT (Heparin Protocol) D-Dimer ABG pH ABG pCO2 ABG pO2 ABG HCO3 ABG O2 Saturation ABG Base Excess VBG pH VBG pCO2 VBG pO2 VBG HCO3 VBG O2 Saturation VBG Base Excess Oxygen Given Sodium Potassium Chloride Carbon Dioxide Anion Gap BUN Creatinine Estim Creat Clear Calc Estimated GFR POC Glucose 268 H 297 H 408 H* Random Glucose Lactic Acid Calcium Phosphorus Magnesium Ferritin Total Bilirubin Direct Bilirubin AST ALT Alkaline Phosphatase Lactate Dehydrogenase Troponin I High Sens B-Natriuretic Peptide Total Protein Albumin Ur Random Sodium Urine Creatinine Coronavirus (PCR) Influenza Type A (PCR) Influenza Type B (PCR) RSV RNA Qual (PCR) SARS-CoV-2 IgG Ab Blood Type Antibody Screen 09/19/20 09/20/20 09/20/20 20:23 06:42 08:02 WBC RBC Hgb Hct MCV MCH MCHC RDW Plt Count MPV Immature Gran % (Auto) Neut % (Auto) Lymph % (Auto) [place] % (Auto) Eos % (Auto) Baso % (Auto) Lymph # (Auto) [place] # (Auto) Eos # (Auto) Baso # (Auto) Abs Immat Gran (auto) Absolute Neuts (auto) Absolute Nucleated RBC Nucleated RBC % (auto) Smear Tech's Comments PT INR APTT PTT (Heparin Protocol) D-Dimer ABG pH ABG pCO2 ABG pO2 ABG HCO3 ABG O2 Saturation ABG Base Excess VBG pH VBG pCO2 VBG pO2 VBG HCO3 VBG O2 Saturation VBG Base Excess Oxygen Given Sodium 144 Potassium 3.7 Chloride 103 Carbon Dioxide 28 Anion Gap 17 BUN 136 H* Creatinine 3.91 H Estim Creat Clear Calc 34.4 Estimated GFR 16 POC Glucose 375 H* 305 H Random Glucose 367 H* Lactic Acid Calcium 8.3 L Phosphorus Magnesium Ferritin Total Bilirubin Direct Bilirubin AST ALT Alkaline Phosphatase Lactate Dehydrogenase Troponin I High Sens B-Natriuretic Peptide Total Protein Albumin Ur Random Sodium Urine Creatinine Coronavirus (PCR) Influenza Type A (PCR) Influenza Type B (PCR) RSV RNA Qual (PCR) SARS-CoV-2 IgG Ab Blood Type Antibody Screen 09/20/20 09/20/20 09/20/20 10:41 11:38 12:30 WBC RBC Hgb Hct MCV MCH MCHC RDW Plt Count MPV Immature Gran % (Auto) Neut % (Auto) Lymph % (Auto) [place] % (Auto) Eos % (Auto) Baso % (Auto) Lymph # (Auto) [place] # (Auto) Eos # (Auto) Baso # (Auto) Abs Immat Gran (auto) Absolute Neuts (auto) Absolute Nucleated RBC Nucleated RBC % (auto) Smear Tech's Comments PT INR APTT PTT (Heparin Protocol) D-Dimer ABG pH ABG pCO2 ABG pO2 ABG HCO3 ABG O2 Saturation ABG Base Excess VBG pH 7.36 VBG pCO2 48 VBG pO2 50 VBG HCO3 28 VBG O2 Saturation 79.0 VBG Base Excess 2.0 Oxygen Given Sodium Potassium Chloride Carbon Dioxide Anion Gap BUN Creatinine Estim Creat Clear Calc Estimated GFR POC Glucose 271 H Random Glucose Lactic Acid Calcium Phosphorus Magnesium Ferritin Total Bilirubin Direct Bilirubin AST ALT Alkaline Phosphatase Lactate Dehydrogenase Troponin I High Sens B-Natriuretic Peptide Total Protein Albumin Ur Random Sodium < 20.0 Urine Creatinine 61.20 Coronavirus (PCR) Influenza Type A (PCR) Influenza Type B (PCR) RSV RNA Qual (PCR) SARS-CoV-2 IgG Ab Blood Type Antibody Screen 09/20/20 09/20/20 09/21/20 16:21 20:09 05:56 WBC RBC Hgb Hct MCV MCH MCHC RDW Plt Count MPV Immature Gran % (Auto) Neut % (Auto) Lymph % (Auto) [place] % (Auto) Eos % (Auto) Baso % (Auto) Lymph # (Auto) [place] # (Auto) Eos # (Auto) Baso # (Auto) Abs Immat Gran (auto) Absolute Neuts (auto) Absolute Nucleated RBC Nucleated RBC % (auto) Smear Tech's Comments PT INR APTT PTT (Heparin Protocol) D-Dimer ABG pH ABG pCO2 ABG pO2 ABG HCO3 ABG O2 Saturation ABG Base Excess VBG pH VBG pCO2 VBG pO2 VBG HCO3 VBG O2 Saturation VBG Base Excess Oxygen Given Sodium 146 H Potassium 3.3 Chloride 106 Carbon Dioxide 29 Anion Gap 14 BUN 118 H* Creatinine 3.36 H Estim Creat Clear Calc 40.0 Estimated GFR 19 POC Glucose 263 H 217 H Random Glucose 59 L* Lactic Acid Calcium 8.3 L Phosphorus Magnesium Ferritin Total Bilirubin Direct Bilirubin AST ALT Alkaline Phosphatase Lactate Dehydrogenase Troponin I High Sens B-Natriuretic Peptide Total Protein Albumin Ur Random Sodium Urine Creatinine Coronavirus (PCR) Influenza Type A (PCR) Influenza Type B (PCR) RSV RNA Qual (PCR) SARS-CoV-2 IgG Ab Blood Type Antibody Screen 09/21/20 09/21/20 09/21/20 07:51 11:39 16:20 WBC RBC Hgb Hct MCV MCH MCHC RDW Plt Count MPV Immature Gran % (Auto) Neut % (Auto) Lymph % (Auto) [place] % (Auto) Eos % (Auto) Baso % (Auto) Lymph # (Auto) [place] # (Auto) Eos # (Auto) Baso # (Auto) Abs Immat Gran (auto) Absolute Neuts (auto) Absolute Nucleated RBC Nucleated RBC % (auto) Smear Tech's Comments PT INR APTT PTT (Heparin Protocol) D-Dimer ABG pH ABG pCO2 ABG pO2 ABG HCO3 ABG O2 Saturation ABG Base Excess VBG pH VBG pCO2 VBG pO2 VBG HCO3 VBG O2 Saturation VBG Base Excess Oxygen Given Sodium Potassium Chloride Carbon Dioxide Anion Gap BUN Creatinine Estim Creat Clear Calc Estimated GFR POC Glucose 106 109 138 H Random Glucose Lactic Acid Calcium Phosphorus Magnesium Ferritin Total Bilirubin Direct Bilirubin AST ALT Alkaline Phosphatase Lactate Dehydrogenase Troponin I High Sens B-Natriuretic Peptide Total Protein Albumin Ur Random Sodium Urine Creatinine Coronavirus (PCR) Influenza Type A (PCR) Influenza Type B (PCR) RSV RNA Qual (PCR) SARS-CoV-2 IgG Ab Blood Type Antibody Screen 09/21/20 09/22/20 09/22/20 19:59 07:52 08:49 WBC RBC Hgb Hct MCV MCH MCHC RDW Plt Count MPV Immature Gran % (Auto) Neut % (Auto) Lymph % (Auto) [place] % (Auto) Eos % (Auto) Baso % (Auto) Lymph # (Auto) [place] # (Auto) Eos # (Auto) Baso # (Auto) Abs Immat Gran (auto) Absolute Neuts (auto) Absolute Nucleated RBC Nucleated RBC % (auto) Smear Tech's Comments PT INR APTT PTT (Heparin Protocol) D-Dimer ABG pH ABG pCO2 ABG pO2 ABG HCO3 ABG O2 Saturation ABG Base Excess VBG pH VBG pCO2 VBG pO2 VBG HCO3 VBG O2 Saturation VBG Base Excess Oxygen Given Sodium 145 Potassium Chloride Carbon Dioxide Anion Gap BUN Creatinine Estim Creat Clear Calc Estimated GFR POC Glucose 172 H 141 H Random Glucose Lactic Acid Calcium Phosphorus Magnesium Ferritin Total Bilirubin Direct Bilirubin AST ALT Alkaline Phosphatase Lactate Dehydrogenase Troponin I High Sens B-Natriuretic Peptide Total Protein Albumin Ur Random Sodium Urine Creatinine Coronavirus (PCR) Influenza Type A (PCR) Influenza Type B (PCR) RSV RNA Qual (PCR) SARS-CoV-2 IgG Ab Blood Type Antibody Screen 09/22/20 09/22/20 09/22/20 11:14 16:38 20:28 WBC RBC Hgb Hct MCV MCH MCHC RDW Plt Count MPV Immature Gran % (Auto) Neut % (Auto) Lymph % (Auto) [place] % (Auto) Eos % (Auto) Baso % (Auto) Lymph # (Auto) [place] # (Auto) Eos # (Auto) Baso # (Auto) Abs Immat Gran (auto) Absolute Neuts (auto) Absolute Nucleated RBC Nucleated RBC % (auto) Smear Tech's Comments PT INR APTT PTT (Heparin Protocol) D-Dimer ABG pH ABG pCO2 ABG pO2 ABG HCO3 ABG O2 Saturation ABG Base Excess VBG pH VBG pCO2 VBG pO2 VBG HCO3 VBG O2 Saturation VBG Base Excess Oxygen Given Sodium Potassium Chloride Carbon Dioxide Anion Gap BUN Creatinine Estim Creat Clear Calc Estimated GFR POC Glucose 181 H 95 257 H Random Glucose Lactic Acid Calcium Phosphorus Magnesium Ferritin Total Bilirubin Direct Bilirubin AST ALT Alkaline Phosphatase Lactate Dehydrogenase Troponin I High Sens B-Natriuretic Peptide Total Protein Albumin Ur Random Sodium Urine Creatinine Coronavirus (PCR) Influenza Type A (PCR) Influenza Type B (PCR) RSV RNA Qual (PCR) SARS-CoV-2 IgG Ab Blood Type Antibody Screen 09/23/20 09/23/20 09/23/20 07:19 07:41 11:37 WBC RBC Hgb Hct MCV MCH MCHC RDW Plt Count MPV Immature Gran % (Auto) Neut % (Auto) Lymph % (Auto) [place] % (Auto) Eos % (Auto) Baso % (Auto) Lymph # (Auto) [place] # (Auto) Eos # (Auto) Baso # (Auto) Abs Immat Gran (auto) Absolute Neuts (auto) Absolute Nucleated RBC Nucleated RBC % (auto) Smear Tech's Comments PT INR APTT PTT (Heparin Protocol) D-Dimer ABG pH ABG pCO2 ABG pO2 ABG HCO3 ABG O2 Saturation ABG Base Excess VBG pH VBG pCO2 VBG pO2 VBG HCO3 VBG O2 Saturation VBG Base Excess Oxygen Given Sodium 144 Potassium 3.1 L Chloride 106 Carbon Dioxide 29 Anion Gap 12 BUN 85 H* D Creatinine 2.80 H Estim Creat Clear Calc 47.0 Estimated GFR 23 POC Glucose 114 171 H Random Glucose 123 H D Lactic Acid Calcium 7.4 L D Phosphorus Magnesium Ferritin Total Bilirubin Direct Bilirubin AST ALT Alkaline Phosphatase Lactate Dehydrogenase Troponin I High Sens B-Natriuretic Peptide Total Protein Albumin Ur Random Sodium Urine Creatinine Coronavirus (PCR) Influenza Type A (PCR) Influenza Type B (PCR) RSV RNA Qual (PCR) SARS-CoV-2 IgG Ab Blood Type Antibody Screen Discharge Plan Discharge Patient Disposition: Xfer SNF Referrals: [facility] [Outside] Physician,Unknown [Primary Care Provider] - Discharge Medications: New torsemide 20 mg Tablet 100 mg PO BID Qty: 60 RF: 0 Lantus U-100 Insulin 100 unit/mL Solution 65 unit subcut BID Qty: 1 RF: 0 metoprolol tartrate 100 mg Tablet 200 mg PO BID Qty: 60 RF: 0 amiodarone 200 mg Tablet 400 mg PO DAILY Qty: 19 RF: 0 insulin lispro [Humalog U-100 Insulin] 100 unit/mL Solution See Protocol unit subcut QIDACHS Qty: 1 RF: 0 oxycodone 5 mg Tablet 5 mg PO Q6H PRN (Reason: Pain, Moderate (Pain Scale 4-6) Qty: 6 RF: 0 Continued amlodipine 10 mg tablet 10 mg PO DAILY RF: 0 (DME) pen needle, diabetic [BD Ultra-Fine Short Pen Needle] 31 gauge x 5/16 needle subcut RF: 0 Discontinued metolazone 2.5 mg tablet See Rx Instructions .ROUTE .COMPLEX RF: 0 carvedilol 25 mg tablet 25 tab PO BID RF: 0 torsemide 20 mg tablet 100 mg PO BID RF: 0 tramadol 50 mg tablet 2 tab PO Q6H PRN (Reason: pain) RF: 0 hydralazine 50 mg tablet 50 mg PO TID RF: 0 Basaglar KwikPen U-100 Insulin 100 unit/mL (3 mL) insulin pen See Protocol unit subcut DIRECTED RF: 0 Jardiance 10 mg tablet 10 mg PO DAILY RF: 0 No Action sennosides [senna] 8.6 mg Tablet 8.6 mg PO BEDTIME RF: 0 atorvastatin 20 mg Tablet 20 mg PO BEDTIME RF: 0 melatonin 3 mg Tablet 6 mg PO BEDTIME RF: 0 omeprazole 40 mg Capsule,Delayed Release(Dr/Ec) 40 mg PO DAILY RF: 0 potassium chloride 20 mEq Packet 20 meq PO DAILY RF: 0 docusate sodium 100 mg Capsule 100 mg PO DAILY RF: 0 mirtazapine 7.5 mg Tablet 7.5 mg PO BEDTIME RF: 0 Xarelto 15 mg Tablet 15 mg PO DAILY RF: 0 (DME) krunal Monzon See Rx Instructions .ROUTE .MEDSUPPLY Qty: 1 RF: 0 amiodarone 200 mg tablet 400 mg PO DAILY Qty: 19 RF: 0 metoprolol tartrate 100 mg tablet 200 mg PO BID Qty: 60 RF: 0 mirtazapine 7.5 mg tablet 7.5 mg PO BEDTIME Qty: 30 RF: 0 Xarelto 15 mg tablet 15 mg PO DAILY Qty: 30 RF: 0 torsemide 100 mg tablet 100 mg PO BID Qty: 60 RF: 0 (DME) krunal Monzon See Rx Instructions .ROUTE .MEDSUPPLY Qty: 1 RF: 0 Discharge Orders: Discharge Order (Routine); Ordered 09/23/20 Ordered By: Rudolph Melendez Diet: advance to usual diet and diabetic diet Activity on Discharge: As tolerated Other Ambulatory Orders: Basic Metabolic Panel Fasting (Routine) Timeframe: 2 Days Facility: [facility] - Location: Laboratory Ordered By: Rudolph Melendez Visit Report Forms: Patient Portal Discharge page Care Plan Goals: patient came to the hospital-Acute and chronic hypoxic respiratory failure-from chf, covid hypoventilation and possibly element of COPD--He has been used CPAP : Patient was treated accordingly with dexamethasone, IV diuresis, oxygen support, hospital course got complicated with AFib with RVR and [place] CKD: Which seems to be improving slowly: AFib chapin patient seems better control with metoprolol and amiodarone. SAQIB is also improving. I/o still negative. Had mild hypokalemia: Patient was given p.o. potassium, need to follow up outpatient with the electrolytes and BMP for monitoring for renal function and hypokalemia. Amiodarone loading 400 mg daily until 10/15/20, subsequently needs to be switched to amiodarone 200 mg daily from 10/16/20. COVID chapin: Breathing significantly improved, currently still requiring 2 L oxygen but otherwise symptomatic chapin improved significantly. Also cannot tolerate CPAP, pulmonary recommended to continue oxygen 2 L for now and further management outpatient as per Pulmonary. Patient is to followed up with Nephrology, Cardiology, Pulmonary out patiently for above-mentioned issues. Monitor CBC( patient on xarelto) and BMP in next 2-3 days in rehab due to hypokalemia Health Concerns: As above. Plan of Treatment: As above. Discharge Date/Time: 09/23/20 17:21
[2020-09-23] MEDS: Potassium Chloride Packet 20 MEQ PACKET 40 MEQ PO (13:47)
--- NOTE | 2020-09-23 14:14 | MHC.CM.PN ---
DC today to [facility] via [facility] for STR.
[2020-09-23 16:00] LABS: Glucose, Whole Blood 154 mg/dL (60-115)
[2020-09-23 16:35] LABS: Glucose, Whole Blood 148 mg/dL (60-115)
== END 2020-09-23 17:21 | disposition skilled nursing facility (03) | DRG 871 ==
LOC: HO.ED 04:12 → HO.IMC 13:31 → HO.ICU 09-09 13:04 → HO.IMC 09-15 14:25
PROVIDERS: Hospitalist; Internal Medicine; Internal Medicine Nephrology; Internal Medicine Pulmonary Disease; Physician Assistant; Registered Nurse Community Health; Admitting Provider Internal Medicine; Emergency Provider Internal Medicine; PCP Internal Medicine; Visit Provider Internal Medicine
DX: A41.89 Other specified sepsis (principal); U07.1 COVID-19; J12.82 Pneumonia due to coronavirus disease 2019; J80 Acute respiratory distress syndrome; N17.0 Acute kidney failure with tubular necrosis; I50.41 Acute combined systolic (congestive) and diastolic (congestive) heart failure; I13.0 Hypertensive heart and chronic kidney disease with heart failure and stage 1 through stage 4 chronic kidney disease, or unspecified chronic kidney disease; E66.2 Morbid (severe) obesity with alveolar hypoventilation; Z68.42 Body mass index [BMI] 45.0-49.9, adult; I48.92 Unspecified atrial flutter; N18.4 Chronic kidney disease, stage 4 (severe); F41.9 Anxiety disorder, unspecified; E87.6 Hypokalemia; E11.22 Type 2 diabetes mellitus with diabetic chronic kidney disease; Z79.4 Long term (current) use of insulin; Z79.891 Long term (current) use of opiate analgesic; Z79.899 Other long term (current) drug therapy
CPT/HCPCS: 0241U; 36415; 71045; 71250; 78580; 80048; 80053; 80076; 82040; 82728; 82803; 82947; 83605; 83615; 83735; 83880; 84100; 84295; 84300; 84484; 85025; 85027; 85379; 85610; 85730; 86769; 86850; 86900; 86901; 87040; 93005; 93306; 93970; 94640; 94660; 94664; 94799; 96361; 96365; 96375; 97110; 97116; 97163; 97166; 99231; 99232; 99233; 99285; A9540; C1758; J0282; J0696; J1100; J1160; J1200; J1205; J1940; J2060; J2270; J2405; J3010; P9047; Q9957

== ENCOUNTER 2020-09-24 01:38 | Emergency (ER) | payer OTHER, SELFPAY ==
[2020-09-24] VITALS (16 sets, daily range): BP systolic 91–153; BP diastolic 47–98; PULSE 86–136; RESP 14–27; TEMP 36.9–37.1; O2SAT 20–99; BMI 50.2
--- NOTE | 2020-09-24 | ECG_ITS ---
Test Reason : CHEST PAIN Blood Pressure : / mmHG Vent. Rate : 124 BPM Atrial Rate : 258 BPM P-R Int : 000 ms QRS Dur : 166 ms QT Int : 450 ms P-R-T Axes : 000 085 036 degrees QTc Int : 646 ms Atrial flutter with variable A-V block Right bundle branch block Abnormal ECG When compared with ECG of 24-SEP-2020 02:49, No significant changes seen Referred By: Ana Maria Lopez Electronically Signed By:KUMAR RICK
--- NOTE | 2020-09-24 02:44 | ECG_ITS ---
Test Reason : CHEST PAIN Blood Pressure : / mmHG Vent. 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
--- NOTE | 2020-09-24 02:44 | XR_ITS ---
EXAMINATION: XR CHEST CLINICAL INFORMATION: Chest pain COMPARISON: 09/11/2020 TECHNIQUE: Frontal view of the chest was obtained. FINDINGS: Lung volumes are symmetric. In comparison to the prior examination there are improving regions of multifocal patchy opacity towards the bilateral lung bases. Upper lungs are relatively clear. No appreciable pneumothorax or significant pleural effusion. The cardiomediastinal silhouette is stable. No acute osseous findings are seen. XR/XR chest 1V IMPRESSION: Multifocal patchy bibasilar opacities, overall improved since 09/11/2020.
--- NOTE | 2020-09-24 02:47 | ED_ITS ---
HPI - Chest Pain General Chief Complaint: Chest Pain Stated Complaint: chest tightness Time Seen by Provider: 09/24/20 02:43 History of Present Illness HPI narrative: This is a 60-year-old male who re-presented after being discharged earlier in the day due to inability to get medications and experiencing recurrence of chest pain but currently denies that is pressure in nature and states that is sharp, as well as having increased feeling rapid heart. On review of patient's discharge medications he has missed his evening dose of torsemide as well as Lopressor. Otherwise, patient denies any other symptoms. Related Data Home Medications Medication Instructions Recorded Confirmed amlodipine 10 mg PO DAILY 09/07/20 09/24/20 isosorbide mononitrate 30 mg PO QAM 09/07/20 09/24/20 pen needle, diabetic [BD 09/07/20 09/24/20 Ultra-Fine Short Pen Needle] carvedilol 25 mg PO BID 09/24/20 09/24/20 empagliflozin [Jardiance] 10 mg PO DAILY 09/24/20 09/24/20 losartan 100 mg PO DAILY 09/24/20 09/24/20 tramadol 100 mg PO Q6H PRN 09/24/20 09/24/20 Previous Rx's Medication Instructions Recorded amiodarone 400 mg PO DAILY #19 tab 09/23/20 insulin glargine [Lantus U-100 65 unit SUBCUT BID #1 ml 09/23/20 Insulin] insulin lispro [Humalog U-100 See Protocol SUBCUT QIDACHS #1 ml 09/23/20 Insulin] metoprolol tartrate 200 mg PO BID #60 tab 09/23/20 oxycodone 5 mg PO Q6H PRN #6 tab 09/23/20 torsemide 100 mg PO BID #60 tab 09/23/20 Allergies Allergy/AdvReac Type Severity Reaction Status Date / Time Penicillins [PENICILLINS] Allergy Severe HIVES Verified 09/07/20 01:59 Review of Systems Review of Systems: For positives and negatives as stated in HPI 10 point review of systems is otherwise negative. [facility] Past Medical History Source: nursing notes reviewed Medical History CHF (congestive heart failure) CKD (chronic kidney disease) stage 3, GFR 30-59 ml/min HTN (hypertension) Morbid obesity Obesity Obesity hypoventilation syndrome YANELI on CPAP Restrictive airway disease Surgical History History of knee surgery Social History Social History Household Members: Spouse Housing: House Alcohol intake: unknown Smoking Status: Unknown if ever smoked Second Hand Smoke Exposure: No Use of substances other than those prescribed or required for medical reasons: Unknown Advance Directives: No service: No Current occupational status: employed Physical Exam Vital Signs: Vital Signs: Last Vital Signs Temp 98.6 F 09/24/20 06:00 Pulse 136 H 09/24/20 07:52 Resp 25 H 09/24/20 06:00 BP 153/98 H 09/24/20 07:52 Pulse Ox 98 09/24/20 06:00 Body Mass Index 50.2 VITAL SIGNS: Reviewed. GENERAL: Well developed, well nourished, in no acute distress. HEAD: Normocephalic/atraumatic, EYES: PERRLA, EOMI EARS: Ext canals without abnormality, NOSE: Nares patent bilateral OROPHARYNX: no oral lesions noted, posterior pharynx clear NECK: Supple, no adenopathy LUNGS: Normal breath sounds, no rales, no wheeze noted, but tachypnea present. SpO2<98> CARDIOVASCULAR: Sinus tachycardia without noted murmurs, no JVD ABDOMEN: Obese, Soft, non-tender, non-distended with bowel sounds. MUSCULOSKELETAL: No tenderness, deformities, or effusions noted on gross inspection. EXTREMITIES: Bilateral lower extremity edema with chronic appearance. SKIN: Inspection of the skin reveals no rashes NEUROLOGIC: Alert and oriented x 4. Course Reevaluation(s) Reevaluation #1: This is a 60-year-old male with history and clinical presentation consistent with inability to have access to his prescribed medications and experiencing mild recurrent symptoms that appear to be primarily associated with sharp chest pain that he states was not associated with his cardiac symptoms. On review of all investigations lab work does appear to be stable when compared to those obtained prior to discharge. The only variance is the EKG which shows maintenance of underlying rhythm, however rate is increased once again likely due to missing Lopressor dose. Torsemide 100mg given PO, oxycodone 5 mg, Lopressor 5mg Review of all investigations without acute changes from comparison labs obtained prior to discharge yesterday. Elevated Troponin is stable when compared to prior without acute EKG changes and likely contributed by CKD and tachycardia. Patient declining to return to rehab center and requesting VNA. Signed out to Dr Bravo with plan: f/u HR after given lopressor (IV/PO) and CM/PT. Med Rec is pending as well. Time: 03:27 MDM - Chest Pain Lab Data Result diagrams: 09/24/20 03:05 09/24/20 03:05 Labs: Lab Results 09/24/20 09/24/20 09/24/20 Range/Units 03:05 03:05 03:05 WBC 11.4 H (4.8-10.8) X10*3/uL RBC 4.16 L (4.60-5.80) X10*6/uL Hgb 12.0 L (14.0-18.0) g/dl Hct 37.4 L (42-52) % MCV 89.9 (80-98) fL MCH 28.8 (27.0-33.0) pg MCHC 32.1 (31.0-36.0) g/dl RDW 16.4 H (11.0-16.0) % Plt Count 134 L D (160-400) X10*3/uL MPV 12.4 (9.4-12.4) fL Immature Gran % (Auto) 0.5 H (0.0-0.4) % Neut % (Auto) 80.1 H (45-73) % Lymph % (Auto) 7.5 L (20-40) % [place] % (Auto) 11.1 H (2-11) % Eos % (Auto) 0.7 (0-4) % Baso % (Auto) 0.1 (0-2) % Lymph # (Auto) 0.9 L (1.2-4.9) X10*3/uL [place] # (Auto) 1.3 H (0.1-1.2) X10*3/uL Eos # (Auto) 0.1 (0.0-0.4) X10*3/uL Baso # (Auto) 0.0 (0.0-0.2) X10*3/uL Abs Immat Gran (auto) 0.06 H (0.00-0.03) X10*3/uL Absolute Neuts (auto) 9.1 H (2.0-8.3) X10*3/uL Absolute Nucleated RBC 0.000 (0.0-0.012) X10*3/uL Nucleated RBC % (auto) 0.0 (0.0-0.2) /100WBC Hold Blue Top Sodium 143 (135-145) mmol/L Potassium 3.6 (3.3-5.1) mmol/l Chloride 105 (96-108) mmol/L Carbon Dioxide 28 (22-29) mmol/L Anion Gap 14 (12-20) BUN 81 H* (9-16) mg/dL Creatinine 3.41 H (0.5-1.4) mg/dL Estim Creat Clear Calc 35.8 Estimated GFR 19 Random Glucose 344 H D (60-115) mg/dL Calcium 7.4 L (8.4-10.2) mg/dL Total Bilirubin 0.5 (0.0-1.0) mg/dL AST 33 D (5-37) U/L ALT 38 (0-40) U/L Alkaline Phosphatase 95 (39-117) U/L Troponin I High Sens 202.1 H (<3.5-35.0) ng/L B-Natriuretic Peptide 190 H (<100) pg/mL Total Protein 5.8 L D (6.5-8.0) g/dL Albumin 3.0 L (3.5-5.0) g/dL Lipase (8-78) U/L Urine Color Urine Appearance Urine pH (5.0-8.0) Ur Specific [place] (1.005-1.025) Urine Protein (NEG-TRACE) MG/DL Urine Glucose (UA) (NEG) MG/DL Urine Ketones (NEG) MG/DL Urine Blood (NEG) Urine Nitrite (NEG) Ur Leukocyte Esterase (NEG) Urine RBC (0) /HPF Urine WBC (0-4) /HPF Ur Squamous Epith Cells /LPF Talc Crystals /LPF Amorphous Sediment /LPF Urine Bacteria /LPF Granular Casts /LPF Urine Yeast /HPF 09/24/20 09/24/20 09/24/20 Range/Units 03:05 03:10 03:37 WBC (4.8-10.8) X10*3/uL RBC (4.60-5.80) X10*6/uL Hgb (14.0-18.0) g/dl Hct (42-52) % MCV (80-98) fL MCH (27.0-33.0) pg MCHC (31.0-36.0) g/dl RDW (11.0-16.0) % Plt Count (160-400) X10*3/uL MPV (9.4-12.4) fL Immature Gran % (Auto) (0.0-0.4) % Neut % (Auto) (45-73) % Lymph % (Auto) (20-40) % [place] % (Auto) (2-11) % Eos % (Auto) (0-4) % Baso % (Auto) (0-2) % Lymph # (Auto) (1.2-4.9) X10*3/uL [place] # (Auto) (0.1-1.2) X10*3/uL Eos # (Auto) (0.0-0.4) X10*3/uL Baso # (Auto) (0.0-0.2) X10*3/uL Abs Immat Gran (auto) (0.00-0.03) X10*3/uL Absolute Neuts (auto) (2.0-8.3) X10*3/uL Absolute Nucleated RBC (0.0-0.012) X10*3/uL Nucleated RBC % (auto) (0.0-0.2) /100WBC Hold Blue Top SEE NOTE Sodium (135-145) mmol/L Potassium (3.3-5.1) mmol/l Chloride (96-108) mmol/L Carbon Dioxide (22-29) mmol/L Anion Gap (12-20) BUN (9-16) mg/dL Creatinine (0.5-1.4) mg/dL Estim Creat Clear Calc Estimated GFR Random Glucose (60-115) mg/dL Calcium (8.4-10.2) mg/dL Total Bilirubin (0.0-1.0) mg/dL AST (5-37) U/L ALT (0-40) U/L Alkaline Phosphatase (39-117) U/L Troponin I High Sens (<3.5-35.0) ng/L B-Natriuretic Peptide (<100) pg/mL Total Protein (6.5-8.0) g/dL Albumin (3.5-5.0) g/dL Lipase 208 H (8-78) U/L Urine Color YELLOW Urine Appearance CLEAR Urine pH 6.0 (5.0-8.0) Ur Specific [place] 1.015 (1.005-1.025) Urine Protein 2+ H (NEG-TRACE) MG/DL Urine Glucose (UA) 250 H (NEG) MG/DL Urine Ketones NEG (NEG) MG/DL Urine Blood 1+ H (NEG) Urine Nitrite NEG (NEG) Ur Leukocyte Esterase NEG (NEG) Urine RBC 0-2 (0) /HPF Urine WBC 0 (0-4) /HPF Ur Squamous Epith Cells 1+ /LPF Talc Crystals 2+ /LPF Amorphous Sediment 1+ /LPF Urine Bacteria TRACE /LPF Granular Casts 0-2 /LPF Urine Yeast TRACE /HPF ECG Data ECG #1: Attestation: I personally reviewed and interpreted this ECG as follows: Prior ECG tracings: available for review (09/15/2020 no acute changes on comparison) Interpretation: Sinus tachycardia, RBBB, no evidence of acute ischemia, HR-132, MA within normal limits. Discharge Plan Discharge Prescriptions: No [facility] isosorbide mononitrate 60 mg tablet extended release 24 hr 30 mg PO QAM RF: 0 Hold Instructions: Resume on 09/26/20. add if blood pressure allows as per rehab physician. amlodipine 10 mg tablet 10 mg PO DAILY RF: 0 (DME) pen needle, diabetic [BD Ultra-Fine Short Pen Needle] 31 gauge x 5/16 needle subcut RF: 0 torsemide 20 mg Tablet 100 mg PO BID Qty: 60 RF: 0 Lantus U-100 Insulin 100 unit/mL Solution 65 unit subcut BID Qty: 1 RF: 0 metoprolol tartrate 100 mg Tablet 200 mg PO BID Qty: 60 RF: 0 amiodarone 200 mg Tablet 400 mg PO DAILY Qty: 19 RF: 0 insulin lispro [Humalog U-100 Insulin] 100 unit/mL Solution See Protocol unit subcut QIDACHS Qty: 1 RF: 0 oxycodone 5 mg Tablet 5 mg PO Q6H PRN (Reason: Pain, Moderate (Pain Scale 4-6) Qty: 6 RF: 0 carvedilol 25 mg Tablet 25 mg PO BID RF: 0 losartan 100 mg Tablet 100 mg PO DAILY RF: 0 Jardiance 10 mg Tablet 10 mg PO DAILY RF: 0 tramadol 100 mg Tablet 100 mg PO Q6H PRN (Reason: Pain, Moderate) RF: 0
[2020-09-24 03:16] LABS: MANUAL DIFF FLAG NO
[2020-09-24 03:18] LABS: Basophils Percent Auto 0.1 % (0-2); Eosinophils Absolute Auto 0.1 X10*3/uL (0.0-0.4); Eosinophils Percent Auto 0.7 % (0-4); Hematocrit 37.4 % (42-52); Imm Gran Abs Auto 0.06 X10*3/uL (0.00-0.03); Imm Gran Pct Auto 0.5 % (0.0-0.4); Lymphocytes Absolute Auto 0.9 X10*3/uL (1.2-4.9); Lymphocytes Percent Auto 7.5 % (20-40); Mean Corpuscular HGB Conc 32.1 g/dl (31.0-36.0); Mean Corpuscular Hemoglobin 28.8 pg (27.0-33.0); Mean Corpuscular Volume 89.9 fL (80-98); Mean Platelet Volume 12.4 fL (9.4-12.4); Monocytes Absolute Auto 1.3 X10*3/uL (0.1-1.2); Monocytes Percent Auto 11.1 % (2-11); Neutrophils Absolute Auto 9.1 X10*3/uL (2.0-8.3); Neutrophils Percent Auto 80.1 % (45-73); Platelet Count 134 X10*3/uL (160-400); Red Blood Count 4.16 X10*6/uL (4.60-5.80); Red Cell Distribution Width 16.4 % (11.0-16.0); White Blood Count 11.4 X10*3/uL (4.8-10.8)
[2020-09-24 03:42] LABS: Lipase 208 U/L (8-78)
[2020-09-24 03:43] LABS: Alanine Aminotransferase 38 U/L (0-40); Alkaline Phosphatase 95 U/L (39-117); Anion Gap 14 (12-20); Aspartate Amino Transferase 33 U/L (5-37); Bilirubin Total 0.5 mg/dL (0.0-1.0); Blood Urea Nitrogen 81 mg/dL (9-16); Calcium 7.4 mg/dL (8.4-10.2); Carbon Dioxide 28 mmol/L (22-29); Chloride 105 mmol/L (96-108); Creatinine Clr Calc Pharmacy 35.8; Estimated Glomerular Filt Rate 19; Glucose Random 344 mg/dL (60-115); Potassium 3.6 mmol/l (3.3-5.1); Sodium 143 mmol/L (135-145); Total Protein 5.8 g/dL (6.5-8.0)
[2020-09-24 03:45] LABS: B Type Natriuretic Peptide 190 pg/mL (<100); Troponin-I High Sensitivity 202.1 ng/L (<3.5-35.0)
[2020-09-24 03:48] LABS: Appearance Urine CLEAR; Color Urine YELLOW; Glucose Urine UA 250 MG/DL (NEG); Leukocyte Esterase Urine NEG (NEG); Nitrite Urine NEG (NEG); Specific Gravity - Urine 1.015 (1.005-1.025); Urine Blood 1+ (NEG); Urine Ketones NEG (NEG); Urine Protein 2+ MG/DL (NEG-TRACE)
[2020-09-24 03:54] LABS: Bacteria Urine TRACE /LPF; RBC Urine 0-2 /HPF (0); Squamous Epithelial Cell Urine 1+ /LPF; WBC Urine 0 /HPF (0-4)
[2020-09-24 03:55] LABS: Amorphous Sediment Urine 1+ /LPF; Granular Casts Urine 0-2 /LPF; Urine Talc Crystals 2+ /LPF
[2020-09-24] MEDS: Torsemide 20 MG TABLET 100 MG PO ×3 (04:00→22:13)
[2020-09-24] MEDS: Metoprolol Tartrate 5 MG/5 ML VIAL IVPUSH ×4 (04:00→15:20)
[2020-09-24] MEDS: oxyCODONE HCl Immed Release 5 MG TABLET PO ×2 (04:25→09:20)
--- NOTE | 2020-09-24 06:36 | PC.NURSE ---
Patient expressed that he spoke with his and he feels that he is afraid to go back to his rehab placement. He states that they didn't give him his medication that they knew he needed. He would like to either go home with services at his house and prescriptions for his medications. I informed the ED provider that patient does not feel comfortable returning to his rehab placement.
[2020-09-24] MEDS: Metoprolol Tartrate 100 MG TABLET 200 MG PO ×2 (07:52→22:12)
[2020-09-24] MEDS: carvediloL 25 MG TABLET PO (13:23)
--- NOTE | 2020-09-24 14:04 | PC.NURSE ---
LUNCH TRAY PROVIDED HE IS SITTING ON THE BEDSIDE IN NO ACUTE RESP DISTRESS.
--- NOTE | 2020-09-24 15:23 | MHC.CM.ED ---
Met with pt. Anxious about situation with [facility] and them not having his new meds. Tells CM he got very worried about his meds and then his heart rate got elevated, and then he had CP. Pt tells me he went home on oxygen. PT recommends home PT services. Pt willing to go home. Will not go back to [facility]. Call into Tamy at [facility] . Calls back and forth without success.Lis suggested I call [facility] at [phone]. Unable to leave message or speak to anyone. Was calling to verify covered services by [facility] and O2 services. CM spoke with MD, will order resp consult to determine need for home O2. Pt agreeable to referrals to VNA agencies. Will follow for d/c needs
--- NOTE | 2020-09-24 15:37 | MHC.CM.ED ---
Spoke with and HCP, Christal ([phone]). Agreeable to home with PT, but understandably nervous about pt coming home s/p Covid. States entire family had Covid. Explained MD could order his meds to his pharmacy ([facility] ) and his script for bariatric front wheeled walker. Will have to work on home O2. Referrals placed.
--- NOTE | 2020-09-24 15:40 | MHC.CM.ED ---
RT attempted to assess oxygen requirements for home PT. RA 99%, off O2 97%. HR was 130 and pt was dizzy upon standing. Unable to walk further. RT could not recommend home o@ at this time. Suggested overnight pulse oximetry to assess O2 needs. CM spoke with provider, Dr. Bravo. Will continue to work on VNA acceptance. will speak with patient about Home O2 after placement. Pt did go to SNF yesterday on oxygen. [facility] called to meet with pt. Will follow for d/c needs
[2020-09-24] MEDS: oxyCODONE HCl ER 10 MG TAB.ER.12H 5 MG PO (16:09)
--- NOTE | 2020-09-24 16:24 | MHC.CM.ED ---
4 referrals placed for VNA that contracts with [facility]. No one has accepted pt yet. Verified that pt did go to SNF on O2 yesterday. Spoke with pt about Plan of Care. Understands he may need to stay the night pending VNA and possible home O2. Will follow for d/c needs
--- NOTE | 2020-09-24 18:35 | PC.NURSE ---
Pt will stay in ED overnight tonight, Case management will continue to attempt to find services tomorrow.
[2020-09-24] MEDS: Morphine Sulfate 4 MG/ML CARTRIDGE IVPUSH (18:49)
[2020-09-24 20:28] LABS: Glucose, Whole Blood 442 mg/dL (60-115)
[2020-09-24] MEDS: Morphine Sulfate Immed Release 15 MG TABLET PO (22:10)
[2020-09-24] MEDS: Atorvastatin Calcium 20 MG TABLET PO (22:11)
[2020-09-24] MEDS: Insulin Glargine,Hum.rec.anlog 100 UNIT/ML 10 ML VIAL 65 UNIT SUBCUT (22:11)
[2020-09-24] MEDS: Insulin Lispro 100 UNIT/ML 3 ML VIAL SUBCUT (22:11)
[2020-09-24] MEDS: Sennosides 8.6 MG TABLET PO (22:12)
[2020-09-24] MEDS: Melatonin 3 MG TABLET 6 MG PO (22:12)
[2020-09-24] MEDS: Mirtazapine 7.5 MG TABLET PO (22:13)
[2020-09-25] MEDS: Morphine Sulfate Immed Release 15 MG TABLET PO ×3 (02:13→14:14)
[2020-09-25 02:15] VITALS: BP 136/57; PULSE 65; RESP 20; TEMP 36.1; O2SAT 95
--- NOTE | 2020-09-25 04:43 | PC.NURSE ---
PT WATCHING TV, NAPPING INTERMITTENTLY. NO S/S OF DISTRESS NOTED. RESTING QUIETLY. ASKING FOR MORE PAIN MEDICATION. EXPLAINED TO PATIENT THAT HE RECEIVED MEDS AT 0215 AND NOT AVAILABLE AGAIN FOR 4 HOURS. PT AGREEABLE TO PLAN. RESP EVEN, EASY, UNLABORED. SKIN WARM AND DRY. SPEAKING IN FULL SENTENCES.
[2020-09-25 05:27] VITALS: BP 143/83; PULSE 129; RESP 20; TEMP 37.1; O2SAT 98
[2020-09-25 06:00] VITALS: BP 123/64; PULSE 100; RESP 18; O2SAT 98
[2020-09-25 06:26] LABS: Glucose, Whole Blood 159 mg/dL (60-115)
[2020-09-25] MEDS: Insulin Lispro 100 UNIT/ML 3 ML VIAL SUBCUT ×3 (07:38→18:20)
[2020-09-25 07:43] VITALS: BP 121/67; PULSE 132; RESP 20; O2SAT 96
--- NOTE | 2020-09-25 07:45 | PC.NURSE ---
pt sitting on the edge of the bed, finished his breakfast already. pt covered with his 2 units of insulin pt states that the pain has improved, pain comes and goes gets worse when coughing, pain at 8/10, sinus tach on the monitor pt awaiting case management
--- NOTE | 2020-09-25 08:57 | MHC.CM.ED ---
Patient remains in ER. Received request to call Renata at [facility] to help with discharge planning at [phone] ext [phone]. Left message requesting return telephone call. Continue to monitor for d/c needs.
--- NOTE | 2020-09-25 09:13 | PC.NURSE ---
Pt appears comfortable but reports pain to his chest that has been consistent for about one month worsening with cough. AM medications to be given. Awaiting plan for pt discharge.
[2020-09-25] MEDS: Torsemide 20 MG TABLET 100 MG PO (09:41)
[2020-09-25] MEDS: Docusate Sodium 100 MG CAPSULE PO (09:43)
[2020-09-25] MEDS: Potassium Chloride Packet 20 MEQ PACKET PO (09:43)
[2020-09-25 09:44] VITALS: BP 129/100; PULSE 126
[2020-09-25] MEDS: amLODIPine Besylate 10 MG TABLET PO (09:44)
[2020-09-25] MEDS: Omeprazole 40 MG CAPSULE.DR PO (09:44)
[2020-09-25] MEDS: Metoprolol Tartrate 100 MG TABLET 200 MG PO (09:47)
[2020-09-25] MEDS: Amiodarone HCL 200 MG TABLET 400 MG PO (09:47)
[2020-09-25] MEDS: Insulin Glargine,Hum.rec.anlog 100 UNIT/ML 10 ML VIAL 65 UNIT SUBCUT (09:49)
[2020-09-25] MEDS: Rivaroxaban 15 MG TABLET PO (10:20)
--- NOTE | 2020-09-25 10:20 | PC.NURSE ---
Pt educated on the indication, use of xarelto and s/s of abnormal bleeding. This medication was prescribed to him at the time of his last hospital discharge but he had not yet filled this prescription.
--- NOTE | 2020-09-25 11:41 | MHC.CM.ED ---
Received return telephone call from A[facility]. Explained oxygen would be needed. [facility] contacted via telephone at [phone]. Oxygen request made and approved. [facility] will be providing oxygen. Clinical info faxed to [facility] at [phone]. [facility] aware and will accept patient. Patient aware and agreeable. Patient's spouse, Christal aware and agreeable. Once there is confirmation of oxygen being delievered, patient will discharge home via BLS. Continue to monitor for d/c needs.
[2020-09-25 12:05] LABS: Glucose, Whole Blood 177 mg/dL (60-115)
--- NOTE | 2020-09-25 12:10 | MHC.CM.ED ---
Attempted to reach out to [facility] via telephone at [phone]. Left voicemail requesting return telephone call.
[2020-09-25 12:52] LABS: Glucose, Whole Blood 231 mg/dL (60-115)
[2020-09-25 14:09] VITALS: BP 126/87; PULSE 129; RESP 18; TEMP 36.8; O2SAT 98
--- NOTE | 2020-09-25 15:06 | MHC.CM.ED ---
Spoke with Familia at [facility]. They have patient in their system but no clinical information was provided from [facility]. Prescription, facesheet and ER provider documentation faxed as requested. Continue to monitor for d/c needs.
[2020-09-25 17:12] LABS: Glucose, Whole Blood 286 mg/dL (60-115)
--- NOTE | 2020-09-25 17:21 | PC.NURSE ---
Pt's pharmacy called and it was determined which medications needed to be sent to his pharmacy and which ones he already had at home. Garfield WASSERMAN given list of medications to send electronically for discharge. Pt is scheduled to return home by ambulance at 1900.
--- NOTE | 2020-09-25 17:50 | MHC.CM.ED ---
Confirmation of oxygen delivery no later than 7pm osirisness. [facility]([phone]). 2 messages left with , Christal regarding oxygen delivery, script for bariatric front wheeled walker,and meds to be sent to [facility] on [address]. Also left message that ambulance will transport patient from ED at 1900. Pt aware and agrees with plan of care. [facility] has accepted pt into their service and will contact pt tomorrow. Notified via allscripts regarding pt d/c.
--- NOTE | 2020-09-25 18:32 | MHC.CM.ED ---
[facility] booked for 7pm transport home. RN, PA, and pt. aware. Message left with .
--- NOTE | 2020-09-25 19:41 | MHC.CM.ED ---
[facility] arrived to transport pt home. CM called , Christal, to alert her of transportation. Verified that oxygen has been delivered. Christal aware that prescriptions have been sent to [address].
== END 2020-09-25 20:04 | disposition home or self-care (01) ==
PROVIDERS: Student in an Organized Health Care Education/Training Program; Emergency Provider Emergency Medicine Emergency Medical Services
DX: R07.89 Other chest pain (principal); E66.01 Morbid (severe) obesity due to excess calories; Z68.41 Body mass index [BMI] 40.0-44.9, adult; R00.0 Tachycardia, unspecified; E11.22 Type 2 diabetes mellitus with diabetic chronic kidney disease; I13.0 Hypertensive heart and chronic kidney disease with heart failure and stage 1 through stage 4 chronic kidney disease, or unspecified chronic kidney disease; N18.30 Chronic kidney disease, stage 3 unspecified; I50.9 Heart failure, unspecified; Z79.4 Long term (current) use of insulin; Z86.16 Personal history of COVID-19
CPT/HCPCS: 36415; 71045; 80053; 81001; 82947; 83690; 83880; 84484; 85025; 93005; 96374; 96375; 96376; 97162; 99285; J2270

== ENCOUNTER 2021-04-10 10:51 | Inpatient (IN) | payer OTHER, SELFPAY ==
--- NOTE | 2021-04-10 | ECG_ITS ---
Test Reason : DYSPNEA Blood Pressure : / mmHG Vent. Rate : 060 BPM Atrial Rate : 060 BPM P-R Int : 196 ms QRS Dur : 164 ms QT Int : 626 ms P-R-T Axes : 062 171 016 degrees QTc Int : 626 ms AV dual-paced rhythm Abnormal ECG When compared with ECG of 24-SEP-2020 12:46, Electronic ventricular pacemaker has replaced Atrial flutter Vent. rate has decreased BY 64 BPM Referred By: Generic ED Physician Electronically Signed By:Fernando Marino
--- NOTE | ~2021-04-10 | XR_ITS ---
EXAMINATION: XR CHEST CLINICAL INFORMATION: Fever. COMPARISON: Chest x-ray 09/24/2020 TECHNIQUE: 2 views of the chest were obtained. FINDINGS: The lungs are well-expanded without any acute pneumonic consolidation, pleural effusion. Heart size and pulmonary vascularity is normal. There are solitary pacer electrodes in right atrium and right ventricle. No gross bony abnormality seen. XR/XR chest 2V IMPRESSION: No acute cardiopulmonary process seen.
--- NOTE | ~2021-04-10 | US_ITS ---
EXAMINATION: US VENOUS ULTRASOUND WITH DOPPLER LOWER EXTREMITY, BILATERAL CLINICAL INFORMATION: Swelling COMPARISON: 09/09/2020 TECHNIQUE: Ultrasound of the deep veins is performed from the hip to the calf with compression sonography and color and pulse Doppler assessment. Spectral analysis with color-flow imaging is performed. FINDINGS: RIGHT: There is normal venous compression and respiratory variation and augmented flow. The visualized common femoral vein, superficial femoral vein, profunda femoral vein, popliteal vein, and the trifurcation region shows no evidence of deep venous thrombosis. There is no significant popliteal fossa cyst. LEFT: There is normal venous compression and respiratory variation and augmented flow. The visualized common femoral vein, superficial femoral vein, profunda femoral vein, popliteal vein, and the trifurcation region shows no evidence of deep venous thrombosis. There is no significant popliteal fossa cyst. US/US venous duplex LE BI IMPRESSION: No DVT demonstrated in the bilateral lower extremities.
--- NOTE | ~2021-04-10 | US_ITS ---
EXAMINATION: US LEFT CALF CLINICAL INFORMATION: Swelling. Question of abscess. COMPARISON: None TECHNIQUE: Limited ultrasound of the left lateral calf was performed utilizing grayscale and color Doppler technique. US/US extremity nonvascular FINDINGS/IMPRESSION: There is no fluid collection to suggest abscess. There is skin thickening and edema of the subcutaneous fat compatible cellulitis.
[2021-04-10 11:07] VITALS: BP 148/54; PULSE 59; RESP 19; TEMP 38.3; O2SAT 98; BMI 43.2
--- NOTE | 2021-04-10 14:47 | ED_ITS ---
HPI - General Adult General Chief complaint: Dyspnea Stated complaint: icd put in difficulty breathing Time Seen by Provider: 04/10/21 14:26 Source: patient Mode of arrival: ambulatory Limitations: no limitations History of Present Illness HPI narrative: 61 yo male with past medical history of HTN, insulin-dependent diabetes, obstructive sleep apnea, anxiety, depression, chronic kidney disease, AFib, CHF with dual pacemaker/ICD (placed at [facility] [address] [facility])-last known EF 40-45% 09/19, h/o COVID 19 (w/ prolonged hospitalization requiring ICU admission) here with complaints of hiccups for 2 days. DENIES chest pain, shortness of breath, cough. Patient feels like his lower legs are at their baseline. He does tell me that several days ago he was washing his feet and he thinks he may have we washed them too hard causing an abrasion in between the toes on left foot. Tells me he has had chills, night sweats and some pain and swelling to that foot since this happened. Blood sugars have been around 140 da pallavi with no high reading. On my assessment the patient tells me that his hiccups have now resolved. Related Data Home Medications Medication Instructions Recorded Confirmed pen needle, diabetic 31 gauge x 09/07/20 09/24/2001/19 (BD Ultra-Fine Short Pen Needle) atorvastatin 20 mg tablet 40 mg PO BEDTIME 09/24/20 04/10/21 potassium chloride 20 mEq oral 40 meq PO BID 09/24/20 04/10/21 packet allopurinol 100 mg tablet 1 tab PO DAILY 04/10/21 04/10/21 amiodarone 200 mg tablet 200 mg PO DAILY 04/10/21 04/10/21 apixaban 5 mg tablet (Eliquis) 1 tab PO BID 04/10/21 04/10/21 hydralazine 50 mg tablet 1 tab PO TID 04/10/21 04/10/21 insulin glargine 100 unit/mL (3 40 unit SUBCUT DAILY 04/10/21 04/10/21 mL) subcutaneous pen (Basaglar KwcocoPen U-100 Insulin) isosorbide dinitrate 10 mg tablet 2 tab PO TID 04/10/21 04/10/21 metoprolol succinate 25 mg 1 tab PO BID 04/10/21 04/10/21 tablet,extended release 24 hr torsemide 20 mg tablet 80 mg PO BIDWM 04/10/21 04/10/21 tramadol 50 mg tablet 2 tab PO Q6H PRN 04/10/21 04/10/21 Previous Rx's Medication Instructions Recorded mirtazapine 7.5 mg tablet 7.5 mg PO BEDTIME #30 tab 09/25/20 walker #1 ea 09/25/20 walker #1 ea 09/25/20 Allergies Allergy/AdvReac Type Severity Reaction Status Date / Time Penicillins [PENICILLINS] Allergy Severe HIVES Verified 04/10/21 11:07 Review of Systems Review of Systems: Yes all other systems are reviewed and are negative Constitutional: Constitutional: Reports no additional constitutional complaints, Denies body ache(s), Reports chills, Denies fever(s), Denies headache(s) and Denies weakness Eyes: Eyes: Reports no additional eye complaints and Denies change in vision ENT: Reports system reviewed and no additional complaints, except as documented, Denies dizziness, Denies headache(s), Denies nasal congestion, D enies nasal discharge and Denies neck pain Cardiovascular: Cardiovascular: Reports no additional cardiovascular complaints, Denies chest pain, Denies leg edema and Denies dyspnea Respiratory: Respiratory: Reports no additional respiratory complaints, Denies cough and Denies dyspnea Gastrointestinal: Gastrointestinal: Reports no additional gastrointestinal complaints, Denies abdominal pain, Denies diarrhea, Denies nausea and Denies vom iting Comments: +hiccups Genitourinary: Genitourinary: Denies urinary incontinence Musculoskeletal: Musculoskeletal: Reports no additional musculoskeletal complaints, Denies back pain, Denies arthralgias, Denies joint swelling, Denies neck pain, Denies numbness and Denies tingling Integumentary/Breasts: Skin/Breast: Reports system reviewed and no additional complaints, except as docu, Reports swelling, Reports erythema and Denies rash Neurologic: Reports system reviewed and no additional complaints, except as documented, Denies Abnormal speech present, Denies dizziness, Denies headache(s), Denies numbness, Denies tingling and Denies weakness PMFSH Past Medical History Attestation statement: The following information was validated with the patient. Source: old records reviewed and nursing notes reviewed Medical History CHF (congestive heart failure) CKD (chronic kidney disease) stage 3, GFR 30-59 ml/min HTN (hypertension) Morbid obesity Obesity Obesity hypoventilation syndrome YANELI on CPAP Restrictive airway disease Surgical History History of knee surgery Social History Social History Household Members: Spouse Housing: House Do you presently have visiting nurse or other home services: No Alcohol intake: unknown Second Hand Smoke Exposure: No Advance Directives: Yes Advance Directives Information Provided: Yes Advance Directives on File: No service: No Current occupational status: employed Physical Exam Vital Signs: Vital Signs: Last Vital Signs Temp 98.6 F 04/10/21 20:00 Pulse 95 04/10/21 20:00 Resp 16 04/10/21 20:00 BP 142/63 H 04/10/21 20:00 Pulse Ox 96 04/10/21 20:00 Body Mass Index 43.2 Const: General: cooperative, healthy appearing, comfortable and no acute distress Orientation/consciousness: patient oriented x3 Limitations: no limitations HENMT: Head: Yes normal to inspection Ears: hearing grossly normal bilaterally General nose exam: Normal external nose present Face and sinus: Yes normal facial exam Mouth: Normal oral and palatal mucosa present Throat: Yes posterior oropharynx normal Eyes: General: appearance normal, both eyes and all related structures Pupils: Equal, round and reactive pupils present Neck: Neck: Yes normal visual inspection Chest: Chest palpation & inspection: normal inspection of the chest Resp: Effort & Inspection: normal respiratory effort Auscultation: clear to auscultation bilaterally Cardio: Rate: regular rate Rhythm: regular rhythm Peripheral pulses: Peripheral pulses 2+ throughout GI: Inspection: Yes normal to inspection Palpation (GI): Soft to palpation and nontender Auscultation: normal bowel sounds Back/Spine/Pelvis: Thoracic/Lumbar Spine: thoracic and lumbar spine normal to inspection Skin: General skin exam: no rashes or lesions noted Neuro: General: patient oriented x3, no focal motor deficits and normal se nsation to monofilament Cranial nerves: Yes Equal, round and reactive pupils present Cognition (Neuro): normal cognition Speech: No Abnormal speech present Gait exam (Neuro): Normal gait present Motor exam (neuro): 5/5 motor strength present throughout Extrem: Other: Bilateral lower extremity swelling which is nonpitting extending to the knees. There is chronic vascular changes noted. Palpable pulses. The left lower extremity has some mild erythema and warmth to it. In between the 3rd and 4th and 4th and 5th digit there are small abrasions and fissures in the skin consistent with tinea. There is more swelling on the left lower extremity around this area. General: Yes normal to inspection Course Course Course Narrative: 61 yo male here with complaints of hiccups for the last several days with no other associated symptoms. On my assessment the patient's hiccups have resolved. Also complaining of some left lower extremity swelling, warmth and redness with associated chills and night sweats at home. On arrival the patient has a fever of 101. His a clinical exam that is concerning for cellulitis. Will check labs, blood cultures, lactic acid. At this time infection is suspected. Antibiotics ordered. 1720-labs showed leukocytosis. Elevated creatinine and BUN from baseline. Add on vancomycin. Spoke to pharmacy. For patient's chronic kidney disease a dose of 1 g of vancomycin was recommended by pharmacy. initially hesitant for admission but then accepted. For admission check COVID screen, CXR, EKG. 1900-discussed patient with Dr. Salazar. Accepted admission. Medical Decision Making MDM Narrative Medical decision making narrative: Cellulitis Medical Records Medical records reviewed: Yes I reviewed the patient's medical records. Lab Data Lab results reviewed: Yes I reviewed the patient's lab results. Result diagrams: 04/10/21 16:17 04/10/21 16:17 Labs: Lab Results 04/10/21 04/10/21 04/10/21 Range/Units 16:17 16:17 16:17 WBC 18.1 H (4.8-10.8) X10*3/uL RBC 4.23 L (4.60-5.80) X10*6/uL Hgb 12.8 L (14.0-18.0) g/dl Hct 39.3 L (42-52) % MCV 92.9 (80-98) fL MCH 30.3 (27.0-33.0) pg MCHC 32.6 (31.0-36.0) g/dl RDW 15.6 (11.0-16.0) % Plt Count TNP MPV Not Reportable Immature Gran % (Auto) Cancelled Neut % (Auto) Cancelled Lymph % (Auto) Cancelled [place]da % (Auto) Cancelled Eos % (Auto) Cancelled Baso % (Auto) Cancelled Lymph # (Auto) Cancelled [place] # (Auto) Cancelled Eos # (Auto) Cancelled Baso # (Auto) Cancelled Abs Immat Gran (auto) Cancelled Absolute Neuts (auto) Cancelled Absolute Nucleated RBC 0.000 (0.0-0.012) X10*3/uL Nucleated RBC % (auto) 0.0 (0.0-0.2) /100WBC Neutrophils % (Manual) 61 (45-73) % Band Neutrophils % 21 H (3-5) % Lymphocytes % (Manual) 4 L (20-40) % Monocytes % (Manual) 4 (2-11) % Basophils % (Manual) 1 (0-1) % Metamyelocytes % 8 % Myelocytes % 1 % Abs Neuts (Manual) 14.8 H (2.2-7.9) X10*3/uL Lymphocytes # (Manual) 0.7 (0.6-4.8) X10*3/uL Monocytes # (Manual) 0.7 (0.0-1.2) X10*3/uL Basophils # (Manual) 0.2 (0.0-0.3) X10*3/uL Metamyelocytes # 1.4 X10*3/uL Myelocytes # 0.2 X10*/uL Dohle Bodies PRESENT Platelet Estimate SLIGHTLY DECREASED (NORMAL) Plt Morphology Comment NORMAL RBC Morphology NORMAL Sodium 139 (135-145) mmol/L Potassium 3.0 L (3.3-5.1) mmol/L Chloride 97 (96-108) mmol/L Carbon Dioxide 27 (22-29) mmol/L Anion Gap 18 (12-20) BUN 74 H (9-16) mg/dL Creatinine 4.89 H* (0.5-1.4) mg/dL Estim Creat Clear Calc 22.6 Estimated GFR 12 Random Glucose 152 H D (60-115) mg/dL Lactic Acid 1.3 (0.5-2.0) mmol/L Calcium 8.4 D (8.4-10.2) mg/dL Total Bilirubin 0.7 (0.0-1.0) mg/dL Direct Bilirubin 0.2 (0.0-0.5) mg/dL AST 37 (5-37) U/L ALT 19 (0-40) U/L Alkaline Phosphatase 146 H D (39-117) U/L Total Protein 7.3 D (6.5-8.0) g/dL Albumin 3.6 (3.5-5.0) g/dL Coronavirus (PCR) (Negative) Influenza Type A (PCR) (Negative) Influenza Type B (PCR) (Negative) RSV RNA Qual (PCR) (Negative) 04/10/21 Range/Units 18:02 WBC (4.8-10.8) X10*3/uL RBC (4.60-5.80) X10*6/uL Hgb (14.0-18.0) g/dl Hct (42-52) % MCV (80-98) fL MCH (27.0-33.0) pg MCHC (31.0-36.0) g/dl RDW (11.0-16.0) % Plt Count MPV Immature Gran % (Auto) Neut % (Auto) Lymph % (Auto) [place]da % (Auto) Eos % (Auto) Baso % (Auto) Lymph # (Auto) [place] # (Auto) Eos # (Auto) Baso # (Auto) Abs Immat Gran (auto) Absolute Neuts (auto) Absolute Nucleated RBC (0.0-0.012) X10*3/uL Nucleated RBC % (auto) (0.0-0.2) /100WBC Neutrophils % (Manual) (45-73) % Band Neutrophils % (3-5) % Lymphocytes % (Manual) (20-40) % Monocytes % (Manual) (2-11) % Basophils % (Manual) (0-1) % Metamyelocytes % % Myelocytes % % Abs Neuts (Manual) (2.2-7.9) X10*3/uL Lymphocytes # (Manual) (0.6-4.8) X10*3/uL Monocytes # (Manual) (0.0-1.2) X10*3/uL Basophils # (Manual) (0.0-0.3) X10*3/uL Metamyelocytes # X10*3/uL Myelocytes # X10*/uL Dohle Bodies Platelet Estimate (NORMAL) Plt Morphology Comment RBC Morphology Sodium (135-145) mmol/L Potassium (3.3-5.1) mmol/L Chloride (96-108) mmol/L Carbon Dioxide (22-29) mmol/L Anion Gap (12-20) BUN (9-16) mg/dL Creatinine (0.5-1.4) mg/dL Estim Creat Clear Calc Estimated GFR Random Glucose (60-115) mg/dL Lactic Acid (0.5-2.0) mmol/L Calcium (8.4-10.2) mg/dL Total Bilirubin (0.0-1.0) mg/dL Direct Bilirubin (0.0-0.5) mg/dL AST (5-37) U/L ALT (0-40) U/L Alkaline Phosphatase (39-117) U/L Total Protein (6.5-8.0) g/dL Albumin (3.5-5.0) g/dL Coronavirus (PCR) NEGATIVE (Negative) Influenza Type A (PCR) NEGATIVE (Negative) Influenza Type B (PCR) NEGATIVE (Negative) RSV RNA Qual (PCR) NEGATIVE (Negative) Imaging Data Chest x-ray: Attestation: I personally reviewed and interpreted this imaging study as follows: Radiologist's impression: [place] [id number] XRay Report Signed Patient: Nicola Lozoya MR#: [id number] : 1960 Acct:[id number] Age/Sex: 61 / M ADM Date: 04/10/21 Loc: .ED Attending Dr: Ordering Physician: JENNIE CHARLES NP Date of Service: 04/10/21 Procedure(s): XR chest 2V Accession Number(s): [id number] cc: JENNIE CHARLES NP~ EXAMINATION: XR CHEST CLINICAL INFORMATION: Fever. COMPARISON: Chest x-ray 09/24/2020 TECHNIQUE: 2 views of the chest were obtained. FINDINGS: The lungs are well-expanded without any acute pneumonic consolidation, pleural effusion. Heart size and pulmonary vascularity is normal. There are solitary pacer electrodes in right atrium and right ventricle. No gross bony abnormality seen. XR/XR chest 2V IMPRESSION: No acute cardiopulmonary process seen. ECG Data Attestation: I personally reviewed and interpreted this ECG as follows: Interpretation: AV paced rhythm with a rate of 60 Discharge Plan Discharge Clinical Impression: Acute kidney injury superimposed on CKD, Hypokalemia, Leukocytosis, Cellulitis Patient Disposition: Admitted As Inpatient
[2021-04-10 15:51] VITALS: BP 139/61; PULSE 60; RESP 17; TEMP 37; O2SAT 98
[2021-04-10 16:47] LABS: Hemoglobin 12.8 g/dl (14.0-18.0); Mean Corpuscular Volume 92.9 fL (80-98)
[2021-04-10 16:48] LABS: PLT CLUMP 1
[2021-04-10 16:49] LABS: Hematocrit 39.3 % (42-52); Mean Corpuscular HGB Conc 32.6 g/dl (31.0-36.0); Mean Corpuscular Hemoglobin 30.3 pg (27.0-33.0); Red Blood Count 4.23 X10*6/uL (4.60-5.80); Red Cell Distribution Width 15.6 % (11.0-16.0); White Blood Count 18.1 X10*3/uL (4.8-10.8)
[2021-04-10] MEDS: Acetaminophen 325 MG TABLET 650 MG PO (16:52)
[2021-04-10 16:55] LABS: Lactic Acid 1.3 mmol/L (0.5-2.0)
[2021-04-10 17:08] LABS: Alanine Aminotransferase 19 U/L (0-40); Albumin Level 3.6 g/dL (3.5-5.0); Alkaline Phosphatase 146 U/L (39-117); Anion Gap 18 (12-20); Aspartate Amino Transferase 37 U/L (5-37); Bilirubin Direct 0.2 mg/dL (0.0-0.5); Bilirubin Total 0.7 mg/dL (0.0-1.0); Blood Urea Nitrogen 74 mg/dL (9-16); Calcium 8.4 mg/dL (8.4-10.2); Carbon Dioxide 27 mmol/L (22-29); Chloride 97 mmol/L (96-108); Creatinine Clr Calc Pharmacy 22.6; Estimated Glomerular Filt Rate 12; Glucose Random 152 mg/dL (60-115); Sodium 139 mmol/L (135-145); Total Protein 7.3 g/dL (6.5-8.0)
[2021-04-10 17:09] LABS: Band Neutrophils Percent 21 % (3-5); Basophils Abs Manual 0.2 X10*3/uL (0.0-0.3); Basophils Percent Manual 1 % (0-1); Lymphocytes Absolute Manual 0.7 X10*3/uL (0.6-4.8); Lymphocytes Percent Manual 4 % (20-40); Metamyelocytes Absolute 1.4 X10*3/uL; Metamyelocytes Percent 8 %; Monocytes Absolute Manual 0.7 X10*3/uL (0.0-1.2); Monocytes Percent Manual 4 % (2-11); Myelocytes Absolute 0.2 X10*/uL; Myelocytes Percent 1 %; Neutrophils Absolute Manual 14.8 X10*3/uL (2.2-7.9); Neutrophils Percent Manual 61 % (45-73)
[2021-04-10 17:11] LABS: Platelet Estimate SLIGHTLY DECREASED (NORMAL); Platelet Morphology Comment NORMAL; RBC Morphology NORMAL
[2021-04-10 17:12] LABS: Dohle Bodies PRESENT
--- NOTE | 2021-04-10 17:22 | ECG_ITS ---
Test Reason : FEVEER Blood Pressure : / mmHG Vent. Rate : 064 BPM Atrial Rate : 064 BPM P-R Int : 170 ms QRS Dur : 220 ms QT Int : 534 ms P-R-T Axes : 072 162 020 degrees QTc Int : 550 ms Atrial-sensed ventricular-paced rhythm Abnormal ECG When compared with ECG of 10-APR-2021 15:38, Vent. rate has increased BY 4 BPM Referred By: Yari Turner Electronically Signed By:Fernando Marino
[2021-04-10 17:28] VITALS: BP 142/63; PULSE 95; RESP 16; O2SAT 96
[2021-04-10] MEDS: cefTRIAXone sodium 1 GM in 0.9 % Sodium Chloride 50 ML IV (17:28)
[2021-04-10 19:01] LABS: Influenza A PCR NEGATIVE (Negative); Influenza B PCR NEGATIVE (Negative); Resp Syncy Virus RNA Qual PCR NEGATIVE (Negative); SARS COV2 PCR INHOUSE NEGATIVE (Negative)
[2021-04-10] MEDS: Potassium Chloride ER 20 MEQ TAB.ER.PRT 60 MEQ PO (19:12)
--- NOTE | 2021-04-10 19:12 | P.HPHOSP_ITS ---
History of Present Illness Date of Service: 04/10/21 Chief Complaint: Left leg pain redness and swelling 61-year-old male with a past medical history of hypertension, insulin-dependent diabetes, CHF, EF of 40-45%, status post AICD, AFib on Xarelto, YANELI, anxiety, depression, chronic kidney disease, history of COVID-19 infection home, morbid obesity, obesity hypoventilation syndrome, home CPAP, restrictive airway disease, osteoarthritis presented to the hospital with a chief complaint of hiccups. Patient reported that over the swelling he has been having hiccups which are not improving hence came to the ER for further evaluation. In the ER patient noted to have fever of 101f; follow patient mentions that for the past 4-5 days he has been having left leg pain redness and swelling, also complains of scratching; denies any numbness tingling; denies any fever chills cough; Patient denies any chest pain or palpitations. Denies any GI or symptoms. Review of all other systems is negative except mentioned above ER course: Per ER team, patient hiccups recall resolved; left leg findings consistent with cellulitis and small excoriations noted between the toes; given vancomycin; patient also noted to have potassium of 3.0-given potassium supplementation. Patient lab showed acute on chronic kidney injury. Admitted to the hospital for further management PMFSH Medical History CHF (congestive heart failure) CKD (chronic kidney disease) stage 3, GFR 30-59 ml/min HTN (hypertension) Morbid obesity Obesity Obesity hypoventilation syndrome YANELI on CPAP Restrictive airway disease Surgical History History of knee surgery Social History Household Members: Family Housing: Unknown / Unable to assess Do you presently have visiting nurse or other home services: Yes Unable to assess alcohol history related to: Unknown Alcohol intake: unknown Patient Tobacco Use Status: Never used Tobacco Smoked in Last 30 Days: No Patient Interested in Nicotine Replacement: No Second Hand Smoke Exposure: No Currently Displaying Signs/Symptoms of Drug Intoxication Withdrawal: No Advance Directives: Yes Advance Directives Information Provided: Yes Advance Directives on File: No Advance Directives Date on File: 04/11/21 Do you have thoughts of harming others: None Do you have a plan to hurt others: No Plan Recently lost weight without trying: No Nutrition Risks: No Nutritional Risk Poor oral hygiene: No service: No Current occupational status: employed Meds Allergies Allergy/AdvReac Type Severity Reaction Status Date / Time Penicillins [PENICILLINS] Allergy Severe HIVES Verified 04/10/21 11:07 Active Medications: Current Medications Generic Name Dose Route Start Last Admin Trade Name Freq PRN Reason Stop Dose Admin Acetaminophen 650 mg 04/10/21 19:06 Acetaminophen 325 Mg Tablet PO Q6H PRN Pain, Mild (Pain Scale 1-3) Dextrose 25 gm 04/10/21 19:06 Dextrose 50 % 25 Gm/50 Ml Vial IVPUSH Q15M PRN per Hypoglycemia Standing Ord. Protocol Glucose 15 gm 04/10/21 19:06 Glucose Gel 15 Gm Gel..Gram. PO Q15M PRN per Hypoglycemia Standing Ord. Protocol Heparin Sodium (Porcine) 5,000 unit 04/10/21 19:15 Heparin Sodium,Porcine 5,000 Unit/Ml Vial SUBCUT Q8H [facility] Vancomycin HCl 1,250 mg/ 250 mls @ 166.667 mls/hr 04/10/21 17:46 Sodium Chloride IV 04/10/21 19:15 ONCE ONE Vancomycin HCl 1,000 mg/ 270 mls @ 270 mls/hr 04/12/21 18:00 Sodium Chloride IV Q48H [facility] Vancomycin HCl 1,000 mg/ 270 mls @ 270 mls/hr 04/10/21 19:15 Sodium Chloride IV Q12H [facility] Insulin Glargine 30 unit 04/10/21 21:00 Insulin Glargine,Hum.Rec.Anlog 100 Unit/Ml 10 Ml Vial SUBCUT BID [facility] Insulin Human Lispro 0 unit 04/10/21 21:00 Insulin Lispro 100 Unit/Ml 3 Ml Vial SUBCUT QIDACHS [facility] Protocol Melatonin 6 mg 04/10/21 19:06 Melatonin 3 Mg Tablet PO BEDTIME PRN Insomnia Pharmacy Consult 1 each 04/10/21 17:19 Consult Rx Vancomycin Dosing MISCELLANE DAILY PRN Consult order Pharmacy Consult 1 each 04/10/21 17:24 Consult Rx Perform Med Rec MISCELLANE ONCE PRN Consult order Pharmacy Consult 1 each 04/10/21 19:06 Consult Rx Vancomycin Dosing MISCELLANE DAILY PRN Consult order Senna 17.2 mg 04/10/21 19:06 Sennosides 8.6 Mg Tablet PO BEDTIME PRN Constipation Sodium Chloride 3 ml 04/11/21 00:00 0.9 % Sodium Chloride Flush 3 Ml Syringe [facility] [facility] [place] Medications Medication Instructions Recorded Confirmed Last Taken Type pen needle, diabetic 31 gauge x 09/07/20 09/24/20 04/10/21 History 5/16 (BD Ultra-Fine Short Pen Needle) atorvastatin 20 mg tablet 40 mg PO BEDTIME 09/24/20 04/10/21 04/10/21 History potassium chloride 20 mEq oral 40 meq PO BID 09/24/20 04/10/21 04/10/21 History packet allopurinol 100 mg tablet 1 tab PO DAILY 04/10/21 04/10/21 04/10/21 History amiodarone 200 mg tablet 200 mg PO DAILY 04/10/21 04/10/21 04/10/21 History apixaban 5 mg tablet (Eliquis) 1 tab PO BID 04/10/21 04/10/21 04/10/21 History hydralazine 50 mg tablet 1 tab PO TID 04/10/21 04/10/21 04/10/21 History insulin glargine 100 unit/mL (3 40 unit SUBCUT DAILY 04/10/21 04/10/21 Unknown History mL) subcutaneous pen (Basaglar KwikPen U-100 Insulin) isosorbide dinitrate 10 mg tablet 2 tab PO TID 04/10/21 04/10/21 04/10/21 History metoprolol succinate 25 mg 1 tab PO BID 04/10/21 04/10/21 04/10/21 History tablet,extended release 24 hr torsemide 20 mg tablet 80 mg PO BIDWM 04/10/21 04/10/21 04/10/21 History tramadol 50 mg tablet 2 tab PO Q6H PRN 04/10/21 04/10/21 04/10/21 History Physical Exam Vital Signs and Narrative: Vital Signs: Last Vital Signs Temp 98.6 F 04/10/21 15:51 Pulse 95 04/10/21 17:28 Resp 16 04/10/21 17:28 BP 142/63 H 08/05/21 17:28 Pulse Ox 96 04/10/21 17:28 Body Mass Index 43.2 Gen: Appears be in no acute distress HEENT: NCAT, Moist mucosa. Pulmonary: Vesicular breath sounds, fair air entry CVS: Normal S1-S2 Abdomen: BS+, Soft, Nontender Extremities: Warm well perfused; left leg noted to be warm, hyperemic, tender. Neuro: Alert and awake. Results Labs CBC and Chem 7: 04/12/21 05:44 04/12/21 05:44 Labs: Laboratory Results - last 24 hr 04/10/21 04/10/21 04/10/21 16:17 16:17 16:17 MCV 92.9 MCH 30.3 MCHC 32.6 RDW 15.6 Plt Count TNP MPV Not Reportable Immature Gran % (Auto) Cancelled Neut % (Auto) Cancelled Lymph % (Auto) Cancelled [place] % (Auto) Cancelled Eos % (Auto) Cancelled Baso % (Auto) Cancelled Lymph # (Auto) Cancelled [place] # (Auto) Cancelled Eos # (Auto) Cancelled Baso # (Auto) Cancelled Abs Immat Gran (auto) Cancelled Absolute Neuts (auto) Cancelled Absolute Nucleated RBC 0.000 Nucleated RBC % (auto) 0.0 Neutrophils % (Manual) 61 Band Neutrophils % 21 H Lymphocytes % (Manual) 4 L Monocytes % (Manual) 4 Basophils % (Manual) 1 Metamyelocytes % 8 Myelocytes % 1 Abs Neuts (Manual) 14.8 H Lymphocytes # (Manual) 0.7 Monocytes # (Manual) 0.7 Basophils # (Manual) 0.2 Metamyelocytes # 1.4 Myelocytes # 0.2 Dohle Bodies PRESENT Platelet Estimate SLIGHTLY DECREASED Plt Morphology Comment NORMAL RBC Morphology NORMAL Anion Gap 18 Estim Creat Clear Calc 22.6 Estimated GFR 12 Random Glucose 152 H D Lactic Acid 1.3 Calcium 8.4 D Total Bilirubin 0.7 Direct Bilirubin 0.2 AST 37 ALT 19 Alkaline Phosphatase 146 H D Total Protein 7.3 D Albumin 3.6 Coronavirus (PCR) Influenza Type A (PCR) Influenza Type B (PCR) RSV RNA Qual (PCR) 04/10/21 18:02 MCV MCH MCHC RDW Plt Count MPV Immature Gran % (Auto) Neut % (Auto) Lymph % (Auto) [place] % (Auto) Eos % (Auto) Baso % (Auto) Lymph # (Auto) [place] # (Auto) Eos # (Auto) Baso # (Auto) Abs Immat Gran (auto) Absolute Neuts (auto) Absolute Nucleated RBC Nucleated RBC % (auto) Neutrophils % (Manual) Band Neutrophils % Lymphocytes % (Manual) Monocytes % (Manual) Basophils % (Manual) Metamyelocytes % Myelocytes % Abs Neuts (Manual) Lymphocytes # (Manual) Monocytes # (Manual) Basophils # (Manual) Metamyelocytes # Myelocytes # Dohle Bodies Platelet Estimate Plt Morphology Comment RBC Morphology Anion Gap Estim Creat Clear Calc Estimated GFR Random Glucose Lactic Acid Calcium Total Bilirubin Direct Bilirubin AST ALT Alkaline Phosphatase Total Protein Albumin Coronavirus (PCR) NEGATIVE Influenza Type A (PCR) NEGATIVE Influenza Type B (PCR) NEGATIVE RSV RNA Qual (PCR) NEGATIVE Imaging Radiologist's Impressions: Impressions Chest X-Ray 04/10/21 17:22 IMPRESSION: No acute cardiopulmonary process seen. Assessment and Plan (1) Cellulitis: Status: Acute 61-year-old male with a past medical history of hypertension, hyperlipidemia, insulin-dependent diabetes, CKD, AFib on Xarelto, CHF with EF of 40-45%, history of AICD, morbid obesity, YANELI, obesity hypoventilation syndrome on home CPAP presented to the hospital with a chief complaint of hiccups/left leg pain redness and swelling; noted to have left leg cellulitis. Admitted to the hospital for further management. Left leg cellulitis: Continue vancomycin. Pharmacy consulted for close monitoring of the vancomycin levels given SAQIB on CKD. Id consult. SAQIB on CKD: Avoid nephrotoxins. Nephrology consult for further recommendations. encouraged oral hydration. Hold home diuretics for a day Diabetes: Patient's home Lantus reduced to 30 units b.i.d. for now and will keep the patient on insulin sliding scale. Monitor fingerstick glucose and adjust insulins as needed. Hypertension/hyperlipidemia: Continue home medications. History of AFib: Rate controlled. Continue home Xarelto. History of CHF: Hold home diuretics as mentioned rate day. Monitor for signs of fluid overload. Telemetry. Code status: Full code Quality Stroke Does the patient have a stroke diagnosis?: No VTE Prior VTE?: No VTE Risk Level:: Medical - moderate - high VTE Device Contraindication: Treatment Not Indicated VTE Drug Contraindication: N/A - Med Ordered
[2021-04-10] MEDS: vancomycin HCL 1,250 MG in 0.9 % Sodium Chloride 250 ML 166.67 MG IV (19:21)
[2021-04-10] MEDS: 0.9 % Sodium Chloride 500 ML 999 ML IV (19:23)
--- NOTE | 2021-04-10 19:27 | PHA.MEDREC ---
Pharmacy Consult ? Medication Reconciliation Pharmacy has completed the medication reconciliation. The pt states he only takes the basaglar and no other insulins. He doses the basaglar based on his morning fasting blood glucose level so the dose changes. no other issues.
[2021-04-10 20:00] VITALS: BP 142/63; PULSE 95; RESP 16; TEMP 37; O2SAT 96
[2021-04-10] MEDS: Heparin Sodium,Porcine 5,000 UNIT/ML VIAL 5000 UNIT SUBCUT (20:02)
[2021-04-10 21:40] LABS: Glucose, Whole Blood 169 mg/dL (60-115)
[2021-04-10] MEDS: Insulin Lispro 100 UNIT/ML 3 ML VIAL SUBCUT (21:45)
[2021-04-10] MEDS: Insulin Glargine,Hum.rec.anlog 100 UNIT/ML 10 ML VIAL 30 UNIT SUBCUT (21:45)
[2021-04-10 22:00] VITALS: BP 144/62; PULSE 65; RESP 12; O2SAT 96
[2021-04-11] VITALS (14 sets, daily range): BP systolic 99–176; BP diastolic 56–82; PULSE 60–76; RESP 18–20; TEMP 36.1–37.3; O2SAT 95–98
[2021-04-11] MEDS: Melatonin 3 MG TABLET 6 MG PO ×2 (00:18→23:53)
[2021-04-11] MEDS: Mirtazapine 7.5 MG TABLET PO ×2 (00:19→23:53)
[2021-04-11] MEDS: Atorvastatin Calcium 40 MG TABLET PO (00:19)
[2021-04-11] MEDS: Apixaban 5 MG TABLET PO ×2 (00:19→09:10)
[2021-04-11] MEDS: Metoprolol Succinate ER 25 MG TAB.ER.24H PO ×2 (00:19→21:02)
[2021-04-11] MEDS: hydrALAZINE HCl 50 MG TABLET PO ×3 (00:20→21:02)
[2021-04-11] MEDS: traMADoL HCL 50 MG TABLET 100 MG PO ×2 (00:20→23:53)
[2021-04-11] MEDS: Heparin Sodium,Porcine 5,000 UNIT/ML VIAL 5000 UNIT SUBCUT ×3 (02:33→21:04)
[2021-04-11] MEDS: Baclofen 10 MG TABLET 5 MG PO (05:58)
[2021-04-11 07:00] LABS: Hematocrit 36.3 % (42-52); Hemoglobin 11.9 g/dl (14.0-18.0); Mean Corpuscular HGB Conc 32.8 g/dl (31.0-36.0); Mean Corpuscular Volume 91.4 fL (80-98); Mean Platelet Volume 12.2 fL (9.4-12.4); Platelet Count 100 X10*3/uL (160-400); Red Blood Count 3.97 X10*6/uL (4.60-5.80); Red Cell Distribution Width 15.5 % (11.0-16.0)
[2021-04-11 07:33] LABS: Glucose, Whole Blood 127 mg/dL (60-115)
[2021-04-11 07:44] LABS: Band Neutrophils Percent 13 % (3-5); Lymphocytes Absolute Manual 0.6 X10*3/uL (0.6-4.8); Lymphocytes Percent Manual 4 % (20-40); Monocytes Absolute Manual 0.1 X10*3/uL (0.0-1.2); Monocytes Percent Manual 1 % (2-11); Neutrophils Absolute Manual 13.3 X10*3/uL (2.2-7.9); Neutrophils Percent Manual 82 % (45-73)
[2021-04-11 07:46] LABS: Dohle Bodies PRESENT; Platelet Estimate DECREASED (NORMAL); Platelet Morphology Comment NORMAL; RBC Morphology NORMAL
[2021-04-11 08:02] LABS: Anion Gap 16 (12-20); Blood Urea Nitrogen 77 mg/dL (9-16); Carbon Dioxide 25 mmol/L (22-29); Chloride 101 mmol/L (96-108); Creatinine Clr Calc Pharmacy 24.8; Estimated Glomerular Filt Rate 14; Glucose Random 139 mg/dL (60-115); Potassium 2.3 mmol/L (3.3-5.1); Sodium 140 mmol/L (135-145)
[2021-04-11] MEDS: Potassium Chloride ER 20 MEQ TAB.ER.PRT 40 MEQ PO ×2 (09:09→21:01)
[2021-04-11] MEDS: Insulin Glargine,Hum.rec.anlog 100 UNIT/ML 10 ML VIAL 30 UNIT SUBCUT ×2 (09:10→21:03)
[2021-04-11] MEDS: Potassium Chloride/H20 10 MEQ/100 ML PIGGYBACK 100 MEQ IV ×2 (09:10→10:57)
[2021-04-11] MEDS: Isosorbide Dinitrate 20 MG TABLET PO ×3 (09:11→21:01)
[2021-04-11] MEDS: 0.9 % Sodium Chloride Flush 3 ML SYRINGE IVFLUSH ×2 (09:11→15:11)
[2021-04-11] MEDS: Amiodarone HCL 200 MG TABLET PO (09:11)
[2021-04-11] MEDS: allopurinoL 100 MG TABLET PO (09:11)
--- NOTE | 2021-04-11 09:34 | MHC.CM.PN ---
pt lives c his in their home. he reports that he is independent in his care. 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 pt's can help him if he has any needs, this will include a ride home at dc. pt denies the need for vna at dc. dc plan is home no svcs. cm to cont. to follow.
[2021-04-11 09:56] LABS: Magnesium 1.7 mg/dL (1.6-2.6)
--- NOTE | 2021-04-11 10:06 | P.CDIC_ITS ---
CDI Concurrent Query Service Date: 04/11/21 Documentation Clarification: Please clarify if you are treating a proba ble/suspected/likely or confirmed: Sepsis, present on admission No Sepsis Other, please specify Unable to Determine Provider Response: Other Other Diagnosis: Unable to Determine PLEASE DO NOT DELETE/MODIFY EXISTING CONTENT Additional information is needed in order to code to the highest accuracy and appropriate Severity of Illness (SOI). Please clarify the information noted below in your progress notes and discharge summary. Risk Factors/Clinical Indicators/Treatments WBC 18.1 T 101 LA 1.3 Admit for left leg cellulitis IV antibiotic CDS: Inna Wheat RN Contact Number: [phone] Please Review the information above and exercise your independent professional judgment in responding to the query. If you concur, pleas document in the PROGRESS NOTES and DISCHARGE SUMMARY. If you do not agree with the query, please document in the query above. THIS QUERY IS PART OF THE PERMANENT MEDICAL RECORD
--- NOTE | 2021-04-11 10:14 | P.CDIC_ITS ---
CDI Concurrent Query Service Date: 04/11/21 Documentation Clarification: Please clarify if you are treating a proba ble/suspected/likely or confirmed: Cellulitis left leg due to Diabetes Mellitus Cellulitis left leg not due to Diabetes Mellitus Unable to determine Other, please specify Cellulitis LLE due to DM Provider Response: Other Other Diagnosis: Cellulitis LLE due to DM PLEASE DO NOT DELETE/MODIFY EXISTING CONTENT Additional information is needed in order to code to the highest accuracy and appropriate Severity of Illness (SOI). Please clarify the information noted below in your progress notes and discharge summary. Risk Factors/Clinical Indicators/Treatments PMH: IDDM Admit with abrasions between toes Per ED Impression: Cellulitis Per H&P: Left Leg Cellulitis Treat with IV antibiotic CDS: Inna Wheat RN Contact Number: [phone] Please Review the information above and exercise your independent professional judgment in responding to the query. If you concur, pleas document in the PROGRESS NOTES and DISCHARGE SUMMARY. If you do not agree with the query, please document in the query above. THIS QUERY IS PART OF THE PERMANENT MEDICAL RECORD
[2021-04-11 11:09] LABS: Glucose, Whole Blood 159 mg/dL (60-115)
--- NOTE | 2021-04-11 11:19 | P.CONNP_ITS ---
History of Present Illness Reason for Consult Consult date: 04/11/21 Reason for consult: SAQIB/CKD Chief Complaint Chief complaint: Cellulitis History of Present Illness Narrative: 61 y/o Obese DM with adv CKD bsl SCr 3.0-4.0 gets all his renal care and card [place] [facility] Presents to ER here with intractable hiccups and noted low K. incr Scr form bsl and ques celluiitis. Overall feeling better and hiccups seemed to have resolved. K down to 2.3 this am despite K suppl last nite. Staes his CKD is from DM but never had a kdiney Bx. He is being eval at [facility] [place]ariatric surg as he wants to get a kidney Xplant at some point Fluid management per PT is challenging at times and [facility] [place] diuretics Review of Systems Review of Systems Yes all other systems are reviewed and are negative Constitutional: Reports no additional constitutional complaints, Denies body ache(s), Reports chills, Denies fever(s), Denies headache(s) and Denies weakness Eyes: Reports no additional eye complaints and Denies change in vision Reports system reviewed and no additional complaints, except as documented, Denies dizziness, Denies headache(s), Denies nasal congestion, Denies nasal discharge and Denies neck pain Cardiovascular: Reports no additional cardiovascular complaints, Denies chest pain, Denies leg edema and Denies dyspnea Respiratory: Reports no additional respiratory complaints, Denies cough and Denies dyspnea Gastrointestinal: Reports no additional gastrointestinal complaints, Denies abdominal pain, Denies diarrhea, Denies nausea and Denies vomiting Genitourinary: Denies urinary incontinence Musculoskeletal: Reports no additional musculoskeletal complaints, Denies back pain, Denies arthralgias, Denies joint swelling, Denies neck pain, Denies numbness and Denies tingling Skin/Breast: Reports system reviewed and no additional complaints, except as d ocu, Reports swelling, Reports erythema and Denies rash Reports system reviewed and no additional complaints, except as documented, Denies Abnormal speech present, Denies dizziness, Denies headache(s), Denies numbness, Denies tingling and Denies weakness PMFSH Past Medical History Medical History CHF (congestive heart failure) CKD (chronic kidney disease) stage 3, GFR 30-59 ml/min HTN (hypertension) Morbid obesity Obesity Obesity hypoventilation syndrome YANELI on CPAP Restrictive airway disease Surgical History Surgical History History of knee surgery Social History Social History Household Members: Family Housing: Unknown / Unable to assess Do you presently have visiting nurse or other home services: Yes Unable to assess alcohol history related to: Unknown Alcohol intake: unknown Patient Tobacco Use Status: Never used Tobacco Smoked in Last 30 Days: No Patient Interested in Nicotine Replacement: No Second Hand Smoke Exposure: No Advance Directives: Yes Advance Directives Information Provided: Yes Advance Directives on File: No Advance Directives Date on File: 04/11/21 Do you have thoughts of harming others: None Do you have a plan to hurt others: No Plan Recently lost weight without trying: No Nutrition Risks: No Nutritional Risk Poor oral hygiene: No service: No Current occupational status: employed Meds Allergies Allergy/AdvReac Type Severity Reaction Status Date / Time Penicillins [PENICILLINS] Allergy Severe HIVES Verified 04/10/21 11:07 Active Medications: Current Medications Generic Name Dose Route Start Last Admin Trade Name Freq PRN Reason Stop Dose Admin Acetaminophen 650 mg 04/10/21 19:06 Acetaminophen 325 Mg Tablet PO Q6H PRN Pain, Mild (Pain Scale 1-3) Allopurinol 100 mg 04/11/21 09:00 04/11/21 09:11 Allopurinol 100 Mg Tablet PO 100 mg DAILY KOJO Administration Amiodarone HCl 200 mg 04/11/21 09:00 04/11/21 09:11 Amiodarone Hcl 200 Mg Tablet PO 200 mg DAILY KOJO Administration Apixaban 5 mg 04/11/21 09:00 04/11/21 09:10 Apixaban 5 Mg Tablet PO 5 mg BID KOJO Administration Atorvastatin Calcium 40 mg 04/11/21 21:00 04/11/21 00:19 Atorvastatin Calcium 40 Mg Tablet PO 40 mg BEDTIME KOJO Administration Baclofen 5 mg 04/10/21 21:38 04/11/21 05:58 Baclofen 10 Mg Tablet PO 5 mg TID PRN Administration Hiccups Dextrose 25 gm 04/10/21 19:06 Dextrose 50 % 25 Gm/50 Ml Vial IVPUSH Q15M PRN per Hypoglycemia Standing Ord. Protocol Glucose 15 gm 04/10/21 19:06 Glucose Gel 15 Gm Gel..Gram. PO Q15M PRN per Hypoglycemia Standing Ord. Protocol Heparin Sodium (Porcine) 5,000 unit 04/10/21 19:15 04/11/21 10:57 Heparin Sodium,Porcine 5,000 Unit/Ml Vial SUBCUT 5,000 unit Q8H KOJO Administration Hydralazine HCl 50 mg 04/11/21 09:00 04/11/21 09:11 Hydralazine Hcl 50 Mg Tablet PO 50 mg TID KOJO Administration Protocol Vancomycin HCl 1,000 mg/ 270 mls @ 270 mls/hr 04/12/21 18:00 Sodium Chloride IV Q48H KOJO Potassium Chloride 10 meq in 100 mls @ 100 mls/hr 04/11/21 09:00 04/11/21 10:57 IV 04/11/21 12:59 100 mls/hr Q1H KOJO Administration Insulin Glargine 30 unit 04/10/21 21:00 04/11/21 09:10 Insulin Glargine,Hum.Rec.Anlog 100 Unit/Ml 10 Ml Vial SUBCUT 30 unit BID KOJO Administration Insulin Human Lispro 0 unit 04/10/21 21:00 04/11/21 08:21 Insulin Lispro 100 Unit/Ml 3 Ml Vial SUBCUT Not Given QIDACHS [facility] Protocol Isosorbide Dinitrate 20 mg 04/11/21 09:00 04/11/21 09:11 Isosorbide Dinitrate 20 Mg Tablet PO 20 mg TID [facility] Administration Protocol Melatonin 6 mg 04/10/21 19:06 04/11/21 00:18 Melatonin 3 Mg Tablet PO 6 mg BEDTIME PRN Administration Insomnia Metoprolol Succinate 25 mg 04/11/21 09:00 04/11/21 00:19 Metoprolol Succinate Er 25 Mg Tab.Er.24h PO 25 mg BID KOJO Administration Protocol Mirtazapine 7.5 mg 04/11/21 21:00 04/11/21 00:19 Mirtazapine 7.5 Mg Tablet PO 7.5 mg BEDTIME KOJO Administration Pharmacy Consult 1 each 04/10/21 17:19 Consult Rx Vancomycin Dosing MISCELLANE DAILY PRN Consult order Pharmacy Consult 1 each 04/10/21 17:24 Consult Rx Perform Med Rec MISCELLANE ONCE PRN Consult order Potassium Chloride 40 meq 04/11/21 09:00 04/11/21 09:09 Potassium Chloride Er 20 Meq Tab.Er.Prt PO 04/11/21 21:01 40 meq BID KOJO Administration Senna 17.2 mg 04/10/21 19:06 Sennosides 8.6 Mg Tablet PO BEDTIME PRN Constipation Sodium Chloride 3 ml 04/11/21 00:00 04/11/21 09:11 0.9 % Sodium Chloride Flush 3 Ml Syringe IVFLUSH 3 ml QSHIFT [facility] Administration Torsemide 80 mg 04/11/21 20:00 Torsemide 20 Mg Tablet PO BIDWM [facility] Protocol Tramadol HCl 100 mg 04/10/21 21:39 04/11/21 00:20 Tramadol Hcl 50 Mg Tablet PO 100 mg Q6H PRN Administration pain Home Medications Medication Instructions Recorded Confirmed Last Taken Type pen needle, diabetic 31 gauge x 09/07/20 09/24/20 04/10/21 History 5/16 (BD Ultra-Fine Short Pen Needle) atorvastatin 20 mg tablet 40 mg PO BEDTIME 09/24/20 04/10/21 04/10/21 History potassium chloride 20 mEq oral 40 meq PO BID 09/24/20 04/10/21 04/10/21 History packet allopurinol 100 mg tablet 1 tab PO DAILY 04/10/21 04/10/21 04/10/21 History amiodarone 200 mg tablet 200 mg PO DAILY 04/10/21 04/10/21 04/10/21 History apixaban 5 mg tablet (Eliquis) 1 tab PO BID 04/10/21 04/10/21 04/10/21 History hydralazine 50 mg tablet 1 tab PO TID 04/10/21 04/10/21 04/10/21 History insulin glargine 100 unit/mL (3 40 unit SUBCUT DAILY 04/10/21 04/10/21 Unknown History mL) subcutaneous pen (Basaglar Mayur U-100 Insulin) isosorbide dinitrate 10 mg tablet 2 tab PO TID 04/10/21 04/10/21 04/10/21 History metoprolol succinate 25 mg 1 tab PO BID 04/10/21 04/10/21 04/10/21 History tablet,extended release 24 hr torsemide 20 mg tablet 80 mg PO BIDWM 04/10/21 04/10/21 04/10/21 History tramadol 50 mg tablet 2 tab PO Q6H PRN 04/10/21 04/10/21 04/10/21 History Physical Exam Vital Signs: Last Vital Signs Temp 98.2 F 04/11/21 07:35 Pulse 63 04/11/21 09:11 Resp 18 04/11/21 07:35 BP 147/66 H 04/11/21 09:11 Pulse Ox 95 04/11/21 07:35 Body Mass Index 43.2 Const General: cooperative, healthy appearing, comfortable and no acute distress Orientation/consciousness: patient oriented x3 Limitations: no limitations HENMT Head: Yes normal to inspection Ears: hearing grossly normal bilaterally General nose exam: Normal external nose present Face and sinus: Yes normal facial exam Mouth: Normal oral and palatal mucosa present Throat: Yes posterior oropharynx normal Eyes General: appearance normal, both eyes and all related structures Pupils: Equal, round and reactive pupils present Neck Neck: Yes normal visual inspection Chest Chest palpation & inspection: normal inspection of the chest Resp Effort & Inspection: normal respiratory effort Auscultation: clear to auscultation bilaterally Cardio Rate: regular rate Rhythm: regular rhythm Peripheral pulses: Peripheral pulses 2+ throughout GI Inspection: Yes normal to inspection Palpation (GI): Soft to palpation and nontender Auscultation: normal bowel sounds Back/Spine/Pelvis Thoracic/Lumbar Spine: thoracic and lumbar spine normal to inspection Skin General skin exam: no rashes or lesions noted Neuro General: patient oriented x3, no focal motor deficits and normal sensation to monofilament Cranial nerves: Yes Equal, round and reactive pupils present Cognition (Neuro): normal cognition Speech: No Abnormal speech present Gait exam (Neuro): Normal gait present Motor exam (neuro): 5/5 motor strength present throughout Extrem Other: Bilateral lower extremity swelling which is nonpitting extending to the knees. There is chronic vascular changes noted. Palpable pulses. The left lower extremity has some mild erythema and warmth to it. In between the 3rd and 4th and 4th and 5th digit there are small abrasions and fissures in the skin consistent with tinea. There is more swelling on the left lower extremity around this area. General: Yes normal to inspection Results Lab Results Result Diagrams: 04/11/21 05:34 04/11/21 05:34 Lab results: Chemistry 04/10/21 04/11/21 16:17 05:34 Sodium 139 140 Potassium 3.0 L 2.3 L* D Carbon Dioxide 27 25 BUN 74 H 77 H Creatinine 4.89 H* 4.46 H* Calcium 8.4 D 8.0 L Hematology 04/10/21 04/11/21 16:17 05:34 WBC 18.1 H 14.0 H Hgb 12.8 L 11.9 L Plt Count TNP 100 L D Assessment and Plan (1) Acute renal failure: Qualifiers: Acute renal failure type: unspecified Qualified Code(s): N17.9 - Acute kidney failure, unspecified Status: Acute 1. SAQIB: Scr up from his bsl and [facility] d/t stress of celluilits and diuretic dosing; doubt a new renal parenchymal injury process, miguel r/o urinary retention with bedside bladder scan 2. CKD 4: bsl SCr 3.0-4.0; most c/w DN and had [place] [facility] 3. HypoK: d/t loop diureitc 4. Obesity 5. CKD issues: check PTH and tx accordingly; no signif anemia so does not need epo; protect non-dominat arm for future AVG REC: replace K; fold diuretivc x 24 hrs; check PTH; bedisde bladder scan will follow with team Procedures Date of Service Date of Service: 04/11/21
[2021-04-11] MEDS: Potassium Chloride ER 20 MEQ TAB.ER.PRT PO (12:09)
[2021-04-11] MEDS: Insulin Lispro 100 UNIT/ML 3 ML VIAL SUBCUT (12:11)
--- NOTE | 2021-04-11 12:57 | P.CNID_ITS ---
History of Present Illness Data of Consult Service Date: 04/11/21 Requesting physician: Markos Benjamin Primary Care Provider: Unknown Physician HPI Reason for consult: left leg swelling He presents with discomfort LLE as well as redness for last 3-4 days He has no bacteremia He has had cellulitis in past Review of Systems Review of Systems: Yes all other systems are reviewed and are negative PMFSH Past Medical History Medical History CHF (congestive heart failure) CKD (chronic kidney disease) stage 3, GFR 30-59 ml/min HTN (hypertension) Morbid obesity Obesity Obesity hypoventilation syndrome YANELI on CPAP Restrictive airway disease Family History Family history: reviewed and not pertinent Surgical History Surgical History History of knee surgery Social History Social History Household Members: Family Housing: Unknown / Unable to assess Do you presently have visiting nurse or other home services: Yes Unable to assess alcohol history related to: Unknown Alcohol intake: unknown Patient Tobacco Use Status: Never used Tobacco Smoked in Last 30 Days: No Patient Interested in Nicotine Replacement: No Second Hand Smoke Exposure: No Currently Displaying Signs/Symptoms of Drug Intoxication Withdrawal: No Advance Directives: Yes Advance Directives Information Provided: Yes Advance Directives on File: No Advance Directives Date on File: 04/11/21 Do you have thoughts of harming others: None Do you have a plan to hurt others: No Plan Recently lost weight without trying: No Nutrition Risks: No Nutritional Risk Poor oral hygiene: No service: No Current occupational status: employed Meds Allergies Allergy/AdvReac Type Severity Reaction Status Date / Time Penicillins [PENICILLINS] Allergy Severe HIVES Verified 04/10/21 11:07 Active Medications: Current Medications Generic Name Dose Route Start Last Admin Trade Name Freq PRN Reason Stop Dose Admin Acetaminophen 650 mg 04/10/21 19:06 Acetaminophen 325 Mg Tablet PO Q6H PRN Pain, Mild (Pain Scale 1-3) Allopurinol 100 mg 04/11/21 09:00 04/11/21 09:11 Allopurinol 100 Mg Tablet PO 100 mg DAILY KOJO Administration Amiodarone HCl 200 mg 04/11/21 09:00 04/11/21 09:11 Amiodarone Hcl 200 Mg Tablet PO 200 mg DAILY KOJO Administration Apixaban 5 mg 04/11/21 09:00 04/11/21 09:10 Apixaban 5 Mg Tablet PO 5 mg BID KOJO Administration Atorvastatin Calcium 40 mg 04/11/21 21:00 04/11/21 00:19 Atorvastatin Calcium 40 Mg Tablet PO 40 mg BEDTIME KOJO Administration Dextrose 25 gm 04/10/21 19:06 Dextrose 50 % 25 Gm/50 Ml Vial IVPUSH Q15M PRN per Hypoglycemia Standing Ord. Protocol Glucose 15 gm 04/10/21 19:06 Glucose Gel 15 Gm Gel..Gram. PO Q15M PRN per Hypoglycemia Standing Ord. Protocol Heparin Sodium (Porcine) 5,000 unit 04/10/21 19:15 04/11/21 10:57 Heparin Sodium,Porcine 5,000 Unit/Ml Vial SUBCUT 5,000 unit Q8H KOJO Administration Hydralazine HCl 50 mg 04/11/21 09:00 04/11/21 09:11 Hydralazine Hcl 50 Mg Tablet PO 50 mg TID KOJO Administration Protocol Vancomycin HCl 1,000 mg/ 270 mls @ 270 mls/hr 04/12/21 18:00 Sodium Chloride IV Q48H [facility] Insulin Glargine 30 unit 04/10/21 21:00 04/11/21 09:10 Insulin Glargine,Hum.Rec.Anlog 100 Unit/Ml 10 Ml Vial SUBCUT 30 unit BID KOJO Administration Insulin Human Lispro 0 unit 04/10/21 21:00 04/11/21 12:11 Insulin Lispro 100 Unit/Ml 3 Ml Vial SUBCUT 2 unit QIDACHS [facility] Administration Protocol Isosorbide Dinitrate 20 mg 04/11/21 09:00 04/11/21 09:11 Isosorbide Dinitrate 20 Mg Tablet PO 20 mg TID KOJO Administration Protocol Melatonin 6 mg 04/10/21 19:06 04/11/21 00:18 Melatonin 3 Mg Tablet PO 6 mg BEDTIME PRN Administration Insomnia Metoprolol Succinate 25 mg 04/11/21 09:00 04/11/21 00:19 Metoprolol Succinate Er 25 Mg Tab.Er.24h PO 25 mg BID KOJO Administration Protocol Mirtazapine 7.5 mg 04/11/21 21:00 04/11/21 00:19 Mirtazapine 7.5 Mg Tablet PO 7.5 mg BEDTIME KOJO Administration Pharmacy Consult 1 each 04/10/21 17:19 Consult Rx Vancomycin Dosing MISCELLANE DAILY PRN Consult order Pharmacy Consult 1 each 04/10/21 17:24 Consult Rx Perform Med Rec MISCELLANE ONCE PRN Consult order Potassium Chloride 40 meq 04/11/21 09:00 04/11/21 09:09 Potassium Chloride Er 20 Meq Tab.Er.Prt PO 04/11/21 21:01 40 meq BID KOJO Administration Senna 17.2 mg 04/10/21 19:06 Sennosides 8.6 Mg Tablet PO BEDTIME PRN Constipation Sodium Chloride 3 ml 04/11/21 00:00 04/11/21 09:11 0.9 % Sodium Chloride Flush 3 Ml Syringe IVFLUSH 3 ml QSHIFT KOJO Administration Tramadol HCl 100 mg 04/10/21 21:39 04/11/21 00:20 Tramadol Hcl 50 Mg Tablet PO 100 mg Q6H PRN Administration pain Home Medications Medication Instructions Recorded Confirmed Last Taken Type pen needle, diabetic 31 gauge x 09/07/20 09/24/20 04/10/21 History 5/16 (BD Ultra-Fine Short Pen Needle) atorvastatin 20 mg tablet 40 mg PO BEDTIME 09/24/20 04/10/21 04/10/21 History potassium chloride 20 mEq oral 40 meq PO BID 09/24/20 04/10/21 04/10/21 History packet allopurinol 100 mg tablet 1 tab PO DAILY 04/10/21 04/10/21 04/10/21 History amiodarone 200 mg tablet 200 mg PO DAILY 04/10/21 04/10/21 04/10/21 History apixaban 5 mg tablet (Eliquis) 1 tab PO BID 04/10/21 04/10/21 04/10/21 History hydralazine 50 mg tablet 1 tab PO TID 04/10/21 04/10/21 04/10/21 History insulin glargine 100 unit/mL (3 40 unit SUBCUT DAILY 04/10/21 04/10/21 Unknown History mL) subcutaneous pen (Basaglar Mayur U-100 Insulin) isosorbide dinitrate 10 mg tablet 2 tab PO TID 04/10/21 04/10/21 04/10/21 History metoprolol succinate 25 mg 1 tab PO BID 04/10/21 04/10/21 04/10/21 History tablet,extended release 24 hr torsemide 20 mg tablet 80 mg PO BIDWM 04/10/21 04/10/21 04/10/21 History tramadol 50 mg tablet 2 tab PO Q6H PRN 04/10/21 04/10/21 04/10/21 History Physical Exam Vital Signs: Vital Signs: Last Vital Signs Temp 98.2 F 04/11/21 11:17 Pulse 62 04/11/21 11:17 Resp 20 04/11/21 11:17 BP 147/68 H 04/11/21 11:17 Pulse Ox 98 04/11/21 11:17 Body Mass Index 43.2 Const: General: cooperative HENMT: Head: Yes normal to inspection Mouth: Normal oral and palatal mucosa present Resp: Effort & Inspection: normal respiratory effort Cardio: Rate: regular rate Rhythm: regular rhythm GI: Palpation (GI): Soft to palpation and nontender Skin: General skin exam: no rashes or lesions noted Extrem: Other: LLE erythema Results Labs CBC & Chem 7: 04/12/21 05:44 04/12/21 05:44 Labs: Short CBC 04/10/21 04/11/21 Range/Units 16:17 05:34 WBC 18.1 H 14.0 H (4.8-10.8) X10*3/uL Hgb 12.8 L 11.9 L (14.0-18.0) g/dl Hct 39.3 L 36.3 L (42-52) % Plt Count TNP 100 L D BMP 04/10/21 04/11/21 16:17 05:34 Sodium 139 140 Potassium 3.0 L 2.3 L* D Chloride 97 101 Carbon Dioxide 27 25 BUN 74 H 77 H Creatinine 4.89 H* 4.46 H* Calcium 8.4 D 8.0 L Liver Function 04/10/21 Range/Units 16:17 Total Bilirubin 0.7 (0.0-1.0) mg/dL Direct Bilirubin 0.2 (0.0-0.5) mg/dL AST 37 (5-37) U/L ALT 19 (0-40) U/L Alkaline Phosphatase 146 H D (39-117) U/L Albumin 3.6 (3.5-5.0) g/dL Assessment and Plan (1) Leukocytosis: Status: Resolved (2) Cellulitis: Status: Acute There is redness left lower extremity He has chronic kidney disease Would give Clindamycin due to MRSA risk He has lip swelling to PCN When improved can get po Clindamycin for 5 days
--- NOTE | 2021-04-11 14:24 | P.PNIM_ITS ---
Subjective Subjective Date of Service: 04/11/21 Interval History: seen and examined this morning resting in chair comfortably. reports improvement in pain of left leg no more hiccups Review of Systems Review of Systems: Yes all other systems are reviewed and are negative Constitutional Constitutional: Denies chills and Denies fever(s) Cardiovascular Cardiovascular: Denies chest pain Respiratory Respiratory: Denies cough Gastrointestinal Gastrointestinal: Denies abdominal pain Physical Exam Vital Signs: Vital Signs: Last Vital Signs Temp 98.2 F 04/11/21 11:17 Pulse 62 04/11/21 11:17 Resp 20 04/11/21 11:17 BP 147/68 H 04/11/21 11:17 Pulse Ox 98 04/11/21 11:17 Body Mass Index 43.2 Const: Nutritional Appearance: obese Orientation/consciousness: patient oriented x3 HENMT: Head: Yes normocephalic and Yes atraumatic Eyes: Sclerae: sclerae normal Resp: Effort & Inspection: normal respiratory effort and no respiratory distress Auscultation: clear to auscultation bilaterally Cardio: Rate: regular rate Rhythm: regular rhythm GI: Palpation (GI): Soft to palpation and nontender Neuro: General: patient oriented x3 Cranial nerves: Yes CN's II-XII intact bilaterally and Yes Bilaterally intact EOM present Extrem: Other: left lower extremity with mild erythema from ankle to knee; edema left leg Objective Data Current Medications Generic Name Dose Route Start Last Admin Trade Name Freq PRN Reason Stop Dose Admin Acetaminophen 650 mg 04/10/21 19:06 Acetaminophen 325 Mg Tablet PO Q6H PRN Pain, Mild (Pain Scale 1-3) Allopurinol 100 mg 04/11/21 09:00 04/11/21 09:11 Allopurinol 100 Mg Tablet PO 100 mg DAILY KOJO Administration Amiodarone HCl 200 mg 04/11/21 09:00 04/11/21 09:11 Amiodarone Hcl 200 Mg Tablet PO 200 mg DAILY KOJO Administration Apixaban 5 mg 04/11/21 09:00 04/11/21 09:10 Apixaban 5 Mg Tablet PO 5 mg BID KOJO Administration Atorvastatin Calcium 40 mg 04/11/21 21:00 04/11/21 00:19 Atorvastatin Calcium 40 Mg Tablet PO 40 mg BEDTIME KOJO Administration Dextrose 25 gm 04/10/21 19:06 Dextrose 50 % 25 Gm/50 Ml Vial IVPUSH Q15M PRN per Hypoglycemia Standing Ord. Protocol Glucose 15 gm 04/10/21 19:06 Glucose Gel 15 Gm Gel..Gram. PO Q15M PRN per Hypoglycemia Standing Ord. Protocol Heparin Sodium (Porcine) 5,000 unit 04/10/21 19:15 04/11/21 10:57 Heparin Sodium,Porcine 5,000 Unit/Ml Vial SUBCUT 5,000 unit Q8H KOJO Administration Hydralazine HCl 50 mg 04/11/21 09:00 04/11/21 09:11 Hydralazine Hcl 50 Mg Tablet PO 50 mg TID KOJO Administration Protocol Clindamycin Phosphate 600 mg in 50 mls @ 100 mls/hr 04/11/21 13:15 Cleocin IV Q8H [facility] Insulin Glargine 30 unit 04/10/21 21:00 04/11/21 09:10 Insulin Glargine,Hum.Rec.Anlog 100 Unit/Ml 10 Ml Vial SUBCUT 30 unit BID KOJO Administration Insulin Human Lispro 0 unit 04/10/21 21:00 04/11/21 12:11 Insulin Lispro 100 Unit/Ml 3 Ml Vial SUBCUT 2 unit QIDACHS [facility] Administration Protocol Isosorbide Dinitrate 20 mg 04/11/21 09:00 04/11/21 09:11 Isosorbide Dinitrate 20 Mg Tablet PO 20 mg TID KOJO Administration Protocol Melatonin 6 mg 04/10/21 19:06 04/11/21 00:18 Melatonin 3 Mg Tablet PO 6 mg BEDTIME PRN Administration Insomnia Metoprolol Succinate 25 mg 04/11/21 09:00 04/11/21 00:19 Metoprolol Succinate Er 25 Mg Tab.Er.24h PO 25 mg BID KOJO Administration Protocol Mirtazapine 7.5 mg 04/11/21 21:00 04/11/21 00:19 Mirtazapine 7.5 Mg Tablet PO 7.5 mg BEDTIME [facility] Administration Pharmacy Consult 1 each 04/10/21 17:19 Consult Rx Vancomycin Dosing MISCELLANE DAILY PRN Consult order Pharmacy Consult 1 each 04/10/21 17:24 Consult Rx Perform Med Rec MISCELLANE ONCE PRN Consult order Potassium Chloride 40 meq 04/11/21 09:00 04/11/21 09:09 Potassium Chloride Er 20 Meq Tab.Er.Prt PO 08/06/21 21:01 40 meq BID KOJO Administration Senna 17.2 mg 04/10/21 19:06 Sennosides 8.6 Mg Tablet PO BEDTIME PRN Constipation Sodium Chloride 3 ml 04/11/21 00:00 04/11/21 09:11 0.9 % Sodium Chloride Flush 3 Ml Syringe IVFLUSH 3 ml QSHIFT KOJO Administration Tramadol HCl 100 mg 04/10/21 21:39 04/11/21 00:20 Tramadol Hcl 50 Mg Tablet PO 100 mg Q6H PRN Administration pain Labs CBC & Chem 7: 04/11/21 05:34 04/11/21 14:24 Labs: Laboratory Results - last 24 hr 04/10/21 04/10/21 04/10/21 16:17 16:17 16:17 MCV 92.9 MCH 30.3 MCHC 32.6 RDW 15.6 Plt Count TNP MPV Not Reportable Immature Gran % (Auto) Cancelled Neut % (Auto) Cancelled Lymph % (Auto) Cancelled [place] % (Auto) Cancelled Eos % (Auto) Cancelled Baso % (Auto) Cancelled Lymph # (Auto) Cancelled [place] # (Auto) Cancelled Eos # (Auto) Cancelled Baso # (Auto) Cancelled Abs Immat Gran (auto) Cancelled Absolute Neuts (auto) Cancelled Absolute Nucleated RBC 0.000 Nucleated RBC % (auto) 0.0 Neutrophils % (Manual) 61 Band Neutrophils % 21 H Lymphocytes % (Manual) 4 L Monocytes % (Manual) 4 Basophils % (Manual) 1 Metamyelocytes % 8 Myelocytes % 1 Abs Neuts (Manual) 14.8 H Lymphocytes # (Manual) 0.7 Monocytes # (Manual) 0.7 Basophils # (Manual) 0.2 Metamyelocytes # 1.4 Myelocytes # 0.2 Dohle Bodies PRESENT Platelet Estimate SLIGHTLY DECREASED Plt Morphology Comment NORMAL RBC Morphology NORMAL Anion Gap 18 Estim Creat Clear Calc 22.6 Estimated GFR 12 POC Glucose Random Glucose 152 H D Lactic Acid 1.3 Calcium 8.4 D Magnesium Total Bilirubin 0.7 Direct Bilirubin 0.2 AST 37 ALT 19 Alkaline Phosphatase 146 H D Total Protein 7.3 D Albumin 3.6 Coronavirus (PCR) Influenza Type A (PCR) Influenza Type B (PCR) RSV RNA Qual (PCR) 04/10/21 04/10/21 04/11/21 18:02 21:35 05:34 MCV 91.4 MCH 30.0 MCHC 32.8 RDW 15.5 Plt Count 100 L D MPV 12.2 Immature Gran % (Auto) Cancelled Neut % (Auto) Cancelled Lymph % (Auto) Cancelled [place] % (Auto) Cancelled Eos % (Auto) Cancelled Baso % (Auto) Cancelled Lymph # (Auto) Cancelled [place] # (Auto) Cancelled Eos # (Auto) Cancelled Baso # (Auto) Cancelled Abs Immat Gran (auto) Cancelled Absolute Neuts (auto) Cancelled Absolute Nucleated RBC 0.000 Nucleated RBC % (auto) 0.0 Neutrophils % (Manual) 82 H Band Neutrophils % 13 H Lymphocytes % (Manual) 4 L Monocytes % (Manual) 1 L Basophils % (Manual) Metamyelocytes % Myelocytes % Abs Neuts (Manual) 13.3 H Lymphocytes # (Manual) 0.6 Monocytes # (Manual) 0.1 Basophils # (Manual) Metamyelocytes # Myelocytes # Dohle Bodies PRESENT Platelet Estimate DECREASED Plt Morphology Comment NORMAL RBC Morphology NORMAL Anion Gap Estim Creat Clear Calc Estimated GFR POC Glucose 169 H Random Glucose Lactic Acid Calcium Magnesium Total Bilirubin Direct Bilirubin AST ALT Alkaline Phosphatase Total Protein Albumin Coronavirus (PCR) NEGATIVE Influenza Type A (PCR) NEGATIVE Influenza Type B (PCR) NEGATIVE RSV RNA Qual (PCR) NEGATIVE 04/11/21 04/11/21 04/11/21 05:34 07:09 11:00 MCV MCH MCHC RDW Plt Count MPV Immature Gran % (Auto) Neut % (Auto) Lymph % (Auto) [place] % (Auto) Eos % (Auto) Baso % (Auto) Lymph # (Auto) [place] # (Auto) Eos # (Auto) Baso # (Auto) Abs Immat Gran (auto) Absolute Neuts (auto) Absolute Nucleated RBC Nucleated RBC % (auto) Neutrophils % (Manual) Band Neutrophils % Lymphocytes % (Manual) Monocytes % (Manual) Basophils % (Manual) Metamyelocytes % Myelocytes % Abs Neuts (Manual) Lymphocytes # (Manual) Monocytes # (Manual) Basophils # (Manual) Metamyelocytes # Myelocytes # Dohle Bodies Platelet Estimate Plt Morphology Comment RBC Morphology Anion Gap 16 Estim Creat Clear Calc 24.8 Estimated GFR 14 POC Glucose 127 H 159 H Random Glucose 139 H Lactic Acid Calcium 8.0 L Magnesium 1.7 Total Bilirubin Direct Bilirubin AST ALT Alkaline Phosphatase Total Protein Albumin Coronavirus (PCR) Influenza Type A (PCR) Influenza Type B (PCR) RSV RNA Qual (PCR) Assessment and Plan (1) Cellulitis: Status: Acute Assessment and Plan: This is a 61-year-old male with a past medical history of hypertension, hyperlipidemia, insulin-dependent diabetes, CKD, AFib on Xarelto, CHF with EF of 40-45%, history of AICD, morbid obesity, YANELI, obesity hypoventilation syndrome on home CPAP presented to the hospital with a chief complaint of hiccups/left leg pain redness and swelling; noted to have left leg cellulitis.? Admitted to the hospital for further management. Left leg cellulitis secondary to DM. leukocytosis trending down Venous doppler negative for dvt Seen by ID -rec to change abx to clindamycin Hypokalemia improving, but still low likely r/t diuretics -replace and follow hiccups no further episodes thrombocytopenia -follow cbc SAQIB on CKD:? Avoid nephrotoxins.? -Hold torsemide, allopurinol -nephrology following Diabetes:? - Lantus reduced to 30 units b.i.d. for now -SSI Hypertension -continue hydralazine, metoprolol hyperlipidemia:? -continue statin History of AFib:? Rate controlled.? continue amiodarone, metoprolol Continue home eliquis HFrEF s/p AICD no acute exacerbation -Hold home diuretics -Monitor for signs of fluid overload.? -continue hydralazine, isosorbide, metoprolol YANELI -cpap morbid obesity bmi 43.2 weight loss recommended Code status:? Full code dvt ppx - eligail attending dr cotto Quality Stroke Does the patient have a stroke diagnosis?: No VTE Prior VTE?: No VTE Risk Level:: Medical - moderate - high VTE Device Contraindication: Treatment Not Indicated VTE Drug Contraindication: N/A - Med Ordered
[2021-04-11] MEDS: Clindamycin Phosphate/D5W 600 MG/50 ML PIGGYBACK 100 MG IV ×2 (15:10→23:52)
[2021-04-11 15:26] LABS: Anion Gap 15 (12-20); Blood Urea Nitrogen 81 mg/dL (9-16); Calcium 8.1 mg/dL (8.4-10.2); Carbon Dioxide 29 mmol/L (22-29); Chloride 99 mmol/L (96-108); Creatinine Clr Calc Pharmacy 23.4; Estimated Glomerular Filt Rate 13; Glucose Random 161 mg/dL (60-115); Sodium 140 mmol/L (135-145)
[2021-04-11 16:46] LABS: Glucose, Whole Blood 140 mg/dL (60-115)
[2021-04-11 19:34] LABS: Glucose, Whole Blood 166 mg/dL (60-115)
[2021-04-11 20:59] LABS: Glucose, Whole Blood 143 mg/dL (60-115)
[2021-04-12] MEDS: 0.9 % Sodium Chloride Flush 3 ML SYRINGE IVFLUSH ×2 (00:47→08:21)
[2021-04-12 03:28] VITALS: BP 142/69; PULSE 63; RESP 18; TEMP 36.6; O2SAT 96
[2021-04-12] MEDS: Heparin Sodium,Porcine 5,000 UNIT/ML VIAL 5000 UNIT SUBCUT (05:49)
[2021-04-12 06:48] LABS: Hematocrit 36.1 % (42-52); Hemoglobin 11.7 g/dl (14.0-18.0); Mean Corpuscular HGB Conc 32.4 g/dl (31.0-36.0); Mean Corpuscular Hemoglobin 29.8 pg (27.0-33.0); Mean Corpuscular Volume 91.9 fL (80-98); Mean Platelet Volume 12.3 fL (9.4-12.4); Platelet Count 107 X10*3/uL (160-400); Red Blood Count 3.93 X10*6/uL (4.60-5.80); Red Cell Distribution Width 15.7 % (11.0-16.0)
[2021-04-12 07:21] LABS: Magnesium 2.1 mg/dL (1.6-2.6)
[2021-04-12 07:26] LABS: Glucose, Whole Blood 136 mg/dL (60-115)
[2021-04-12 07:35] LABS: Anion Gap 14 (12-20); Blood Urea Nitrogen 78 mg/dL (9-16); Calcium 8.3 mg/dL (8.4-10.2); Carbon Dioxide 28 mmol/L (22-29); Chloride 103 mmol/L (96-108); Creatinine Clr Calc Pharmacy 26.4; Estimated Glomerular Filt Rate 15; Glucose Random 157 mg/dL (60-115); Sodium 142 mmol/L (135-145)
[2021-04-12 08:00] VITALS: BP 139/63; PULSE 60; RESP 18; TEMP 37.1; O2SAT 95
[2021-04-12 08:18] VITALS: BP 139/63; PULSE 60
[2021-04-12] MEDS: Metoprolol Succinate ER 25 MG TAB.ER.24H PO (08:18)
[2021-04-12] MEDS: hydrALAZINE HCl 50 MG TABLET PO (08:18)
[2021-04-12 08:19] VITALS: BP 139/63; PULSE 60
[2021-04-12] MEDS: Isosorbide Dinitrate 20 MG TABLET PO (08:19)
[2021-04-12] MEDS: Amiodarone HCL 200 MG TABLET PO (08:19)
[2021-04-12] MEDS: Insulin Glargine,Hum.rec.anlog 100 UNIT/ML 10 ML VIAL 30 UNIT SUBCUT (08:19)
[2021-04-12] MEDS: Apixaban 5 MG TABLET PO (08:19)
[2021-04-12] MEDS: Potassium Chloride ER 20 MEQ TAB.ER.PRT 40 MEQ PO (10:45)
[2021-04-12] MEDS: Torsemide 20 MG TABLET 80 MG PO (10:45)
--- NOTE | 2021-04-12 11:12 | P.DS_ITS ---
DS: Providers Provider Date of Service: 04/12/21 <Monica Shields NP - Last Filed: 04/12/21 11:21> Date of admission: 04/10/21 19:07 <Monica Shields NP - Last Filed: 04/12/21 11:21> Date of discharge: 04/12/21 <Monica Shields NP - Last Filed: 04/12/21 11:21> Primary care physician: Unknown Physician <Monica Shields NP - Last Filed: 04/12/21 11:21> Admitting clinician: Jaydon Salazar <Monica Shields NP - Last Filed: 04/12/21 11:21> Attending physician on admission: Jaydon Salazar <Monica Shields NP - Last Filed: 04/12/21 11:21> Consults: 04/10/21 19:10 Consult to Infectious Diseases Routine Consulting Provider: Radha Bashir Reason for consultation: left leg cellulitis; hx DM/CKD 04/10/21 19:20 Consult to Nephrology Routine Consulting Provider: Adam Fraser Reason for consultation: SAQIB on CKD; held Torsemide for now; hx CHF <Monica Shields NP - Last Filed: 04/12/21 11:21> Attending physician on discharge: Nicanor Orr <Monica Shields NP - Last Filed: 04/12/21 11:21> Discharging clinician: Monica Shields <Monica Shields NP - Last Filed: 04/12/21 11:21> DS: Diagnosis Discharge Diagnosis (1) Cellulitis: Status: Acute <Monica Shields NP - Last Filed: 04/12/21 11:21> (2) Acute kidney injury superimposed on CKD: Status: Acute <Monica Shields NP - Last Filed: 04/12/21 11:21> DS: Medications Discharge Medications Home Medications: Home Medications Medication Instructions Recorded Confirmed pen needle, diabetic 31 gauge x 09/07/20 09/24/2001/19 (BD Ultra-Fine Short Pen Needle) atorvastatin 20 mg tablet 40 mg PO BEDTIME 09/24/20 04/10/21 potassium chloride 20 mEq oral 40 meq PO BID 09/24/20 04/10/21 packet allopurinol 100 mg tablet 1 tab PO DAILY 04/10/21 04/10/21 amiodarone 200 mg tablet 200 mg PO DAILY 04/10/21 04/10/21 apixaban 5 mg tablet (Eliquis) 1 tab PO BID 04/10/21 04/10/21 hydralazine 50 mg tablet 1 tab PO TID 04/10/21 04/10/21 insulin glargine 100 unit/mL (3 40 unit SUBCUT DAILY 04/10/21 04/10/21 mL) subcutaneous pen (Basaglar KwikPen U-100 Insulin) isosorbide dinitrate 10 mg tablet 2 tab PO TID 04/10/21 04/10/21 metoprolol succinate 25 mg 1 tab PO BID 04/10/21 04/10/21 tablet,extended release 24 hr torsemide 20 mg tablet 80 mg PO BIDWM 04/10/21 04/10/21 tramadol 50 mg tablet 2 tab PO Q6H PRN 04/10/21 04/10/21 Previous Rx's Medication Instructions Recorded mirtazapine 7.5 mg tablet 7.5 mg PO BEDTIME #30 tab 09/25/20 walker #1 ea 09/25/20 walker #1 ea 09/25/20 doxycycline hyclate 100 mg tablet 100 mg PO BID #10 tab 04/12/21 <Monica Shields NP - Last Filed: 04/12/21 11:21> DS: Summary Hospital Course Hospital Course: Hp as per admitting provider 61-year-old male with a past medical history of hypertension, insulin-dependent diabetes, CHF, EF of 40-45%, status post AICD, AFib on Xarelto, YANELI, anxiety, depression, chronic kidney disease, history of COVID-19? infection home, morbid obesity, obesity hypoventilation syndrome, home CPAP, restrictive airway disease, osteoarthritis presented to the hospital with a chief complaint of hiccups. Patient reported that over the swelling he has been having hiccups which are not improving hence came to the ER for further evaluation. In the ER patient noted to have fever of 101f; follow patient mentions that for the past 4-5 days he has been having left leg pain redness and swelling, also complains of scratching; denies any numbness tingling; denies any fever chills cough; Patient denies any chest pain or palpitations. Denies any GI or symptoms . Cellulitis . Patient was initially noted to have a fever and 4-5 days of left leg pain redness and swelling. He was started on clindamycin for presumed c ellulitis. He was seen by infectious disease with recommendation for 5 more days of oral clindamycin however patient reported that he had a reaction yesterday with a headache and felt like his lips were swelling and he thought it was related to the clindamycin. Patient was told that he would be switched to doxycycline and he agreed. After some time he then stated that he wanted to leave against medical advice because he was given the clindamycin and did not know and he did not feel comfortable staying here. A prescription for doxycycline for 5 days was sent to his pharmacy. He was advised to follow up with his primary care provider. He is aware that without completing treatment his infection could get worse and would require rehospitalization. He agrees that he is taking on the risk and was signed out against medical advice. SAQIB on CKD. Patient has a history of chronic kidney disease and follows at [facility] and reports that he is currently on a transplant list. His torsemide was held for 24 hours due to worsening renal function as per recommendation of Nephrology. Patient reported that he wanted to have his torsemide restarted immediately because he felt like he was getting swollen because he noticed The hospital bracelet on his wrist seemed tighter. After reviewing his chart he was restarted on his torsemide. However because he stated he was given the clindamycin, and he felt like he had an allergic reaction he did not feel comfortable staying and wanted to leave against medical advice. 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 After discussing with the patient that his renal function could get worse and he can face worsening illness without completing treatment he stated that he would be willing to sign against medical advice and follow up on his own. <Monica Shields NP - Last Filed: 04/12/21 11:21> Time Spent with Patient Time attestation: Total time spent providing and/or coordinating discharge services: <Monica Shields NP - Last Filed: 04/12/21 11:21> Discharge coordination time: Greater than 30 minutes <Monica Shields NP - Last Filed: 04/12/21 11:21> Quality: Stroke Does the patient have a stroke diagnosis?: No <Monica Shields NP - Last Filed: 04/12/21 11:21> Physical Exam Vital Signs: Vital Signs: Last Vital Signs Temp 98.7 F 04/12/21 08:00 Pulse 60 04/12/21 08:19 Resp 18 04/12/21 08:00 BP 139/63 04/12/21 08:19 Pulse Ox 95 04/12/21 08:00 Body Mass Index 43.2 <Monica Shields NP - Last Filed: 04/12/21 11:21> Appearing in no acute distress head is normocephalic atraumatic eyes pupils are PERRLA sclera is anicteric mouth throat mucous membranes are intact and moist lung normal expansion heart regular rate rhythm abd obese neuro patient is alert x3, no focal deficits <Monica Shields NP - Last Filed: 04/12/21 11:21> DS: Data Data Completed and Pending Completed studies during hospitalization [Text1]: Procedures Assistance with Respiratory Ventilation, 24-96 Consecutive Hours, Continuous Positive Airway Pressure (09/07/20) Insertion of Infusion Device into Superior Vena Cava, Percutaneous Approach (09/07/20) Ultrasonography of Superior Vena Cava, Guidance (09/07/20) <Monica Shields NP - Last Filed: 04/12/21 11:21> Labs on day of discharge: Laboratory Results - last 24 hr 04/11/21 04/11/21 04/11/21 14:24 16:43 19:29 WBC RBC Hgb Hct MCV MCH MCHC RDW Plt Count MPV Absolute Nucleated RBC Nucleated RBC % (auto) Sodium 140 Potassium 3.0 L D Chloride 99 Carbon Dioxide 29 Anion Gap 15 BUN 81 H* Creatinine 4.72 H* Estim Creat Clear Calc 23.4 Estimated GFR 13 POC Glucose 140 H 166 H Random Glucose 161 H Calcium 8.1 L Magnesium 04/11/21 04/12/21 04/12/21 20:56 05:43 05:44 WBC 11.0 H RBC 3.93 L Hgb 11.7 L Hct 36.1 L MCV 91.9 MCH 29.8 MCHC 32.4 RDW 15.7 Plt Count 107 L MPV 12.3 Absolute Nucleated RBC 0.000 Nucleated RBC % (auto) 0.0 Sodium Potassium Chloride Carbon Dioxide Anion Gap BUN Creatinine Estim Creat Clear Calc Estimated GFR POC Glucose 143 H Random Glucose Calcium Magnesium 2.1 04/12/21 04/12/21 05:44 07:11 WBC RBC Hgb Hct MCV MCH MCHC RDW Plt Count MPV Absolute Nucleated RBC Nucleated RBC % (auto) Sodium 142 Potassium 3.0 L Chloride 103 Carbon Dioxide 28 Anion Gap 14 BUN 78 H Creatinine 4.18 H* Estim Creat Clear Calc 26.4 Estimated GFR 15 POC Glucose 136 H Random Glucose 157 H Calcium 8.3 L Magnesium Preliminary micro results at discharge 04/10/21 16:17 Blood Culture - Preliminary Blood - Venous No growth after 24 hours. 04/10/21 16:17 Blood Culture - Preliminary Blood - Venous No growth after 24 hours. <Monica Shields NP - Last Filed: 04/12/21 11:21> Discharge Plan Discharge Anticipated Discharge Date/Time: 04/12/21 11:05 <Monica Shields NP - Last Filed: 04/12/21 11:21> Patient Disposition: Left Against Medical Advice <Monica Shields NP - Last Filed: 04/12/21 11:21> Discharge Diagnosis: CELLULITIS SAQIB ON CKD <Monica Shields NP - Last Filed: 04/12/21 11:21> CELLULITIS SAQIB ON CKD <Randy Hagre MD - Last Filed: 04/12/21 12:25> Referrals: Physician,Unknown [Primary Care Provider] - 1 Week <Monica Shields NP - Last Filed: 04/12/21 11:21> Discharge Medications: New doxycycline hyclate 100 mg tablet 100 mg PO BID Qty: 10 RF: 0 Continued (DME) pen needle, diabetic [BD Ultra-Fine Short Pen Needle] 31 gauge x 5/16 needle subcut RF: 0 atorvastatin 20 mg Tablet 40 mg PO BEDTIME RF: 0 potassium chloride 20 mEq Packet 40 meq PO BID RF: 0 (DME) krunal Monzon See Rx Instructions .ROUTE .MEDSUPPLY Qty: 1 RF: 0 mirtazapine 7.5 mg tablet 7.5 mg PO BEDTIME Qty: 30 RF: 0 (DME) krunal Monzon See Rx Instructions .ROUTE .MEDSUPPLY Qty: 1 RF: 0 Eliquis 5 mg tablet 1 tab PO BID RF: 0 isosorbide dinitrate 10 mg tablet 2 tab PO TID RF: 0 tramadol 50 mg tablet 2 tab PO Q6H PRN (Reason: pain) RF: 0 Basaglar LeandraPen U-100 Insulin 100 unit/mL (3 mL) insulin pen 40 unit subcut DAILY RF: 0 torsemide 20 mg tablet 80 mg PO BIDWM RF: 0 amiodarone 200 mg tablet 200 mg PO DAILY RF: 0 allopurinol 100 mg tablet 1 tab PO DAILY RF: 0 hydralazine 50 mg tablet 1 tab PO TID RF: 0 metoprolol succinate 25 mg tablet extended release 24 hr 1 tab PO BID RF: 0 <Monica Shields NP - Last Filed: 04/12/21 11:21> Discharge Orders: Discharge Order (Routine); Ordered 04/12/21 Ordered By: Monica Shields <Monica Shields NP - Last Filed: 04/12/21 11:21> Diet: advance to usual diet <Monica Shields NP - Last Filed: 04/12/21 11:21> advance to usual diet <Randy Hager MD - Last Filed: 04/12/21 12:25> Activity on Discharge: As tolerated <Monica Shields NP - Last Filed: 04/12/21 11:21> As tolerated <Randy Hager MD - Last Filed: 04/12/21 12:25> Care Plan Goals: Left against medical advise <Monica Shields NP - Last Filed: 04/12/21 11:21> Health Concerns: cellulitis Saqib on CKD <Monica Shields NP - Last Filed: 04/12/21 11:21> Plan of Treatment: Follow up with your primary care provider to evaluate cellulitic infection Continue doxycycline for cellulitis and take as prescribed <Monica Shields NP - Last Filed: 04/12/21 11:21> Assessment: See discharge summary <Monica Shields NP - Last Filed: 04/12/21 11:21> Discharge Date/Time: 04/12/21 11:51 <Monica Shields NP - Last Filed: 04/12/21 11:21>
--- NOTE | 2021-04-12 11:56 | PC.NURSE ---
Patient left AMA after discussing his status with Monica Shields. I went over his discharge papers with him, indicating that a prescription had been sent to his pharmacy. Patient signed AMA form.
== END 2021-04-12 11:51 | disposition left against medical advice (07) | DRG 638 ==
LOC: HO.ED 14:37 → HO.EDOVER 19:32 → HO.IMC 04-11 00:02
PROVIDERS: Family Medicine; Nurse Practitioner Family; Physician Assistant Medical; Admitting Provider Hospitalist; Emergency Provider Emergency Medicine; Visit Provider Internal Medicine
DX: E11.628 Type 2 diabetes mellitus with other skin complications (principal); L03.116 Cellulitis of left lower limb; I13.0 Hypertensive heart and chronic kidney disease with heart failure and stage 1 through stage 4 chronic kidney disease, or unspecified chronic kidney disease; Z68.41 Body mass index [BMI] 40.0-44.9, adult; E66.2 Morbid (severe) obesity with alveolar hypoventilation; I50.22 Chronic systolic (congestive) heart failure; N17.9 Acute kidney failure, unspecified; D72.829 Elevated white blood cell count, unspecified; F41.9 Anxiety disorder, unspecified; F32.9 Major depressive disorder, single episode, unspecified; E78.5 Hyperlipidemia, unspecified; N18.4 Chronic kidney disease, stage 4 (severe); R06.6 Hiccough; D69.6 Thrombocytopenia, unspecified; E87.6 Hypokalemia; E11.22 Type 2 diabetes mellitus with diabetic chronic kidney disease; Z20.822 Contact with and (suspected) exposure to COVID-19; Z95.810 Presence of automatic (implantable) cardiac defibrillator; Z79.4 Long term (current) use of insulin; Z79.01 Long term (current) use of anticoagulants; Z79.891 Long term (current) use of opiate analgesic; Z79.899 Other long term (current) drug therapy
CPT/HCPCS: 0241U; 36415; 71046; 76882; 80048; 80076; 82947; 83605; 83735; 85007; 85025; 85027; 87040; 93005; 93970; 99285; J0696; J3370

== ENCOUNTER 2021-06-07 17:28 | Emergency (ER) | payer OTHER, SELFPAY ==
--- NOTE | ~2021-06-07 | XR_ITS ---
EXAMINATION: XR FINGER, LEFT CLINICAL INFORMATION: Laceration COMPARISON: None TECHNIQUE: Three views of the left third digit. FINDINGS: The bones and soft tissues are normal notable soft tissue deformity with banding device noted limiting assessment. No radiopaque foreign body. The tuft of the distal talus appears intact without deformity.. No fracture. Alignment is anatomic. Joint spaces are maintained. XR/XR finger LT min 2V IMPRESSION: No fracture. Soft tissue changes as above.
[2021-06-07 18:11] VITALS: BP 154/74; PULSE 65; RESP 16; TEMP 36.8; O2SAT 98; BMI 41.8
--- NOTE | 2021-06-07 19:09 | ED_ITS ---
HPI - Wound/Laceration General Chief Complaint: Wound/Laceration Stated Complaint: thumb lac Time Seen by Provider: 06/07/21 18:22 Source: patient Mode of arrival: ambulatory Limitations: no limitations History of Present Illness HPI narrative: 61-year-old male presents with left index finger tip laceration on a table saw. Patient states that his tetanus is up-to-date. He applied a pressure dressing but could not control the bleeding as he is on Eliquis. Onset (ago): hour(s) (Within the hour of arrival) Extremity Location: left: hand (Index finger) Place: home Patient tetanus UTD: Yes Context: accidental Associated symptoms: pain Treatments prior to arrival: bandage Related Data Home Medications Medication Instructions Recorded Confirmed pen needle, diabetic 31 gauge x 09/07/20 09/24/2001/19 (BD Ultra-Fine Short Pen Needle) atorvastatin 20 mg tablet 40 mg PO BEDTIME 09/24/20 04/10/21 potassium chloride 20 mEq oral 40 meq PO BID 09/24/20 04/10/21 packet allopurinol 100 mg tablet 1 tab PO DAILY 04/10/21 04/10/21 amiodarone 200 mg tablet 200 mg PO DAILY 04/10/21 04/10/21 apixaban 5 mg tablet (Eliquis) 1 tab PO BID 04/10/21 04/10/21 hydralazine 50 mg tablet 1 tab PO TID 04/10/21 04/10/21 insulin glargine 100 unit/mL (3 40 unit SUBCUT DAILY 04/10/21 04/10/21 mL) subcutaneous pen ([employer] U-100 Insulin) isosorbide dinitrate 10 mg tablet 2 tab PO TID 04/10/21 04/10/21 metoprolol succinate 25 mg 1 tab PO BID 04/10/21 04/10/21 tablet,extended release 24 hr torsemide 20 mg tablet 80 mg PO BIDWM 04/10/21 04/10/21 tramadol 50 mg tablet 2 tab PO Q6H PRN 04/10/21 04/10/21 Previous Rx's Medication Instructions Recorded mirtazapine 7.5 mg tablet 7.5 mg PO BEDTIME #30 tab 09/25/20 walker #1 ea 09/25/20 walker #1 ea 09/25/20 doxycycline hyclate 100 mg tablet 100 mg PO BID #10 tab 04/12/21 doxycycline monohydrate 100 mg 100 mg PO BID 10 Days #20 cap 06/07/21 capsule oxycodone 5 mg tablet 5 mg PO Q8H PRN #3 tab 06/07/21 sulfamethoxazole 800 1 tab PO Q12H 10 Days #20 tab 06/07/21 mg-trimethoprim 160 mg tablet (Bactrim DS) Allergies Allergy/AdvReac Type Severity Reaction Status Date / Time Penicillins [PENICILLINS] Allergy Severe HIVES Verified 06/07/21 19:10 Review of Systems Review of Systems: Constitutional: No Fever, No Chills ENT/Mouth: No Ear Pain, No Hoarseness, No sore throat Eyes: No Eye Pain, No Swelling, No Redness, No Foreign Body Cardiovascular: No Chest Pain, No SOB Respiratory: No Cough, No Dyspnea Gastrointestinal: No Nausea, No Vomiting, No Diarrhea, No abdominal Pain Genitourinary: No Dysuria, No Hematuria Musculoskeletal: positive left finger pain, No Myalgias, No Joint Swelling Skin: Positive left finger tip laceration, No rash Neuro: No Weakness, No Numbness, No Paresthesias, No Loss of Consciousness, No Dizziness, No Headache Psych: No Anxiety/Panic, No Depression Heme/Lymph: no easy bruising, no Lymphadenopathy Endocrine: No Polyuria, No Polydipsia Yes all other systems are reviewed and are negative [facility] Past Medical History Attestation statement: The following information was validated with the patient. Source: old records reviewed Medical History CHF (congestive heart failure) CKD (chronic kidney disease) stage 3, GFR 30-59 ml/min HTN (hypertension) Morbid obesity Obesity Obesity hypoventilation syndrome YANELI on CPAP Restrictive airway disease Surgical History History of knee surgery Social History Social History Household Members: Family Housing: Unknown / Unable to assess Do you presently have visiting nurse or other home services: Yes Unable to assess alcohol history related to: Unknown Alcohol intake: unknown Patient Tobacco Use Status: Never used Tobacco Second Hand Smoke Exposure: No Advance Directives: Yes Advance Directives Date on File: 04/11/21 service: No Current occupational status: employed Physical Exam Vital Signs: Vital Signs: Last Vital Signs Temp 98.2 F 06/07/21 18:11 Pulse 65 06/07/21 18:11 Resp 16 06/07/21 18:11 BP 154/74 H 06/07/21 18:11 Pulse Ox 98 06/07/21 18:11 Body Mass Index 41.8 Appearance: Alert. Oriented X3. No acute distress. Eyes: Pupils equal, round and reactive to light. ENT: Pharynx normal. Neck: Normal inspection. Neck supple. CVS: Normal heart rate and rhythm. Pulses normal. Respiratory: No respiratory distress. Breath sounds normal. Abdomen: Soft and nontender. Skin: Skin warm and dry. Normal skin color. Normal skin turgor. Extremities: Left lateral middle finger tip amputation. Full range of motion, brisk capillary refill, neurovascularly intact. Neuro: No motor deficit. No sensory deficit. Course Course Course Narrative: 61-year-old male presents with laceration avulsion to the left middle finger. States that he cut the lateral tip with a table saw. Will order x-rays. Tdap has been updated. X-rays negative for bone involvement or foreign body. Irrigated with copious amounts of normal saline. Digital block completed. Applied Xeroform and sterile dressing. Patient will return in 3 days for wound check. Will treat with antibiotics as patient is diabetic. Patient verbalized understanding of and agrees to plan of care discharge home. 10:57 p.m. pharmacy called and stated that patient was allergic to doxycycline. Order for Bactrim DS. MDM - Wound/Laceration Differential Diagnosis Differential diagnosis: Likely laceration Medical Records Attestation: I reviewed the patient's medical records. Lab Data Attestation: I reviewed the patient's lab results. Imaging Data Finger x-ray: Attestation: I personally reviewed and interpreted this imaging study as follows: Radiologist's impression: EXAMINATION: XR FINGER, LEFT CLINICAL INFORMATION: Laceration? COMPARISON: None? TECHNIQUE: Three views of the left third digit. FINDINGS: The bones and soft tissues are normal notable soft tissue deformity with banding device noted limiting assessment. No radiopaque foreign body. The tuft of the distal talus appears intact without deformity.. No fracture. Alignment is anatomic. Joint spaces are maintained.? XR/XR finger LT min 2V IMPRESSION: No fracture. Soft tissue changes as above. ? Procedures Nerve Block Nerve Block 1: Local Anesthetic: lidocaine 2% Amount of anesthesia used (mL): 4 Side: left Nerve Blocks: digital Procedure Successful: Yes Patient Tolerated Procedure: well and no complications Complications: none Discharge Plan Discharge Clinical Impression: Laceration Patient Disposition: Home, Self-Care Instructions: Finger Laceration (ED) Additional Instructions: You were evaluated for finger tip laceration. Please take doxycycline twice a day for the next 10 days. Keep the dressing in place until you were evaluated in 3 days from now. Keep the hand elevated to help reduce pain and swelling. I prescribed oxycodone 2 tablets. This medication is a narcotic and has high risk for addiction abuse. Do not drive or operate machinery while taking this medication. Follow-up with primary care or wound care. Thank you for choosing this emergency department for evaluation. Please follow-up with primary care physician as needed. Return to the emergency department for any new, concerning, or worsening symptoms. Prescriptions: New doxycycline monohydrate 100 mg capsule 100 mg PO BID 10 Days Qty: 20 RF: 0 oxycodone 5 mg tablet 5 mg PO Q8H PRN (Reason: pain) Qty: 3 RF: 0 sulfamethoxazole-trimethoprim [Bactrim DS] 800-160 mg tablet 1 tab PO Q12H 10 Days Qty: 20 RF: 0 No Action (DME) pen needle, diabetic [BD Ultra-Fine Short Pen Needle] 31 gauge x 5/16 needle subcut RF: 0 atorvastatin 20 mg Tablet 40 mg PO BEDTIME RF: 0 potassium chloride 20 mEq Packet 40 meq PO BID RF: 0 (DME) krunal Monzon See Rx Instructions .ROUTE .MEDSUPPLY Qty: 1 RF: 0 mirtazapine 7.5 mg tablet 7.5 mg PO BEDTIME Qty: 30 RF: 0 (DME) krunal Monzon See Rx Instructions .ROUTE .MEDSUPPLY Qty: 1 RF: 0 Eliquis 5 mg tablet 1 tab PO BID RF: 0 isosorbide dinitrate 10 mg tablet 2 tab PO TID RF: 0 tramadol 50 mg tablet 2 tab PO Q6H PRN (Reason: pain) RF: 0 Basaglar KwikPen U-100 Insulin 100 unit/mL (3 mL) insulin pen 40 unit subcut DAILY RF: 0 torsemide 20 mg tablet 80 mg PO BIDWM RF: 0 amiodarone 200 mg tablet 200 mg PO DAILY RF: 0 allopurinol 100 mg tablet 1 tab PO DAILY RF: 0 hydralazine 50 mg tablet 1 tab PO TID RF: 0 metoprolol succinate 25 mg tablet extended release 24 hr 1 tab PO BID RF: 0 doxycycline hyclate 100 mg tablet 100 mg PO BID Qty: 10 RF: 0 Interventions: ED Discharge Assessment Last Done: 06/07/21 20:48 Discharge Date/Time: 06/07/21 20:49
[2021-06-07] MEDS: Lidocaine HCl 2 % MPF 5 ML VIAL SUBCUT (20:29)
== END 2021-06-07 20:49 | disposition home or self-care (01) ==
PROVIDERS: Emergency Provider Internal Medicine; PCP Internal Medicine
DX: S61.213A Laceration without foreign body of left middle finger without damage to nail, initial encounter (principal); M79.642 Pain in left hand; I12.9 Hypertensive chronic kidney disease with stage 1 through stage 4 chronic kidney disease, or unspecified chronic kidney disease; N18.30 Chronic kidney disease, stage 3 unspecified; W31.2XXA Contact with powered woodworking and forming machines, initial encounter; Y93.9 Activity, unspecified; Y92.9 Unspecified place or not applicable; Y99.9 Unspecified external cause status; Z79.01 Long term (current) use of anticoagulants; Z77.22 Contact with and (suspected) exposure to environmental tobacco smoke (acute) (chronic); Z79.899 Other long term (current) drug therapy
CPT/HCPCS: 64455; 73140; 99284

== ENCOUNTER 2023-08-09 00:11 | Emergency (ER) | payer MEDICAID, SELFPAY ==
--- NOTE | 2023-08-09 | ECG_ITS ---
Test Reason : CHEST PAIN Blood Pressure : / mmHG Vent. Rate : 077 BPM Atrial Rate : 077 BPM P-R Int : 170 ms QRS Dur : 186 ms QT Int : 484 ms P-R-T Axes : 032 219 023 degrees QTc Int : 547 ms Atrial-sensed ventricular-paced rhythm Biventricular pacemaker detected Abnormal ECG When compared with ECG of 11-APR-2021 07:27, No significant changes seen Referred By: Generic ED Physician Electronically Signed By:KUMAR RICK
--- NOTE | ~2023-08-09 | XR_ITS ---
EXAMINATION: XR CHEST CLINICAL INFORMATION: Dyspnea on exertion, pleuritic chest pain COMPARISON: 04/10/2021 TECHNIQUE: 2 views of the chest were obtained. FINDINGS: Redemonstrated left-sided pacemaker/AICD with leads extending to the expected regions of the right atrium, right ventricle, and coronary sinus. Lung volumes are symmetric. No focal consolidation is seen. Central vasculature appears somewhat prominent, without overt edema. Linear atelectasis versus scarring in the mid left lung. No evidence of pneumothorax or pleural effusion. Cardiac silhouette remains prominent. No acute osseous findings are seen. XR/XR chest 2V IMPRESSION: Prominent central vasculature suggesting congestion without overt edema. Cardiac silhouette remains prominent.
[2023-08-09 00:18] VITALS: BP 179/96; PULSE 75; RESP 16; TEMP 36.4; O2SAT 96; BMI 45.2
--- OUTSIDE RECORDS SUMMARY | 2023-08-09 00:39 | XMS_ITS | Continuity of Care Document ---
Author Name Unknown Organization [facility] Address [address] [place] [phone]- Care Team Providers Care Sales Representative Supervisor Name Role Phone Bubba Carrillo III, MD Primary Care Physician [place] [facility] [place](s): 11/14/19 - 11/24/19 [facility] [address] [place] [phone]- [facility] Attending Physician: AdmMinisterio perez Admitting Physician: AdmtrMinisterio Referring Physician: Admtr, [id number] Allergies, Adverse Reactions, Alerts Substance Reaction Severity Status penicillin hives Active Entresto acid reflux Active Medications amLODIPine 10 mg oral tablet 10 mg, 1, tablet, By Mouth, Daily, # 30 tablet, Refills 0, Maintenance, 10/04/18 9:43:17 EST Start Date: 10/04/18 Status: Ordered Basaglar KwikPen 100 units/mL subcutaneous solution 0 Refills, Maintenance, 07/25/19 13:42:33 EST Start Date: 07/25/19 Status: Ordered carvedilol 12.5 mg oral tablet 1 tablet = 12.5 mg, By Mouth, 2 times a day, 0 Refills, Maintenance Start Date: 05/26/12 Status: Ordered Cpap machine Cpap machine, Refills 0, Maintenance, 10/04/18 9:45:23 EST, Compound Start Date: 10/04/18 Status: Ordered Harvoni 90 mg-400 mg oral tablet 1 tablet, By Mouth, Daily, # 28 tablet, 2 Refills, Maintenance, 04/11/15 13:30:26, Tablet Start Date: 04/11/15 Status: Ordered hydrALAZINE 50 mg oral tablet 1 tablet = 50 mg, By Mouth, 3 times a day, # 270 tablet, 11 Refills, Maintenance, 11/14/19 11:07:00EDT, Tablet, [facility]/pharmacy #[id number], 180, cm, 11/14/19 10:41:00 EDT, Height Start Date: 11/14/19 Status: Ordered isosorbide mononitrate 60 mg oral tablet, extended release 60 mg, 1, tablet, By Mouth, Daily in AM, # 90 tablet, Refills 11, Tot. Refills 11, Maintenance, 11/14/19 11:09:00 EDT, Route to Pharmacy Electronically, [facility]/pharmacy #[id number], 180, cm, 11/14/19 10:41:00EDT, Height Start Date: 11/14/19 Status: Ordered Jardiance 10 mg oral tablet 0 Refills, Maintenance, 07/25/19 13:41:53 EST Start Date: 07/25/19 Status: Ordered Lipitor 20 mg oral tablet l, By Mouth, Daily, 20mg daily, # 30 tablet, 0 Refills, Maintenance, Tablet Start Date: 10/04/18 Status: Ordered losartan 100 mg oral tablet 1 tablet = 100 mg, By Mouth, Daily, # 30 tablet, 11 Refills, Maintenance, 07/25/19 14:16:49 EST, Tablet Start Date: 07/25/19 Status: Ordered spironolactone 25 mg oral tablet 25 mg, 1, tablet, By Mouth, Daily, # 30 tablet, Refills 2, Tot. Refills 2, Maintenance, 06/28/19 10:10:12 EDT, Route to Pharmacy Electronically, [id number], [facility]/pharmacy #[id number] Start Date: 06/28/19 Stop Date: 09/26/19 Status: Ordered torsemide 20 mg oral tablet 2 tablet = 40 mg, By Mouth, 2 times a day, # 120 tablet, 11 Refills, Maintenance, 11/14/19 11:07:00EDT, Tablet, [facility]/pharmacy #[id number], 180, cm, 11/14/19 10:41:00 EDT, Height Start Date: 11/14/19 Stop Date: 11/08/20 Status: Ordered traMADol 50 mg oral tablet TAKE 2 TABLETS BY MOUTH EVERY 6 HOURS NEEDED FOR PAIN Start Date: 07/25/19 Status: Ordered Social History Social History Type Response Smoking Status Former smoker, quit more than 30 days ago; Tobacco user in household: No entered on: 10/04/18 Sex
--- OUTSIDE RECORDS SUMMARY | 2023-08-09 00:39 | XMS_ITS | Continuity of Care Document ---
Author Name Unknown Organization [facility] Address [address] [place] [phone]- Care Team Providers Care Quality Internship Name Role Phone Gerardo JOSEPH MD, Bubba Baxter Primary Care Physician [phone] [facility] [place]20 [facility] [address] [place] [id number] Attending Physician: AdmMinisterio perez Admitting Physician: Admtr, [id number] Referring Physician: Admtr, Ar8 Allergies, Adverse Reactions, [...] EST Start Date: 07/25/19 Status: Ordered carvedilol 25 mg oral tablet 25 mg, 1, tablet, By Mouth, 2 times a day, # 60 tablet, Refills 11, Tot. Refills 11, Maintenance, 08/15/20 16:41:00 EST, Route to Pharmacy Electronically, [facility]/pharmacy #[id number], Partial fill upon patient request if the prescription is for a schedule II o... Start Date: 08/15/20 Status: Ordered Cpap machine Cpap machine, Refills [...] tablet, 11 Refills, Maintenance, 11/14/19 11:07:00EDT, Tablet, [facility]/pharmacy #[id number], 180, cm, 11/14/19 10:41:00 EDT, Height Start Date: 11/14/19 Status: Ordered isosorbide mononitrate 60 mg oral tablet, extended release 60 mg, 1, tablet, By Mouth, Daily in AM, # 90 tablet, Refills 11, Tot. Refills 11, Maintenance, 11/14/19 11:09:00 EDT, Route to Pharmacy Electronically, [facility]/pharmacy #[id number], 180, cm, 11/14/19 10:41:00EDT, Height Start [...] EST, Tablet Start Date: 07/25/19 Status: Ordered metolazone 2.5 mg oral tablet 2.5 mg, 1, tablet, By Mouth, Once, 30 mins prior to your next torsemide dose on 07/23 Future doses as instructed by the clinic, # 10 tablet, Refills 0, Tot. Refills 0, Soft Stop, 08/15/20 16:41:00 EST, Route to Pharmacy Electronically, [facility]/pharmacy #... Start Date: 08/15/20 Status: Ordered potassium chloride 20 mEq oral tablet, extended release 2 tablets, By Mouth, 2 times a day, # 8 capsule, 0 Refills, Soft Stop, 07/24/20 10:53:00 EST, ER Tablet, [facility]/pharmacy #[id number], 180, cm, 11/14/19 10:41:00 EDT, Height Start Date: 07/24/20 Stop Date: 07/26/20 Status: Ordered spironolactone 50 mg oral tablet 1 tablet = 50 mg, By Mouth, Daily, dose increase for pt, # 30 tablet, 2 Refills, Maintenance, 01/31/20 13:59:00 EDT, Tablet, [facility]/pharmacy #[id number], 180, cm, 11/14/19 10:41:00 EDT, Height Start Date: 01/31/20 Stop Date: 04/30/20 Status: Ordered torsemide 20 mg oral tablet 4 tablet = 80 mg, By Mouth, 2 times a day, # 240 tablet, 11 Refills, Maintenance, 05/27/20 16:43:00EDT, Tablet, [facility]/pharmacy #[id number], 180, cm, 11/14/19 10:41:00 EDT, Height Start Date: 05/27/20 Stop Date: 05/22/21 Status: Ordered traMADol 50 mg oral tablet TAKE 2 TABLETS BY MOUTH EVERY 6 HOURS NEEDED FOR PAIN Start Date: 07/25/19 Status: Ordered Social History Social History Type Response Smoking Status Former smoker, quit more than 30 days ago; Tobacco user in household: No entered on: 10/04/18 Sex
--- OUTSIDE RECORDS SUMMARY | 2023-08-09 00:39 | XMS_ITS | Continuity of Care Document ---
Author Name Unknown Organization [facility] ter Address [address] [place] [phone]- Care Team Providers Care Director Marketing Name Role Phone Gerardo JOSEPH MD, Bubba Baxter Primary Care Physician [phone] Encounter [facility] [place] Date(s): 08/29/19 - 10/08/[address] [phone]- [facility] Attending Physician: Mimi Georges NP Admitting Physician: Mimi Georges NP Referring Physician: Mimi Georges NP Allergies, Adverse Reactions, Alerts Substance Reaction Severity [...] 13:30:26, Tablet Start Date: 04/11/15 Status: Ordered isosorbide mononitrate 30 mg oral tablet, extended release By Mouth, Daily in AM, # 30 tablet, Refills 0, Maintenance, 10/04/18 9:44:00 EST Start Date: 10/04/18 Status: Ordered Jardiance 10 mg oral tablet [...] tablet 2.5 mg, 1, tablet, By Mouth, Daily, # 10 tablet, Refills 0, Tot. Refills 0, Maintenance, 10/12/18 9:29:36 EST, Route to Pharmacy Electronically, [id number], [facility]/pharmacy #[id number] Start Date: 10/12/18 Status: Ordered spironolactone 25 mg oral tablet 25 mg, 1, tablet, By Mouth, Daily, # 30 tablet, Refills 2, Tot. Refills 2, Maintenance, 06/28/19 10:10:12 EDT, Route to Pharmacy Electronically, [id number], [facility]/pharmacy #[id number] Start Date: 06/28/19 Stop Date: 09/26/19 Status: Ordered torsemide 20 mg oral tablet 1 tablet = 20 mg, By Mouth, 2 times a day, tempory change until appt on 06/01, # 60 tablet, 5 Refills, Maintenance, 07/27/19 11:16:31 EST, Tablet, this replaces furosemide Start Date: 07/27/19 Stop Date: 01/23/20 Status: Ordered torsemide 20 mg oral tablet 2 tablet = 40 mg, By Mouth, Daily, please schedule f/u appt for further refills, # 60 tablet, 0 Refills, Maintenance, 07/05/19 15:16:27 EDT, Tablet Start Date: 07/05/19 Stop Date: 08/04/19 Status: Ordered traMADol 50 mg oral tablet TAKE 2 TABLETS BY MOUTH EVERY 6 HOURS NEEDED FOR PAIN Start Date: 07/25/19 Status: Ordered Social History Social History Type Response Smoking Status Former smoker, quit more than 30 days ago; Tobacco user in household: No entered on: 10/04/18 Sex
--- OUTSIDE RECORDS SUMMARY | 2023-08-09 00:39 | XMS_ITS | Continuity of Care Document ---
Author Name Unknown Organization [facility] Address [address] [place] [address]- Care Team Providers Care Linseed Oil Boiler Name Role Phone Gerardo JOSEPH MD, Bubba Baxter Primary Care Physician [phone] [place] [facility] [place] 03/19/20 - 04/18/20 [facility] [address] [place] [phone]- [facility] Allergies, Adverse Reactions, Alerts Substance Reaction Severity [...] tablet, 11 Refills, Maintenance, 11/14/19 11:07:00EDT, Tablet, [facility]/pharmacy #[id number], 180, cm, 11/14/19 10:41:00 EDT, Height Start Date: 11/14/19 Status: Ordered isosorbide mononitrate 60 mg oral tablet, extended release 60 mg, 1, tablet, By Mouth, Daily in AM, # 90 tablet, Refills 11, Tot. Refills 11, Maintenance, 11/14/19 11:09:00 EDT, Route to Pharmacy Electronically, [facility]/pharmacy #[id number], 180, cm, 11/14/19 10:41:00EDT, Height Start [...] prior to your next torsemide dose on 03/29 Future doses as instructed by the clinic, # 3 tablet, Refills 0, Tot. Refills 0, Soft Stop, 03/28/20 15:56:00 EDT,Route to Pharmacy Electronically, [facility]/pharmacy #06... Start Date: 03/28/20 Status: Ordered spironolactone 50 mg oral tablet 1 tablet = 50 mg, By Mouth, Daily, dose increase for pt, # 30 tablet, 2 Refills, Maintenance, 01/31/20 13:59:00 EDT, Tablet, [facility]/pharmacy #[id number], 180, cm, 11/14/19 10:41:00 EDT, Height Start Date: 01/31/20 Stop Date: 04/30/20 Status: Ordered torsemide 20 mg oral tablet 5 tablet = 100 mg, By Mouth, 2 times a day, # 300 tablet, 11 Refills, Maintenance, 01/30/20 12:29:00 EDT, Tablet, [facility]/pharmacy #[id number], 180, cm, 11/14/19 10:41:00 EDT, Height Start Date: 01/30/20 Stop Date: 01/24/21 Status: Ordered traMADol 50 mg oral tablet TAKE 2 TABLETS BY MOUTH EVERY 6 HOURS NEEDED FOR PAIN Start Date: 07/25/19 Status: Ordered Social History Social History Type Response Smoking Status Former smoker, quit more than 30 days ago; Tobacco user in household: No entered on: 10/04/18 Sex
--- OUTSIDE RECORDS SUMMARY | 2023-08-09 00:39 | XMS_ITS | Continuity of Care Document ---
Author Name Unknown Organization [facility] Address [address] [place] [address]- Care Team Providers Care Hot Room Attendant Name Role Phone Gerardo JOSEPH MD, Bubba Baxter Primary Care Physician Encounter [facility] [place] Date(s): 05/27/20 - 06/26/20 [facility] [address] [place] [phone]- [facility] Allergies, Adverse Reactions, Alerts Substance Reaction Severity [...] 11/14/19 11:09:00 EDT, Route to Pharmacy Electronically, [facility]/pharmacy #[id number], 180, cm, 11/14/19 10:41:00EDT, Height [...] prior to your next torsemide dose on 06/27 Future doses as instructed by the clinic, # 3 tablet, Refills 0, Tot. Refills 0, Soft Stop, 06/26/20 17:08:00 EDT, Route to Pharmacy Electronically, [facility]/pharmacy #0... Start Date: 06/26/20 Status: Ordered potassium chloride 20 mEq oral tablet, extended release 3 tablets, By Mouth, Once, with your metolazone dose. Futue doses as instructed by , # 12 tablet,0 Refills, Soft Stop, 06/26/20 17:09:00 EDT, ER Tablet, [facility]/pharmacy #[id number], 180, cm, 11/14/19 10:41:00 EDT, Height Start Date: 06/26/20 Status: Ordered spironolactone 50 mg oral tablet 1 tablet = 50 mg, By Mouth, Daily, dose increase for pt, # 30 tablet, 2 Refills, Maintenance, 01/31/20 13:59:00 EDT, Tablet, [facility]/pharmacy #[id number], 180, cm, 11/14/19 10:41:00 EDT, Height Start Date: 01/31/20 Stop Date: 04/30/20 Status: Ordered torsemide 20 mg oral tablet 4 tablet = 80 mg, By Mouth, 2 times a day, # 240 tablet, 11 Refills, Maintenance, 05/27/20 16:43:00EDT, Tablet, [facility]/pharmacy #[id number], 180, cm, 11/14/19 10:41:00 [...]
--- OUTSIDE RECORDS SUMMARY | 2023-08-09 00:39 | XMS_ITS | Continuity of Care Document ---
Author Name Unknown Organization [facility] Address [address] [place] [phone]- Care Team Providers Care Meter Tester Primary Name Role Phone Bubba Carrillo III, MD Primary Care Physician Encounter [facility] Date(s): 08/05/19 - 10/15/19 [facility] [address] [place] [address]- [facility] Attending Physician: Julia Leroy MD Admitting Physician: Julia Leroy MD Referring Physician: Bubba Carrillo III, MD Allergies, Adverse Reactions, Alerts Substance Reaction Severity [...] 10/12/18 9:29:36 EST, Route to Pharmacy Electronically, [id number], [facility]/pharmacy #[id number] Start Date: 10/12/18 Status: Ordered spironolactone 25 mg oral tablet 25 mg, 1, tablet, By Mouth, Daily, # 30 tablet, Refills 2, Tot. Refills 2, Maintenance, 06/28/19 10:10:12 EDT, Route to Pharmacy Electronically, [id number], [facility]/pharmacy #[id number] Start Date: 06/28/19 Stop Date: [...]
--- OUTSIDE RECORDS SUMMARY | 2023-08-09 00:39 | XMS_ITS | Continuity of Care Document ---
Author Name Unknown Organization [facility] Address [address] [place] [address]- Care Team Providers Care Lock Setter Name Role Phone Gerardo JOSEPH MD, Bubba Baxter Primary Care Physician [place] [facility] [place] [id number] Date(s): 01/16/20 - 02/15/20 [facility] [address] [place] [address]- [facility] Attending Physician: AdmMinisterio perez Admitting Physician: Admtr, Ministerio Referring Physician: Admtr, Ar8 Allergies, Adverse Reactions, [...] tablet, 11 Refills, Maintenance, 11/14/19 11:07:00EDT, Tablet, [facility]/pharmacy #[id number], 180, cm, 11/14/19 10:41:00 EDT, Height Start Date: 11/14/19 Status: Ordered isosorbide mononitrate 60 mg oral tablet, extended release 60 mg, 1, tablet, By Mouth, Daily in AM, # 90 tablet, Refills 11, Tot. Refills 11, Maintenance, 11/14/19 11:09:00 EDT, Route to Pharmacy Electronically, [facility]/pharmacy #[id number], 180, cm, 11/14/19 10:41:00EDT, Height [...] Mouth, Once, 30 mins prior to your am torsemide dose on 02/02., # 1 tablet, Refills 0, Tot. Refills 0, Soft Stop, 02/02/20 11:16:00 EDT, Route to Pharmacy Electronically, [facility]/pharmacy #[id number], 180, cm, 11/14/19 10:41:00 EDT, Height Start Date: 02/02/20 Status: Ordered spironolactone 50 mg oral tablet 1 tablet = 50 mg, By Mouth, Daily, dose increase for pt, # 30 tablet, 2 Refills, Maintenance, 01/31/20 13:59:00 EDT, Tablet, [facility]/pharmacy #[id number], 180, cm, 11/14/19 10:41:00 EDT, Height Start Date: 01/31/20 Stop Date: 04/30/20 Status: Ordered torsemide 20 mg oral tablet 5 tablet = 100 mg, By Mouth, 2 times a day, # 300 tablet, 11 Refills, Maintenance, 01/30/20 12:29:00 EDT, Tablet, [id number], 180, cm, 11/14/19 10:41:00 [...]
--- OUTSIDE RECORDS SUMMARY | 2023-08-09 00:39 | XMS_ITS | Continuity of Care Document ---
Author Name Unknown Organization [facility] Address [address] [place] [address]- Care Team Providers Care Marine Transport Professionals Name Role Phone Gerardo JOSEPH MD, Bubba Baxter Primary Care Physician Encounter [facility] [place] Date(s): 11/28/20 - 12/28/20 [facility] [address] [place] [id number] Allergies, Adverse Reactions, Alerts Substance Reaction Severity Status penicillin hives Active Entresto acid reflux Active Medications amiodarone 100 mg oral tablet 2 tablet = 200 mg, By Mouth, Daily, # 180 tablet, 3 Refills, Maintenance, 10/04/20 14:54:00 EST, [facility]/pharmacy #[id number], Partial fill upon patient request if the prescription is for a schedule II opioid drug., 180, cm, 08/15/20 15:21:00 EST, Height Start Date: 10/04/20 Stop Date: 09/29/21 Status: Ordered amLODIPine 10 mg oral tablet 10 mg, [...] 08/15/20 16:41:00 EST, Route to Pharmacy Electronically, [facility]/pharmacy #[id number], Partial fill upon patient request if the [...] tablet, 11 Refills, Maintenance, 11/14/19 11:07:00EDT, Tablet, [facility]/pharmacy #[id number], 180, cm, 11/14/19 10:41:00 EDT, Height Start Date: 11/14/19 Status: Ordered isosorbide mononitrate 60 mg oral tablet, extended release 60 mg, 1, tablet, By Mouth, Daily in AM, # 90 tablet, Refills 11, Tot. Refills 11, Maintenance, 11/14/19 11:09:00 EDT, Route to Pharmacy Electronically, [facility]/pharmacy #[id number], 180, cm, 11/14/19 10:41:00EDT, Height Start [...] 08/15/20 16:41:00 EST, Route to Pharmacy Electronically, [facility]/pharmacy #... Start Date: 08/15/20 Status: Ordered metoprolol 200 mg oral tablet, extended release 1 tablet = 200 mg, By Mouth, Daily, # 90 tablet, 4 Refills, Maintenance, 10/04/20 14:52:00 EST, ER Tablet, [id number], Partial fill upon patient request if the prescription is for a schedule II opioid drug., 180, cm, 08/15/20 15:21:00 EST, Height Start Date: 10/04/20 Stop Date: 12/28/21 Status: Ordered potassium chloride 20 mEq oral tablet, extended release 1 tablet = 20 mEq, By Mouth, Daily, Please take 40mg ONCE then reduce to 20mg daily., # 30 tablet, 0 Refills, Soft Stop, 11/28/20 16:09:00 EDT, ER Tablet, [id number], 180, cm, 11/13/20 12:45:00 EST, Height Start Date: 11/28/20 Stop Date: 12/28/20 Status: Ordered spironolactone 50 mg oral tablet 1 tablet = 50 mg, By Mouth, Daily, dose increase for pt, # 30 tablet, 2 Refills, Maintenance, 01/31/20 13:59:00 EDT, Tablet, [id number], 180, cm, 11/14/19 [...]
--- OUTSIDE RECORDS SUMMARY | 2023-08-09 00:39 | XMS_ITS | Continuity of Care Document ---
Author Name Unknown Organization [facility] Address [address] [place] [address]- Care Team Providers Care Rooms Director Name Role Phone Gerardo JOSEPH MD, Bubba Baxter Primary Care Physician En[place] [facility] [place] Date(s): 03/05/20 - 04/04/20 [facility] [address] [place] [address]- [facility] Allergies, Adverse Reactions, Alerts Substance Reaction Severity [...] 11/14/19 11:09:00 EDT, Route to Pharmacy Electronically, [facility]/pharmacy #[id number], 180, cm, 11/14/19 10:41:00EDT, [...] Stop, 03/28/20 15:56:00 EDT,Route to Pharmacy Electronically, [facility]/pharmacy #06... Start Date: 03/28/20 Status: Ordered spironolactone 50 mg oral tablet 1 tablet = 50 mg, By Mouth, Daily, dose increase for pt, # 30 tablet, 2 Refills, Maintenance, 01/31/20 13:59:00 EDT, Tablet, [facility]/pharmacy #[id number], 180, cm, 11/14/19 10:41:00 EDT, Height Start Date: 01/31/20 Stop Date: 04/30/20 Status: Ordered torsemide 20 mg oral tablet 5 tablet = 100 mg, By Mouth, 2 times a day, # 300 tablet, 11 Refills, Maintenance, 01/30/20 12:29:00 EDT, Tablet, [facility]/pharmacy #[id number], 180, cm, 11/14/19 10:41:00 [...]
--- OUTSIDE RECORDS SUMMARY | 2023-08-09 00:39 | XMS_ITS | Continuity of Care Document ---
Author Name Unknown Organization [facility] Address [address] [place] [phone]- Care Team Providers Care Childrens Club Attendant Name Role Phone Bubba Carrillo III, MD Primary Care Physician [place] [facility] [place] - 09/25/19 [facility] [address] [place] [address]- [facility] Attending Physician: AdmMinisterio perez Admitting Physician: AdmtrMinisterio [...] 10/12/18 9:29:36 EST, Route to Pharmacy Electronically, [id number], [facility]/pharmacy #[id number] Start Date: 10/12/18 Status: Ordered spironolactone 25 mg oral tablet 25 mg, 1, tablet, By Mouth, Daily, # 30 tablet, Refills 2, Tot. Refills 2, Maintenance, 06/28/19 10:10:12 EDT, Route to Pharmacy Electronically, [id number], [facility]/pharmacy #[id number] Start Date: 06/28/19 Stop Date: 09/26/19 [...]
--- OUTSIDE RECORDS SUMMARY | 2023-08-09 00:39 | XMS_ITS | Continuity of Care Document ---
Author Name Unknown Organization [facility] Address [address] [place] [address]- Care Team Providers Care Mechanical Intern Name Role Phone Bubba Carrillo III, MD Primary Care Physician Encounter [facility] [place] Date(s): 01/16/20 - 01/23/20 [facility] [address] [place] [address]- [facility] Attending Physician: Julia Leroy MD Referring Physician: Bubba [...] 11/14/19 11:09:00 EDT, [id number], cm, 11/14/19 10:41:00EDT, Height Start [...] prior to your am torsemide dose on 01/10., # 1 tablet, Refills 0, Tot. Refills 0, Soft Stop, 01/10/20 16:41:00 EDT, [id number], cm, 11/14/19 10:41:00 EDT, Height Start Date: 01/10/20 Status: Ordered spironolactone 25 mg oral tablet 25 mg, 1, tablet, By Mouth, Daily, # 30 tablet, Refills 2, Tot. Refills 2, Maintenance, 06/28/19 10:10:12 EDT, Route to Pharmacy Electronically, [id number], [facility]/pharmacy #[id number] Start Date: 06/28/19 Stop Date: 09/26/19 Status: Ordered torsemide 20 mg oral tablet 2 tablet = 40 mg, By Mouth, 2 times a day, # 120 tablet, 11 Refills, Maintenance, 11/14/19 11:07:00EDT, Tablet, [facility]/pharmacy #[id number], 180, cm, 11/14/19 10:41:00 EDT, Height [...]
--- OUTSIDE RECORDS SUMMARY | 2023-08-09 00:39 | XMS_ITS | Continuity of Care Document ---
Author Name Unknown Organization [facility] Address [address] [place] [address]- Care Team Providers Care Supervisor Computer Operations Name Role Phone Gerardo JOSEPH MD, Bubba Baxter Primary Care Physician [place] [facility] [place](s): 11/23/19 - 04/19/[address] [address]- [facility] Attending Physician: Julia Leroy MD Admitting Physician: Julia Leroy MD Referring Physician: Julia Leroy MD Allergies, Adverse Reactions, Alerts Substance Reaction [...] EDT, Route to Pharmacy Electronically, [facility]/pharmacy #[id number], 180, cm, 11/14/19 10:41:00EDT, Height Start [...] Stop, 03/28/20 15:56:00 EDT,Route to Pharmacy Electronically, [facility]/pharmacy #06... Start Date: 03/28/20 Status: Ordered spironolactone 50 mg oral tablet 1 tablet = 50 mg, By Mouth, Daily, dose increase for pt, # 30 tablet, 2 Refills, Maintenance, 01/31/20 13:59:00 EDT, Tablet, [facility]/pharmacy #[id number], 180, cm, [...]
--- OUTSIDE RECORDS SUMMARY | 2023-08-09 00:39 | XMS_ITS | Continuity of Care Document ---
Author Name Unknown Organization [facility] Address [address] [place] [phone]- Care Team Providers Care Retirement Consultant Name Role Phone Gerardo JOSEPH MD, Bubba Baxter Primary Care Physician Encounter [facility] [place] Date(s): 10/18/20 - 11/17/20 [facility] [address] [place] [id number] Allergies, Adverse Reactions, Alerts Substance Reaction Severity Status penicillin hives Active Entresto acid reflux Active Medications amiodarone 100 mg oral tablet 2 tablet = 200 mg, By Mouth, Daily, # 180 tablet, 3 Refills, Maintenance, 10/04/20 14:54:00 EST, [facility]/pharmacy #[id number], Partial fill upon patient request [...] 08/15/20 16:41:00 EST, Route to Pharmacy Electronically, [facility]/pharmacy #[id number], Partial fill upon patient request [...] 11 Refills, Maintenance, 11/14/19 11:07:00EDT, Tablet, [facility]/pharmacy #[id number], 180, cm, 11/14/19 10:41:00 EDT, Height Start Date: 11/14/19 Status: Ordered isosorbide mononitrate 60 mg oral tablet, extended release 60 mg, 1, tablet, By Mouth, Daily in AM, # 90 tablet, Refills 11, Tot. Refills 11, Maintenance, 11/14/19 11:09:00 EDT, Route to Pharmacy Electronically, [facility]/pharmacy #[id number], 180, cm, 11/14/19 10:41:00EDT, Height [...] 08/15/20 16:41:00 EST, Route to Pharmacy Electronically, [facility]/pharmacy #... Start Date: 08/15/20 Status: Ordered [...] Soft Stop, 07/24/20 10:53:00 EST, ER Tablet, [id number], 180, cm, 11/14/19 10:41:00 [...]
--- OUTSIDE RECORDS SUMMARY | 2023-08-09 00:39 | XMS_ITS | Continuity of Care Document ---
Author Name Unknown Organization [facility] Address [address] [place] [address]- Care Team Providers Care Jewel Cupping Machine Operator Name Role Phone Gerardo JOSEPH MD, Bubba Baxter Primary Care Physician Encounter [facility] [place] Date(s): 12/06/20 - 01/05/21 [facility] [address] [place] [id number] Attending Physician: AdmMinisterio perez Admitting Physician: Admtr, Ministerio Referring Physician: Admtr, Ar8 Allergies, Adverse Reactions, Alerts Substance Reaction Severity Status penicillin hives Active Entresto acid reflux Active Medications amiodarone 100 mg oral tablet 2 tablet = 200 mg, By Mouth, Daily, # 180 tablet, 3 Refills, Maintenance, 10/04/20 14:54:00 EST, [facility]/pharmacy #[id number], Partial fill upon patient [...] 08/15/20 16:41:00 EST, Route to Pharmacy Electronically, [facility]/pharmacy #[id number], Partial fill upon patient [...] tablet, 11 Refills, Maintenance, 11/14/19 11:07:00EDT, Tablet, [facility]/pharmacy #[id number], 180, cm, 11/14/19 10:41:00 EDT, Height Start Date: 11/14/19 Status: Ordered isosorbide mononitrate 60 mg oral tablet, extended release 60 mg, 1, tablet, By Mouth, Daily in AM, # 90 tablet, Refills 11, Tot. Refills 11, Maintenance, 11/14/19 11:09:00 EDT, Route to Pharmacy Electronically, [facility]/pharmacy #[id number], 180, cm, 11/14/19 10:41:00EDT, [...] 08/15/20 16:41:00 EST, Route to Pharmacy Electronically, [facility]/pharmacy #... Start Date: 08/15/20 Status: Ordered metoprolol 200 mg oral tablet, extended release 1 tablet = 200 mg, By Mouth, Daily, # 90 tablet, 4 Refills, Maintenance, 10/04/20 14:52:00 EST, ER Tablet, [facility]/pharmacy #[id number], Partial fill upon patient [...] Soft Stop, 11/28/20 16:09:00 EDT, ER Tablet, [facility]/pharmacy #[id number], 180, cm, 11/13/20 12:45:00 EST, Height Start Date: 11/28/20 Stop Date: 12/28/20 Status: Ordered spironolactone 50 mg oral tablet 1 tablet = 50 mg, By Mouth, Daily, dose increase for pt, # 30 tablet, 2 Refills, Maintenance, 01/31/20 13:59:00 EDT, Tablet, [facility]/pharmacy #[id number], 180, cm, 11/14/19 10:41:00 EDT, Height Start Date: 01/31/20 Stop Date: 04/30/20 Status: Ordered torsemide 20 mg oral tablet 4 tablet = 80 mg, By Mouth, 2 times a day, # 240 tablet, 11 Refills, Maintenance, 05/27/20 16:43:00EDT, Tablet, [facility]/pharmacy #[id number], 180, cm, 11/14/19 10:41:00 [...]
--- OUTSIDE RECORDS SUMMARY | 2023-08-09 00:39 | XMS_ITS | Continuity of Care Document ---
Author Name Unknown Organization [facility] Address [address] [place] [phone]- Care Team Providers Care Pot Operator Name Role Phone Gerardo JOSEPH MD, Bubba Baxter Primary Care Physician [phone] Encounter [facility] [place] Date(s): 07/31/20 - 09/04/20 [facility] [address] [place] [id number] Attending Physician: Mimi Georges NP Admitting Physician: Destini HICKS, Mimi Referring Physician: Bubba Carrillo III, MD Allergies, [...] 08/15/20 16:41:00 EST, Route to Pharmacy Electronically, [facility]/pharmacy #[id number], Partial fill upon patient request if the [...] tablet, 11 Refills, Maintenance, 11/14/19 11:07:00EDT, Tablet, [facility]/pharmacy #[id number], 180, cm, 11/14/19 10:41:00 EDT, Height Start Date: 11/14/19 Status: Ordered isosorbide mononitrate 60 mg oral tablet, extended release 60 mg, 1, tablet, By Mouth, Daily in AM, # 90 tablet, Refills 11, Tot. Refills 11, Maintenance, 11/14/19 11:09:00 EDT, Route to Pharmacy Electronically, [facility]/pharmacy #[id number], 180, cm, 11/14/19 10:41:00EDT, Height [...] 08/15/20 16:41:00 EST, Route to Pharmacy Electronically, [facility]/pharmacy #... Start Date: 08/15/20 Status: Ordered potassium chloride 20 mEq oral tablet, extended release 2 tablets, By Mouth, 2 times a day, # 8 capsule, 0 Refills, Soft Stop, 07/24/20 10:53:00 EST, ER Tablet, [facility]/pharmacy #[id number], 180, cm, 11/14/19 10:41:00 EDT, Height Start Date: 07/24/20 Stop Date: 07/26/20 Status: Ordered spironolactone 50 mg oral tablet 1 tablet = 50 mg, By Mouth, Daily, dose increase for pt, # 30 tablet, 2 Refills, Maintenance, 01/31/20 13:59:00 EDT, Tablet, [facility]/pharmacy #[id number], 180, cm, 11/14/19 10:41:00 EDT, Height Start Date: 01/31/20 Stop Date: 04/30/20 Status: Ordered torsemide 20 mg oral tablet 4 tablet = 80 mg, By Mouth, 2 times a day, # 240 tablet, 11 Refills, Maintenance, 05/27/20 16:43:00EDT, Tablet, [facility]/pharmacy #[id number], 180, cm, 11/14/19 10:41:00 EDT, [...]
--- OUTSIDE RECORDS SUMMARY | 2023-08-09 00:39 | XMS_ITS | Continuity of Care Document ---
Author Name Unknown Organization [facility] Address [address] [place] [phone]- Care Team Providers Care Nail Machine Operator Name Role Phone Gerardo JOSEPH MD, Bubba Baxter Primary Care Physician Encounter [facility] [place] Date(s): 03/20/20 - 04/19/20 [facility] [address] [place] [phone]- [facility] Allergies, Adverse Reactions, Alerts Substance Reaction [...] 11/14/19 11:09:00 EDT, Route to Pharmacy Electronically, [facility]/pharmacy #[id number], 180, cm, 11/14/19 10:41:00EDT, Height [...] Stop, 03/28/20 15:56:00 EDT,Route to Pharmacy Electronically, [facility]/pharmacy #06... Start Date: 03/28/20 Status: Ordered spironolactone 50 mg oral tablet 1 tablet = 50 mg, By Mouth, Daily, dose increase for pt, # 30 tablet, 2 Refills, Maintenance, 01/31/20 13:59:00 EDT, Tablet, [facility]/pharmacy #[id number], 180, cm, 11/14/19 10:41:00 EDT, Height Start Date: 01/31/20 Stop Date: 04/30/20 Status: Ordered torsemide 20 mg oral tablet 5 tablet = 100 mg, By Mouth, 2 times a day, # 300 tablet, 11 Refills, Maintenance, 01/30/20 12:29:00 EDT, Tablet, [facility]/pharmacy #[id number], 180, cm, 11/14/19 10:41:00 EDT, [...]
--- OUTSIDE RECORDS SUMMARY | 2023-08-09 00:39 | XMS_ITS | Continuity of Care Document ---
Author Name Unknown Organization [facility] Address [address] [place] [address]- Care Team Providers Care Speech And Language Clinician Name Role Phone Gerardo JOSEPH MD, Bubba Baxter Primary Care Physician Encounter [facility] [place] Date(s): 12/06/20 - 01/05/21 [facility] [address] [place] [id number] Allergies, Adverse Reactions, Alerts Substance Reaction Severity Status penicillin hives Active Entresto acid reflux Active Medications amiodarone 100 mg oral tablet 2 tablet = 200 mg, By Mouth, Daily, # 180 tablet, 3 Refills, Maintenance, 10/04/20 14:54:00 EST, [facility]/pharmacy #[id number], Partial fill upon patient request [...] 08/15/20 16:41:00 EST, Route to Pharmacy Electronically, [facility]/pharmacy #[id number], Partial fill upon patient request [...] tablet, 11 Refills, Maintenance, 11/14/19 11:07:00EDT, Tablet, [facility]/pharmacy #[id number], 180, cm, 11/14/19 10:41:00 EDT, Height Start Date: 11/14/19 Status: Ordered isosorbide mononitrate 60 mg oral tablet, extended release 60 mg, 1, tablet, By Mouth, Daily in AM, # 90 tablet, Refills 11, Tot. Refills 11, Maintenance, 11/14/19 11:09:00 EDT, Route to Pharmacy Electronically, [facility]/pharmacy #[id number], 180, cm, 11/14/19 10:41:00EDT, Height [...] 08/15/20 16:41:00 EST, Route to Pharmacy Electronically, [facility]/pharmacy #... Start Date: 08/15/20 Status: Ordered [...]
--- OUTSIDE RECORDS SUMMARY | 2023-08-09 00:39 | XMS_ITS | Continuity of Care Document ---
Author Name Unknown Organization [facility] Address [address] [place] [address]- Care Team Providers Care Associate Director Name Role Phone Gerardo JOSEPH MD, Bubba Baxter Primary Care Physician [phone] Encounter [facility] [place] Date(s): 03/28/20 - 04/27/20 [facility] [address] [place] [address]- [facility] Allergies, Adverse Reactions, Alerts Substance Reaction Severity [...] 11:09:00 EDT, Route to Pharmacy Electronically, [facility]/pharmacy #[id number], 180, cm, 11/14/19 10:41:00EDT, Height [...] 03/28/20 15:56:00 EDT,Route to Pharmacy Electronically, [facility]/pharmacy #06... Start Date: 03/28/20 Status: Ordered spironolactone 50 mg oral tablet 1 tablet = 50 mg, By Mouth, Daily, dose increase for pt, # 30 tablet, 2 Refills, Maintenance, 01/31/20 13:59:00 EDT, Tablet, [facility]/pharmacy #[id number], 180, cm, 11/14/19 10:41:00 EDT, Height Start Date: 01/31/20 Stop Date: 04/30/20 Status: Ordered torsemide 20 mg oral tablet 5 tablet = 100 mg, By Mouth, 2 times a day, # 300 tablet, 11 Refills, Maintenance, 01/30/20 12:29:00 EDT, Tablet, [facility]/pharmacy #[id number], 180, cm, 11/14/19 10:41:00 EDT, [...]
--- OUTSIDE RECORDS SUMMARY | 2023-08-09 00:39 | XMS_ITS | Continuity of Care Document ---
Author Name Unknown Organization [facility] Address [address] [place] [phone]- Care Team Providers Care Case Maker Name Role Phone Gerardo JOSEPH MD, Bubba Baxter Primary Care Physician [place] [facility] [place] 11/06/20 [facility] [address] [place] [address] Allergies, Adverse Reactions, Alerts Substance Reaction Severity Status penicillin hives Active Entresto acid reflux Active Medications amiodarone 100 mg oral tablet 2 tablet = 200 mg, By Mouth, Daily, # 180 tablet, 3 Refills, Maintenance, 10/04/20 14:54:00 EST, [facility]/pharmacy #[id number], Partial fill upon patient [...] 08/15/20 16:41:00 EST, Route to Pharmacy Electronically, [facility]/pharmacy #[id number], Partial fill upon patient [...] tablet, 11 Refills, Maintenance, 11/14/19 11:07:00EDT, Tablet, [facility]/pharmacy #[id number], 180, cm, 11/14/19 10:41:00 EDT, Height Start Date: 11/14/19 Status: Ordered isosorbide mononitrate 60 mg oral tablet, extended release 60 mg, 1, tablet, By Mouth, Daily in AM, # 90 tablet, Refills 11, Tot. Refills 11, Maintenance, 11/14/19 11:09:00 EDT, Route to Pharmacy Electronically, [facility]/pharmacy #[id number], 180, cm, 11/14/19 10:41:00EDT, [...] 08/15/20 16:41:00 EST, Route to Pharmacy Electronically, [facility]/pharmacy #... Start Date: 08/15/20 Status: [...]
[2023-08-09 03:04] LABS: Basophils Percent Auto 0.2 % (0-2); Eosinophils Absolute Auto 0.2 X10*3/uL (0.0-0.4); Eosinophils Percent Auto 2.2 % (0-4); Hematocrit 37.6 % (42.0-52.0); Hemoglobin 12.4 g/dl (14.0-18.0); Imm Gran Abs Auto 0.03 X10*3/uL (0.00-0.03); Imm Gran Pct Auto 0.4 % (0.0-0.4); Lymphocytes Absolute Auto 1.1 X10*3/uL (1.2-4.9); Lymphocytes Percent Auto 14.1 % (20-40); MANUAL DIFF FLAG NO; Mean Corpuscular Hemoglobin 30.7 pg (27.0-33.0); Mean Corpuscular Volume 93.1 fL (80.0-98.0); Mean Platelet Volume 11.6 fL (9.4-12.4); Monocytes Absolute Auto 0.4 X10*3/uL (0.1-1.2); Monocytes Percent Auto 5.2 % (2-11); Neutrophils Absolute Auto 6.2 x10*3/uL (2.0-8.3); Neutrophils Percent Auto 77.9 % (45-73); Platelet Count 137 X10*3/uL (160-400); Red Blood Count 4.04 X10*6/uL (4.60-5.80); Red Cell Distribution Width 14.6 % (11.0-16.0)
[2023-08-09 03:05] VITALS: BP 153/89; PULSE 71; RESP 15; TEMP 36.8; O2SAT 96
[2023-08-09 03:22] LABS: Alanine Aminotransferase 10 U/L (0-40); Albumin Level 3.6 g/dL (3.5-5.0); Alkaline Phosphatase 144 U/L (39-117); Anion Gap 14 (12-20); Aspartate Amino Transferase 17 U/L (5-37); Bilirubin Total 0.5 mg/dL (0.0-1.0); Blood Urea Nitrogen 47 mg/dL (9-16); Calcium 9.2 mg/dL (8.4-10.2); Carbon Dioxide 24 mmol/L (22-29); Chloride 107 mmol/L (96-108); Creatinine Clr Calc Pharmacy 40.9; Estimated Glomerular Filt Rate 13; Glucose Random 254 mg/dL (60-115); Potassium 3.4 mmol/L (3.3-5.1); Sodium 142 mmol/L (135-145); Total Protein 7.8 g/dL (6.5-8.0)
[2023-08-09 03:24] LABS: B Type Natriuretic Peptide 468 pg/mL (<100)
[2023-08-09 03:26] LABS: Troponin-I High Sensitivity 110.8 ng/L (<3.5-35.0)
--- NOTE | 2023-08-09 03:45 | ED.GENADULT ---
HPI - General Adult General Chief complaint: Dyspnea Stated complaint: trouble breathing, possible liquid in lungs Time Seen by Provider: 08/09/23 03:31 History of Present Illness HPI narrative: The patient is a 63-year-old male who has multiple medical problems. He apparently had a severe case of COVID 3 years ago with a long ICU stay and longer recovery. He has a history of atrial fibrillation and he has a pacer defibrillator. He is on anticoagulation. He also has a history of significant renal insufficiency and is on both metolazone and torsemide. He feels that he is currently getting over a cold. Tonight at around 22:00 he had fallen asleep. He usually sleeps sitting up. He had fallen asleep sitting up in his usual position when he suddenly woke feeling short of breath and also had some discomfort with breathing. The he said that he recently missed a dose of metolazone and he thought perhaps he had extra fluid on his lungs. His drove him to the hospital. He has chronic edema to both lower legs. No change in this edema. The patient is hoping to lose weight. He is hoping he can become a candidate for a gastric sleeve surgery. He then hopes that he might lose enough weight that he could be considered for a kidney transplant. Related Data Home Medications Medication Instructions Recorded Confirmed pen needle, diabetic 31 gauge x 09/07/20 09/24/2001/19 (BD Ultra-Fine Short Pen Needle) atorvastatin 20 mg tablet 40 mg PO BEDTIME 09/24/20 04/10/21 potassium chloride 20 mEq oral 40 meq PO BID 09/24/20 04/10/21 packet allopurinol 100 mg tablet 1 tab PO DAILY 04/10/21 04/10/21 amiodarone 200 mg tablet 200 mg PO DAILY 04/10/21 04/10/21 apixaban 5 mg tablet (Eliquis) 1 tab PO BID 04/10/21 04/10/21 hydralazine 50 mg tablet 1 tab PO TID 04/10/21 04/10/21 insulin glargine 100 unit/mL (3 40 unit subcut DAILY 04/10/21 04/10/21 mL) subcutaneous pen (Basaglar Mayur U-100 Insulin) isosorbide dinitrate 10 mg tablet 2 tab PO TID 04/10/21 04/10/21 metoprolol succinate 25 mg 1 tab PO BID 04/10/21 04/10/21 tablet,extended release 24 hr torsemide 20 mg tablet 80 mg PO BIDWM 04/10/21 04/10/21 tramadol 50 mg tablet 2 tab PO Q6H PRN pain 04/10/21 04/10/21 Previous Rx's Medication Instructions Recorded mirtazapine 7.5 mg tablet 7.5 mg PO BEDTIME #30 tabs 09/25/20 walker #1 ea 09/25/20 walker #1 ea 09/25/20 doxycycline hyclate 100 mg tablet 100 mg PO BID #10 tabs 04/12/21 doxycycline monohydrate 100 mg 100 mg PO BID 10 days #20 caps 06/07/21 capsule oxycodone 5 mg tablet 5 mg PO Q8H PRN pain #3 tabs 06/07/21 sulfamethoxazole 800 1 tab PO Q12H 10 days #20 tabs 06/07/21 mg-trimethoprim 160 mg tablet (Bactrim DS) Allergies Allergy/AdvReac Type Severity Reaction Status Date / Time Penicillins [PENICILLINS] Allergy Severe HIVES Verified 06/07/21 19:10 Review of Systems Review of Systems: Yes all other systems are reviewed and are negative PMF Past Medical History Medical History CHF (congestive heart failure) CKD (chronic kidney disease) stage 3, GFR 30-59 ml/min HTN (hypertension) Morbid obesity Obesity Obesity hypoventilation syndrome YANELI on CPAP Restrictive airway disease Surgical History History of knee surgery Social History Social History Household Members: Family Housing: Unknown / Unable to assess Do you presently have visiting nurse or other home services: Yes Unable to assess alcohol history related to: Unknown Alcohol intake: unknown Comment: pt sleeping at this time Patient Tobacco Use Status: Never used Tobacco Second Hand Smoke Exposure: No Advance Directives: Yes Advance Directives on File: Yes Advance Directives Date on File: 04/11/21 service: No Current occupational status: employed Physical Exam ED Vital Signs: Vital Signs - 24 hr 08/09/23 00:18 08/09/23 03:05 08/09/23 06:15 Temperature 97.6 F 98.3 F Pulse Rate 75 71 71 Respiratory Rate 16 15 18 Blood Pressure 179/96 H 153/89 H 167/91 H Pulse Oximetry 96 96 94 Oxygen Delivery Method Room Air Room Air Room Air BMI result Body Mass Index 45.2 Const Other: The patient is awake, alert, pleasant, cooperative. He is a marin 63-year-old who does not appear in obvious acute distress in any way. HENMT Other: Face symmetrical. Mucous membranes moist. Eyes Other: Pupils are round equal, conjunctivae are clear Neck Other: Patient's neck is somewhat thick. No obvious JVD. Resp Other: No increased work. Breath sounds seem clear. No definite crackles. Cardio Other: The patient has a regular rate and rhythm with no murmur. GI Other: The abdomen is soft and nontender Skin Other: Skin is dry and unremarkable Neuro Other: The patient is awake, alert, very pleasant. Demeanor is nontoxic. Speech is clear. Face is symmetrical. Moving all 4 extremities normally. Grossly neurologically intact. Extrem Other: Patient's lower legs are mildly thick but without pitting edema. No asymmetry. No tenderness. Medications Administered Discontinued Medications Generic Name Dose Route Start Last Admin Trade Name Freq PRN Reason Stop Dose Admin Furosemide 100 mg 08/09/23 04:35 08/09/23 05:17 Furosemide 100 Mg/10 Ml Vial IVPUSH 08/09/23 04:36 100 mg ONCE ONE Administration Protocol Morphine Sulfate 4 mg 08/09/23 04:36 08/09/23 05:17 Morphine Sulfate 4 Mg/Ml Cartridge IVPUSH 08/09/23 04:37 4 mg ONCE ONE Administration Protocol Medical Decision Making Medical Decision Making MDM Narrative: Patient is a 63-year-old male with a history of congestive heart failure. He also has a history of significant kidney disease. He has a history of atrial fibrillation and also has a pacer defibrillator. He comes in complaining of what sounds like paroxysmal nocturnal dyspnea that started earlier tonight. He thinks that he may be somewhat fluid overloaded. Clinically the patient is not in obvious pulmonary edema but he may have some mild worsening of chronic congestive heart failure. His troponins are elevated but there is not a significant change in his troponins and he is not really describing an acute coronary syndrome. He is describing some discomfort with taking deep breaths and he requested pain medication because of this. Nevertheless I think pulmonary embolism would be unlikely as he is on apixaban and he says that he takes his medications very consistently. The patient takes 80 mg of torsemide in the mornings. He was given 100 mg of IV Lasix. He had a moderate degree of diuresis and felt considerably better and felt comfortable being discharged. 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 He should return if worse. Lab Data 08/09/23 02:59 08/09/23 02:59 Labs: Lab Results 08/09/23 08/09/23 Range/Units 02:59 05:16 WBC 8.0 (4.8-10.8) X10*3/uL RBC 4.04 L (4.60-5.80) X10*6/uL Hgb 12.4 L (14.0-18.0) g/dl Hct 37.6 L (42.0-52.0) % MCV 93.1 (80.0-98.0) fL MCH 30.7 (27.0-33.0) pg MCHC 33.0 (31.0-36.0) g/dl RDW 14.6 (11.0-16.0) % Plt Count 137 L (160-400) X10*3/uL MPV 11.6 (9.4-12.4) fL Immature Gran % (Auto) 0.4 (0.0-0.4) % Neut % (Auto) 77.9 H (45-73) % Lymph % (Auto) 14.1 L (20-40) % [place] % (Auto) 5.2 (2-11) % Eos % (Auto) 2.2 (0-4) % Baso % (Auto) 0.2 (0-2) % Lymph # (Auto) 1.1 L (1.2-4.9) X10*3/uL [place] # (Auto) 0.4 (0.1-1.2) X10*3/uL Eos # (Auto) 0.2 (0.0-0.4) X10*3/uL Baso # (Auto) 0.0 (0.0-0.2) X10*3/uL Abs Immat Gran (auto) 0.03 (0.00-0.03) X10*3/uL Absolute Neuts (auto) 6.2 (2.0-8.3) x10*3/uL Absolute Nucleated RBC 0.000 (0.0-0.012) X10*3/uL Nucleated RBC % (auto) 0.0 (0.0-0.2) /100WBC Sodium 142 (135-145) mmol/L Potassium 3.4 (3.3-5.1) mmol/L Chloride 107 (96-108) mmol/L Carbon Dioxide 24 (22-29) mmol/L Anion Gap 14 (12-20) BUN 47 H (9-16) mg/dL Creatinine 4.55 H* (0.5-1.4) mg/dL Estim Creat Clear Calc 40.9 Estimated GFR 13 Random Glucose 254 H (60-115) mg/dL Calcium 9.2 D (8.4-10.2) mg/dL Total Bilirubin 0.5 (0.0-1.0) mg/dL AST 17 (5-37) U/L ALT 10 (0-40) U/L Alkaline Phosphatase 144 H (39-117) U/L Troponin I High Sens 110.8 H* 121.8 H* (<3.5-35.0) ng/L B-Natriuretic Peptide 468 H (<100) pg/mL Total Protein 7.8 (6.5-8.0) g/dL Albumin 3.6 (3.5-5.0) g/dL Influenza Type A (PCR) NEGATIVE (Negative) Influenza Type B (PCR) NEGATIVE (Negative) RSV RNA Qual (PCR) NEGATIVE (Negative) SARS-CoV-2 RNA (RT-PCR) NEGATIVE (Negative) Independent Interpretation I performed an independent interpretation of an: EKG Interpretation: EKG at 00:35 shows an atrial sensed ventricular paced rhythm at 77 beats per minute. Old EKGs not available for review. Discharge Plan Discharge Clinical Impression: Shortness of breath, Dyspnea, paroxysmal nocturnal, Chronic kidney disease Patient Disposition: Home, Self-Care Additional Instructions: I suspect that your symptoms are likely a result of being mildly fluid overloaded. Your received a dose of IV furosemide (Lasix). You seemed to be stable enough that I do not think he needs hospitalization. Please take half of your normal torsemide dose this morning. Take 40 mg instead of 80 this morning. Otherwise continue all your regular medications as they are normally prescribed. Please keep your nephrology appointment with Dr. 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 If you feel significantly worse please return to the emergency department for further evaluation. Prescriptions: No Action (DME) pen needle, diabetic [BD Ultra-Fine Short Pen Needle] 31 gauge x 5/16 needle subcut atorvastatin 20 mg Tablet 40 mg PO BEDTIME potassium chloride 20 mEq Packet 40 meq PO BID (DME) krunal [facility] [place] See Rx Instructions .ROUTE .MEDSUPPLY Qty: 1 0RF Rx Instructions: As directed mirtazapine 7.5 mg tablet 7.5 mg PO BEDTIME Qty: 30 0RF (DME) krunal [facility] [place] See Rx Instructions .ROUTE .MEDSUPPLY Qty: 1 0RF Rx Instructions: As directed Eliquis 5 mg tablet 1 tab PO BID isosorbide dinitrate 10 mg tablet 2 tab PO TID tramadol 50 mg tablet 2 tab PO Q6H PRN (Reason: pain) Otoniel Merchant U-100 Insulin 100 unit/mL (3 mL) insulin pen 40 unit subcut DAILY Patient Comments: PT CHANGES DOSE DAILY DEPENDING ON FASTING BG LEVEL torsemide 20 mg tablet 80 mg PO BIDWM Protocol: Hold for SBP< HOLD for SBP < : 90 amiodarone 200 mg tablet 200 mg PO DAILY allopurinol 100 mg tablet 1 tab PO DAILY hydralazine 50 mg tablet 1 tab PO TID metoprolol succinate 25 mg tablet extended release 24 hr 1 tab PO BID doxycycline hyclate 100 mg tablet 100 mg PO BID Qty: 10 0RF doxycycline monohydrate 100 mg capsule 100 mg PO BID 10 Days Qty: 20 0RF oxycodone 5 mg tablet 5 mg PO Q8H PRN (Reason: pain) Qty: 3 0RF Rx Instructions: Finger tip laceration with chop saw sulfamethoxazole-trimethoprim [Bactrim DS] 800-160 mg tablet 1 tab PO Q12H 10 Days Qty: 20 0RF Referrals: Bubba Carrillo III, MD [Primary Care Provider] - Interventions: ED Discharge Assessment Last Done: 08/09/23 06:30 Discharge Date/Time: 08/09/23 06:30
[2023-08-09 03:52] LABS: Influenza A PCR NEGATIVE (Negative); Influenza B PCR NEGATIVE (Negative); Resp Syncy Virus RNA Qual PCR NEGATIVE (Negative); SARS COV2 PCR INHOUSE NEGATIVE (Negative)
[2023-08-09] MEDS: Morphine Sulfate 4 MG/ML CARTRIDGE IVPUSH (05:17)
[2023-08-09] MEDS: Furosemide 100 MG/10 ML VIAL IVPUSH (05:17)
[2023-08-09 05:53] LABS: Troponin-I High Sensitivity 121.8 ng/L (<3.5-35.0)
[2023-08-09 06:15] VITALS: BP 167/91; PULSE 71; RESP 18; O2SAT 94
== END 2023-08-09 06:30 | disposition home or self-care (01) ==
PROVIDERS: Emergency Provider Emergency Medicine; PCP Internal Medicine
DX: R06.02 Shortness of breath (principal); G50.0 Trigeminal neuralgia; R07.89 Other chest pain; I12.9 Hypertensive chronic kidney disease with stage 1 through stage 4 chronic kidney disease, or unspecified chronic kidney disease; N18.30 Chronic kidney disease, stage 3 unspecified; Z20.822 Contact with and (suspected) exposure to COVID-19; Z20.828 Contact with and (suspected) exposure to other viral communicable diseases; Z79.899 Other long term (current) drug therapy
CPT/HCPCS: 0241U; 36415; 71046; 80053; 83880; 84484; 85025; 93005; 96374; 96375; 99284; J1940; J2270

== ENCOUNTER → 2023-08-09 00:35 | Outpatient (BNV) | payer MEDICAID, SELFPAY | PROVIDERS: Emergency Provider Emergency Medicine; PCP Internal Medicine; Visit Provider Internal Medicine | DX: R07.9 Chest pain, unspecified (principal); R94.31 Abnormal electrocardiogram [ECG] [EKG] | CPT/HCPCS: 93010 ==

== ENCOUNTER 2023-08-10 00:19 | Inpatient (IN) | payer MEDICARE, MEDICAID, SELFPAY ==
[2023-08-10] VITALS (10 sets, daily range): BP systolic 125–167; BP diastolic 61–116; PULSE 61–73; RESP 13–19; TEMP 36.2–36.8; O2SAT 95–97; BMI 41.6; BMI 42.8
--- NOTE | 2023-08-10 | ECG_ITS ---
Test Reason : DYSPNEA Blood Pressure : / mmHG Vent. Rate : 072 BPM Atrial Rate : 072 BPM P-R Int : 186 ms QRS Dur : 172 ms QT Int : 478 ms P-R-T Axes : 020 157 013 degrees QTc Int : 523 ms Atrial-sensed ventricular-paced rhythm Biventricular pacemaker detected Abnormal ECG When compared with ECG of 09-AUG-2023 00:35, No significant changes seen Referred By: Generic ED Physician Electronically Signed By:KUMAR RICK
--- NOTE | ~2023-08-10 | XR_ITS ---
EXAMINATION: XR CHEST CLINICAL INFORMATION: Shortness of breath. COMPARISON: 08/09/2023. TECHNIQUE: 2 views of the chest were obtained. FINDINGS: The cardiomediastinal silhouette is stable. Pacer leads are in place. There is pulmonary vascular congestion and perihilar increased markings. There is no focal lung consolidation or evidence for significant pleural effusion. The bony structures and soft tissues are unremarkable XR/XR chest 2V IMPRESSION: There appears to be vascular congestion and mild perihilar increased markings. Consider fluid overload and/or developing congestive heart failure with early edema. Correlation is needed. No significant change.
--- NOTE | ~2023-08-10 | CT_ITS ---
EXAMINATION: CT CHEST WITHOUT CONTRAST CLINICAL INFORMATION: Dyspnea. Cough. COMPARISON: 09/07/2020 TECHNIQUE: Multidetector volumetric CT imaging of the chest was done. Axial MIP volume rendering provided. Sagittal and coronal reformatted images were obtained. This CT examination was performed using dose optimization techniques as appropriate, variously including the following: *Automated exposure control *Adjustment of mA and/or kV according to patient size (this includes techniques or standardized protocols for targeted exams where dose is matched to indication/reason for exam; i.e. 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 LUNGS: There are numerous calcific and noncalcific mostly sub-4 mm bilateral nodules. MEDIASTINUM: The heart is at the upper limits of normal for size. There are multiple nonspecific mediastinal lymph nodes measuring up to 1.6 cm. CORONARY ARTERY CALCIFICATION: Mild PLEURA: There are small bilateral pleural effusions. AXILLA: No lymphadenopathy. UPPER ABDOMEN: Unremarkable. OSSEOUS STRUCTURES: Unremarkable. CT/CT chest wo IV con IMPRESSION: Small bilateral pleural effusions. Nonspecific predominantly calcific mostly sub-4 mm pulmonary nodules. Numerous dominantly groundglass nodules were seen on prior study. No evidence for active infiltrate. Fleischner guidelines were followed.
[2023-08-10 01:18] LABS: MANUAL DIFF FLAG NO
[2023-08-10 01:21] LABS: Basophils Percent Auto 0.2 % (0-2); Eosinophils Absolute Auto 0.2 X10*3/uL (0.0-0.4); Eosinophils Percent Auto 2.4 % (0-4); Hematocrit 36.8 % (42.0-52.0); Hemoglobin 11.7 g/dl (14.0-18.0); Imm Gran Abs Auto 0.04 X10*3/uL (0.00-0.03); Imm Gran Pct Auto 0.5 % (0.0-0.4); Mean Corpuscular HGB Conc 31.8 g/dl (31.0-36.0); Mean Corpuscular Hemoglobin 29.9 pg (27.0-33.0); Mean Corpuscular Volume 94.1 fL (80.0-98.0); Mean Platelet Volume 10.8 fL (9.4-12.4); Monocytes Absolute Auto 0.4 X10*3/uL (0.1-1.2); Monocytes Percent Auto 5.1 % (2-11); Neutrophils Absolute Auto 6.5 x10*3/uL (2.0-8.3); Neutrophils Percent Auto 79.8 % (45-73); Platelet Count 128 X10*3/uL (160-400); Red Blood Count 3.91 X10*6/uL (4.60-5.80); Red Cell Distribution Width 14.3 % (11.0-16.0); White Blood Count 8.2 X10*3/uL (4.8-10.8)
[2023-08-10 01:37] LABS: Alanine Aminotransferase 8 U/L (0-40); Albumin Level 3.4 g/dL (3.5-5.0); Alkaline Phosphatase 143 U/L (39-117); Anion Gap 14 (12-20); Aspartate Amino Transferase 14 U/L (5-37); Bilirubin Total 0.4 mg/dL (0.0-1.0); Blood Urea Nitrogen 43 mg/dL (9-16); Calcium 9.2 mg/dL (8.4-10.2); Carbon Dioxide 26 mmol/L (22-29); Chloride 107 mmol/L (96-108); Creatinine Clr Calc Pharmacy 26.5; Estimated Glomerular Filt Rate 14; Glucose Random 263 mg/dL (60-115); Potassium 3.4 mmol/L (3.3-5.1); Sodium 144 mmol/L (135-145); Total Protein 7.5 g/dL (6.5-8.0)
[2023-08-10 01:42] LABS: Troponin-I High Sensitivity 136.2 ng/L (<3.5-35.0)
[2023-08-10 01:47] LABS: B Type Natriuretic Peptide 607 pg/mL (<100)
--- NOTE | 2023-08-10 01:53 | ED.SOB ---
HPI - SOB/Dyspnea General Chief Complaint: Dyspnea Stated Complaint: Dyspnea Time Seen by Provider: 08/10/23 01:39 Source: patient and old records reviewed Mode of arrival: ambulatory Limitations: no limitations History of Present Illness HPI Narrative: 63 yo male with PMH of severe COVID requiring ICU stay, afib, PPM, CKD, DOAC use, he notes he did have URI about a week ago but is feeling better no cough or fevers. He notes increased edema and cannot sleep at night due to difficulty laying flat and he cannot breathe. He feels short of breath only at night. He did recently miss a dose of metolazone but was seen on 08/09 and given an extra dose of IV lasix 100mg. He diuresed well in the ED. He is compliant with his eliquis. He states he has pain in both his ribs due to coughing. MD elicited complaint: shortness of breath Pertinent past history: congestive heart failure Onset (ago): week(s) (1) Context: medication noncompliance Timing: progressively worsening Severity: moderate Exacerbating factors: lying flat Relieving factors: rest Known history of: congestive heart failure Associated symptoms: other (rib pain with cough) Treatment prior to arrival: diuretics Related Data Home Medications Medication Instructions Recorded Confirmed pen needle, diabetic 31 gauge x 09/07/20 09/24/2001/19 (BD Ultra-Fine Short Pen Needle) atorvastatin 20 mg tablet 40 mg PO BEDTIME 09/24/20 04/10/21 potassium chloride 20 mEq oral 40 meq PO BID 09/24/20 04/10/21 packet allopurinol 100 mg tablet 1 tab PO DAILY 04/10/21 04/10/21 amiodarone 200 mg tablet 200 mg PO DAILY 04/10/21 04/10/21 apixaban 5 mg tablet (Eliquis) 1 tab PO BID 04/10/21 04/10/21 hydralazine 50 mg tablet 1 tab PO TID 04/10/21 04/10/21 insulin glargine 100 unit/mL (3 40 unit subcut DAILY 04/10/21 04/10/21 mL) subcutaneous pen (Basaglar KwikPen U-100 Insulin) isosorbide dinitrate 10 mg tablet 2 tab PO TID 04/10/21 04/10/21 metoprolol succinate 25 mg 1 tab PO BID 04/10/21 04/10/21 tablet,extended release 24 hr torsemide 20 mg tablet 80 mg PO BIDWM 04/10/21 04/10/21 tramadol 50 mg tablet 2 tab PO Q6H PRN pain 04/10/21 04/10/21 Previous Rx's Medication Instructions Recorded mirtazapine 7.5 mg tablet 7.5 mg PO BEDTIME #30 tabs 09/25/20 walker #1 ea 09/25/20 walker #1 ea 09/25/20 doxycycline hyclate 100 mg tablet 100 mg PO BID #10 tabs 04/12/21 doxycycline monohydrate 100 mg 100 mg PO BID 10 days #20 caps 06/07/21 capsule oxycodone 5 mg tablet 5 mg PO Q8H PRN pain #3 tabs 06/07/21 sulfamethoxazole 800 1 tab PO Q12H 10 days #20 tabs 06/07/21 mg-trimethoprim 160 mg tablet (Bactrim DS) Allergies Allergy/AdvReac Type Severity Reaction Status Date / Time Penicillins [PENICILLINS] Allergy Severe HIVES Verified 06/07/21 19:10 Review of Systems Review of Systems: Constitutional : No Fever, No Chills ENT/Mouth : No sore throat, No Rhinorrhea, No Swallowing Difficulty Eyes: No Eye Pain, No Swelling, No Redness Cardiovascular : No Chest Pain, positive SOB, pos Orthopnea, positive Edema Respiratory : No Cough, No Sputum, No Wheezing, positive dyspnea Gastrointestinal : No Nausea, No Vomiting, No Diarrhea, No abdominal Pain, No Hematochezia, No Melena Genitourinary : No Dysuria, No Urinary Frequency, No Hematuria Musculoskeletal : No joint pain, No Myalgias Skin : No Skin Lesions, No rash Neuro : No Weakness, No Numbness, No Dizziness, No Headache Psych : No Anxiety/Panic, No Depression Heme/Lymph: No Bruising, No Lymphadenopathy Endocrine : No Polyuria, No Polydipsia All other systems reviewed and are negative [facility] Past Medical History Attestation statement: The following information was validated with the patient. Source: old records reviewed Medical History Obesity hypoventilation syndrome YANELI on CPAP Morbid obesity Restrictive airway disease HTN (hypertension) CKD (chronic kidney disease) stage 3, GFR 30-59 ml/min CHF (congestive heart failure) Obesity Surgical History History of knee surgery Social History Social History Household Members: Family Housing: Unknown / Unable to assess Do you presently have visiting nurse or other home services: Yes Unable to assess alcohol history related to: Unknown Alcohol intake: former Comment: pt sleeping at this time Patient Tobacco Use Status: Never used Tobacco Smoked in Last 30 Days: No Second Hand Smoke Exposure: No Use of substances other than those prescribed or required for medical reasons: No Advance Directives: Yes Advance Directives on File: Yes Advance Directives Date on File: 04/11/21 service: No Current occupational status: employed Physical Exam Vital Signs: Vital Signs: Last Vital Signs Temp 97.8 F 08/10/23 02:00 Pulse 71 08/10/23 02:00 Resp 15 08/10/23 02:00 BP 133/116 H 08/10/23 02:00 Pulse Ox 95 08/10/23 02:00 O2 Del Method Room Air 08/10/23 02:00 BMI result Body Mass Index 41.6 Appearance: Alert. Oriented X3. No acute distress. Eyes: Pupils equal, round and reactive to light. ENT: Pharynx normal. Neck: Normal inspection. Neck supple. CVS: Normal heart rate and rhythm. Pulses normal. Respiratory: No respiratory distress. Breath sounds bases diminished rales heard Abdomen: Soft and nontender. obese Skin: Skin warm and dry. Normal skin color. Normal skin turgor. Extremities: 1+ lower extremity edema. No calf ttp Neuro: Oriented X 3. No motor deficit. No sensory deficit. Medications Administered Discontinued Medications Generic Name Dose Route Start Last Admin Trade Name Freq PRN Reason Stop Dose Admin Furosemide 80 mg 08/10/23 01:52 08/10/23 02:36 Furosemide 100 Mg/10 Ml Vial IVPUSH 08/10/23 01:53 80 mg ONCE ONE Administration Protocol Morphine Sulfate 15 mg 08/10/23 02:35 08/10/23 02:41 Morphine Sulfate Immed Release 15 Mg Tablet PO 08/10/23 02:36 15 mg ONCE ONE Administration Medical Decision Making Medical Decision Making MDM Narrative: 63 yo male with PMH of severe COVID requiring ICU stay, afib, PPM, CKD, DOAC use worsening orthopnea and BARRIENTOS - at this time suspect CHF, doubt VTE given compliance with DOAC. Has rib pain but atypical for ACS will trend troponin. I will obtain CT chest for better evaluation of lungs and start on IV lasix and admit for further diuresis. Differential Diagnosis Differential Diagnoses: The differential diagnosis associated with the presentation includes CHF, viral infection Admission/Observation Consideration of admission/observation: Escalation of care including admission/observation considered increase in trend of BNP and worsening CXR - will admit for diuresis Consult Healthcare Provider Management of the patient was discussed with: Hospitalist (admit for diuresis) Lab Data MDM Lab Attestation statement: I reviewed the patient's lab results. trop remains flat 08/10/23 01:11 08/10/23 01:11 Labs: Lab Results 08/10/23 08/10/23 Range/Units 01:11 02:30 WBC 8.2 (4.8-10.8) X10*3/uL RBC 3.91 L (4.60-5.80) X10*6/uL Hgb 11.7 L (14.0-18.0) g/dl Hct 36.8 L (42.0-52.0) % MCV 94.1 (80.0-98.0) fL MCH 29.9 (27.0-33.0) pg MCHC 31.8 (31.0-36.0) g/dl RDW 14.3 (11.0-16.0) % Plt Count 128 L (160-400) X10*3/uL MPV 10.8 (9.4-12.4) fL Immature Gran % (Auto) 0.5 H (0.0-0.4) % Neut % (Auto) 79.8 H (45-73) % Lymph % (Auto) 12.0 L (20-40) % [place] % (Auto) 5.1 (2-11) % Eos % (Auto) 2.4 (0-4) % Baso % (Auto) 0.2 (0-2) % Lymph # (Auto) 1.0 L (1.2-4.9) X10*3/uL [place] # (Auto) 0.4 (0.1-1.2) X10*3/uL Eos # (Auto) 0.2 (0.0-0.4) X10*3/uL Baso # (Auto) 0.0 (0.0-0.2) X10*3/uL Abs Immat Gran (auto) 0.04 H (0.00-0.03) X10*3/uL Absolute Neuts (auto) 6.5 (2.0-8.3) x10*3/uL Absolute Nucleated RBC 0.000 (0.0-0.012) X10*3/uL Nucleated RBC % (auto) 0.0 (0.0-0.2) /100WBC Sodium 144 (135-145) mmol/L Potassium 3.4 (3.3-5.1) mmol/L Chloride 107 (96-108) mmol/L Carbon Dioxide 26 (22-29) mmol/L Anion Gap 14 (12-20) BUN 43 H (9-16) mg/dL Creatinine 4.35 H* (0.5-1.4) mg/dL Estim Creat Clear Calc 26.5 Estimated GFR 14 Random Glucose 263 H (60-115) mg/dL Calcium 9.2 (8.4-10.2) mg/dL Total Bilirubin 0.4 (0.0-1.0) mg/dL AST 14 (5-37) U/L ALT 8 (0-40) U/L Alkaline Phosphatase 143 H (39-117) U/L Troponin I High Sens 136.2 H* 129.8 H* (<3.5-35.0) ng/L B-Natriuretic Peptide 607 H (<100) pg/mL Total Protein 7.5 (6.5-8.0) g/dL Albumin 3.4 L (3.5-5.0) g/dL Influenza Type A (PCR) NEGATIVE (Negative) Influenza Type B (PCR) NEGATIVE (Negative) RSV RNA Qual (PCR) NEGATIVE (Negative) SARS-CoV-2 RNA (RT-PCR) NEGATIVE (Negative) Independent Interpretation I performed an independent interpretation of an: EKG, Plain X-Ray (edema) and CT Scan (effusions) Interpretation: Rate: 72 Rhythm: paced [place]: normal Normal P waves. Normal EDI. wide QRS complex. ST T wave : inverted t waves V1-V3, no INDIO qTC: prolonged prior studies: no sig change from priors The study has been interpreted contemporaneously by me. . Radiology Impression Discussion of test interpretation with radiology: I have reviewed the radiologist's reading. External Record Review External record reviewed: Inpatient record Discharge Plan Discharge Clinical Impression: CHF (congestive heart failure) Qualifiers: Heart failure type: unspecified Heart failure chronicity: acute on chronic Qualified Code(s): I50.9 - Heart failure, unspecified Patient Disposition: Admitted As Inpatient
[2023-08-10 01:58] LABS: Influenza A PCR NEGATIVE (Negative); Influenza B PCR NEGATIVE (Negative); Resp Syncy Virus RNA Qual PCR NEGATIVE (Negative); SARS COV2 PCR INHOUSE NEGATIVE (Negative)
--- NOTE | 2023-08-10 02:11 | PC.NURSE ---
pt to ct-scan
[2023-08-10] MEDS: Furosemide 100 MG/10 ML VIAL 80 MG IVPUSH (02:36)
[2023-08-10] MEDS: Morphine Sulfate Immed Release 15 MG TABLET PO (02:41)
[2023-08-10 03:05] LABS: Troponin-I High Sensitivity 129.8 ng/L (<3.5-35.0)
--- NOTE | 2023-08-10 04:16 | PC.NURSE ---
pt plan of care updated with pt
--- NOTE | 2023-08-10 05:06 | PC.NURSE ---
pt urine output 700 ml
--- NOTE | 2023-08-10 05:37 | P.HPHOSP_ITS ---
History of Present Illness Date of Service: 08/10/23 Attending physician on admission: Rodrick Black Chief Complaint: Shortness of breath x1 week Patient is a 61 year old morbidly obese (BMI 41.6) male with history of hypertension, insulin dependent diabetes mellitus, HFrEF (LVEF 40-45%) s/p AICD placement and currently on Torsemide and Metolazone, atrial fibrillation - (on Xarelto), anxiety/depression, stage 4 CKD, obesity hypoventilation syndrome (on CPAP), restrictive airway disease, osteoarthritis & severe COVID-19 infection in the past who presented to the emergency room for the second time in as many days reporting worsening shortness of breath especially at night with associated PND and musculoskeletal chest pain worse when he takes a deep breath. He has had these symptoms for a week now and was seen in the ED last night and given an extra dose of 100 mg of IV Furosemide and sent home. He however returns today reporting persistent symptoms and tonight, he received 80 mg of IV Lasix but is still symptomatic and so admission was requested. He denies any associated cough, fevers or chills. He is compliant with his diuretics and low salt diet. He reports his last weight at home as being 312 lbs and thinks he has gained about 5 lbs. Review of Systems 2 Review of Systems: Yes all other systems are reviewed and are negative [facility] Medical History Obesity hypoventilation syndrome YANELI on CPAP Morbid obesity Restrictive airway disease HTN (hypertension) CKD (chronic kidney disease) stage 3, GFR 30-59 ml/min CHF (congestive heart failure) Obesity Surgical History History of knee surgery Social History Household Members: Family Housing: Unknown / Unable to assess Do you presently have visiting nurse or other home services: Yes Unable to assess alcohol history related to: Unknown Alcohol intake: former Comment: pt sleeping at this time Patient Tobacco Use Status: Never used Tobacco Smoked in Last 30 Days: No Second Hand Smoke Exposure: No Use of substances other than those prescribed or required for medical reasons: No Advance Directives: Yes Advance Directives on File: Yes Advance Directives Date on File: 04/11/21 service: No Current occupational status: employed Meds Allergies Allergy/AdvReac Type Severity Reaction Status Date / Time Penicillins [PENICILLINS] Allergy Severe HIVES Verified 06/07/21 19:10 Home Medications Medication Instructions Recorded Confirmed Last Taken Type pen needle, diabetic 31 gauge x 09/07/20 09/24/20 04/10/21 History 5/16 (BD Ultra-Fine Short Pen Needle) atorvastatin 20 mg tablet 40 mg PO BEDTIME 09/24/20 08/10/23 08/09/23 20:00 History potassium chloride 20 mEq oral 40 meq PO BID 09/24/20 08/10/23 08/09/23 20:00 History packet allopurinol 100 mg tablet 1 tab PO DAILY 04/10/21 08/10/23 08/09/23 08:00 History amiodarone 200 mg tablet 200 mg PO DAILY 04/10/21 08/10/23 04/10/21 History apixaban 5 mg tablet (Eliquis) 1 tab PO BID 04/10/21 08/10/23 08/09/23 20:00 History hydralazine 50 mg tablet 1 tab PO TID 04/10/21 08/10/23 08/09/23 20:00 History insulin glargine 100 unit/mL (3 80 unit subcut DAILY 04/10/21 08/10/23 08/09/23 08:00 History mL) subcutaneous pen (Basaglar KwikPen U-100 Insulin) isosorbide dinitrate 10 mg tablet 2 tab PO TID 04/10/21 08/10/23 08/09/23 20:00 History metoprolol succinate 25 mg 1 tab PO BID 04/10/21 08/10/23 08/09/23 20:00 History tablet,extended release 24 hr torsemide 20 mg tablet 80 mg PO BIDWM 04/10/21 08/10/23 08/09/23 20:00 History tramadol 50 mg tablet 2 tab PO Q6H PRN pain 04/10/21 08/10/23 04/10/21 History Physical Exam 2 Vital Signs and Narrative: Vital Signs: Last Vital Signs Temp 97.8 F 08/10/23 02:00 Pulse 71 08/10/23 02:00 Resp 15 08/10/23 02:00 BP 133/116 H 08/10/23 02:00 Pulse Ox 95 08/10/23 02:00 O2 Del Method Room Air 08/10/23 02:00 BMI result Body Mass Index 41.6 General: Morbidly obese male sitting on the edge of the bed. Awake, alert and oriented x 4. No apparent distress Eyes: No pallor or jaundice. PERRLA, EOMI HENT: Moist oral mucus membranes. No oropharyngeal lesions. Neck: Supple. No cervical adenopathy. No JVD Cardiovascular: Regular rate and rhythm. Normal heart sounds. No murmurs, rubs or gallops. No JVD. Trace bipedal pitting edema. Respiratory: Normal respiratory effort with no accessory muscle use. CTAB. Gastrointestinal: Abdomen is soft, non-tender, non-distended. Normoactive bowel sounds. No hepatosplenomegally Extremities: No edema. No calf tenderness. Good peripheral pulses Skin - Warm/Dry. No rashes. No mottling. Capillary refill is < 2 seconds Neurological - AAOx4. Intact speech & cognition. Normal gait & balance. CN II - XII grossly intact but not individually tested. No motor or sensory deficits Hematologic: No bleeding. No ecchymosis. No swollen or tender lymph nodes. Psychiatric: Cooperative. Appropriate mood and affect Results Labs 08/10/23 01:11 08/10/23 01:11 Labs: Laboratory Results - last 24 hr 08/10/23 01:11 MCV 94.1 MCH 29.9 MCHC 31.8 RDW 14.3 Plt Count 128 L MPV 10.8 Immature Gran % (Auto) 0.5 H Neut % (Auto) 79.8 H Lymph % (Auto) 12.0 L [place] % (Auto) 5.1 Eos % (Auto) 2.4 Baso % (Auto) 0.2 Lymph # (Auto) 1.0 L [place] # (Auto) 0.4 Eos # (Auto) 0.2 Baso # (Auto) 0.0 Abs Immat Gran (auto) 0.04 H Absolute Neuts (auto) 6.5 Absolute Nucleated RBC 0.000 Nucleated RBC % (auto) 0.0 Anion Gap 14 Estim Creat Clear Calc 26.5 Estimated GFR 14 Random Glucose 263 H Calcium 9.2 Total Bilirubin 0.4 AST 14 ALT 8 Alkaline Phosphatase 143 H B-Natriuretic Peptide 607 H Total Protein 7.5 Albumin 3.4 L Influenza Type A (PCR) NEGATIVE Influenza Type B (PCR) NEGATIVE RSV RNA Qual (PCR) NEGATIVE SARS-CoV-2 RNA (RT-PCR) NEGATIVE ECG ECG interpretation date: 08/10/23 ECG interpretation time: 05:53 Prior ECG tracings: available for review Interpretation: Paced rhythm at 72 bpm. Imaging Radiologist's Impressions: Impressions Chest X-Ray 08/10/23 00:57 IMPRESSION: There appears to be vascular congestion and mild perihilar increased markings. Consider fluid overload and/or developing congestive heart failure with early edema. Correlation is needed. No significant change. Chest CT 08/10/23 02:25 IMPRESSION: Small bilateral pleural effusions. Nonspecific predominantly calcific mostly sub-4 mm pulmonary nodules. Numerous dominantly groundglass nodules were seen on prior study. No evidence for active infiltrate. Fleischner guidelines were followed. Assessment and Plan (1) Acute on chronic systolic (congestive) heart failure: Status: Acute (2) Stage 4 chronic kidney disease: Status: Acute (3) Morbid obesity with BMI of 40.0-44.9, adult: Status: Acute (4) Obesity hypoventilation syndrome: Status: Acute Plan 61 year old morbidly obese (BMI 41.6) male with history of hypertension, insulin dependent diabetes mellitus, HFrEF (LVEF 40-45%) s/p AICD placement, atrial fibrillation, anxiety/depression, stage 4 CKD, obesity hypoventilation syndrome, restrictive airway disease, and osteoarthritis here with 1. Acute on chronic systolic CHF - admit for gentle diuresis - switch from Torsemide to Metolazone 3 mg BID - continue oral Metolazone once a day for 2 days then every other day - low salt diet - closely monitor I/O's, renal function, electrolytes and daily weights 2. Stage IV CKD - stable - closely monitor while on diuretics 3. Type 2 diabetes mellitus - insulin requiring - resume home dose of Insulin Lantus - add SSI coverage 4. Morbid obesity - BMI of 41.6 - encourage weight loss DVT: ELIQUIS CODE STATUS: Full code Admission for at least 1 midnights for management of CHF exacerbation Total time managing care of this patient today: 55 minutes. Quality Stroke Does the patient have a stroke diagnosis?: No VTE Prior VTE?: No VTE Risk Level:: Medical - moderate - high VTE Device Contraindication: N/A - Device Ordered VTE Drug Contraindication: N/A - Med Ordered
[2023-08-10 05:55] LABS: Hematocrit 37.2 % (42.0-52.0); Hemoglobin 11.9 g/dl (14.0-18.0); Mean Corpuscular Hemoglobin 30.3 pg (27.0-33.0); Mean Corpuscular Volume 94.7 fL (80.0-98.0); Mean Platelet Volume 11.9 fL (9.4-12.4); Platelet Count 130 X10*3/uL (160-400); Red Blood Count 3.93 X10*6/uL (4.60-5.80); Red Cell Distribution Width 14.3 % (11.0-16.0); White Blood Count 8.7 X10*3/uL (4.8-10.8)
[2023-08-10 06:15] LABS: Anion Gap 13 (12-20); Blood Urea Nitrogen 44 mg/dL (9-16); Calcium 9.2 mg/dL (8.4-10.2); Carbon Dioxide 28 mmol/L (22-29); Chloride 104 mmol/L (96-108); Creatinine Clr Calc Pharmacy 26.7; Estimated Glomerular Filt Rate 14; Glucose Random 215 mg/dL (60-115); Magnesium 1.7 mg/dL (1.6-2.6); Potassium 3.6 mmol/L (3.3-5.1); Sodium 141 mmol/L (135-145)
[2023-08-10] MEDS: HYDROmorphone HCl 0.5 MG/0.5 ML SYRINGE IVPUSH (06:20)
--- NOTE | 2023-08-10 07:34 | PHA.MEDREC ---
Pharmacy Consult ? Medication Reconciliation Pharmacy has completed the medication reconciliation.PHARMACY HAS REVIEWED MED REC DONE BY NURSING.
[2023-08-10] MEDS: Docusate Sodium 100 MG CAPSULE PO ×2 (08:06→20:04)
[2023-08-10] MEDS: Apixaban 5 MG TABLET PO ×2 (08:06→20:03)
[2023-08-10] MEDS: Potassium Chloride Packet 20 MEQ PACKET 40 MEQ PO ×2 (08:06→20:03)
[2023-08-10] MEDS: hydrALAZINE HCl 50 MG TABLET PO ×3 (08:07→20:03)
[2023-08-10] MEDS: Metoprolol Succinate ER 25 MG TAB.ER.24H PO ×2 (08:07→20:04)
[2023-08-10] MEDS: allopurinoL 100 MG TABLET PO (08:07)
[2023-08-10] MEDS: Amiodarone HCL 200 MG TABLET PO (08:07)
[2023-08-10 08:08] LABS: Glucose, Whole Blood 242 mg/dL (60-115)
[2023-08-10] MEDS: Bumetanide 1 MG/4 ML VIAL 3 MG IVPUSH ×2 (08:08→17:20)
--- NOTE | 2023-08-10 08:13 | P.PNIM_ITS ---
Subjective Subjective Date of Service: 08/10/23 Interval History: has persistent leg edema, some sob Physical Exam 2 Vital Signs: Vital Signs: Last Vital Signs Temp 97.8 F 08/10/23 02:00 Pulse 71 08/10/23 02:00 Resp 15 08/10/23 02:00 BP 133/116 H 08/10/23 02:00 Pulse Ox 95 08/10/23 02:00 O2 Del Method Room Air 08/10/23 02:00 BMI result Body Mass Index 41.6 Const: Other: General: AO X 3, no acute distress Resp: rales at bases, 2+ pitting edema CVS: S1,S2,RRR GI: +BS, NT, no distention Skin: No rash Neuro: motor grossly intact Psych: appropriate affect Objective Data Active Medications Acetaminophen (Acetaminophen 325 Mg Tablet) 650 mg PO Q6H PRN PRN Reason: Pain, Mild (Pain Scale 1-3) Al Hydroxide/Mg Hydroxide (Magnesium Hydrox/Alum Hydrox 30 Ml Oral.Susp) 30 ml PO Q4H PRN PRN Reason: Heartburn/Nausea Allopurinol (Allopurinol 100 Mg Tablet) 100 mg PO DAILY [facility] Last Admin: 08/10/23 08:07 Dose: 100 mg Documented By: ARMEN Amiodarone HCl (Amiodarone Hcl 200 Mg Tablet) 200 mg PO DAILY [facility] Last Admin: 08/10/23 08:07 Dose: 200 mg Documented By: ARMEN Apixaban (Apixaban 5 Mg Tablet) 5 mg PO BID [facility] Last Admin: 08/10/23 08:06 Dose: 5 mg Documented By: ARMEN Atorvastatin Calcium (Atorvastatin Calcium 40 Mg Tablet) 40 mg PO BEDTIME [facility] Bumetanide (Bumetanide 1 Mg/4 Ml Vial) 3 mg IVPUSH BID@0900,1700 [facility]; Protocol Last Admin: 08/10/23 08:08 Dose: 3 mg Documented By: ARMEN Dextrose (Dextrose 50 % 25 Gm/50 Ml Syringe) 25 gm IVPUSH Q15M PRN; Protocol PRN Reason: per Hypoglycemia Standing Ord. Docusate Sodium (Docusate Sodium 100 Mg Capsule) 100 mg PO BID [facility] Last Admin: 08/10/23 08:06 Dose: 100 mg Documented By: ARMEN Glucose (Glucose Gel 15 Gm Gel..Gram.) 15 gm PO Q15M PRN; Protocol PRN Reason: per Hypoglycemia Standing Ord. Hydralazine HCl (Hydralazine Hcl 50 Mg Tablet) 50 mg PO TID [facility]; Protocol Last Admin: 08/10/23 08:07 Dose: 50 mg Documented By: ARMEN Insulin Glargine (Insulin Glargine,Hum.Rec.Anlog 100 Unit/Ml 10 Ml Vial) 80 unit SUBCUT DAILY [facility] Insulin Human Lispro (Insulin Lispro 100 Unit/Ml 3 Ml Vial) 0 unit SUBCUT QIDACHS [facility]; Protocol Stop: 08/11/23 06:06 Isosorbide Dinitrate (Isosorbide Dinitrate 20 Mg Tablet) 20 mg PO TID [facility]; Protocol Melatonin (Melatonin 3 Mg Tablet) 6 mg PO BEDTIME PRN PRN Reason: Insomnia Metolazone (Metolazone 5 Mg Tablet) 5 mg PO DAILY@0900 [facility] Metoprolol Succinate (Metoprolol Succinate Er 25 Mg Tab.Er.24h) 25 mg PO BID [facility]; Protocol Last Admin: 08/10/23 08:07 Dose: 25 mg Documented By: ARMEN Mirtazapine (Mirtazapine 7.5 Mg Tablet) 7.5 mg PO BEDTIME [facility] Nitroglycerin (Nitroglycerin 0.4 Mg Tab.Subl) 0.4 mg SUBLINGUAL Q5MX3 PRN PRN Reason: Chest Pain Ondansetron HCl (Ondansetron Hcl 4 Mg/2 Ml Vial) 4 mg IVPUSH Q8H PRN PRN Reason: Nausea and Vomiting Potassium Chloride (Potassium Chloride Packet 20 Meq Packet) 40 meq PO BID [facility] Last Admin: 08/10/23 08:06 Dose: 40 meq Documented By: ARMEN Senna (Sennosides 8.6 Mg Tablet) 17.2 mg PO BEDTIME PRN PRN Reason: Constipation Sodium Chloride (0.9 % Sodium Chloride Flush 3 Ml Syringe) 3 ml IVFLUSH QSHIFT [facility] Tramadol HCl (Tramadol Hcl 50 Mg Tablet) 100 mg PO Q6H PRN PRN Reason: Pain, Severe (Pain Scale 7-10) Labs 08/10/23 05:24 08/10/23 05:24 Labs: Laboratory Results - last 24 hr 08/10/23 08/10/23 08/10/23 01:11 05:24 08:02 MCV 94.1 94.7 MCH 29.9 30.3 MCHC 31.8 32.0 RDW 14.3 14.3 Plt Count 128 L 130 L MPV 10.8 11.9 Immature Gran % (Auto) 0.5 H Neut % (Auto) 79.8 H Lymph % (Auto) 12.0 L [place] % (Auto) 5.1 Eos % (Auto) 2.4 Baso % (Auto) 0.2 Lymph # (Auto) 1.0 L [place] # (Auto) 0.4 Eos # (Auto) 0.2 Baso # (Auto) 0.0 Abs Immat Gran (auto) 0.04 H Absolute Neuts (auto) 6.5 Absolute Nucleated RBC 0.000 0.000 Nucleated RBC % (auto) 0.0 0.0 Anion Gap 14 13 Estim Creat Clear Calc 26.5 26.7 Estimated GFR 14 14 POC Glucose 242 H Random Glucose 263 H 215 H Calcium 9.2 9.2 Magnesium 1.7 Total Bilirubin 0.4 AST 14 ALT 8 Alkaline Phosphatase 143 H B-Natriuretic Peptide 607 H Total Protein 7.5 Albumin 3.4 L Influenza Type A (PCR) NEGATIVE Influenza Type B (PCR) NEGATIVE RSV RNA Qual (PCR) NEGATIVE SARS-CoV-2 RNA (RT-PCR) NEGATIVE Assessment and Plan (1) Stage 4 chronic kidney disease: Status: Acute (2) Acute on chronic systolic (congestive) heart failure: Status: Acute Plan 61 year old morbidly obese (BMI 41.6) male with history of hypertension, insulin dependent diabetes mellitus, HFrEF (LVEF 40-45%) s/p AICD placement, atrial fibrillation, anxiety/depression, stage 4 CKD, obesity hypoventilation syndrome, restrictive airway disease, and osteoarthritis here with Acute on chronic systolic CHF - continue IV Bumex, and oral Metolazone 5 mg/d x 2 days - low salt diet -cardiology consult - closely monitor I/O's, renal function, electrolytes and daily weights Stage IV CKD - stable - closely monitor while on diuretics Elevated troponin, chronic and flat, d/t CKD Hyponatremia--mod, d/t CHF, monitor, fluid restriction Type 2 diabetes mellitus - insulin requiring - continue lantus and SSI, diabetic diet Chronic thrombocytopenia--stable Morbid obesity - BMI of 41.6 -advise on weight loss DVT: ELIQUIS CODE STATUS: Full code need for inpt: active acute heart requiring IV diuretics, close monitoring of electrolytes Quality Stroke Does the patient have a stroke diagnosis?: No VTE Prior VTE?: No VTE Risk Level:: Medical - moderate - high VTE Device Contraindication: N/A - Device Ordered VTE Drug Contraindication: N/A - Med Ordered
[2023-08-10] MEDS: Insulin Glargine,Hum.rec.anlog 100 UNIT/ML 10 ML VIAL 80 UNIT SUBCUT (08:30)
[2023-08-10] MEDS: Insulin Lispro 100 UNIT/ML 3 ML VIAL SUBCUT ×4 (08:31→20:47)
[2023-08-10] MEDS: 0.9 % Sodium Chloride Flush 3 ML SYRINGE IVFLUSH ×3 (09:04→20:47)
[2023-08-10] MEDS: metOLazone 5 MG TABLET PO (09:35)
[2023-08-10] MEDS: Isosorbide Dinitrate 20 MG TABLET PO ×3 (09:35→20:47)
[2023-08-10] MEDS: traMADoL HCL 50 MG TABLET 100 MG PO (09:56)
--- NOTE | 2023-08-10 10:07 | PC.NURSE ---
No Isosorbide Dinitrate or Metolazone available in ED pyxis - Pharmacy contacted with med request. Awaiting delivery. Pt currently resting on stretcher watching television, appears in NAD. Pt continues to endorse severe chest pain, medicated with PRN Tramadol. Awaiting bed assignment. [facility]
[2023-08-10] MEDS: Morphine Sulfate 2 MG/ML CARTRIDGE IVPUSH ×2 (10:38→17:20)
[2023-08-10 11:17] LABS: Glucose, Whole Blood 196 mg/dL (60-115)
--- NOTE | 2023-08-10 13:21 | MHC.CM.PN ---
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 Home/self care is the goal and CM has initiated and will follow for dc planning. PCP is from [facility].
[2023-08-10 17:22] LABS: Glucose, Whole Blood 203 mg/dL (60-115)
--- NOTE | 2023-08-10 19:31 | P.CONNP_ITS ---
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 He has had these symptoms for a week now and was seen in the ER , the night before admission and given an extra dose of 100 mg of IV Furosemide and sent home. He returned again reporting persistent symptoms and was admitted for further management. Nephrology was consulted to assist in his clinical care during his current hospital stay Review of Systems Review of Systems Yes all other systems are reviewed and are negative PMFSH Past Medical History Medical History Obesity hypoventilation syndrome YANELI on CPAP Morbid obesity Restrictive airway disease HTN (hypertension) CKD (chronic kidney disease) stage 3, GFR 30-59 ml/min CHF (congestive heart failure) Obesity Surgical History Surgical History History of knee surgery Social History Social History Household Members: Spouse and Children Housing: House Do you presently have visiting nurse or other home services: No Unable to assess alcohol history related to: Unknown Alcohol intake: former Comment: pt sleeping at this time Patient Tobacco Use Status: Never used Tobacco Smoked in Last 30 Days: No Second Hand Smoke Exposure: No Use of substances other than those prescribed or required for medical reasons: No Have you been hit, kicked, punched, or otherwise hurt by someone within the past year? If so, by whom?: No Do you feel safe in your current relationship?: No Current Relationship Is there a partner from a previous relationship who is making you feel unsafe now?: No Are you made to feel afraid or neglected: No Advance Directives: Yes Advance Directives on File: Yes Advance Directives Date on File: 04/11/21 Do you have thoughts of harming others: None Do you have a plan to hurt others: No Plan Recently lost weight without trying: No How much weight loss: Not applicable Eating poorly because of decreased appetite: No Nutrition screen score: 0 Nutrition Risks: No Nutritional Risk Poor oral hygiene: No service: No Current occupational status: employed Meds Allergies Allergy/AdvReac Type Severity Reaction Status Date / Time Penicillins [PENICILLINS] Allergy Severe HIVES Verified 06/07/21 19:10 Active Medications: Current Medications Acetaminophen (Acetaminophen 325 Mg Tablet) 650 mg PO Q6H PRN PRN Reason: Pain, Mild (Pain Scale 1-3) Al Hydroxide/Mg Hydroxide (Magnesium Hydrox/Alum Hydrox 30 Ml Oral.Susp) 30 ml PO Q4H PRN PRN Reason: Heartburn/Nausea Allopurinol (Allopurinol 100 Mg Tablet) 100 mg PO DAILY [facility] Last Admin: 08/10/23 08:07 Dose: 100 mg Amiodarone HCl (Amiodarone Hcl 200 Mg Tablet) 200 mg PO DAILY [facility] Last Admin: 08/10/23 08:07 Dose: 200 mg Apixaban (Apixaban 5 Mg Tablet) 5 mg PO BID [facility] Last Admin: 08/10/23 08:06 Dose: 5 mg Atorvastatin Calcium (Atorvastatin Calcium 40 Mg Tablet) 40 mg PO BEDTIME [facility] Bumetanide (Bumetanide 1 Mg/4 Ml Vial) 3 mg IVPUSH BID@0900,1700 [facility]; Protocol Last Admin: 08/10/23 17:20 Dose: 3 mg Dextrose (Dextrose 50 % 25 Gm/50 Ml Syringe) 25 gm IVPUSH Q15M PRN; Protocol PRN Reason: per Hypoglycemia Standing Ord. Docusate Sodium (Docusate Sodium 100 Mg Capsule) 100 mg PO BID [facility] Last Admin: 08/10/23 08:06 Dose: 100 mg Glucose (Glucose Gel 15 Gm Gel..Gram.) 15 gm PO Q15M PRN; Protocol PRN Reason: per Hypoglycemia Standing Ord. Hydralazine HCl (Hydralazine Hcl 50 Mg Tablet) 50 mg PO TID [facility]; Protocol Last Admin: 08/10/23 15:50 Dose: 50 mg Insulin Glargine (Insulin Glargine,Hum.Rec.Anlog 100 Unit/Ml 10 Ml Vial) 80 unit SUBCUT DAILY [facility] Last Admin: 08/10/23 08:30 Dose: 80 unit Insulin Human Lispro (Insulin Lispro 100 Unit/Ml 3 Ml Vial) 0 unit SUBCUT QIDACHS [facility]; Protocol Stop: 08/11/23 06:06 Last Admin: 08/10/23 17:50 Dose: 4 unit Isosorbide Dinitrate (Isosorbide Dinitrate 20 Mg Tablet) 20 mg PO TID [facility]; Protocol Last Admin: 08/10/23 15:50 Dose: 20 mg Melatonin (Melatonin 3 Mg Tablet) 6 mg PO BEDTIME PRN PRN Reason: Insomnia Metolazone (Metolazone 5 Mg Tablet) 5 mg PO DAILY@0900 [facility] Last Admin: 08/10/23 09:35 Dose: 5 mg Metoprolol Succinate (Metoprolol Succinate Er 25 Mg Tab.Er.24h) 25 mg PO BID [facility]; Protocol Last Admin: 08/10/23 08:07 Dose: 25 mg Mirtazapine (Mirtazapine 7.5 Mg Tablet) 7.5 mg PO BEDTIME [facility] Morphine Sulfate (Morphine Sulfate 2 Mg/Ml Cartridge) 2 mg IVPUSH Q6H PRN; Protocol PRN Reason: Pain, Severe (Pain Scale 7-10) Last Admin: 08/10/23 17:20 Dose: 2 mg Nitroglycerin (Nitroglycerin 0.4 Mg Tab.Subl) 0.4 mg SUBLINGUAL Q5MX3 PRN PRN Reason: Chest Pain Ondansetron HCl (Ondansetron Hcl 4 Mg/2 Ml Vial) 4 mg IVPUSH Q8H PRN PRN Reason: Nausea and Vomiting Potassium Chloride (Potassium Chloride Packet 20 Meq Packet) 40 meq PO BID [facility] Last Admin: 08/10/23 08:06 Dose: 40 meq Senna (Sennosides 8.6 Mg Tablet) 17.2 mg PO BEDTIME PRN PRN Reason: Constipation Sodium Chloride (0.9 % Sodium Chloride Flush 3 Ml Syringe) 3 ml IVFLUSH QSHIFT [facility] Last Admin: 08/10/23 15:56 Dose: 3 ml Tramadol HCl (Tramadol Hcl 50 Mg Tablet) 100 mg PO Q6H PRN PRN Reason: Pain, Severe (Pain Scale 7-10) Last Admin: 08/10/23 09:56 Dose: 100 mg Home Medications Medication Instructions Recorded Confirmed Last Taken Type pen needle, diabetic 31 gauge x 01/02/21 01/19/21 08/05/21 History 5/16 (BD Ultra-Fine Short Pen Needle) atorvastatin 20 mg tablet 40 mg PO BEDTIME 09/24/20 08/10/23 08/09/23 20:00 History potassium chloride 20 mEq oral 40 meq PO BID 09/24/20 08/10/23 08/09/23 20:00 History packet allopurinol 100 mg tablet 1 tab PO DAILY 04/10/21 08/10/23 08/09/23 08:00 History amiodarone 200 mg tablet 200 mg PO DAILY 04/10/21 08/10/23 04/10/21 History apixaban 5 mg tablet (Eliquis) 1 tab PO BID 04/10/21 08/10/23 08/09/23 20:00 History hydralazine 50 mg tablet 1 tab PO TID 04/10/21 08/10/23 08/09/23 20:00 History insulin glargine 100 unit/mL (3 80 unit subcut DAILY 04/10/21 08/10/23 08/09/23 08:00 History mL) subcutaneous pen (Basaglar KwikPen U-100 Insulin) isosorbide dinitrate 10 mg tablet 2 tab PO TID 04/10/21 08/10/23 08/09/23 20:00 History metoprolol succinate 25 mg 1 tab PO BID 04/10/21 08/10/23 08/09/23 20:00 History tablet,extended release 24 hr torsemide 20 mg tablet 80 mg PO BIDWM 04/10/21 08/10/23 08/09/23 20:00 History tramadol 50 mg tablet 2 tab PO Q6H PRN pain 04/10/21 08/10/23 04/10/21 History Physical Exam Vital Signs: Last Vital Signs Temp 97.2 F 08/10/23 19:10 Pulse 69 08/10/23 19:10 Resp 19 08/10/23 19:10 BP 164/84 H 08/10/23 19:10 Pulse Ox 96 08/10/23 19:10 O2 Del Method Room Air 08/10/23 19:10 BMI result Body Mass Index 42.8 Const General: no acute distress Eyes EOM: EOMs intact bilaterally Neck Neck: Yes supple Resp Auscultation: diminished lung sounds Cardio Rate: regular rate GI Inspection: Yes obesity Palpation (GI): Soft to palpation Neuro General: moves all extremities Results Lab Results 08/10/23 05:24 08/10/23 05:24 Lab results: Chemistry 08/10/23 08/10/23 01:11 05:24 Sodium 144 141 Potassium 3.4 3.6 Carbon Dioxide 26 28 BUN 43 H 44 H Creatinine 4.35 H* 4.31 H* Calcium 9.2 9.2 Hematology 08/10/23 08/10/23 01:11 05:24 WBC 8.2 8.7 Hgb 11.7 L 11.9 L Plt Count 128 L 130 L Assessment and Plan (1) Stage 4 chronic kidney disease: Status: Acute Plan Serum creatinine close to 4 Admitted with hypervolemia On Diuretics/hydralazine/Nitrates Has AICD; Low Na diet/ Daily weights Immunofixation/UP C ratio/PTH /UA ordered May need diuretic drip Check Urine Na to assess natriuresis on diuretics No NSAID's/ACEI/ARB for now No need to do a renal USS now No indication for renal replacement C/W rest of current supportive management for now Labs AM; Shall closely follow up Procedures Date of Service Date of Service: 08/10/23
[2023-08-10] MEDS: Mirtazapine 7.5 MG TABLET PO (20:03)
[2023-08-10] MEDS: Atorvastatin Calcium 40 MG TABLET PO (20:04)
[2023-08-10 20:35] LABS: Glucose, Whole Blood 164 mg/dL (60-115)
[2023-08-11] MEDS: Morphine Sulfate 2 MG/ML CARTRIDGE IVPUSH ×3 (00:54→16:01)
[2023-08-11 03:10] VITALS: BP 164/75; PULSE 58; RESP 16; TEMP 36.4; O2SAT 96
[2023-08-11 04:22] LABS: Creatinine Urine 39.59 mg/dL; Protein/Creatinine Ratio, Ur 5.05 (<0.2); Total Protein Urine Random 200 mg/dL (<12)
[2023-08-11 06:00] VITALS: BMI 42.3
[2023-08-11 07:23] VITALS: BP 179/83; PULSE 66; RESP 18; TEMP 36.2; O2SAT 96
[2023-08-11 07:44] LABS: Glucose, Whole Blood 85 mg/dL (60-115)
[2023-08-11 08:14] LABS: Hematocrit 38.4 % (42.0-52.0); Hemoglobin 12.7 g/dl (14.0-18.0); Mean Corpuscular HGB Conc 33.1 g/dl (31.0-36.0); Mean Corpuscular Hemoglobin 31.4 pg (27.0-33.0); Mean Platelet Volume 12.6 fL (9.4-12.4); Platelet Count 134 X10*3/uL (160-400); Red Blood Count 4.04 X10*6/uL (4.60-5.80); Red Cell Distribution Width 14.3 % (11.0-16.0); White Blood Count 8.3 X10*3/uL (4.8-10.8)
[2023-08-11 08:31] LABS: Alanine Aminotransferase 8 U/L (0-40); Albumin Level 3.5 g/dL (3.5-5.0); Alkaline Phosphatase 140 U/L (39-117); Aspartate Amino Transferase 15 U/L (5-37); Bilirubin Total 0.7 mg/dL (0.0-1.0); Blood Urea Nitrogen 45 mg/dL (9-16); Calcium 9.4 mg/dL (8.4-10.2); Estimated Glomerular Filt Rate 14; Glucose Random 89 mg/dL (60-115); Magnesium 1.8 mg/dL (1.6-2.6); Parathyroid Hormone Intact 479.3 pg/mL (8.7-77.1); Total Protein 7.6 g/dL (6.5-8.0)
[2023-08-11] MEDS: Metoprolol Succinate ER 25 MG TAB.ER.24H PO ×2 (08:36→21:03)
[2023-08-11] MEDS: allopurinoL 100 MG TABLET PO (08:36)
[2023-08-11] MEDS: Isosorbide Dinitrate 20 MG TABLET PO ×3 (08:36→21:03)
[2023-08-11] MEDS: hydrALAZINE HCl 50 MG TABLET PO ×3 (08:37→21:02)
[2023-08-11] MEDS: Potassium Chloride Packet 20 MEQ PACKET 40 MEQ PO ×2 (08:37→21:02)
[2023-08-11] MEDS: Amiodarone HCL 200 MG TABLET PO (08:37)
[2023-08-11] MEDS: Insulin Glargine,Hum.rec.anlog 100 UNIT/ML 10 ML VIAL 80 UNIT SUBCUT (08:37)
[2023-08-11] MEDS: Docusate Sodium 100 MG CAPSULE PO ×2 (08:37→21:03)
[2023-08-11] MEDS: Apixaban 5 MG TABLET PO ×2 (08:37→21:03)
[2023-08-11] MEDS: metOLazone 5 MG TABLET PO (08:38)
[2023-08-11] MEDS: Bumetanide 1 MG/4 ML VIAL 3 MG IVPUSH (08:39)
[2023-08-11 08:40] LABS: Anion Gap 15 (12-20); Carbon Dioxide 28 mmol/L (22-29); Chloride 103 mmol/L (96-108); Potassium 2.8 mmol/L (3.3-5.1); Sodium 143 mmol/L (135-145)
[2023-08-11 08:45] LABS: Vitamin D 25-OH Total 12.8 ng/mL (>30)
[2023-08-11] MEDS: 0.9 % Sodium Chloride Flush 3 ML SYRINGE IVFLUSH ×2 (08:56→21:03)
[2023-08-11] MEDS: Potassium Chloride ER 20 MEQ TAB.ER.PRT 40 MEQ PO ×3 (09:28→21:02)
--- NOTE | 2023-08-11 09:58 | P.PNIM_ITS ---
Subjective Subjective Date of Service: 08/11/23 Interval History: seen in f/u for heart failure overall with increase urine output and feels better yet still with generalized swelling Physical Exam 2 Vital Signs: Vital Signs: Last Vital Signs Temp 97.1 F 08/11/23 07:23 Pulse 66 08/11/23 07:23 Resp 18 08/11/23 07:23 BP 179/83 H 08/11/23 07:23 Pulse Ox 96 08/11/23 07:23 O2 Del Method Room Air 08/11/23 07:23 BMI result Body Mass Index 42.3 Const: Other: General: AO X 3, no acute distress Resp: rales at bases CVS: S1,S2,iregular, 3+ pitting leg edema GI: +BS, NT, no distention Skin: No rash Neuro: motor grossly intact Psych: appropriate affect Objective Data Active Medications Acetaminophen (Acetaminophen 325 Mg Tablet) 650 mg PO Q6H PRN PRN Reason: Pain, Mild (Pain Scale 1-3) Al Hydroxide/Mg Hydroxide (Magnesium Hydrox/Alum Hydrox 30 Ml Oral.Susp) 30 ml PO Q4H PRN PRN Reason: Heartburn/Nausea Allopurinol (Allopurinol 100 Mg Tablet) 50 mg PO SuWe@0900 [facility] Amiodarone HCl (Amiodarone Hcl 200 Mg Tablet) 200 mg PO DAILY [facility] Last Admin: 08/11/23 08:37 Dose: 200 mg Documented By: DANTE Apixaban (Apixaban 5 Mg Tablet) 5 mg PO BID [facility] Last Admin: 08/11/23 08:37 Dose: 5 mg Documented By: DANTE Atorvastatin Calcium (Atorvastatin Calcium 40 Mg Tablet) 40 mg PO BEDTIME [facility] Last Admin: 08/10/23 20:04 Dose: 40 mg Documented By: ROX Dextrose (Dextrose 50 % 25 Gm/50 Ml Syringe) 25 gm IVPUSH Q15M PRN; Protocol PRN Reason: per Hypoglycemia Standing Ord. Docusate Sodium (Docusate Sodium 100 Mg Capsule) 100 mg PO BID [facility] Last Admin: 08/11/23 08:37 Dose: 100 mg Documented By: DANTE Glucose (Glucose Gel 15 Gm Gel..Gram.) 15 gm PO Q15M PRN; Protocol PRN Reason: per Hypoglycemia Standing Ord. Hydralazine HCl (Hydralazine Hcl 50 Mg Tablet) 50 mg PO TID [facility]; Protocol Last Admin: 08/11/23 08:37 Dose: 50 mg Documented By: DANTE Bumetanide 25 mg/ IV (Miscellaneous Supplies) 100 mls @ 4 mls/hr IVCONT .Q24H [facility] Potassium Chloride (Potassium Chloride/H20) 10 meq in 100 mls @ 100 mls/hr IV Q1H [facility] Stop: 08/11/23 11:59 Insulin Glargine (Insulin Glargine,Hum.Rec.Anlog 100 Unit/Ml 10 Ml Vial) 80 unit SUBCUT DAILY [facility] Last Admin: 08/11/23 08:37 Dose: 80 unit Documented By: DANTE Isosorbide Dinitrate (Isosorbide Dinitrate 20 Mg Tablet) 20 mg PO TID [facility]; Protocol Last Admin: 08/11/23 08:36 Dose: 20 mg Documented By: DANTE Melatonin (Melatonin 3 Mg Tablet) 6 mg PO BEDTIME PRN PRN Reason: Insomnia Metolazone (Metolazone 5 Mg Tablet) 5 mg PO DAILY@0900 [facility] Last Admin: 08/11/23 08:38 Dose: 5 mg Documented By: DANTE Metoprolol Succinate (Metoprolol Succinate Er 25 Mg Tab.Er.24h) 25 mg PO BID [facility]; Protocol Last Admin: 08/11/23 08:36 Dose: 25 mg Documented By: DANTE Mirtazapine (Mirtazapine 7.5 Mg Tablet) 7.5 mg PO BEDTIME [facility] Last Admin: 08/10/23 20:03 Dose: 7.5 mg Documented By: ROX Morphine Sulfate (Morphine Sulfate 2 Mg/Ml Cartridge) 2 mg IVPUSH Q6H PRN; Protocol PRN Reason: Pain, Severe (Pain Scale 7-10) Last Admin: 08/11/23 08:50 Dose: 2 mg Documented By: DANTE Nitroglycerin (Nitroglycerin 0.4 Mg Tab.Subl) 0.4 mg SUBLINGUAL Q5MX3 PRN PRN Reason: Chest Pain Ondansetron HCl (Ondansetron Hcl 4 Mg/2 Ml Vial) 4 mg IVPUSH Q8H PRN PRN Reason: Nausea and Vomiting Potassium Chloride (Potassium Chloride Packet 20 Meq Packet) 40 meq PO BID [facility] Last Admin: 08/11/23 08:37 Dose: 40 meq Documented By: DANTE Potassium Chloride (Potassium Chloride Er 20 Meq Tab.Er.Prt) 40 meq PO Q6H [facility] Stop: 08/11/23 21:16 Last Admin: 08/11/23 09:28 Dose: 40 meq Documented By: DANTE Senna (Sennosides 8.6 Mg Tablet) 17.2 mg PO BEDTIME PRN PRN Reason: Constipation Sodium Chloride (0.9 % Sodium Chloride Flush 3 Ml Syringe) 3 ml IVFLUSH QSHIFT [facility] Last Admin: 08/11/23 08:56 Dose: 3 ml Documented By: DANTE Tramadol HCl (Tramadol Hcl 50 Mg Tablet) 100 mg PO Q6H PRN PRN Reason: Pain, Severe (Pain Scale 7-10) Last Admin: 08/10/23 09:56 Dose: 100 mg Documented By: ARMEN Labs 08/11/23 06:45 08/11/23 06:45 Labs: Laboratory Results - last 24 hr 08/10/23 08/10/23 08/10/23 11:14 17:18 20:11 MCV MCH MCHC RDW Plt Count MPV Absolute Nucleated RBC Nucleated RBC % (auto) Anion Gap Estim Creat Clear Calc Estimated GFR POC Glucose 196 H 203 H 164 H Random Glucose Calcium Magnesium Total Bilirubin AST ALT Alkaline Phosphatase Total Protein Albumin 25-OH Vitamin D Total PTH Intact U Random Total Protein Urine Creatinine Protein/Creatinin Ratio 08/11/23 08/11/23 08/11/23 03:55 06:45 07:25 MCV 95.0 MCH 31.4 MCHC 33.1 RDW 14.3 Plt Count 134 L MPV 12.6 H Absolute Nucleated RBC 0.000 Nucleated RBC % (auto) 0.0 Anion Gap 15 Estim Creat Clear Calc 27.0 Estimated GFR 14 POC Glucose 85 Random Glucose 89 Calcium 9.4 Magnesium 1.8 Total Bilirubin 0.7 AST 15 ALT 8 Alkaline Phosphatase 140 H Total Protein 7.6 Albumin 3.5 25-OH Vitamin D Total 12.8 L PTH Intact 479.3 H U Random Total Protein 200 H Urine Creatinine 39.59 Protein/Creatinin Ratio 5.05 H Assessment and Plan (1) Stage 4 chronic kidney disease: Status: Acute (2) Acute on chronic systolic (congestive) heart failure: Status: Acute Plan 61 year old morbidly obese (BMI 41.6) male with history of hypertension, insulin dependent diabetes mellitus, HFrEF (LVEF 40-45%) s/p AICD placement, atrial fibrillation, anxiety/depression, stage 4 CKD, obesity hypoventilation syndrome, restrictive airway disease, and osteoarthritis here with Acute on chronic systolic CHF, remains markedly volume overloaded on IV Bumex push, as such changing to Bumex drip at 1mg/hr, closely monitor potassium, I/O, and renal function. Metolazone today. Cardiology/Nephrlogy following Stage IV CKD, stable Elevated troponin, chronic and flat, d/t CKD Hyponatremia--mod, d/t CHF, resolved. Hypokalemia--2.8 due to bumex, refusing IV K, will give PO and recheck, check mag as well Type 2 diabetes mellitus, insulin dependent, continue Lantus + SSI, diabetic diet - insulin requiring - continue lantus and SSI, diabetic diet Chronic thrombocytopenia--stable Morbid obesity - BMI of 41.6 -advise on weight loss DVT: ELIQUIS CODE STATUS: Full code need for inpt: active acute heart requiring IV diuretics, close monitoring of electrolytes Quality Stroke Does the patient have a stroke diagnosis?: No VTE Prior VTE?: No VTE Risk Level:: Medical - moderate - high VTE Device Contraindication: N/A - Device Ordered VTE Drug Contraindication: N/A - Med Ordered
--- NOTE | 2023-08-11 10:04 | P.CONCA_ITS ---
History of Present Illness History of Present Illness Date of Service: 08/11/23 Chief complaint: CHF Exacerbation Narrative: This is a cardiology consultation regarding congestive heart failure. Patient apparently goes only to [facility] for all his medical care. He seems to have cardiomyopathy but not clear if it is ischemic or nonischemic. Unknown ejection fraction but he believes he was told it was somewhere in the 30s. Also has ICD placed. Apparently was supposed to have the appointment with Cardiology this week. 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 Patient states he was very ill with COVID few years back and at that time he consolidate his care at [facility] and has been going that ever since. He does not have any local sourcing internship or optical effects layout person. Patient states he generally can manage things but more recently at least for the last few days he has been getting more short of breath with activity. He also has been having difficulty sleeping extra and had to keep getting up. Leg swelling as well. He has been admitted with a diagnosis of acute on chronic systolic congestive heart failure as well as stage 4 chronic kidney disease. We have been asked seen for further care. Review of Systems 2 Review of Systems: Yes all other systems are reviewed and are negative Constitutional: Constitutional: Reports as per HPI and Reports no additional constitutional complaints Eyes: Eyes: Reports as per HPI and Denies no additional eye complaints ENT: Denies system reviewed and no additional complaints, except as documented and Reports as per HPI Cardiovascular: Cardiovascular: Reports as per HPI, Reports no additional cardiovascular complaints, Denies acrocyanosis, Denies cool extremities, Denies chest pain, Reports leg edema, Denies lightheadedness, Denies palpitations and Reports dyspnea Respiratory: Respiratory: Reports as per HPI, Denies no additional respiratory complaints and Reports dyspnea Gastrointestinal: Gastrointestinal: Reports as per HPI and Denies no additional gastrointestinal complaints Genitourinary: Genitourinary: Reports no additional male genitourinary complaints and Reports as per HPI Musculoskeletal: Musculoskeletal: Reports no additional musculoskeletal complaints and Reports as per HPI Integumentary/Breasts: Skin/Breast: Reports system reviewed and no additional complaints, except as docu Neurologic: Reports system reviewed and no additional complaints, except as documented and Reports as per HPI Psychiatric: Psychiatric: Reports no additional psychiatric complaints and Reports as per HPI Endocrine: Endocrine: Reports no additional endocrine complaints, Reports as per HPI and Denies palpitations Hematologic/Lymphatic: Hematologic/Lymphatic: Reports no additional hematologic/lymphatic complaints and Reports as per HPI Allergic/Immunologic: Allergic/Immunologic: Reports no additional allergic/immunologic complaints and Reports as per HPI [facility] Past Medical History Medical History Obesity hypoventilation syndrome YANELI on CPAP Morbid obesity Restrictive airway disease HTN (hypertension) CKD (chronic kidney disease) stage 3, GFR 30-59 ml/min CHF (congestive heart failure) Obesity Family History Pertinent family history: No pertinent family history. Surgical History Surgical History History of knee surgery Social History Social History Household Members: Spouse and Children Housing: House Do you presently have visiting nurse or other home services: No Unable to assess alcohol history related to: Unknown Alcohol intake: former Comment: pt sleeping at this time Patient Tobacco Use Status: Never used Tobacco Smoked in Last 30 Days: No Second Hand Smoke Exposure: No Use of substances other than those prescribed or required for medical reasons: No Currently Displaying Signs/Symptoms of Drug Intoxication Withdrawal: No Have you been hit, kicked, punched, or otherwise hurt by someone within the past year? If so, by whom?: No Do you feel safe in your current relationship?: No Current Relationship Is there a partner from a previous relationship who is making you feel unsafe now?: No Are you made to feel afraid or neglected: No Advance Directives: Yes Advance Directives on File: Yes Advance Directives Date on File: 04/11/21 Do you have thoughts of harming others: None Do you have a plan to hurt others: No Plan Recently lost weight without trying: No How much weight loss: Not applicable Eating poorly because of decreased appetite: No Nutrition screen score: 0 Nutrition Risks: No Nutritional Risk Poor oral hygiene: No service: No Current occupational status: employed Meds Allergies Allergy/AdvReac Type Severity Reaction Status Date / Time Penicillins [PENICILLINS] Allergy Severe HIVES Verified 06/07/21 19:10 Active Medications: Current Medications Acetaminophen (Acetaminophen 325 Mg Tablet) 650 mg PO Q6H PRN PRN Reason: Pain, Mild (Pain Scale 1-3) Al Hydroxide/Mg Hydroxide (Magnesium Hydrox/Alum Hydrox 30 Ml Oral.Susp) 30 ml PO Q4H PRN PRN Reason: Heartburn/Nausea Allopurinol (Allopurinol 100 Mg Tablet) 50 mg PO SuWe@0900 [facility] Amiodarone HCl (Amiodarone Hcl 200 Mg Tablet) 200 mg PO DAILY [facility] Last Admin: 08/11/23 08:37 Dose: 200 mg Apixaban (Apixaban 5 Mg Tablet) 5 mg PO BID [facility] Last Admin: 08/11/23 08:37 Dose: 5 mg Atorvastatin Calcium (Atorvastatin Calcium 40 Mg Tablet) 40 mg PO BEDTIME [facility] Last Admin: 08/10/23 20:04 Dose: 40 mg Dextrose (Dextrose 50 % 25 Gm/50 Ml Syringe) 25 gm IVPUSH Q15M PRN; Protocol PRN Reason: per Hypoglycemia Standing Ord. Docusate Sodium (Docusate Sodium 100 Mg Capsule) 100 mg PO BID [facility] Last Admin: 08/11/23 08:37 Dose: 100 mg Glucose (Glucose Gel 15 Gm Gel..Gram.) 15 gm PO Q15M PRN; Protocol PRN Reason: per Hypoglycemia Standing Ord. Hydralazine HCl (Hydralazine Hcl 50 Mg Tablet) 50 mg PO TID [facility]; Protocol Last Admin: 08/11/23 08:37 Dose: 50 mg Bumetanide 25 mg/ IV (Miscellaneous Supplies) 100 mls @ 4 mls/hr IVCONT .Q24H [facility] Potassium Chloride (Potassium Chloride/H20) 10 meq in 100 mls @ 100 mls/hr IV Q1H [facility] Stop: 08/11/23 11:59 Insulin Glargine (Insulin Glargine,Hum.Rec.Anlog 100 Unit/Ml 10 Ml Vial) 80 unit SUBCUT DAILY [facility] Last Admin: 08/11/23 08:37 Dose: 80 unit Isosorbide Dinitrate (Isosorbide Dinitrate 20 Mg Tablet) 20 mg PO TID [facility]; Protocol Last Admin: 08/11/23 08:36 Dose: 20 mg Melatonin (Melatonin 3 Mg Tablet) 6 mg PO BEDTIME PRN PRN Reason: Insomnia Metolazone (Metolazone 5 Mg Tablet) 5 mg PO DAILY@0900 [facility] Last Admin: 08/11/23 08:38 Dose: 5 mg Metoprolol Succinate (Metoprolol Succinate Er 25 Mg Tab.Er.24h) 25 mg PO BID [facility]; Protocol Last Admin: 08/11/23 08:36 Dose: 25 mg Mirtazapine (Mirtazapine 7.5 Mg Tablet) 7.5 mg PO BEDTIME [facility] Last Admin: 08/10/23 20:03 Dose: 7.5 mg Morphine Sulfate (Morphine Sulfate 2 Mg/Ml Cartridge) 2 mg IVPUSH Q6H PRN; Protocol PRN Reason: Pain, Severe (Pain Scale 7-10) Last Admin: 08/11/23 08:50 Dose: 2 mg Nitroglycerin (Nitroglycerin 0.4 Mg Tab.Subl) 0.4 mg SUBLINGUAL Q5MX3 PRN PRN Reason: Chest Pain Ondansetron HCl (Ondansetron Hcl 4 Mg/2 Ml Vial) 4 mg IVPUSH Q8H PRN PRN Reason: Nausea and Vomiting Potassium Chloride (Potassium Chloride Packet 20 Meq Packet) 40 meq PO BID [facility] Last Admin: 08/11/23 08:37 Dose: 40 meq Potassium Chloride (Potassium Chloride Er 20 Meq Tab.Er.Prt) 40 meq PO Q6H [facility] Stop: 08/11/23 21:16 Last Admin: 08/11/23 09:28 Dose: 40 meq Senna (Sennosides 8.6 Mg Tablet) 17.2 mg PO BEDTIME PRN PRN Reason: Constipation Sodium Chloride (0.9 % Sodium Chloride Flush 3 Ml Syringe) 3 ml IVFLUSH QSHIFT [facility] Last Admin: 08/11/23 08:56 Dose: 3 ml Tramadol HCl (Tramadol Hcl 50 Mg Tablet) 100 mg PO Q6H PRN PRN Reason: Pain, Severe (Pain Scale 7-10) Last Admin: 08/10/23 09:56 Dose: 100 mg Home Medications Medication Instructions Recorded Confirmed Last Taken Type pen needle, diabetic 31 gauge x 09/07/20 09/24/20 04/10/21 History 5/16 (BD Ultra-Fine Short Pen Needle) atorvastatin 20 mg tablet 40 mg PO BEDTIME 09/24/20 08/10/23 08/09/23 20:00 History potassium chloride 20 mEq oral 40 meq PO BID 09/24/20 08/10/23 08/09/23 20:00 History packet allopurinol 100 mg tablet 1 tab PO DAILY 04/10/21 08/10/23 08/09/23 08:00 History amiodarone 200 mg tablet 200 mg PO DAILY 04/10/21 08/10/23 04/10/21 History apixaban 5 mg tablet (Eliquis) 1 tab PO BID 04/10/21 08/10/23 08/09/23 20:00 History hydralazine 50 mg tablet 1 tab PO TID 04/10/21 08/10/23 08/09/23 20:00 History insulin glargine 100 unit/mL (3 80 unit subcut DAILY 04/10/21 08/10/23 08/09/23 08:00 History mL) subcutaneous pen (Basaglar KwikPen U-100 Insulin) isosorbide dinitrate 10 mg tablet 2 tab PO TID 04/10/21 08/10/23 08/09/23 20:00 History metoprolol succinate 25 mg 1 tab PO BID 04/10/21 08/10/23 08/09/23 20:00 History tablet,extended release 24 hr torsemide 20 mg tablet 80 mg PO BIDWM 04/10/21 08/10/23 08/09/23 20:00 History tramadol 50 mg tablet 2 tab PO Q6H PRN pain 04/10/21 08/10/23 04/10/21 History Physical Exam 2 Vital Signs: Vital Signs: Last Vital Signs Temp 97.1 F 08/11/23 07:23 Pulse 66 08/11/23 07:23 Resp 18 08/11/23 07:23 BP 179/83 H 08/11/23 07:23 Pulse Ox 96 08/11/23 07:23 O2 Del Method Room Air 08/11/23 07:23 BMI result Body Mass Index 42.3 Const: General: comfortable and no acute distress O rientation/consciousness: patient oriented x3 HEENT: Other: Unremarkable Head: Yes normal to inspection Neck: Neck: Yes normal visual inspection Chest: Chest palpation & inspection: normal inspection of the chest Resp: Auscultation: clear to auscultation bilaterally Cardio: Palpation: normal PMI Heart sounds: S1 normal heart sound present, S2 normal heart sound present, no gallops, no murmurs and no rubs GI: Palpation (GI): Soft to palpation Back/Spine/Pelvis: Other: unremarkable Skin: General skin exam: no rashes or lesions noted Neuro: General: patient oriented x3 Extrem: Other: 2+ edema General: Yes normal to inspection Psych: Mental Status: mental status grossly normal Objective Labs and Meds 08/11/23 06:45 08/11/23 06:45 Lab results: Laboratory Results - last 24 hr 08/10/23 08/10/23 08/10/23 11:14 17:18 20:11 WBC RBC Hgb Hct MCV MCH MCHC RDW Plt Count MPV Absolute Nucleated RBC Nucleated RBC % (auto) Sodium Potassium Chloride Carbon Dioxide Anion Gap BUN Creatinine Estim Creat Clear Calc Estimated GFR POC Glucose 196 H 203 H 164 H Random Glucose Calcium Magnesium Total Bilirubin AST ALT Alkaline Phosphatase Total Protein Albumin 25-OH Vitamin D Total PTH Intact U Random Total Protein Urine Creatinine Protein/Creatinin Ratio 08/11/23 08/11/23 08/11/23 03:55 06:45 07:25 WBC 8.3 RBC 4.04 L Hgb 12.7 L Hct 38.4 L MCV 95.0 MCH 31.4 MCHC 33.1 RDW 14.3 Plt Count 134 L MPV 12.6 H Absolute Nucleated RBC 0.000 Nucleated RBC % (auto) 0.0 Sodium 143 Potassium 2.8 L D Chloride 103 Carbon Dioxide 28 Anion Gap 15 BUN 45 H Creatinine 4.31 H* Estim Creat Clear Calc 27.0 Estimated GFR 14 POC Glucose 85 Random Glucose 89 Calcium 9.4 Magnesium 1.8 Total Bilirubin 0.7 AST 15 ALT 8 Alkaline Phosphatase 140 H Total Protein 7.6 Albumin 3.5 25-OH Vitamin D Total 12.8 L PTH Intact 479.3 H U Random Total Protein 200 H Urine Creatinine 39.59 Protein/Creatinin Ratio 5.05 H ECG Interpretation: EKG with sinus rhythm, biventricular pacing, 72/Min. Assessment and Plan (1) Acute on chronic systolic (congestive) heart failure: Status: Acute Plan Low level troponin leak but somewhat flat. Cardiac BNP 468 and 607. Echocardiogram will be reviewed. 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 Fraser as well as Dr. Orr. She is currently on a Bumex drip. Will follow-up with you. Procedures Date of Service Date of Service: 08/11/23
[2023-08-11 11:03] VITALS: BP 150/70; PULSE 72; RESP 18; TEMP 36.7; O2SAT 93
[2023-08-11 11:40] LABS: Glucose, Whole Blood 189 mg/dL (60-115)
[2023-08-11] MEDS: Bumetanide 25 MG in Container,Empty 0 ML 4 MG IVCONT (12:31)
--- NOTE | 2023-08-11 13:45 | P.PNNP_ITS ---
Subjective Subjective Date of Service: 08/11/23 Interval history: Seen AM. All recent data reviewed. overall with increase urine output and feels better yet still with generalized swelling; D/W Hospitalist and Cards Physical Exam 2 Vital Signs: Vital Signs: Last Vital Signs Temp 98.0 F 08/11/23 11:03 Pulse 72 08/11/23 11:03 Resp 18 08/11/23 11:03 BP 150/70 H 08/11/23 11:03 Pulse Ox 93 08/11/23 11:03 O2 Del Method Room Air 08/11/23 11:03 BMI result Body Mass Index 42.3 Const: General: comfortable and no acute distress O rientation/consciousness: patient oriented x3 HEENT: Head: Yes normocephalic Mouth: Normal oral and palatal mucosa present Eyes: EOM: EOMs intact bilaterally Neck: Neck: Yes supple Resp: Auscultation: clear to auscultation bilaterally Cardio: Jugular venous distension: no JVD Rate: regular rate GI: Palpation (GI): Soft to palpation Auscultation: normal bowel sounds : General: Yes no CVA tenderness Back/Spine/Pelvis: Back: no CVA tenderness Skin: General skin exam: no rashes or lesions noted Neuro: General: patient oriented x3 and moves all extremities Extrem: General: Yes edema Objective Data Labs 08/11/23 06:45 08/11/23 06:45 Labs: Laboratory Results - last 24 hr 08/10/23 08/10/23 08/11/23 17:18 20:11 03:55 WBC RBC Hgb Hct MCV MCH MCHC RDW Plt Count MPV Absolute Nucleated RBC Nucleated RBC % (auto) Sodium Potassium Chloride Carbon Dioxide Anion Gap BUN Creatinine Estim Creat Clear Calc Estimated GFR POC Glucose 203 H 164 H Random Glucose Calcium Magnesium Total Bilirubin AST ALT Alkaline Phosphatase Total Protein Albumin 25-OH Vitamin D Total PTH Intact U Random Total Protein 200 H Urine Creatinine 39.59 Protein/Creatinin Ratio 5.05 H 08/11/23 08/11/23 08/11/23 06:45 07:25 11:05 WBC 8.3 RBC 4.04 L Hgb 12.7 L Hct 38.4 L MCV 95.0 MCH 31.4 MCHC 33.1 RDW 14.3 Plt Count 134 L MPV 12.6 H Absolute Nucleated RBC 0.000 Nucleated RBC % (auto) 0.0 Sodium 143 Potassium 2.8 L D Chloride 103 Carbon Dioxide 28 Anion Gap 15 BUN 45 H Creatinine 4.31 H* Estim Creat Clear Calc 27.0 Estimated GFR 14 POC Glucose 85 189 H Random Glucose 89 Calcium 9.4 Magnesium 1.8 Total Bilirubin 0.7 AST 15 ALT 8 Alkaline Phosphatase 140 H Total Protein 7.6 Albumin 3.5 25-OH Vitamin D Total 12.8 L PTH Intact 479.3 H U Random Total Protein Urine Creatinine Protein/Creatinin Ratio Procedures Date of Service Date of Service: 08/11/23 Assessment & Plan Assessment and plan (1) Stage 4 chronic kidney disease: Status: Acute Plan Serum creatinine close to 4 Admitted with hypervolemia On Diuretics/hydralazine/Nitrates-Switched to bumex infusion Needs to keep K over 4.0.Has AICD; Low Na diet/ Daily weights Immunofixation/UP C ratio/PTH /UA had been ordered Shall check Urine Na to assess natriuresis on diuretics No NSAID's/ACEI/ARB for now No need to do a renal USS now No indication for renal replacement C/W rest of current supportive management for now Labs AM; Shall closely follow up Progress Note: Quality Stroke Does the patient have a stroke diagnosis?: No
[2023-08-11 15:22] VITALS: BP 168/85; PULSE 69; RESP 20; TEMP 36.3; O2SAT 96
[2023-08-11 16:40] LABS: Glucose, Whole Blood 240 mg/dL (60-115)
[2023-08-11 19:27] LABS: Anion Gap 14 (12-20); Carbon Dioxide 28 mmol/L (22-29); Chloride 101 mmol/L (96-108); Potassium 3.3 mmol/L (3.3-5.1); Sodium 140 mmol/L (135-145)
[2023-08-11 19:35] VITALS: BP 160/81; PULSE 69; RESP 14; TEMP 36.7; O2SAT 95
[2023-08-11 20:45] LABS: Glucose, Whole Blood 215 mg/dL (60-115)
[2023-08-11] MEDS: Atorvastatin Calcium 40 MG TABLET PO (21:02)
[2023-08-11] MEDS: Mirtazapine 7.5 MG TABLET PO (21:03)
[2023-08-11] MEDS: HYDROmorphone HCl 0.5 MG/0.5 ML SYRINGE IVPUSH (21:03)
[2023-08-11 23:03] VITALS: BP 159/74; PULSE 74; RESP 14; TEMP 36.7; O2SAT 95
[2023-08-12] MEDS: Morphine Sulfate 2 MG/ML CARTRIDGE IVPUSH ×2 (00:59→09:10)
[2023-08-12] MEDS: traMADoL HCL 50 MG TABLET 100 MG PO (03:05)
[2023-08-12 03:29] VITALS: BP 166/64; PULSE 75; RESP 14; TEMP 36.3; O2SAT 97
[2023-08-12] MEDS: diazePAM 10 MG/2 ML CARTRIDGE 2.5 MG IVPUSH (05:10)
[2023-08-12 06:00] VITALS: BMI 42.1
[2023-08-12 06:56] LABS: B Type Natriuretic Peptide 284 pg/mL (<100)
[2023-08-12 07:06] LABS: Anion Gap 15 (12-20); Blood Urea Nitrogen 53 mg/dL (9-16); Calcium 9.6 mg/dL (8.4-10.2); Carbon Dioxide 28 mmol/L (22-29); Chloride 102 mmol/L (96-108); Creatinine Clr Calc Pharmacy 24.3; Estimated Glomerular Filt Rate 12; Glucose Random 198 mg/dL (60-115); Potassium 3.1 mmol/L (3.3-5.1); Sodium 142 mmol/L (135-145)
[2023-08-12 07:38] VITALS: BP 164/85; PULSE 67; RESP 20; TEMP 36.6; O2SAT 95
[2023-08-12 07:45] LABS: Glucose, Whole Blood 181 mg/dL (60-115)
[2023-08-12 07:52] LABS: Magnesium 1.8 mg/dL (1.6-2.6)
[2023-08-12] MEDS: Insulin Glargine,Hum.rec.anlog 100 UNIT/ML 10 ML VIAL 80 UNIT SUBCUT (08:59)
[2023-08-12] MEDS: Isosorbide Dinitrate 20 MG TABLET PO (09:00)
[2023-08-12] MEDS: hydrALAZINE HCl 50 MG TABLET PO (09:00)
[2023-08-12] MEDS: Potassium Chloride ER 20 MEQ TAB.ER.PRT 40 MEQ PO (09:01)
[2023-08-12] MEDS: Potassium Chloride Packet 20 MEQ PACKET 40 MEQ PO (09:01)
[2023-08-12] MEDS: Metoprolol Succinate ER 25 MG TAB.ER.24H PO (09:01)
[2023-08-12] MEDS: Docusate Sodium 100 MG CAPSULE PO (09:01)
[2023-08-12] MEDS: Apixaban 5 MG TABLET PO (09:01)
[2023-08-12] MEDS: 0.9 % Sodium Chloride Flush 3 ML SYRINGE IVFLUSH (09:02)
--- NOTE | 2023-08-12 09:44 | PM.PNCARD ---
Subjective Subjective Date of Service: 08/12/23 Interval history: Patient with improved shortness of breath and leg swelling. He has actually diuresed quite well at -3.3 L. However, he does not feel satisfied and he states that the diuretic was not appropriate for him as it caused cramps. We tried explained that it is standard of care for IV diuretic therapy but he does not seem satisfied. Review of Systems Review of Systems Yes all other systems are reviewed and are negative Constitutional: Reports as per HPI and Reports no additional constitutional complaints Eyes: Reports as per HPI and Denies no additional eye complaints Denies system reviewed and no additional complaints, except as documented and Reports as per HPI Cardiovascular: Reports as per HPI, Reports no additional cardiovascular complaints, Denies acrocyanosis, Denies cool extremities, Denies chest pain, Denies leg edema, Denies lightheadedness, Denies palpitations and Denies dyspnea Respiratory: Reports as per HPI, Denies no additional respiratory complaints and Denies dyspnea Gastrointestinal: Reports as per HPI and Denies no additional gastrointestinal complaints Genitourinary: Reports no additional male genitourinary complaints and Reports as per HPI Musculoskeletal: Reports no additional musculoskeletal complaints and Reports as per HPI Skin/Breast: Reports system reviewed and no additional complaints, except as docu Reports system reviewed and no additional complaints, except as documented and Reports as per HPI Psychiatric: Reports no additional psychiatric complaints and Reports as per HPI Endocrine: Reports no additional endocrine complaints, Reports as per HPI and Denies palpitations Hematologic/Lymphatic: Reports no additional hematologic/lymphatic complaints and Reports as per HPI Allergic/Immunologic: Reports no additional allergic/immunologic complaints and Reports as per HPI Physical Exam Vital Signs: Last Vital Signs Temp 97.8 F 08/12/23 07:38 Pulse 67 08/12/23 07:38 Resp 20 08/12/23 07:38 BP 164/85 H 08/12/23 07:38 Pulse Ox 95 08/12/23 07:38 O2 Del Method Room Air 08/12/23 07:38 BMI result Body Mass Index 42.1 Const General: comfortable and no acute distress Orientation/consciousness: patient oriented x3 HEENT Other: Unremarkable Head: Yes normal to inspection Neck Neck: Yes normal visual inspection Chest Chest palpation & inspection: normal inspection of the chest Resp Auscultation: clear to auscultation bilaterally Cardio Palpation: normal PMI Heart sounds: S1 normal heart sound present, S2 normal heart sound present, no gallops, no murmurs and no rubs GI Palpation (GI): Soft to palpation Back/Spine/Pelvis Other: unremarkable Skin General skin exam: no rashes or lesions noted Neuro General: patient oriented x3 Extrem General: Yes normal to inspection Psych Mental Status: mental status grossly normal Objective Labs and Meds 08/11/23 06:45 08/12/23 05:59 Lab results: Laboratory Results - last 24 hr 08/11/23 08/11/23 08/11/23 11:05 16:19 19:05 Sodium 140 Potassium 3.3 Chloride 101 Carbon Dioxide 28 Anion Gap 14 BUN Creatinine Estim Creat Clear Calc Estimated GFR POC Glucose 189 H 240 H Random Glucose Calcium Magnesium B-Natriuretic Peptide 08/11/23 08/12/23 08/12/23 20:37 05:59 07:35 Sodium 142 Potassium 3.1 L Chloride 102 Carbon Dioxide 28 Anion Gap 15 BUN 53 H Creatinine 4.78 H* Estim Creat Clear Calc 24.3 Estimated GFR 12 POC Glucose 215 H 181 H Random Glucose 198 H Calcium 9.6 Magnesium 1.8 B-Natriuretic Peptide 284 H Progress Note: A&P Assessment and plan (1) Acute on chronic systolic (congestive) heart failure: Status: Acute Plan Records from [facility] reviewed. Nonischemic cardiomyopathy. Ejection fraction has been as low as 20% but improved to the 30s at this time. 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 Has paroxysmal atrial fibrillation/flutter with cardioversion in the past. Cardiac catheterization the past had revealed normal left main, left anterior descending with minimal irregularities and normal circumflex/RCA. In terms of clinical status he does seem significantly improved clinically. BUN/creatinine has gone up a bit. Patient however complains that his main issues now rather having cramps. Explained that that could be from IV diuretics and sometimes it is side effect. He states he does not want any further care here and would like to just get any treatment he needs from [facility]. Dr. Orr was also in the room during the discussion. He will address it further. Time Spent With Patient Time: Total time managing care of this patient today ____ minutes. Progress Note: Quality Stroke Does the patient have a stroke diagnosis?: No Procedures Date of Service Date of Service: 08/12/23
--- NOTE | 2023-08-12 10:15 | MHC.CM.PN ---
Per MD in ROUNDS and Patient, he has chosen to leave AMA. Patient was switched from OBSERVATION to INPATIENT on 08/10/2023; CM addressed IMM with him today.
--- NOTE | 2023-08-12 11:18 | P.DS_ITS ---
DS: Providers Provider Date of Service: 08/12/23 Date of admission: 08/10/23 08:38 Primary care physician: Unknown Physician Consults: 08/10/23 11:47 Consult to Cardiology Routine Consulting Provider: [facility] Reason for consultation: exacerbation of heart failure Has provider been notified: Yes 08/10/23 13:30 Consult to Nephrology Routine Consulting Provider: [facility] Reason for consultation: ckd, worsening Has provider been notified: Yes DS: Diagnosis Discharge Diagnosis (1) Acute on chronic systolic (congestive) heart failure: Status: Acute DS: Summary Hospital Course Hospital Course: Chief Complaint: Shortness of breath x1 week Patient is a 61 year old morbidly obese (BMI 41.6) male with history of hypertension, insulin dependent diabetes mellitus, HFrEF (LVEF 40-45%) s/p AICD placement and currently on Torsemide and Metolazone, atrial fibrillation - (on Xarelto), anxiety/depression, stage 4 CKD, obesity hypoventilation syndrome (on CPAP), restrictive airway disease, osteoarthritis & severe COVID-19 infection in the past who presented to the emergency room for the second time in as many days reporting worsening shortness of breath especially at night with associated PND and musculoskeletal chest pain worse when he takes a deep breath. He has had these symptoms for a week now and was seen in the ED last night and given an e xtra dose of 100 mg of IV Furosemide and sent home. He however returns today reporting persistent symptoms and tonight, he received 80 mg of IV Lasix but is still symptomatic and so admission was requested. He denies any associated cough, fevers or chills. He is compliant with his diuretics and low salt diet. He reports his last weight at home as being 312 lbs and thinks he has gained about 5 lbs Hospital course: The patient was admitted due to acute exacerbation of chronic systolic heart failure, with an ejection fraction of 30%, complicated by advanced CKD stage 4 and significant fluid overload. Initially, treatment included IV Bumex push at 3 mg twice daily alongside Meolazone at 5 mg daily. Despite this, the patient remained fluid overloaded. After assessments by Nephrology and Cardiology services, a recommendation was made for IV Bumex drip at 1 mg/hr. Regrettably, the following day, the patient remained clinically overloaded with fluids. It was deemed crucial to continue IV diuretics and closely monitor fluid status and electrolytes, especially the consistently low potassium levels. However, the patient declined further IV medication, citing muscle cramps. The head start teacher and I proposed medication adjustments, but the patient expressed a preference to leave, opting to follow up with their own physicians in [place], including their national account representative and head start teacher. It was strongly advised that he continues Torsemide regimen and potassium supplement, acknowledging that he was choosing to leave against medical advice. He was made aware of the potential risks to his health, including the worsening of his condition or even the possibility of . Despite understanding these risks, the patient opted to leave the hospital, with a strong recommendation to call 911 if their condition worsened and to diligently follow up with his doctors, including the kidney specialist, youth services specialist, and primary care provider. Time Attestation Discharge coordination time: Greater than 30 minutes Quality: Safe Use of Opioids Does Pt have an Active Cancer Diagnosis on the Problem List?: No Quality: Stroke Does the patient have a stroke diagnosis?: No Physical Exam Vital Signs: Vital Signs: Last Vital Signs Temp 97.8 F 08/12/23 07:38 Pulse 67 08/12/23 07:38 Resp 20 08/12/23 07:38 BP 164/85 H 08/12/23 07:38 Pulse Ox 95 08/12/23 07:38 O2 Del Method Room Air 08/12/23 07:38 BMI result Body Mass Index 42.1 DS: Data Data Completed and Pending Completed studies during hospitalization [Text1]: Procedures Assistance with Respiratory Ventilation, 24-96 Consecutive Hours, Continuous Positive Airway Pressure (09/07/20) Insertion of Infusion Device into Superior Vena Cava, Percutaneous Approach (09/07/20) Ultrasonography of Superior Vena Cava, Guidance (09/07/20) Labs on day of discharge: Laboratory Results - last 24 hr 08/11/23 08/11/23 08/11/23 11:05 16:19 19:05 Sodium 140 Potassium 3.3 Chloride 101 Carbon Dioxide 28 Anion Gap 14 BUN Creatinine Estim Creat Clear Calc Estimated GFR POC Glucose 189 H 240 H Random Glucose Calcium Magnesium B-Natriuretic Peptide 08/11/23 08/12/23 08/12/23 20:37 05:59 07:35 Sodium 142 Potassium 3.1 L Chloride 102 Carbon Dioxide 28 Anion Gap 15 BUN 53 H Creatinine 4.78 H* Estim Creat Clear Calc 24.3 Estimated GFR 12 POC Glucose 215 H 181 H Random Glucose 198 H Calcium 9.6 Magnesium 1.8 B-Natriuretic Peptide 284 H Discharge Plan Discharge Anticipated Discharge Date/Time: 08/12/23 11:16 Patient Disposition: Home, Self-Care Discharge Diagnosis: Acute systolic heart failure, CKD cardiorenal syndrome Referrals: Physician,Unknown J [Primary Care Provider] - 1 Week Discharge Medications: No Action (DME) pen needle, diabetic [BD Ultra-Fine Short Pen Needle] 31 gauge x 5/16 needle subcut atorvastatin 20 mg Tablet 40 mg PO BEDTIME potassium chloride 20 mEq Packet 40 meq PO BID (DME) [place] [facility] [place]ROUTE .MEDSUPPLY Qty: 1 0RF Rx Instructions: As directed mirtazapine 7.5 mg tablet 7.5 mg PO BEDTIME Qty: 30 0RF (DME) [place] [facility] [place]ROUTE .MEDSUPPLY Qty: 1 0RF Rx Instructions: As directed Eliquis 5 mg tablet 1 tab PO BID isosorbide dinitrate 10 mg tablet 2 tab PO TID tramadol 50 mg tablet 2 tab PO Q6H PRN (Reason: pain) insulin glargine [Basaglar KwikPen U-100 Insulin] 100 unit/mL (3 mL) insulin pen 80 unit subcut DAILY Patient Comments: PT CHANGES DOSE DAILY DEPENDING ON FASTING BG LEVEL torsemide 20 mg tablet 80 mg PO BIDWM Protocol: Hold for SBP< HOLD for SBP < : 90 amiodarone 200 mg tablet 200 mg PO DAILY allopurinol 100 mg tablet 1 tab PO DAILY hydralazine 50 mg tablet 1 tab PO TID metoprolol succinate 25 mg tablet extended release 24 hr 1 tab PO BID Diet: Diabetic diet Activity on Discharge: As tolerated Stand Alone Forms: Patient Portal Discharge page Care Plan Goals: to breath comfortably from heart failure perspective and optimize medical management for heart faiure and kidney faiure Health Concerns: failure chronic heart failure chronic kidney disease hypokalemia Plan of Treatment: continue taking your medications as before including torsemide take potassium supplement as recommended follow-up with your doctors including your kidney doctor, your heart doctor, and your primary care provider. Call 911 if your condition worsen including shortness of breath chest pain Assessment: as above
[2023-08-12 13:22] LABS: IgA 275 mg/dL (70-320); IgG 1759 mg/dL (600-1540); IgM 86 mg/dL (50-300)
== END 2023-08-12 12:55 | disposition left against medical advice (07) | DRG 291 ==
LOC: HO.ED 02:23 → HO.EDOVER 05:09 → HO.IMC 14:55
PROVIDERS: Internal Medicine Nephrology; Admitting Provider Internal Medicine; Emergency Provider Emergency Medicine; Visit Provider Internal Medicine
DX: I13.0 Hypertensive heart and chronic kidney disease with heart failure and stage 1 through stage 4 chronic kidney disease, or unspecified chronic kidney disease (principal); I50.23 Acute on chronic systolic (congestive) heart failure; N18.4 Chronic kidney disease, stage 4 (severe); E87.1 Hypo-osmolality and hyponatremia; Z68.41 Body mass index [BMI] 40.0-44.9, adult; E66.2 Morbid (severe) obesity with alveolar hypoventilation; Z95.810 Presence of automatic (implantable) cardiac defibrillator; I42.8 Other cardiomyopathies; D69.6 Thrombocytopenia, unspecified; E87.6 Hypokalemia; E11.22 Type 2 diabetes mellitus with diabetic chronic kidney disease; Z20.822 Contact with and (suspected) exposure to COVID-19; Z79.4 Long term (current) use of insulin; Z79.01 Long term (current) use of anticoagulants; Z79.899 Other long term (current) drug therapy
CPT/HCPCS: 0241U; 36415; 71046; 71250; 80048; 80051; 80053; 82306; 82570; 82784; 82947; 83735; 83880; 83970; 84156; 84484; 85025; 85027; 86334; 90686; 93005; 99285; J1170; J1940; J2270; J3360

== ENCOUNTER → 2023-08-10 01:05 | Outpatient (BNV) | payer MEDICAID, SELFPAY | PROVIDERS: Admitting Provider Internal Medicine; Emergency Provider Emergency Medicine; Visit Provider Internal Medicine | DX: R94.31 Abnormal electrocardiogram [ECG] [EKG] (principal) | CPT/HCPCS: 93010 ==

== ENCOUNTER → 2023-08-10 05:02 | Outpatient (BNV) | payer MEDICAID, SELFPAY | PROVIDERS: Admitting Provider Internal Medicine; Emergency Provider Emergency Medicine; Visit Provider Internal Medicine | DX: I50.23 Acute on chronic systolic (congestive) heart failure (principal); N18.4 Chronic kidney disease, stage 4 (severe); E66.01 Morbid (severe) obesity due to excess calories; Z68.41 Body mass index [BMI] 40.0-44.9, adult; E66.2 Morbid (severe) obesity with alveolar hypoventilation | CPT/HCPCS: 99223; 99233; 99239; 99499 ==

== ENCOUNTER → 2023-08-10 08:38 | Outpatient (BNV) | payer MEDICAID, SELFPAY | PROVIDERS: Admitting Provider Internal Medicine; Emergency Provider Emergency Medicine; Visit Provider Internal Medicine | DX: I50.23 Acute on chronic systolic (congestive) heart failure (principal) | CPT/HCPCS: 99223; 99233 ==

== ENCOUNTER → 2023-08-10 08:38 | Outpatient (BNV) | payer MEDICAID, SELFPAY | PROVIDERS: Admitting Provider Internal Medicine; Emergency Provider Emergency Medicine; Visit Provider Internal Medicine Nephrology | DX: N18.4 Chronic kidney disease, stage 4 (severe) (principal) | CPT/HCPCS: 99222; 99232 ==